=== PATIENT | female | born 1950 | race Caucasian/White ===

== ENCOUNTER 2019-09-08 11:57 | Outpatient (CLI) | payer MEDICARE, SELFPAY ==
[2019-09-08 13:08] LABS: Basophils Absolute Auto 0.1 K/mm3 (0.0-0.1); Eosinophils Absolute Auto 0.3 K/mm3 (0-0.3); Eosinophils Percent Auto 5.7 % (0-4.4); Hemoglobin 14.8 g/dL (12.0-15.0); Immature Granulocyte Absolute 0.02 K/mm3 (0.00-0.031); Immature Granulocyte Percent A 0.4 % (0-0.5); Lymphocytes Percent Auto 24.9 % (18.3-44.2); Mean Corpuscular HGB Conc 32.9 g/dl (32-36); Mean Corpuscular Hemoglobin 32.8 pg (26-34); Mean Corpuscular Volume 99.8 fl (80-100); Mean Platelet Volume 8.9 fl (7.4-10.4); Monocytes Absolute Auto 0.4 K/mm3 (0.1-0.6); Neutrophils Absolute Auto 3.1 K/mm3 (1.3-6.7); Platelet Count Result 187 k/mm3 (150-375); Red Blood Count 4.51 M/mm3 (4.2-5.4); Red Cell Distribution Width 13.5 % (11.5-14.5); White Blood Count 5.2 K/mm3 (4.5-10.0)
[2019-09-08 13:15] LABS: Urine Cotinine NEGATIVE
[2019-09-08 13:16] LABS: Prothrombin Time 13.1 Seconds (11.1-14.7)
[2019-09-08 13:17] LABS: Add Urine Microscopic? YES; Appearance Urine Clear (Clear); Bacteria Urine Trace /hpf; Bilirubin Urine Negative (Negative); Blood Urine Negative (Negative); Color Urine Yellow (Yellow); Glucose Urine UA Negative (Negative); Ketones Urine Trace mg/dL (Negative); Leukocyte Esterase Ur Trace LEU/UL (Negative); Mucus Urine Few /lpf; Nitrate Urine Negative (Negative); Partial Thromboplastin Time 28.1 SECONDS (22.3-36.8); Protein Urine Negative (Negative); RBC Urine 0-2 /hpf (0-2); Specific Grav Ur 1.025 (1.001-1.035); Squamous Epithelial Cell Urine Moderate /hpf (Few); Urobilinogen Urine Negative mg/dL (<2.0); WBC Urine 0-3 /hpf
[2019-09-08 13:30] LABS: Albumin Level 4.2 g/dL (3.5-5.1); Blood Urea Nitrogen 14 mg/dL (7-17); Calcium 9.2 mg/dL (8.4-10.2); Carbon Dioxide 27 mmol/L (22-30); Chloride 105 mmol/L (98-107); Estimated Glomerular Filt Rate > 60; Glucose 87 mg/dL (65-105); Potassium 4.2 mmol/L (3.4-5.0); Sodium 138 mmol/L (137-145)
[2019-09-08 13:41] LABS: Hemoglobin A1C 5.2 % (<5.7)
== END 2019-09-08 11:58 | disposition home or self-care (01) ==
LOC: ANHSURGERY 12:02
PROVIDERS: PCP Family Medicine; Visit Provider Orthopaedic Surgery
DX: Z01.818 Encounter for other preprocedural examination (principal); M17.11 Unilateral primary osteoarthritis, right knee
CPT/HCPCS: 36415; 80048; 80307; 81001; 82040; 83036; 85025; 85610; 85730; 87081

== ENCOUNTER 2019-11-17 14:21 | Outpatient (CLI) | payer MEDICARE, SELFPAY ==
[2019-11-17 14:38] LABS: Hematocrit 46.3 % (35.0-42.0); Hemoglobin 15.5 g/dL (11.7-13.8)
[2019-11-17 14:39] LABS: Add Urine Microscopic? NO; Appearance Urine Clear (Clear); Bilirubin Urine Negative (Negative); Blood Urine Negative (Negative); Color Urine Yellow (Yellow); Glucose Urine UA Negative (Negative); Ketones Urine Negative (Negative); Leukocyte Esterase Ur Negative (Negative); Nitrate Urine Negative (Negative); Protein Urine Negative (Negative); Specific Grav Ur 1.015 (1.010-1.020); Urobilinogen Urine 0.2 mg/dL (0.2-1.0)
[2019-11-17 14:51] LABS: Alanine Aminotransferase 23 U/L (14-59); Albumin Level 3.8 g/dL (3.4-5.0); Alkaline Phosphatase 77 U/L (46-116); Ammonia 12 umol/L (11-32); Anion Gap 14.7 mmol/L (7-16); Aspartate Amino Transferase 16 U/L (15-37); Bilirubin,Total 0.5 mg/dL (0.00-1.00); Calcium 8.9 mg/dL (8.5-10.1); Carbon Dioxide 28 mmol/L (21-32); Chloride 104 mmol/L (98-108); Estimated Glomerular Filt Rate > 60; GGT 28 U/L (5-55); Glucose 100 mg/dL (70-99); Potassium 4.7 mmol/L (3.5-5.1); Sodium 142 mmol/L (136-145); Total Protein 7.2 g/dL (6.4-8.2)
[2019-11-17 14:52] LABS: Partial Thromboplastin Time 27.6 SEC (22.3-31.6); Prothrombin Time 10.6 Seconds (9.64-11.0)
[2019-11-17 14:56] LABS: Blood Urea Nitrogen 19 mg/dL (7-18); Osmolality Calculated 296 mOsm/kg (285-295)
== END 2019-11-17 14:22 | disposition home or self-care (01) ==
LOC: CHSLAB 14:23
PROVIDERS: PCP Family Medicine; Visit Provider Family Medicine
DX: G20 Parkinson's disease (principal); F10.21 Alcohol dependence, in remission; I10 Essential (primary) hypertension; R94.5 Abnormal results of liver function studies; N39.0 Urinary tract infection, site not specified; Z79.01 Long term (current) use of anticoagulants
CPT/HCPCS: 36415; 80053; 81003; 82140; 82977; 85014; 85018; 85610; 85730; 87086; 87088

== ENCOUNTER 2019-11-28 11:23 | Outpatient (CLI) | payer MEDICARE, SELFPAY ==
[2019-11-28 12:02] LABS: Basophils Percent Auto 0.6 % (0.2-1.2); Eosinophils Absolute Auto 0.3 K/mm3 (0-0.3); Hematocrit 46.6 % (37.0-47.0); Hemoglobin 15.8 g/dL (12.0-15.0); Immature Granulocyte Absolute 0.01 K/mm3 (0.00-0.031); Immature Granulocyte Percent A 0.2 % (0-0.5); Lymphocytes Absolute Auto 1.55 K/mm3 (0.9-3.2); Lymphocytes Percent Auto 24.1 % (18.3-44.2); Mean Corpuscular HGB Conc 33.9 g/dl (32-36); Mean Corpuscular Hemoglobin 33.5 pg (26-34); Mean Corpuscular Volume 98.9 fl (80-100); Mean Platelet Volume 9.4 fl (7.4-10.4); Monocytes Absolute Auto 0.5 K/mm3 (0.1-0.6); Monocytes Percent Auto 7.3 % (2.6-8.5); Neutrophils Percent Auto 62.8 % (45.5-73.1); Platelet Count Result 223 k/mm3 (150-375); Red Blood Count 4.71 M/mm3 (4.2-5.4); Red Cell Distribution Width 13.2 % (11.5-14.5); White Blood Count 6.4 K/mm3 (4.5-10.0)
[2019-11-28 12:11] LABS: Add Urine Microscopic? YES; Appearance Urine Clear (Clear); Bilirubin Urine Negative (Negative); Color Urine Yellow (Yellow); Glucose Urine UA Negative (Negative); Ketones Urine Negative (Negative); Leukocyte Esterase Ur 2+ LEU/UL (Negative); Mucus Urine Few /lpf; Nitrate Urine Negative (Negative); Protein Urine Negative (Negative); RBC Urine 0-2 /hpf (0-2); Squamous Epithelial Cell Urine Many /hpf (Few); Urobilinogen Urine Negative mg/dL (<2.0)
[2019-11-28 12:16] LABS: Urine Cotinine NEGATIVE
[2019-11-28 12:53] LABS: Blood Urine Negative (Negative); Specific Grav Ur 1.032 (1.001-1.035)
== END 2019-11-28 11:24 | disposition home or self-care (01) ==
LOC: ANHSURGERY 11:25
PROVIDERS: PCP Family Medicine; Visit Provider Orthopaedic Surgery
DX: M19.90 Unspecified osteoarthritis, unspecified site (principal); Z01.812 Encounter for preprocedural laboratory examination
CPT/HCPCS: 36415; 80307; 81001; 85025; 86850; 86900; 86901; 87081; 87086; 87088

== ENCOUNTER 2019-12-01 00:12 | Outpatient (CLI) | payer MEDICARE, SELFPAY ==
[2019-12-01 16:41] LABS: SARS-CoV-2 RNA PCR Negative
== END 2019-12-01 00:13 | disposition home or self-care (01) ==
LOC: ANHCOVIDDT 00:12
PROVIDERS: PCP Family Medicine; Visit Provider Orthopaedic Surgery
DX: Z01.812 Encounter for preprocedural laboratory examination (principal); Z20.828 Contact with and (suspected) exposure to other viral communicable diseases
CPT/HCPCS: 87635; C9803; U0003

== ENCOUNTER 2019-12-04 14:01 | Observation (INO) | payer MEDICARE, SELFPAY ==
[2019-09-08 12:34] VITALS: BMI 29.2
[2019-09-08 13:06] VITALS: BP 147/67; PULSE 63; RESP 18; TEMP 36.8; O2SAT 96
[2019-11-26 15:17] VITALS: BMI 29.2
--- NOTE | 2019-12-02 15:21 | WPDANESEPPF ---
Anes - Initial Pre Proc Eval Procedure: Operation Date: 12/03/19 07:30 Proposed Procedures p Right Total Knee Arthroplasty - Jd Mitchell MD Date/Time: 12/02/19 15:21 Surgeon: Jd Mitchell MD Pre Op Diagnosis: Right Knee OA Patient Data Age: 69 Gender: F Height: 1.6 m Weight: 74.9 kg Last Vital Signs Temp 36.8 C 09/08/19 13:06 Pulse 63 09/08/19 13:06 Resp 18 09/08/19 13:06 BP 147/67 H 09/08/19 13:06 Pulse Ox 96 09/08/19 13:06 Allergies Allergy/AdvReac Type Severity Reaction Status Date / Time lisinopril Allergy Mild cough Verified 11/26/19 15:07 Home Medications Medication Instructions Recorded Confirmed Type glucosamine sulfate 500 mg tablet 500 mg PO DAILY 07/07/19 11/26/19 History montelukast 10 mg tablet 10 mg PO DAILY 07/07/19 11/26/19 History pantoprazole 40 mg tablet,delayed 40 mg PO QAM 07/07/19 11/26/19 History release valacyclovir 1 gram tablet 1,000 mg PO DAILY 08/05/19 11/26/19 History umeclidinium 62.5 mcg-vilanterol 1 inhalation INHALATION Q24H #60 08/14/19 11/26/19 Rx 25 mcg/actuation powdr for each inhalation acetaminophen [Tylenol Arthritis 650 mg PO Q12H PRN 09/08/19 11/26/19 History Pain] tramadol 50 mg tablet 50 mg PO Q6H PRN #90 tablet 10/21/19 11/26/19 Rx losartan 100 mg tablet 50 mg PO DAILY #45 tablet 11/10/19 11/26/19 Rx cholecalciferol (vitamin D3) 25 25 mcg PO DAILY 11/20/19 11/26/19 History mcg (1,000 unit) capsule diclofenac sodium 75 mg 75 mg PO BID #60 tablet 11/20/19 11/26/19 Rx tablet,delayed release sulfamethoxazole 800 1 tablet PO Q12H #6 tablet 12/02/19 Rx mg-trimethoprim 160 mg tablet Patient hx anesthesia problems: none Family hx anesthesia problems: none PMFSH Past Medical History Medical History (Updated 12/02/19 @ 15:24 by Robin Lemus MD) Abdominal hernia Acid reflux Arthritis Benign hypertension Benign reactive hypertension COPD (chronic obstructive pulmonary disease) Degenerative joint disease of knee Herpes genitalis in women High cholesterol History of tobacco use disorder History of vaginal delivery x 2 Hyperlipidemia Overweight (BMI 25.0-29.9) S/P ORIF (open reduction internal fixation) fracture distal radius Skin cancer Surgical History Surgical History Hx of rotator cuff surgery Hx of total hip arthroplasty Social History Social History Smoking packs per day: 2 Smoking cigarettes per day: 40.0 Years smoked: 30 Smoking pack-years: 60.00 Smoking status: Former smoker Tobacco type: cigarettes Second hand tobacco smoke exposure: Yes Smoking end date: 07/02/11 Alcohol intake: current Drinks per week: 3 Substance use: never Substance use type: does not use Additional occupation/education comments: laid off due to covid-19 Gender identity (if verbalized by the patient): Female Anes - Eval Final PreProcedure Day of Procedure 12/02/19 15:21 Patient weight: overweight Heart: regular rate and rhythm Lungs: clear to auscultation and normal air movement Airway: Mallampati scale class II Neurological: alert and oriented Last oral intake: >/= 8 hours ASA classification: III Emergent: no Anesthetic plan: proceed Anesthesia type and monitoring: general LMA Informed Consent: The patient's anesthetic plan and its attendant risks and benefits were discussed with the patient/family/POA. Questions were solicited and answers provided to the satisfaction of the patient/family/POA.
[2019-12-03] VITALS (12 sets, daily range): BP systolic 114–138; BP diastolic 63–79; PULSE 61–73; RESP 12–16; TEMP 36.2–37.1; O2SAT 61–100
[2019-12-03] MEDS: LACTATED RINGERS 1,000 ML 30 ML IV CONT ×2 (06:35→09:56)
[2019-12-03] MEDS: IBUPROFEN IV 800 MG/200 ML 800 MG/200 ML BAG 400 MG IVPB (06:55)
[2019-12-03] MEDS: TRANEXAMIC ACID 1,000MG/ISO100 1,000 MG/100 ML BAG 200 MG IVPB (06:55)
--- NOTE | 2019-12-03 07:34 | WPDANESPNB ---
Anes - Peripheral Nerve Block Date/Time: 12/03/19 07:34 I have discussed with the patient/family/POA the placement of a peripheral nerve block for post-operative pain management, including associated risks, benefits, complications, and side effects. Alternative methods of post-operative analgesia were detailed. Questions were solicited and answers provided to the satisfaction of the patient/family/POA. Time-Out: A pre-procedural Time-Out was completed immediately before starting the procedure and confirmed: Patient Identification, Site, Procedure, Patient Position and the Availability of Requisite Equipment. Clinical Indications: Acute post-operative pain management requested by the operative surgeon. Nerve Block Insertion Note Anes-nerve block: femoral (20cc) right Patient position: supine Skin prep: chlorhexidine Needle: 22 gauge, stimulating, insulated echogenic needle. Needle length: 80 mm Technique: ultrasound (in plane) Injectate: bupivacaine 0.5% with epi 5 mcg/ml (20cc) Observations: tolerated well Complications: none Procedure start time:: 725 Procedure end time:: 730
--- NOTE | 2019-12-03 07:37 | WPDHPUPDATE1 ---
History and Physical Update Update Date/Time: 12/03/19 07:37 History and Physical has been reviewed, including an updated exam of the patient. There are NO changes in the patient's condition. Risks, benefits, and alternatives have been discussed and questions answered. Patient agrees to proceed with procedure.
--- NOTE | 2019-12-03 07:41 | SUR.PREOP ---
0730- SPOKE WITH DR. JENKINS ABOUT PT GETTING VANCO IN PRE OP. HE STATED THAT WAS FINE, HE STILL WANTS PT TO GET ANCEF 2 G DURING PROCEDURE.
[2019-12-03] MEDS: ceFAZolin 2 GM/D5W 50 ML 2 GM/50 ML BAG IVPB ×2 (07:47→16:11)
[2019-12-03] MEDS: TRANEXAMIC ACID 1,000 MG/10 ML AMPUL 1000 MG IV PUSH (09:17)
--- NOTE | 2019-12-03 09:50 | PM.OP ---
Procedure Note - Brief Procedure Note - Brief Date of procedure: 12/03/19 Pre-op diagnosis: Right Knee OA Post-op diagnosis: same Procedure performed: R TKA Anesthesia: GETA Surgeon: Jd Mitchell MD Estimated blood loss (mL): 100 Complications: No immediate complications Condition: stable Disposition: PACU
--- NOTE | 2019-12-03 11:04 | SUR.PHASEI ---
1100 SPOKE WITH GRANDDAUGHTER CAMILLE PER PHONE- UPDATE GIVEN.
--- NOTE | 2019-12-03 12:03 | PM.OP ---
Procedure Note - Brief Procedure Note - Brief Date of procedure: 12/03/19 Pre-op diagnosis: Right KNEE DJD Post-op diagnosis: same Procedure performed: R TKA Anesthesia: GLMA and GETA Surgeon: Jd Mitchell MD Estimated blood loss (mL): 100 Complications: No immediate complications Condition: stable Disposition: PACU
--- NOTE | 2019-12-03 13:27 | OP_ITS ---
DATE OF PROCEDURE: 12/03/2019 PREOPERATIVE DIAGNOSIS: Right knee DJD. POSTOPERATIVE DIAGNOSIS: Right knee DJD. PROCEDURE: Right total knee arthroplasty. ANESTHESIA: General. COMPLICATIONS: None. INDICATIONS: This is a 69-year-old female who has severe arthrosis to the right knee. She was indicated for right total knee arthroplasty. DESCRIPTION OF PROCEDURE: The patient was taken to the operating room in stable condition and placed in the supine position. General anesthesia was induced, and then the right lower extremity was prepped and draped sterilely from the toes to the thigh. A midline skin incision was made. Medial parapatellar arthrotomy was made. Patella was everted. There was severe arthrosis in all 3 compartments of the knee joint. IM shannan was placed in the femur. Distal femoral cut was made at 5 degrees of valgus removing approximately 9 mm of bone from the high side. The knee was sized to 62.5, so a cutting block was placed in 3 degrees of external rotation and alignment with Whitesides line. Anterior, posterior, and chamfer cuts were made to the femur. Next, an IM shannan was placed in the tibia and transtibial cut was made with a cutting guide, removing approximately 10 mm of bone from the high side of the tibia. The tibia was planed to a smooth surface. Posterior osteophytes were removed with osteotome. A 69 tibial trial was placed in alignment with one-third medial aspect of the tibial tubercle, and then a 62.5 femoral trial was placed, and then eventually a 12 poly was used. The knee came out to full extension. There was good stability in anterior and posterior plane. There was good varus and valgus stability as well on the flexion and extension and the patella tracked without any tilt. The trial instrumentation was removed, and then a Biomet tibial component measuring 69 and a femoral component measuring 62.5 were both cemented into place, and then a 12 poly component was tapped into place and secured. The knee came out to full extension until cement was hardened. Once cement was hardened, excess cement was removed from the periphery of the implant. The knee came out to full extension. There was good tracking of the patella. There was good varus and valgus stability in all planes. There was good anterior-posterior stability. The tourniquet was deflated. Bleeders were cauterized. The wound was irrigated with Betadine and sterile water for approximately 3 minutes, and then it was washed out. The arthrotomy was approximated with #1 Vicryl suture, subcutaneous tissues with 2-0 Vicryl, and skin was approximated yancy. Wound was washed and placed sterile dressing. Jim I MT: Dusty
[2019-12-03] MEDS: DIAZEPAM 5 MG TABLET PO (16:06)
[2019-12-03] MEDS: DOCUSATE SODIUM 100 MG CAPSULE PO (16:08)
[2019-12-03] MEDS: CELECOXIB 200 MG CAPSULE PO (16:08)
--- NOTE | ~2019-12-04 | XR_ITS ---
EXAMINATION: XR knee RT 2V DATE: 12/03/2019 10:05 INDICATION: Total right knee arthroplasty. Postop. TECHNIQUE: 2 views of right knee were obtained. COMPARISON: Right knee radiographs 07/07/2019 FINDINGS: There is a total right hip arthroplasty without patellar resurfacing in near-anatomic align ment. No fracture. There is gas in the knee joint and soft tissues, consistent with recent surgery. A nterior skin yancy are noted. IMPRESSION: 1. Total right knee arthroplasty in near-anatomic alignment. Reviewed, dictated and finalized at location A.
[2019-12-04] MEDS: ceFAZolin 2 GM/D5W 50 ML 2 GM/50 ML BAG IVPB ×2 (00:24→08:24)
[2019-12-04] MEDS: MORPHINE SULFATE 4 MG/ML INJ IV PUSH (02:18)
[2019-12-04 05:27] LABS: Basophils Percent Auto 0.4 % (0.2-1.2); Eosinophils Absolute Auto 0.3 K/mm3 (0-0.3); Eosinophils Percent Auto 4.5 % (0-4.4); Hematocrit 38.7 % (37.0-47.0); Hemoglobin 12.6 g/dL (12.0-15.0); Immature Granulocyte Absolute 0.02 K/mm3 (0.00-0.031); Immature Granulocyte Percent A 0.3 % (0-0.5); Lymphocytes Absolute Auto 0.99 K/mm3 (0.9-3.2); Lymphocytes Percent Auto 13.1 % (18.3-44.2); Mean Corpuscular HGB Conc 32.6 g/dl (32-36); Mean Corpuscular Hemoglobin 32.8 pg (26-34); Mean Corpuscular Volume 100.8 fl (80-100); Mean Platelet Volume 9.9 fl (7.4-10.4); Monocytes Absolute Auto 0.6 K/mm3 (0.1-0.6); Monocytes Percent Auto 7.3 % (2.6-8.5); Neutrophils Absolute Auto 5.6 K/mm3 (1.3-6.7); Neutrophils Percent Auto 74.4 % (45.5-73.1); Platelet Count Result 154 k/mm3 (150-375); Red Blood Count 3.84 M/mm3 (4.2-5.4); Red Cell Distribution Width 13.3 % (11.5-14.5); White Blood Count 7.6 K/mm3 (4.5-10.0)
[2019-12-04 05:41] LABS: Blood Urea Nitrogen 10 mg/dL (7-17); Calcium 8.5 mg/dL (8.4-10.2); Carbon Dioxide 25 mmol/L (22-30); Chloride 106 mmol/L (98-107); Estimated CRCL calculation 63 ml/min; Estimated Glomerular Filt Rate > 60; Glucose 103 mg/dL (65-105); Sodium 136 mmol/L (137-145)
[2019-12-04 06:00] VITALS: BP 123/50; PULSE 69; RESP 12; TEMP 36.8; O2SAT 91
[2019-12-04] MEDS: CHOLECALCIFEROL 1,000 UNIT TABLET 1000 UNITS PO (08:25)
[2019-12-04] MEDS: CELECOXIB 200 MG CAPSULE PO ×2 (08:25→17:21)
[2019-12-04] MEDS: ASPIRIN 325 MG ENTERIC TABLET 650 MG PO (08:25)
[2019-12-04] MEDS: DOCUSATE SODIUM 100 MG CAPSULE PO ×2 (08:26→17:21)
[2019-12-04] MEDS: MONTELUKAST SODIUM 10 MG TABLET PO (08:26)
[2019-12-04] MEDS: PANTOPRAZOLE 40 MG TABLET PO (08:26)
[2019-12-04] MEDS: LOSARTAN POTASSIUM 50 MG TABLET PO (08:26)
--- NOTE | 2019-12-04 08:40 | PM.PNORT ---
Progress Note: A&P Assessment and Plan (1) Status post total knee replacement: Qualifiers: Laterality: right Qualified Code(s): Z96.651 - Presence of right artificial knee joint Code(s): Z96.659 - Presence of unspecified artificial knee joint Status: Acute Assessment and Plan: POD #1: RIGHT TKA VSS, afebrile. H/H Stable. NV intact aside from block. +ankle dorsiflexion/plantarflexion. Negative Arias's Sign. 2+ Pedal pulses. Continue PT/OT. Walker. Fall Risk. Continue pain control. Continue DVT prophylaxis with aspirin. Ice. No pillows under knee. SCDs. Incentive Spirometry. Dispo: Home with Home Health pending progress with PT/OT (2) Degenerative joint disease of knee: Qualifiers: Osteoarthritis type: primary Laterality: right Qualified Code(s): M17.11 - Unilateral primary osteoarthritis, right knee Code(s): M17.10 - Unilateral primary osteoarthritis, unspecified knee Status: Acute Subjective Subjective Date/Time Seen: 12/04/19 08:40 Post Op day: 1 Principal diagnosis: Right Knee DD Interval history: POD #1: RIGHT TKA Patient doing well. Pain well controlled. Up in chair, eating breakfast. No additional complaints. Review of Systems Review of Systems: All systems reviewed & are unremarkable except as noted in HPI and below Constitutional: Constitutional: Denies chills, Denies fever(s), Denies headache(s) and Denies night sweats ENT: Denies headache(s) Cardiovascular: Cardiovascular: Denies chest pain, Denies diaphoresis, Reports lightheadedness, Denies palpitations and Denies dyspnea Respiratory: Respiratory: Denies cough, Denies dyspnea and Denies wheezing Gastrointestinal: Gastrointestinal: Denies abdominal pain, Denies constipation, Denies nausea and Denies vomiting Genitourinary: Genitourinary: Reports nocturia and Denies dysuria Musculoskeletal: Musculoskeletal: Reports arthralgias (Right Knee ) and Reports joint swelling (Right Knee ) Neurologic: Denies headache(s) Endocrine: Endocrine: Denies palpitations Exam Const: General: comfortable and no acute distress Resp: Effort & Inspection: normal respiratory effort Cardio: Rate: regular rate Rhythm: regular rhythm GI: GI Palp: Yes Soft to palpation, No Tenderness to palpation present (GI) and No Guarding due to palpation present (GI) Skin: Wounds: wounds noted Other: Incision c/d/i. No surrounding redness/warmth. No hematoma. Mild ecchymosis. No wound dehiscence Neuro: Cognition (Neuro): normal cognition Other: NV intact aside from block. Moves toes. Sensation intact to light touch. +ankle dorsiflexion/plantarflexion. Extrem: Right upper extremity: normal to inspection, full ROM and normal capillary refill Left upper extremity: normal to inspection, full ROM and normal capillary refill Right lower extremity: normal to inspection, full ROM (ROM limited due to recent surgical intervention ) and knee Details: tenderness (diffuse, mild ) and swelling (diffuse, mild ) Left lower extremity: normal to inspection Psych: Mental Status: mental status grossly normal Objective Data Vital Signs Vital Signs: Vital Signs - 24 hr 12/03/19 09:56 12/03/19 10:10 12/03/19 10:25 Temperature 36.9 C Pulse Rate 73 69 72 Respiratory Rate 12 12 14 Blood Pressure 125/79 138/72 129/70 Pulse Oximetry 100 100 99 12/03/19 10:40 12/03/19 10:55 12/03/19 11:10 Temperature Pulse Rate 67 68 69 Respiratory Rate 12 14 14 Blood Pressure 121/70 118/66 121/69 Pulse Oximetry 95 94 95 12/03/19 11:20 12/03/19 11:35 12/03/19 12:58 Temperature 36.7 C 36.2 C L Pulse Rate 68 65 Respiratory Rate 12 16 Blood Pressure 114/79 125/63 Pulse Oximetry 97 97 100 12/03/19 14:00 12/03/19 21:44 12/04/19 06:00 Temperature 36.9 C 36.9 C 36.8 C Pulse Rate 69 64 69 Respiratory Rate 16 16 12 Blood Pressure 129/71 128/63 123/50 L Pulse Oximetry 95 93 91 Intake/Output Intake/Output: Int
[2019-12-04 09:37] VITALS: O2SAT 92
--- NOTE | 2019-12-04 11:20 | PM.IMCN ---
Assessment and Plan Assessment and plan (1) Status post total knee replacement: Qualifiers: Laterality: right Qualified Code(s): Z96.651 - Presence of right artificial knee joint Code(s): Z96.659 - Presence of unspecified artificial knee joint Status: Acute Assessment and Plan: POD1 right total knee replacement per Dr. Mitchell. Patient doing well Postoperatively. Pain is reasonable. Working well with therapy Post op care, pain management, PT/OT, DVT ppx per primary service Monitor (2) Degenerative joint disease of knee: Qualifiers: Osteoarthritis type: primary Laterality: right Qualified Code(s): M17.11 - Unilateral primary osteoarthritis, right knee Code(s): M17.10 - Unilateral primary osteoarthritis, unspecified knee Status: Acute Assessment and Plan: Pain well controlled at this time Please see above a/p (3) COPD (chronic obstructive pulmonary disease): Code(s): J44.9 - Chronic obstructive pulmonary disease, unspecified Status: Acute Assessment and Plan: No acute issues at this moment Continue home medications Monitor respiratory status (4) Benign hypertension: Code(s): I10 - Essential (primary) hypertension Status: Acute Assessment and Plan: BP 120s sys this morning Continue with home antihypertensives (5) Herpes genitalis in women: Code(s): A60.09 - Herpesviral infection of other urogenital tract Status: Acute Assessment and Plan: Patient states she takes Valtrex daily Will resume Valtrex today (6) Acid reflux: Code(s): K21.9 - Gastro-esophageal reflux disease without esophagitis Status: Acute Assessment and Plan: No acute issues at this time Continue with home PPI Additional Plan Thank you for allowing the Hospitalist team to care for this patient during their stay. We will continue to follow with you. Please call with any questions DOS 12/04/2019 at roughly 11:00 am Collaborating physician for this Consult H&P is Dr. Phillips HPI Data of Consult Consult date: 12/04/19 Requesting Physician: Jd Mitchell MD Primary Care Provider: Kim Valencia MD Consult Narrative Narrative: Junie Alfred is a 69 year old female with history of COPD, HTN, HLD and DJD who is here for elective right total knee replacement POD1 per Dr. Mitchell; Hospitalist service has been consulted for medical management of comorbid conditions. Patient states she was prescribed Tylenol, Tramadol, and diclofenac by her PCP for her DJD in her right knee. Overtime, medications progressively became less effective and was evaluated by Dr. Mitchell. She was told she had [id number] disease with a bone spur and also had chronic swelling; she elected to proceed with right total knee replacement yesterday. She is doing well today. She states her pain is well controlled and has been working well with PT/OT. She notes the block has not fully worn off yet, but is now getting sensation back. She is tolerating her diet and passing gas, but no BM as of yet. No other complaints at time moment. Denies f/c/s, headaches, dizziness, lightheadedness, cp/palpitations, sob/cough, n/v/d/c, abd pain, dysuria, hematuria, cloudy urine. Review of Systems Review of Systems: All systems reviewed & are unremarkable except as noted in HPI and below PMFSH Past Medical History Medical History Abdominal hernia Acid reflux Arthritis Benign hypertension Benign reactive hypertension COPD (chronic obstructive pulmonary disease) Degenerative joint disease of knee Herpes genitalis in women High cholesterol History of tobacco use disorder Histo
[2019-12-04] MEDS: VALACYCLOVIR HCL 500 MG TABLET 1000 MG PO (12:15)
[2019-12-04 14:00] VITALS: BP 126/54; PULSE 80; RESP 14; TEMP 36.8; O2SAT 99
[2019-12-04 19:52] VITALS: O2SAT 93
[2019-12-04 22:00] VITALS: BP 127/42; PULSE 81; RESP 18; TEMP 37.3; O2SAT 93
[2019-12-05] MEDS: MORPHINE SULFATE 4 MG/ML INJ IV PUSH (00:14)
[2019-12-05 05:25] LABS: Blood Urea Nitrogen 12 mg/dL (7-17); Calcium 8.7 mg/dL (8.4-10.2); Carbon Dioxide 26 mmol/L (22-30); Chloride 105 mmol/L (98-107); Estimated CRCL calculation 72 ml/min; Estimated Glomerular Filt Rate > 60; Glucose 124 mg/dL (65-105); Magnesium 1.8 mg/dL (1.6-2.3); Potassium 3.8 mmol/L (3.4-5.0); Sodium 135 mmol/L (137-145)
[2019-12-05 05:39] VITALS: BP 128/54; PULSE 70; RESP 16; TEMP 36.7; O2SAT 92
[2019-12-05 08:07] VITALS: O2SAT 94
[2019-12-05] MEDS: CELECOXIB 200 MG CAPSULE PO (08:36)
[2019-12-05] MEDS: ASPIRIN 325 MG ENTERIC TABLET 650 MG PO (08:36)
[2019-12-05] MEDS: CHOLECALCIFEROL 1,000 UNIT TABLET 1000 UNITS PO (08:36)
[2019-12-05] MEDS: VALACYCLOVIR HCL 500 MG TABLET 1000 MG PO (08:36)
[2019-12-05] MEDS: DOCUSATE SODIUM 100 MG CAPSULE PO (08:36)
[2019-12-05] MEDS: LOSARTAN POTASSIUM 50 MG TABLET PO (08:36)
[2019-12-05] MEDS: PANTOPRAZOLE 40 MG TABLET PO (08:37)
[2019-12-05] MEDS: MONTELUKAST SODIUM 10 MG TABLET PO (08:37)
--- NOTE | 2019-12-05 09:10 | PM.PNORT ---
Progress Note: A&P Assessment and Plan (1) Status post total knee replacement: Qualifiers: Laterality: right Qualified Code(s): Z96.651 - Presence of right artificial knee joint Code(s): Z96.659 - Presence of unspecified artificial knee joint Status: Acute Assessment and Plan: POD #2: RIGHT TKA Continue PT/OT. Walker. Fall Risk. Continue pain control. Continue DVT prophylaxis with aspirin. Ice. No pillows under knee. SCDs. Incentive Spirometry. Dressing changed. Patient to be sent home with 1 additional dressing. Dispo: Home with Home Health today (2) Degenerative joint disease of knee: Qualifiers: Laterality: right Osteoarthritis type: primary Qualified Code(s): M17.11 - Unilateral primary osteoarthritis, right knee Code(s): M17.10 - Unilateral primary osteoarthritis, unspecified knee Status: Acute Subjective Subjective Date/Time Seen: 12/05/19 09:10 Post Op day: 2 (Right TKA ) Principal diagnosis: Right Knee DJD Interval history: No new complaints. Tolerating PT/OT well. Walking in hallway. Block has worn off. Review of Systems Review of Systems: All systems reviewed & are unremarkable except as noted in HPI and below Constitutional: Constitutional: Denies chills, Denies fever(s), Denies headache(s) and Denies night sweats ENT: Denies headache(s) Cardiovascular: Cardiovascular: Denies chest pain, Denies diaphoresis, Reports lightheadedness, Denies palpitations and Denies dyspnea Respiratory: Respiratory: Denies cough, Denies dyspnea and Denies wheezing Gastrointestinal: Gastrointestinal: Denies abdominal pain, Denies constipation, Denies nausea and Denies vomiting Genitourinary: Genitourinary: Reports nocturia and Denies dysuria Musculoskeletal: Musculoskeletal: Reports arthralgias (Right Knee ) and Reports joint swelling (Right Knee ) Neurologic: Denies headache(s) Endocrine: Endocrine: Denies palpitations Exam Const: General: comfortable and no acute distress Resp: Effort & Inspection: normal respiratory effort Cardio: Rate: regular rate Rhythm: regular rhythm GI: GI Palp: Yes Soft to palpation, No Tenderness to palpation present (GI) and No Guarding due to palpation present (GI) Skin: Wounds: wounds noted Other: Incision c/d/i. No surrounding redness/warmth. No hematoma. Mild ecchymosis. No wound dehiscence Neuro: Cognition (Neuro): normal cognition Other: NV intact. Moves toes. Sensation intact to light touch. +ankle dorsiflexion/plantarflexion. Extrem: Right upper extremity: normal to inspection, full ROM and normal capillary refill Left upper extremity: normal to inspection, full ROM and normal capillary refill Right lower extremity: normal to inspection, full ROM (ROM limited due to recent surgical intervention ) and knee Details: tenderness (diffuse, mild ) and swelling (diffuse, mild ) Left lower extremity: normal to inspection Other: Dressing changed. Incision well-approximated. No signs of infection. New dressing applied. Psych: Mental Status: mental status grossly normal Objective Data Vital Signs Vital Signs: Vital Signs - 24 hr 12/04/19 09:37 12/04/19 14:00 12/04/19 19:52 Temperature 36.8 C Pulse Rate 80 Respiratory Rate 14 Blood Pressure 126/54 L Pulse Oximetry 92 99 93 12/04/19 22:00 12/05/19 05:39 12/05/19 08:07 Temperature 37.3 C 36.7 C Pulse Rate 81 70 Respiratory Rate 18 16 Blood Pressure 127/42 L 128/54 L Pulse Oximetry 93 92 94 Intake/Output Intake/Output: Intake & Output 12/02/19 12/03/19 12/04/19 12/05/19 23:59 23:59 23:59 23:59 Intake Total 880 1720 Output Total 2200 Balance 880 -480 Meds/Results Medications: Active Medications Generic Name Dose Route Start Last Admin Trade Name Freq PRN Reason Stop Dose Admin Albuterol/Ipratropium 1 puff 12/03/19 20:00 12/05/19 08:05 Combivent Respimat INHALATION 1 puff QIDRT YESSY Administration
--- NOTE | 2019-12-05 09:19 | PM.IMPN ---
Progress Note: A&P Assessment and Plan (1) Status post total knee replacement: Qualifiers: Laterality: right Qualified Code(s): Z96.651 - Presence of right artificial knee joint Code(s): Z96.659 - Presence of unspecified artificial knee joint Status: Acute Assessment and Plan: POD2 right total knee replacement per Dr. Mitchell. Patient doing well Postoperatively. Pain is reasonable. Working well with therapy Post op care, pain management, PT/OT, DVT ppx per primary service Monitor (2) Degenerative joint disease of knee: Qualifiers: Osteoarthritis type: primary Laterality: right Qualified Code(s): M17.11 - Unilateral primary osteoarthritis, right knee Code(s): M17.10 - Unilateral primary osteoarthritis, unspecified knee Status: Acute Assessment and Plan: Pain well controlled at this time Please see above a/p (3) COPD (chronic obstructive pulmonary disease): Code(s): J44.9 - Chronic obstructive pulmonary disease, unspecified Status: Acute Assessment and Plan: No acute issues at this moment Continue home medications Monitor respiratory status (4) Benign hypertension: Code(s): I10 - Essential (primary) hypertension Status: Acute Assessment and Plan: BP 120s sys this morning Continue with home antihypertensives (5) Herpes genitalis in women: Code(s): A60.09 - Herpesviral infection of other urogenital tract Status: Acute Assessment and Plan: Patient states she takes Valtrex daily Will continue Valtrex (6) Acid reflux: Code(s): K21.9 - Gastro-esophageal reflux disease without esophagitis Status: Acute Assessment and Plan: No acute issues at this time Continue with home PPI Additional Plan Thank you for allowing the Hospitalist team to care for this patient during their stay. We will continue to follow with you. Please call with any questions Subjective Date/time seen: 12/05/19 09:19 Interval history: Patient is a 69 yo F with history of COPD, HTN, HLD and DJD who is here for elective right total knee replacement POD2 per Dr. Mitchell; Hospitalist service has been consulted for medical management of comorbid conditions. Patient is doing well today, although now feeling some pain as the block has worn off. She has no other complaints at the moment. She notes some right lower leg/knee swelling from surgery. Tolerating diet. No Bms, but passing gas. Denies f/c, cp/palpitations, sob/cough, n/v/d/c, abd pain, dysuria, hematuria, cloudy urine Review of Systems Review of Systems: All systems reviewed & are unremarkable except as noted in HPI and below Exam Narrative: Exam Narrative: Patient sitting upright in bed at time of visit Const: General: cooperative, healthy appearing, comfortable, no acute distress, well developed, alert and awake Nutritional Appearance: well nourished and overweight Orientation/consciousness: patient oriented x3 HENMT: Head: normocephalic and atraumatic General nose exam: Normal nares present Face and sinus: face symmetric Mouth: Yes moist mucous membranes Eyes: General: appearance normal, both eyes and all related structures EOM: EOMs intact bilaterally Neck: Neck: trachea midline and supple Resp: Effort & Inspection: normal respiratory effort Auscultation: clear to auscultation bilaterally Cardio: Rate: regular rate Rhythm: regular rhythm Heart sounds: no murmurs GI: Inspection: non-distended GI Palp: No abdominal tenderness and Yes Soft to palpation Auscultation: normal bowel sounds Skin: General skin exam: normal color and no rashes or lesions noted Neuro: General: patient oriented x3, moves all extremities and no foc
--- NOTE | 2019-12-05 12:17 | PM.DS ---
DS: Admitting Diagnosis Admitting Diagnosis Admitting Diagnosis: Unilateral primary osteoarthritis, right knee DS: Discharge Diagnosis Discharge Diagnosis (1) Status post total knee replacement: Qualifiers: Laterality: right Qualified Code(s): Z96.651 - Presence of right artificial knee joint Code(s): Z96.659 - Presence of unspecified artificial knee joint Status: Acute DS: Summary Hospital Course Reason for hospitalization: Right Knee DJD Hospital Course: Patient underwent a right total knee replacement by Dr. Mitchell. She was admitted s/p right TKA for PT/OT and medical management. The hospitalist service was consulted for assistance with medical management. Overall, she had a stable hospital course. No complications. She was deemed safe to go home with home PT/OT. She will follow up in [address] Mitchell. Status at Discharge Functional status at discharge: uses cane/walker Overall status at discharge: patient is progressing back to baseline Time Spent with Patient Time attestation: Total time spent providing and/or coordinating discharge services: Time spent: Less than 30 minutes Exam Const: General: comfortable and no acute distress Resp: Effort & Inspection: normal respiratory effort Cardio: Rate: regular rate Rhythm: regular rhythm GI: GI Palp: Yes Soft to palpation, No Tenderness to palpation present (GI) and No Guarding due to palpation present (GI) Skin: Wounds: wounds noted Other: Incision c/d/i. No surrounding redness/warmth. No hematoma. Mild ecchymosis. No wound dehiscence Neuro: Cognition (Neuro): normal cognition Other: NV intact aside from block. Moves toes. Sensation intact to light touch. +ankle dorsiflexion/plantarflexion. Extrem: Right upper extremity: normal to inspection, full ROM and normal capillary refill Left upper extremity: normal to inspection, full ROM and normal capillary refill Right lower extremity: normal to inspection, full ROM (ROM limited due to recent surgical intervention ) and knee Left lower extremity: normal to inspection Psych: Mental Status: mental status grossly normal DS: Data Data Completed and Pending Labs on day of discharge: Labs from last 24 hours 12/05/19 04:49 Sodium 135 L Potassium 3.8 Chloride 105 Carbon Dioxide 26 BUN 12 Creatinine 0.60 L Estim Creat Clear Calc 72 Estimated GFR > 60 Glucose 124 H Calcium 8.7 Magnesium 1.8 Discharge Plan Discharge Attending physician on discharge: Jd Mitchell Consulting providers: Dhruv Brewer Discharging Clinician: Lina Love Anticipated Discharge Date/Time: 12/05/19 12:00 Patient Disposition: Home Health Service Activity: may shower, no driving and follow weight bearing status Diet: as tolerated Wound Care Instructions: keep dressing dry and other - see discharge instructions Discharge Instructions: JD MITCHELL M.D. [facility] [address] [place], [place] [id number] POST OPERATIVE DISCHARGE INSTRUCTIONS Your dressing was changed today. You will be sent home with one additional dressing to be changed in 5 days by the home health RN. You may shower but please do not submerge in a bathtub. Tex to be removed on the 14th day after surgery by the home health RN. You will be sent home with Aspirin for DVT prevention. Your pain medication has been called to your pharmacy. Do not walk without a walker for any reason until you are released by Dr. Mitchell. Do not drive until you are released by Dr. Mitchell. Your follow up appointment is scheduled for 12/24 at 9:15 AM in our office. Please contact our office at [phone] Per Care Coordination: Patient will have [facility] for usp, PT, and OT services. They can be contacted at [phone] Patient Instructions: Antibiotic Form, Aspirin (By mouth), Pain Management (DC), COPD (Ch
== END 2019-12-05 13:10 | disposition home health service (06) ==
LOC: ANHSURGERY 14:24 → ANH2MED 14:24
PROVIDERS: Physician Assistant; Admitting Provider Orthopaedic Surgery; PCP Family Medicine; Visit Provider Orthopaedic Surgery
PROC: (CPT 27447; principal; 2019-12-03 07:30)
DX: M17.11 Unilateral primary osteoarthritis, right knee (principal); G89.18 Other acute postprocedural pain; G89.29 Other chronic pain; J44.9 Chronic obstructive pulmonary disease, unspecified; I10 Essential (primary) hypertension; E66.3 Overweight; Z68.29 Body mass index [BMI] 29.0-29.9, adult; E78.5 Hyperlipidemia, unspecified; A60.09 Herpesviral infection of other urogenital tract; K21.9 Gastro-esophageal reflux disease without esophagitis; Z96.649 Presence of unspecified artificial hip joint; Z79.899 Other long term (current) drug therapy; Z87.891 Personal history of nicotine dependence
CPT/HCPCS: 27447; 64447; 36415; 73560; 80048; 83735; 85025; 94640; 97110; 97116; 97161; 97165; 97530; 97535; A9270; C1713; C1776; G0378; J0171; J0690; J1200; J1741; J2250; J2270; J2405; J2704; J2795; J3010; J3370; J7030; J7120

== ENCOUNTER 2019-12-30 08:51 | Outpatient (RCR) | payer MEDICARE, SELFPAY ==
--- NOTE | 2019-12-30 10:03 | PTOPEVAL ---
Thank you for referring Junie Alfred to [facility]. Please review, sign, date and return this plan of care KAYLEIGH. I agree with and certify that the following plan of care is medically necessary. Referring Physician Date Admitting Provider: Attending Provider: Jd Mitchell MD Referring Provider: *PT Outpatient Evaluation Start: 12/30/19 09:12 Freq: Status: Active Protocol: Document 12/30/19 09:12 RADHA (Rec: 12/30/19 09:33 RADHA [id number]) Therapy Assessment Status Assessment Status Assessment Status Evaluation Outpatient Past Medical History Neurological History Hx Other Neurological Disorders Yes: ESSENTIAL TREMORS Cardiovascular History Hx Hypertension Yes Hx Other Cardiac Disorders Yes: WALKS 2 MILES DAILY Respiratory History Hx Chronic Obstructive Pulmonary Disease Yes: USES INHALER (COPD) Gastrointestinal History Hx Gastroesophageal Reflux Disease Yes Hx Hernia Yes: RT INGUINAL HERNIA REPAIR Genitourinary History Hx Genitourinary Disorders No Significant History Musculoskeletal History Hx Arthritis Yes: GENERALIZED Hx Joint Replacement Yes: 2017 RT TOTAL HIP REPLACEMENT Hx Orthopedic Surgery Yes: RT ROTATOR CUFF REPAIR. RT ORIF. 2019 LT ORIF Hx Other Musculoskeletal Disorders Yes: OA RT KNEE Hematological History Hx Hematological Disorders No Significant History Endocrine History Hx Endocrine Disorders No Significant History HEENT History Hx HEENT Disorders No Significant History Integumentary History Hx Skin Disorders No Significant History Reproductive History Hx Sexually Transmitted Diseases Yes: GENITAL HERPES Psychosocial History Hx Psychiatric Disorders No Significant History Pain History Has Past Pain Affected Your Daily Life Yes: RT KNEE Anesthesia History Hx Anesthesia Reactions No Significant History Evaluation Information Problem Diagnosis Right TKA Onset 12/03/19 Additional Evaluation Detail LEFS=39 Subjective Information Pt. reports she underwent Query Text:As Reported By Patient/ right TKA on 12/02. she reports Family she has been doing rehab. She reports she was discharged last week. She is no longer using an AD in home and only using a cane in the community. She reports that she does have ache in the knee . She states that her goal is to be able to use her right leg normally and wa
--- NOTE | 2020-02-23 11:24 | PCPTNOTE ---
Pt. has failed to return to the clinic and will be discharged from our care. Refer to last daily note for pt. discharge status.
== END 2020-01-13 13:44 | disposition home or self-care (01) ==
LOC: CHSPT 08:51
PROVIDERS: Visit Provider Orthopaedic Surgery
DX: Z96.651 Presence of right artificial knee joint (principal)
CPT/HCPCS: 97016; 97110; 97161; 97530

== ENCOUNTER 2020-05-15 00:37 | Outpatient (CLI) | payer MEDICARE, SELFPAY ==
[2020-05-15 21:18] LABS: SARS-CoV-2 RNA PCR Negative
== END 2020-05-15 00:38 | disposition home or self-care (01) ==
LOC: ANHCOVIDDT 00:37
PROVIDERS: PCP Family Medicine; Visit Provider Internal Medicine Gastroenterology
DX: Z01.812 Encounter for preprocedural laboratory examination (principal); Z20.828 Contact with and (suspected) exposure to other viral communicable diseases
CPT/HCPCS: 87635; C9803; U0003

== ENCOUNTER 2020-05-19 01:38 | Day surgery (SDC) | payer MEDICARE, SELFPAY ==
[2020-05-14 11:05] VITALS: BMI 28.5
--- NOTE | 2020-05-19 06:49 | WPDANESEPPF ---
Anes - Initial Pre Proc Eval Procedure: Operation Date: 05/19/20 08:00 Proposed Procedures p Screening Colonoscopy - Calvin Webber MD Date/Time: 05/19/20 06:49 Surgeon: Calvin Webber MD Pre Op Diagnosis: Neoplasm Screening Patient Data Age: 69 Gender: F Height: 1.6 m Weight: 73 kg Allergies Allergy/AdvReac Type Severity Reaction Status Date / Time lisinopril Allergy Mild cough Verified 03/24/20 15:06 Home Medications Medication Instructions Recorded Confirmed Type clobetasol 0.05 % topical cream 1 applic TOPICAL BID PRN gm 12/25/19 05/14/20 History umeclidinium 62.5 mcg-vilanterol 1 inhalation INHALATION Q24H PRN 12/25/19 05/14/20 History 25 mcg/actuation powdr for each inhalation montelukast 10 mg tablet 10 mg PO DAILY #90 tablet 02/05/20 05/14/20 Rx pantoprazole 40 mg tablet,delayed 40 mg PO QAM #90 tablet 02/05/20 05/14/20 Rx release losartan 100 mg tablet 50 mg PO DAILY #45 tablet 02/06/20 05/14/20 Rx diclofenac sodium 75 mg 75 mg PO BID #60 tablet 03/26/20 05/14/20 Rx tablet,delayed release peg 3350-electrolytes 236 240 ml PO Q10M #4000 ml 03/26/20 Rx gram-22.74 gram-6.74 gram-5.86 gram solution acetaminophen [Tylenol Arthritis] 650 mg PO DAILY 05/14/20 05/14/20 History cholecalciferol (vitamin D3) 5,000 unit PO DAILY 05/14/20 05/14/20 History [Vitamin D3] glucosamine-chondroitin 2,000 mg PO DAILY 05/14/20 05/14/20 History Patient hx anesthesia problems: none Family hx anesthesia problems: none PMFSH Past Medical History Medical History (Updated 03/26/20 @ 09:38 by Gianna Serra PA-C) Abdominal hernia Acid reflux Arthritis Benign hypertension Benign reactive hypertension COPD (chronic obstructive pulmonary disease) Degenerative joint disease of knee Fall Herpes genitalis in women High cholesterol History of tobacco use disorder History of vaginal delivery x 2 Hyperlipidemia Overweight (BMI 25.0-29.9) Quadriceps weakness S/P ORIF (open reduction internal fixation) fracture distal radius Skin cancer Surgical History Surgical History History of open reduction and internal fixation (ORIF) procedure left wrist History of right inguinal hernia repair Hx of rotator cuff surgery Hx of total hip arthroplasty Status post total knee replacement Family History Family History Father Family history of Parkinson's disease Mother Patient's mother is , Onset Age: 42 Other Cerebrovascular accident Family history of malignant neoplasm Social History Social History (Updated 03/24/20 @ 15:06 by Rosamaria Hudson) Social History: Patient lives at home with her grown granddaughter. She wishes to be listed as a Full Code. Her PCP is Dr. Alvarez. 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) Smoking end date: 07/02/11 Alcohol intake: current Drinks per week: 4 Alcohol use details: WINE Substance use: never Substance use type: does not use Living arrangements: alone Additional occupation/education comments: laid off due to covid-19 Gender identity (if verbalized by the patient): Female Spiritual care concerns: No Anes - Eval Final PreProcedure Day of Procedure 05/19/20 06:49 Patient weight: obese Heart: regular rate and rhythm Lungs: clear to auscultation and normal air movement Airway: Mallampati scale class II Neurological: alert and oriented Last oral intake: >/= 8 hours ASA classification: III Emergent: no Anesthetic plan: proceed Anesthesia type and monitoring: general GIVS Informed Consent: The patient's anesthetic plan and its attendant risks and benefits were discussed with the pa
[2020-05-19 06:52] VITALS: BP 118/96; PULSE 66; RESP 16; TEMP 36.4; O2SAT 96; BMI 28.5
[2020-05-19] MEDS: LACTATED RINGERS 1,000 ML 150 ML IV CONT (07:01)
--- NOTE | 2020-05-19 08:08 | PM.HPGS ---
History of Present Illness History of Present Illness Consent: Risks, benefits, and alternatives have been discussed and questions answered. Patient agrees to proceed with procedure. Chief complaint: Neoplasm Screening Narrative: Junie Alfred is a 69 year old female with colon polyps 5 years ago. Review of Systems Constitutional: Constitutional: Denies headache(s) and Denies weakness Eyes: Eyes: Denies blurry vision ENT: Reports Normal hearing present, Denies headache(s) and Denies neck pain Cardiovascular: Cardiovascular: Denies chest pain and Denies dyspnea Respiratory: Respiratory: Denies dyspnea Gastrointestinal: Gastrointestinal: Reports no additional gastrointestinal complaints Genitourinary: Genitourinary: Denies dysuria Musculoskeletal: Musculoskeletal: Denies neck pain Integumentary/Breasts: Skin/Breast: Denies dry skin Neurologic: Reports Normal hearing present, Denies headache(s) and Denies weakness Psychiatric: Psychiatric: Denies anxiety Endocrine: Endocrine: Denies change in body appearance Hematologic/Lymphatic: Hematologic/Lymphatic: Denies easy bleeding Allergic/Immunologic: Allergic/Immunologic: Denies urticaria PMFSH Past Medical History Medical History (Updated 05/19/20 @ 08:08 by Calvin Webber MD) Abdominal hernia Acid reflux Adenomatous colon polyp Arthritis Benign hypertension Benign reactive hypertension COPD (chronic obstructive pulmonary disease) Degenerative joint disease of knee Fall Herpes genitalis in women High cholesterol History of tobacco use disorder History of vaginal delivery x 2 Hyperlipidemia Overweight (BMI 25.0-29.9) Quadriceps weakness S/P ORIF (open reduction internal fixation) fracture distal radius Skin cancer Surgical History Surgical History History of open reduction and internal fixation (ORIF) procedure left wrist History of right inguinal hernia repair Hx of rotator cuff surgery Hx of total hip arthroplasty Status post total knee replacement Family History Family History Father Family history of Parkinson's disease Mother Patient's mother is , Onset Age: 42 Other Cerebrovascular accident Family history of malignant neoplasm Social History Social History (Updated 03/24/20 @ 15:06 by Rosamaria Hudson) Social History: Patient lives at home with her grown granddaughter. She wishes to be listed as a Full Code. Her PCP is Dr. Alvarez. 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) Smoking end date: 07/02/11 Alcohol intake: current Drinks per week: 4 Alcohol use details: WINE Substance use: never Substance use type: does not use Living arrangements: alone Additional occupation/education comments: laid off due to covid-19 Gender identity (if verbalized by the patient): Female Spiritual care concerns: No Meds Home Medications and Allergies Home Medications Medication Instructions Recorded Confirmed Type clobetasol 0.05 % topical cream 1 applic TOPICAL BID PRN gm 12/25/19 05/14/20 History umeclidinium 62.5 mcg-vilanterol 1 inhalation INHALATION Q24H PRN 12/25/19 05/14/20 History 25 mcg/actuation powdr for each inhalation montelukast 10 mg tablet 10 mg PO DAILY #90 tablet 02/05/20 05/14/20 Rx pantoprazole 40 mg tablet,delayed 40 mg PO QAM #90 tablet 02/05/20 05/14/20 Rx release losartan 100 mg tablet 50 mg PO DAILY #45 tablet 02/06/20 05/14/20 Rx diclofenac sodium 75 mg 75 mg PO BID #60 tablet 03/26/20 05/14/20 Rx tablet,delayed release peg 3350-electrolytes 236 240 ml PO Q10M #4000 ml 03/26/20 Rx gram-22.74 gram-6.74 gram-5.86 gram solution acetaminophen
[2020-05-19 08:34] VITALS: BP 103/57; PULSE 72; RESP 16; O2SAT 94
[2020-05-19 08:44] VITALS: BP 96/53; PULSE 63; RESP 16; O2SAT 94
[2020-05-19 08:53] VITALS: BP 108/61; PULSE 60; RESP 16; O2SAT 95
== END 2020-05-19 09:05 | disposition home or self-care (01) ==
PROVIDERS: PCP Family Medicine; Visit Provider Internal Medicine Gastroenterology
PROC: 0DJD8ZZ Inspection of Lower Intestinal Tract, Via Natural or Artificial Opening Endoscopic (ICD-10-PCS; CPT 45378; principal; 2020-05-19 08:00)
DX: Z12.11 Encounter for screening for malignant neoplasm of colon (principal); K57.30 Diverticulosis of large intestine without perforation or abscess without bleeding; K64.8 Other hemorrhoids; Z86.010 Personal history of colon polyps; I10 Essential (primary) hypertension; J44.9 Chronic obstructive pulmonary disease, unspecified; K21.9 Gastro-esophageal reflux disease without esophagitis; E78.00 Pure hypercholesterolemia, unspecified; Z87.891 Personal history of nicotine dependence; E66.9 Obesity, unspecified; Z68.28 Body mass index [BMI] 28.0-28.9, adult
CPT/HCPCS: G0105; J2704; J7120

== ENCOUNTER 2020-09-13 08:36 | Outpatient (CLI) | payer MEDICARE, SELFPAY | END 2020-09-13 08:37 | disposition home or self-care (01) | LOC: ANHAUDASC 08:37 | PROVIDERS: PCP Family Medicine; Visit Provider Family Medicine | DX: H90.3 Sensorineural hearing loss, bilateral (principal) | CPT/HCPCS: 92557; 92567 ==

== ENCOUNTER 2020-10-19 14:52 | Outpatient (CLI) | payer MEDICARE, SELFPAY ==
--- NOTE | ~2020-10-19 | MM_ITS ---
EXAMINATION: MM screening [facility] BI w [facility] HISTORY: Screening TECHNIQUE: Craniocaudal and mediolateral oblique 3-D tomosynthesis images were obtained and synthetic 2-D images were generated. CAD analysis was submitted and interpreted. COMPARISON: Comparison to multiple prior studies sequentially, with oldest reviewed study dated 11/18. BREAST PARENCHYMAL COMPOSITION: There are scattered areas of fibroglandular density. FINDINGS: There is no evidence of suspicious mass, calcification, or architectural distortion to sugg est malignancy in either breast. There has been no suspicious interval change. IMPRESSION: 1. No mammographic evidence of malignancy. 2. Recommend routine screening mammography in one year. BI-RADS Category 1: Negative Reviewed, dictated and finalized at location A.
== END 2020-10-19 14:53 | disposition home or self-care (01) ==
LOC: CHSIMG 14:53
PROVIDERS: PCP Family Medicine; Visit Provider Family Medicine
DX: Z12.31 Encounter for screening mammogram for malignant neoplasm of breast (principal)
CPT/HCPCS: 77063; 77067

== ENCOUNTER 2020-10-25 07:13 | Outpatient (CLI) | payer MEDICARE, SELFPAY ==
--- NOTE | ~2020-10-25 | DEXA_ITS ---
Bone Density Report Name: Junie Alfred Age: 70 Sex: Female Ethnicity: White Date of : 1950 Indication: osteopenia; Referring Provider: Kim Valencia Study: Bone densitometry was performed. Exam Date: October 25, 2020 Accession number: [id number] Bone Density: Region BMD T-score Z-score Classification AP Spine(L1, L2, L3) 0.895 -1.1 1.0 Osteopenia Femoral Neck (Left) 0.608 -2.2 -0.3 Osteopenia Total Hip (Left) 0.763 -1.5 0.1 Osteopenia World Health Organization criteria for BMD impression classify patients as: Normal (T-score at or above -1.0), Osteopenia (T-score between -1.0 and -2.5), or Osteoporosis (T-score at or below -2.5). 10-year Fracture Risk(1): Major Osteoporotic Fracture 12% Hip Fracture 2.6% Reported Risk Factors: [place] (), Neck BMD=0.608, BMI=29.4 (1) FRAX(R) Version 3.08. Fracture probability calculated for an untreated patient. Fracture probability may be lower if the patient has received treatment. Previous Exams: Region Exam Age BMD T-score BMD Change BMD Change Date g/cm2 vs Baseline vs Previous AP Spine (L1-L3) 10/25/2020 70 0.895 -1.1 -0.057 (-6.0%) -0.127 (-12.4% 11/18/2014 64 1.022 0.0 0.070 (7.4%)*! 0.070 (7.4%)* 01/22/2009 58 0.952 -0.6 Total Hip(Left) 10/25/2020 70 0.763 -1.5 -0.066 (-8.0%) -0.041 (-5.1%) 02/22/2018 67 0.804 -1.1 -0.025 (-3.1%) -0.007 (-0.9%) 11/18/2014 64 0.811 -1.1 -0.018 (-2.2%) -0.018 (-2.2%) 01/22/2009 58 0.829 -0.9 *Denotes significance at 95% confidence level, LSC for AP Spine = 0.022 g/cm2, LSC for Total Hip = 0.027 g/cm2 # Denotes dissimilar scan types or analysis methods Clinical Information Provided by Patient: Has used the following medications: Vitamin D Patient maximum height was 63 No regular weight bearing exercise Drinks caffeinated beverages Onset of menses at age 11 Number of children 2 Impression: The patient has low bone mass, based on the Left Femoral Neck T-score. The patient has an estimated ten-year risk of hip fracture of 2.6% and an estimated ten-year risk of major fracture of 12%, based on the WHO FRAX algorithm. No significant bone loss was observed. Discussion: BONE DENSITY IS LOW AT ONE OR MORE SKELETAL SITES. This patient's lowest T-score is low at one or more skeletal sites. It meets the World Health Organization's (WHO) criteria for ?low bone mass? (T-score between -1.0 and -2.5). The patient's 10-year risk of fracture as calculated by FRAX is less than the thres
[2020-10-25 07:26] LABS: Hematocrit 45.1 % (35.0-42.0); Hemoglobin 14.6 g/dL (11.7-13.8); Mean Corpuscular HGB Conc 32.4 g/dL (32.0-36.0); Mean Corpuscular Hemoglobin 31.6 pg (27.0-31.0); Mean Corpuscular Volume 97.6 fL (78.0-102.0); Mean Platelet Volume 9.4 fl (9.2-11.8); Platelet Count Result 173 K/mm3 (150-420); Red Blood Count 4.62 M/mm3 (4.20-5.40); Red Cell Distribution Width 13.1 % (11.6-14.4); White Blood Count 4.4 K/mm3 (4.8-10.8)
[2020-10-25 08:11] LABS: Band Neutrophils Percent 0 % (0-6); Basophils Absolute Manual 0.04 K/mm3 (0-0.1); Basophils Percent Manual 1 % (0-1); Eosinophils Percent Manual 16 % (1-6); Lymphocytes Absolute Manual 0.96 K/mm3 (1.1-4.5); Lymphocytes Percent Manual 22 % (18-44); Monocytes Absolute Manual 0.26 K/mm3 (0.1-0.90); Monocytes Percent Manual 6 % (3-9); Neutrophils Absolute Manual 2.42 K/mm3 (1.7-7.2); Neutrophils Percent Manual 55 % (46-73); Platelet Estimate Adequate (Adequate); Total Cells Counted 100
[2020-10-25 08:15] LABS: Alanine Aminotransferase 22 U/L (14-59); Albumin Level 3.5 g/dL (3.4-5.0); Alkaline Phosphatase 82 U/L (46-116); Anion Gap 8 mmol/L (8-16); Aspartate Amino Transferase 13 U/L (15-37); Bilirubin,Total 0.6 mg/dL (0.00-1.00); Blood Urea Nitrogen 19 mg/dL (7-18); Calcium 8.9 mg/dL (8.5-10.1); Carbon Dioxide 29 mmol/L (21-32); Chloride 105 mmol/L (98-108); Cholesterol 235 mg/dL (0-200); Estimated Glomerular Filt Rate > 60; Glucose 97 mg/dL (70-99); HDL Direct 54 mg/dL (40-60); LDL Cholesterol Calculated 143 mg/dL (<130); Osmolality Calculated 296 mOsm/kg (285-295); Potassium 4.3 mmol/L (3.5-5.1); Sodium 142 mmol/L (136-145); Total Protein 6.3 g/dL (6.4-8.2); Triglycerides 190 mg/dL (0-150)
[2020-10-28 19:40] LABS: Vitamin D 1,25 (OH)2 Total 45 pg/mL (18-72); Vitamin D2 1,25 (OH)2 <8 pg/mL; Vitamin D3 1,25 (OH)2 45 pg/mL
== END 2020-10-25 07:14 | disposition home or self-care (01) ==
PROVIDERS: PCP Family Medicine; Visit Provider Family Medicine
DX: R79.89 Other specified abnormal findings of blood chemistry (principal); E78.2 Mixed hyperlipidemia; I10 Essential (primary) hypertension; Z78.0 Asymptomatic menopausal state; E55.9 Vitamin D deficiency, unspecified
CPT/HCPCS: 36415; 77080; 80053; 80061; 82652; 85025

== ENCOUNTER 2021-02-04 11:33 | Outpatient (CLI) | payer MEDICARE, SELFPAY ==
--- NOTE | ~2021-02-04 | XR_ITS ---
EXAMINATION:XR_[id number]_CR DATE: 02/04/2021 12:01 INDICATION: Left-sided neck pain TECHNIQUE: AP, lateral, lateral swimmers and odontoid views of the cervical spine are provided. COMPARISON: None FINDINGS: There are 2 mm of retrolisthesis of C5 on C6. The odontoid is intact. No fracture is identi fied. The vertebral body heights are maintained. There is severe loss of intervertebral disc space he ight at C5-6 and C7-T1. Small degenerative osteophytes project from the anterior endplates of multipl e vertebral bodies. There is severe facet and uncovertebral joint osteoarthritis throughout the cervi con spine. Prevertebral soft tissues are normal. IMPRESSION: 1. Severe cervical spondylosis without acute findings. Reviewed, dictated and finalized at location A.
== END 2021-02-04 11:34 | disposition home or self-care (01) ==
LOC: CHSIMG 11:37
PROVIDERS: PCP Family Medicine; Visit Provider Physician Assistant
DX: M54.2 Cervicalgia (principal); R20.0 Anesthesia of skin; R20.2 Paresthesia of skin
CPT/HCPCS: 72040

== ENCOUNTER 2021-02-23 09:18 | Outpatient (CLI) | payer MEDICARE, SELFPAY ==
--- NOTE | ~2021-02-23 | US_ITS ---
EXAMINATION: US carotid duplex BI DATE: 02/23/2021 09:57 INDICATION: Disturbance of skin sensation at the left face and neck. TECHNIQUE: Grayscale, color Doppler, and pulsed Doppler images of the cervical carotid arteries were obtained. The degree of vessel stenosis is placed in one of the following categories: normal, <50%, 5 0-69%, >=70% but less than near-occlusion, near-occlusion, or total occlusion. Note that percent sten osis relative to normal distal artery lumen diameter is indirectly measured from velocity measurement s as described by Sahil, et al. Radiology 2003; 229:340-346. COMPARISON: None. FINDINGS: RIGHT: The right common carotid artery (CCA) peak systolic velocity (PSV) is 68 cm/s. The right internal car otid artery (ICA) PSV is 105 cm/s. The right ICA end-diastolic velocity (EDV) is 23 cm/s. The right I CA/CCA PSV ratio is 1.5. Grayscale and color Doppler images yield an estimate of <50% diameter reduct ion from plaque in the ICA. The external carotid artery (ECA) PSV is 88 cm/s. There is antegrade flow in the right vertebral artery. Transient cardiac arrhythmia evident on only one of the images obtain ed at the right carotid bifurcation. LEFT: The left CCA PSV is 83 cm/s. The left ICA PSV is 80 cm/s. The left ICA EDV is 15 cm/s. The left ICA/C CA PSV ratio is 1.0. Grayscale and color Doppler images yield an estimate of <50% diameter reduction from plaque in the ICA. The ECA PSV is 79 cm/s. There is antegrade flow in the left vertebral artery. IMPRESSION: 1. <50% stenosis in the right internal carotid artery. 2. <50% stenosis in the left internal carotid artery. 3. Transient cardiac arrhythmia evident on only one of the images. Could consider correlation with EK G. Reviewed, dictated and finalized at location B. IMPRESSION: 1. <50% stenosis in the right internal carotid artery. 2. <50% stenosis in the left internal carotid artery. 3. Transient cardiac arrhythmia evident on only one of the images. Could consid er correlation with EKG.
== END 2021-02-23 09:19 | disposition home or self-care (01) ==
LOC: CHSIMG 09:19
PROVIDERS: PCP Family Medicine; Visit Provider Physician Assistant
DX: E78.5 Hyperlipidemia, unspecified (principal); R20.0 Anesthesia of skin; R20.2 Paresthesia of skin
CPT/HCPCS: 93880

== ENCOUNTER 2021-04-25 20:41 | Observation (INO) | payer MEDICARE, SELFPAY ==
--- NOTE | ~2021-04-25 | CT_ITS ---
EXAMINATION: CT cervical spine wo con DATE: 04/25/2021 21:25 INDICATION: Neck pain after fall TECHNIQUE: Computed tomography (CT) of the cervical spine was performed without intravenous contrast. The dose-length product was 448 mGy-cm. Automated exposure control and iterative reconstruction tech nique were employed. COMPARISON: No prior studies for comparison. FINDINGS: There is degenerative anterolisthesis at C2-3 and retrolisthesis at C4-5. There is degenera tive disc disease at all cervical spine levels. There is severe multilevel uncinate and facet hypertr ophy. Odontoid process within normal limits. There is emphysema in the lung apices with multiple subs olid nodules in the left upper lobe measuring 6 mm or less. No paraspinal soft tissue abnormality. Th ere is atherosclerosis of the carotid arteries. IMPRESSION: 1. No acute cervical spine fracture. 2: Severe cervical spondylosis. 3: Multiple subsolid nodules in the left upper lobe measuring 6 mm or less, likely infectious/inflamm atory. Follow-up low dose CT chest in 6 months recommended. Reviewed, dictated and finalized at location A. IMPRESSION: 1. No acute cervical spine fracture. 2: Severe cervical spondylosis. 3: Multiple subsolid nodules in the left upper lobe measuring 6 mm or less, lik eden infectious/inflammatory. Follow-up low dose CT chest in 6 months renard mortaaya
--- NOTE | ~2021-04-25 | CT_ITS ---
EXAMINATION: CT brain wo con DATE: 04/25/2021 21:25 INDICATION: Status post fall. Head injury. TECHNIQUE: Computed tomography (CT) of the head was performed without intravenous contrast. The dose- length product was 681.00 mGy-cm. Automated exposure control and iterative reconstruction technique w ere employed. COMPARISON: CT dated 12/13/2018 FINDINGS: Large left parietal scalp hematoma. No acute intracranial hemorrhage, infarction, mass or m ass effect. No ventriculomegaly or midline shift. There are scattered mild periventricular and subcor tical white matter changes, most likely related to small vessel ischemic disease (microangiopathy). N o depressed skull fracture. IMPRESSION: 1. No acute intracranial abnormality. 2: Large left parietal scalp hematoma without evidence for underlying skull fracture. Reviewed, dictated and finalized at location A. IMPRESSION: 1. No acute intracranial abnormality. 2: Large left parietal scalp hematoma without evidence for underlying skull fra cture.
--- NOTE | ~2021-04-25 | XR_ITS ---
EXAMINATION: XR shoulder LT min 2V DATE: 04/26/2021 11:30 INDICATION: Left shoulder injury. TECHNIQUE: 6 views of left shoulder were obtained. COMPARISON: None. FINDINGS: There is superior subluxation of humeral head with narrowing of the subacromial space, cons istent with rotator cuff tear. There is remodeling of the undersurface of the acromion, consistent wi th arthropathy. There is moderate osteoarthritis of glenohumeral joint and mild osteoarthritis of the acromioclavicular joint. There is an acute fracture of left third rib. IMPRESSION: 1. Acute fracture of left third rib. 2. Polyarticular osteoarthritis. 3. Chronic left rotator cuff tear with cuff arthropathy. Reviewed, dictated and finalized at location A.
--- NOTE | ~2021-04-25 | XR_ITS ---
XR hip LT 2V w AP pelvis 04/25/2021 21:39 Indication: Left hip pain after fall Procedure: 3 views left hip Comparison: 08/09/2016 Findings: There is a right total hip arthroplasty. There is advanced lower lumbar spondylosis. There is moderate osteoarthritis of the left hip. No acute fracture or traumatic malalignment. Sacral monica en are symmetric. Pelvic rings are intact. Impression: 1: No acute fracture. Reviewed, dictated and finalized at location A. Impression: 1: No acute fracture.
--- NOTE | 2021-04-25 20:46 | ED.FALL ---
HPI - Fall General Chief Complaint: Fall Stated Complaint: AMB Time Seen by Provider: 04/25/21 20:47 Source: patient Mode of arrival: EMS Limitations: no limitations History of Present Illness HPI Narrative: 70-year-old woman comes in today by EMS after falling down her stairs. Patient states that she had 6 beers while entertaining friends today. She denies chest pain, lightheadedness, syncope, and did not lose consciousness. She has no history of cardiac disease, seizures, or prior significant head injury. She complains of pain in her left thigh as well. MD complaint: fall Onset (ago): minute(s) (30) Fall from: standing and down stairs (#) ( unknown) Fall witnessed: no Place fall occurred: home Loss of consciousness: none Prolonged down time: no Symptoms prior to fall: none Context: tripped/slipped and alcohol use Location of injury: head and neck Location of injury - extremities: Left: shoulder and thigh Severity: moderate Quality: sharp and throbbing Associated symptoms (after fall): headache and neck pain Related Data Home Medications Medication Instructions Recorded Confirmed losartan 100 mg PO DAILY 04/25/21 04/25/21 nortriptyline 25 mg PO DAILY 04/25/21 04/25/21 Allergies Allergy/AdvReac Type Severity Reaction Status Date / Time lisinopril Allergy Mild cough Verified 02/04/21 10:10 Review of Systems Review of Systems: All systems reviewed & are unremarkable except as noted in HPI and below Constitutional: Constitutional: Denies chills and Denies fever(s) Eyes: Eyes: Denies change in vision and Denies photophobia ENT: Denies nasal congestion and Denies sore throat Cardiovascular: Cardiovascular: Denies chest pain and Denies radiating jaw, neck or arm pain Respiratory: Respiratory: Denies cough and Denies dyspnea Gastrointestinal: Gastrointestinal: Denies abdominal pain, Denies diarrhea, Denies nausea and Denies vomiting Genitourinary: Genitourinary: Denies nocturia and Denies dysuria Musculoskeletal: Musculoskeletal: Reports arthralgias and Denies joint swelling Integumentary/Breasts: Skin/Breast: Denies pruritus, Denies erythema and Denies rash Neurologic: Denies vertigo, Denies dizziness, Denies syncope and Reports headache(s) Hematologic/Lymphatic: Hematologic/Lymphatic: Denies easy bleeding and Denies easy bruising Allergic/Immunologic: Allergic/Immunologic: Denies lip swelling and Denies throat swelling PMFSH Past Medical History Medical History Abdominal hernia Acid reflux Adenomatous colon polyp Arthritis Benign hypertension Benign reactive hypertension COPD (chronic obstructive pulmonary disease) Degenerative joint disease of knee Fall Herpes genitalis in women High cholesterol History of tobacco use disorder History of vaginal delivery x 2 Hyperlipidemia Overweight (BMI 25.0-29.9) Quadriceps weakness Skin cancer Surgical History Surgical History History of open reduction and internal fixation (ORIF) procedure left wrist History of right inguinal hernia repair Hx of rotator cuff surgery Hx of total hip arthroplasty Right S/P ORIF (open reduction internal fixation) fracture distal radius- Left Status post total knee replacement Right Family History Family History Father Family history of Parkinson's disease Mother Patient's mother is , Onset Age: 42 Other Cerebrovascular accident Family history of malignant neoplasm Social History Social History Social History: Patient lives at home with her grown granddaughter. She wishes to be listed as a Full Code. Her PCP is Dr. Alvarez. Smoking packs per day: 2 Smoking cigarettes per day: 40.0 Years smoked: 40 Smoking pack-years: 80.00 Smoking status: Former smoke
[2021-04-25 20:56] VITALS: BP 159/89; PULSE 75; RESP 20; TEMP 36.2; O2SAT 98
[2021-04-25] MEDS: ONDANSETRON INJ 4 MG/2 ML VIAL IV PUSH (21:04)
[2021-04-25] MEDS: MORPHINE SULFATE (*CRX) 2 MG/ML INJ IV PUSH ×2 (21:05→23:12)
[2021-04-25 22:25] LABS: Basophils Absolute Auto 0.05 K/mm3 (0.00-0.10); Basophils Percent Auto 0.6 % (0.0-1.0); Eosinophils Absolute Auto 0.27 K/mm3 (0.02-0.50); Hemoglobin 14.8 g/dL (11.7-13.8); Immature Granulocyte Absolute 0.03 K/mm3 (0.00-0.00); Immature Granulocyte Percent A 0.3 % (0.0-0.0); Lymphocytes Absolute Auto 1.11 K/mm3 (1.10-4.50); Lymphocytes Percent Auto 12.2 % (18.0-42.0); Mean Corpuscular HGB Conc 33.6 g/dL (32.0-36.0); Mean Platelet Volume 8.8 fl (9.2-11.8); Monocytes Absolute Auto 0.56 K/mm3 (0.10-0.90); Monocytes Percent Auto 6.2 % (2.0-11.0); Neutrophils Absolute Auto 7.1 K/mm3 (1.7-7.2); Neutrophils Percent Auto 77.7 % (50.0-70.0); Platelet Count Result 195 K/mm3 (150-420); Red Blood Count 4.49 M/mm3 (4.20-5.40); White Blood Count 9.1 K/mm3 (4.8-10.8)
[2021-04-25 22:38] LABS: INR 1.1; Partial Thromboplastin Time 27.2 SEC (23.90-30.70); Prothrombin Time 11.3 Seconds (9.50-12.10)
[2021-04-25 22:41] LABS: Alanine Aminotransferase 29 U/L (14-59); Albumin Level 3.5 g/dL (3.4-5.0); Alkaline Phosphatase 75 U/L (46-116); Anion Gap 13 mmol/L (8-16); Aspartate Amino Transferase 18 U/L (15-37); Bilirubin,Total 0.4 mg/dL (0.00-1.00); Blood Urea Nitrogen 14 mg/dL (7-18); Calcium 8.2 mg/dL (8.5-10.1); Carbon Dioxide 25 mmol/L (21-32); Chloride 103 mmol/L (98-108); Estimated CRCL calculation 46 ml/min; Estimated Glomerular Filt Rate 57; Glucose 112 mg/dL (70-99); Osmolality Calculated 293 mOsm/kg (285-295); Sodium 141 mmol/L (136-145); Total Protein 6.5 g/dL (6.4-8.2)
[2021-04-25 22:47] VITALS: BP 133/70; PULSE 67; RESP 18; TEMP 36.2; O2SAT 92
[2021-04-25 22:55] LABS: Ethanol 93 mg/dL (0-6)
[2021-04-25 23:02] VITALS: BP 136/77; PULSE 67; RESP 18; TEMP 36.6; O2SAT 94
[2021-04-25] MEDS: ACETAMINOPHEN 325 MG TABLET 650 MG PO (23:11)
[2021-04-26] VITALS: BP 133/62; PULSE 64; RESP 20; TEMP 36.4; O2SAT 96
--- NOTE | 2021-04-26 00:26 | PC.NURSE ---
70 yr old female admitted to from ER as obs for closed head injury. Pt stated she went out with friends and had some beers. Pt stated she fell down basement steps , about 12. hitting L side of body and L side head.
[2021-04-26 00:34] VITALS: BMI 31.0
--- NOTE | 2021-04-26 00:49 | PC.NURSE ---
Speech clear. Denies visual disturbances. Data Sme strong, equal. Denies one sided weakness. Pupils reactive to light.
--- NOTE | 2021-04-26 00:56 | PC.NURSE ---
Ice pk in place L side forehead. Safety explained. Pt verbalizes understanding.
--- NOTE | 2021-04-26 02:10 | PC.NURSE ---
Pupils reactive to light. Speech clear. NINO. Up to BSC, assist of one. Pt voided. Did well. Back into bed. Urine spec to lab.
[2021-04-26 02:40] LABS: Add Urine Microscopic? YES; Appearance Urine Clear (Clear); Bilirubin Urine Negative (Negative); Blood Urine Negative (Negative); Color Urine Light Yellow (Yellow); Glucose Urine UA Negative (Negative); Ketones Urine Trace (Negative); Leukocyte Esterase Ur Negative (Negative); Nitrate Urine Negative (Negative); Protein Urine Negative (Negative); Specific Grav Ur >= 1.030 (1.010-1.020); Urobilinogen Urine 0.2 mg/dL (0.2-1.0); pH Urine 5.5 (5.0-8.0)
[2021-04-26 02:46] LABS: Bacteria Urine Trace /hpf; RBC Urine 0-2 /hpf (0-2); Squamous Epithelial Cell Urine Few /hpf (Few); WBC Urine 0-3 /hpf (0-3)
[2021-04-26 04:00] VITALS: BP 134/56; PULSE 76; RESP 20; TEMP 36.3; O2SAT 94
--- NOTE | 2021-04-26 04:18 | PC.NURSE ---
Remains A&O X4. Speech remains clear. NINO. Pupils remains reactive to light.
[2021-04-26] MEDS: ACETAMINOPHEN 325 MG TABLET 650 MG PO (05:19)
--- NOTE | 2021-04-26 05:28 | PC.NURSE ---
Fresh cold pk for L forehead
[2021-04-26] MEDS: MORPHINE SULFATE (*CRX) 2 MG/ML INJ IV PUSH (05:56)
--- NOTE | 2021-04-26 05:58 | PC.NURSE ---
Remains A&O X4.Speech remains clear. NINO. Pupils remain reactive
[2021-04-26 07:59] VITALS: BP 126/58; PULSE 61; RESP 18; TEMP 36.3; O2SAT 93
[2021-04-26] MEDS: PANTOPRAZOLE 40 MG TABLET PO (09:00)
[2021-04-26] MEDS: MONTELUKAST SODIUM 10 MG TABLET PO (09:00)
[2021-04-26] MEDS: NORTRIPTYLINE HCL 25 MG CAPSULE PO (09:01)
[2021-04-26] MEDS: LOSARTAN POTASSIUM 50 MG TABLET 100 MG PO (09:01)
[2021-04-26 11:39] VITALS: BP 113/51; PULSE 65; RESP 93; TEMP 36.2; O2SAT 93
--- NOTE | 2021-04-26 13:10 | PM.SD2 ---
Same Day Admit/Disch: HPI History of Present Illness Chief complaint: CHI <CHICHI Woo - Last Filed: 04/26/21 14:03> Narrative: Junie Alfred is a 70 year old female who was admitted for observation after having been slightly intoxicated during a girls night out. When she returned home that evening after having 4 beers she states that she was attempting to open a door in her home that gets stuck. She ended up falling backwards down a flight of steps. Imaging did not show brain bleed, cervical or skull Fx, and no Hip/Pelvis Fx. On exam she had increased pain in her shoulder and far upper left chest. Imaging of the Lt shoulder shows a Left Rib Fx. Pt neuro status is normal, mild pain with movement of the left arm, increased pain with palpation of the far upper left chest wall, AC joint, and upper Lt scapula. <CHICHI Woo - Last Filed: 04/26/21 14:03> [facility] Past Medical History Medical History: Medical History (Updated 04/26/21 @ 13:53 by CHICHI Woo) Abdominal hernia Acid reflux Acute bilateral thoracic back pain Adenomatous colon polyp Aftercare following right hip joint replacement surgery Arthritis Benign hypertension Benign reactive hypertension Carpal tunnel syndrome of left wrist Coarse tremors COPD (chronic obstructive pulmonary disease) Degenerative joint disease of knee Fall Herpes genitalis in women Herpes simplex vulvovaginitis High cholesterol History of tobacco use disorder History of vaginal delivery x 2 Hyperlipidemia Mixed hyperlipidemia Overweight (BMI 25.0-29.9) Quadriceps weakness Skin cancer Vitamin D deficiency, unspecified <CHICHI Woo - Last Filed: 04/26/21 14:03> Surgical History Surgical History: Surgical History History of open reduction and internal fixation (ORIF) procedure left wrist History of right inguinal hernia repair Hx of rotator cuff surgery Hx of total hip arthroplasty Right Presence of right artificial hip joint S/P ORIF (open reduction internal fixation) fracture distal radius- Left Status post total knee replacement Right <CHICHI Woo - Last Filed: 04/26/21 14:03> Family History Family History: Family History Father Family history of Parkinson's disease Mother Patient's mother is , Onset Age: 42 Other Cerebrovascular accident Family history of malignant neoplasm <CHICHI Woo - Last Filed: 04/26/21 14:03> Social History Social History: Social History Social History: Patient lives at home with her grown granddaughter. She wishes to be listed as a Full Code. Her PCP is Dr. Alvarez. Smoking packs per day: 1 Smoking cigarettes per day: 20.0 Years smoked: 40 Smoking pack-years: 40.00 Smoking status: Former smoker Tobacco type: cigarettes Second hand tobacco smoke exposure: Yes Smoking end date: 07/02/11 Alcohol intake: current Drinks per week: 7 Alcohol use details: WINE Substance use: never Substance use type: does not use Gender identity (if verbalized by the patient): Female Sexual Orientation (if Verbalized by the Patient): Straight or Heterosexual Spiritual care concerns: No <CHICHI Woo - Last Filed: 04/26/21 14:03> Same Day Admit/Disch: Med Pre-admit Medications Home Medications: Home Medications Medication Instructions Recorded Confirmed Type montelukast 10 mg tablet 10 mg PO DAILY #90 tablet 01/11/21 04/25/21 Rx pantoprazole 40 mg tablet,delayed 40 mg PO QAM #90 tablet 01/11/21 04/25/21 Rx release tizanidine 2 mg tablet 2 mg PO Q8H PRN #90 tablet 02/09/21 04/25/21 Rx diclofenac sodium 75 mg 75 mg PO BID #180 tablet 03/17/21 04/25/21 Rx tablet,delayed release losartan 100 mg PO DAILY 04/25/21 10
[2021-04-26] MEDS: HYDROcodone/acetaminophen (*CRX) 5-325 MG TABLET 1 TAB PO (14:23)
--- NOTE | 2021-04-26 15:04 | PC.NURSE ---
Discharge instructions reviewed with patient and her grandaughter. All questions answered. Pt escorted via wheelchair to front entrance for discharge.
--- NOTE | 2021-05-03 15:24 | PC.NURSE ---
Unable to contact for discharge call back.
== END 2021-04-26 14:45 | disposition home or self-care (01) ==
LOC: CHSED 22:54 → CHS2ND 22:59
PROVIDERS: Admitting Provider Emergency Medicine; Emergency Provider Emergency Medicine; PCP Family Medicine; Visit Provider Emergency Medicine
DX: S09.90XA Unspecified injury of head, initial encounter (principal); S00.03XA Contusion of scalp, initial encounter; S22.32XA Fracture of one rib, left side, initial encounter for closed fracture; F10.129 Alcohol abuse with intoxication, unspecified; I10 Essential (primary) hypertension; J44.9 Chronic obstructive pulmonary disease, unspecified; E55.9 Vitamin D deficiency, unspecified; E78.00 Pure hypercholesterolemia, unspecified; E78.5 Hyperlipidemia, unspecified; K21.9 Gastro-esophageal reflux disease without esophagitis; M17.10 Unilateral primary osteoarthritis, unspecified knee; R91.8 Other nonspecific abnormal finding of lung field; Z96.641 Presence of right artificial hip joint; Z96.651 Presence of right artificial knee joint; Z87.891 Personal history of nicotine dependence; W10.9XXA Fall (on) (from) unspecified stairs and steps, initial encounter; Z86.010 Personal history of colon polyps; M47.812 Spondylosis without myelopathy or radiculopathy, cervical region
CPT/HCPCS: 36415; 70450; 72125; 73030; 73502; 80053; 80307; 81001; 83735; 85025; 85610; 85730; 96374; 96375; 96376; 99285; A9270; G0378; J2270; J2405; L0150

== ENCOUNTER 2021-05-12 14:38 | Emergency (ER) | payer MEDICARE, SELFPAY ==
--- NOTE | ~2021-05-12 | XR_ITS ---
EXAMINATION: XR thoracic spine 2V EXAM DATE: 05/12/2021 15:27 INDICATION: upper back pain after falling down stairs x 3 days ago. TECHNIQUE: Frontal and lateral projections of the thoracic spine as well as lateral swimmers projecti on of the upper thoracic spine for interpretation. Comparison is made to prior examination from 019. FINDINGS: There are large bridging thoracic endplate osteophytes, diffuse idiopathic skeletal hypero stosis. Mild loss of some of the disc height. Vertebral body heights relatively well-maintained. Ther e are no acute fractures identified. Paraspinal soft tissue is unremarkable. IMPRESSION: 1. Diffuse idiopathic skeletal hyperostosis. 2. No acute fracture identified. Reviewed, dictated and finalized at location A. 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
[2021-05-12 14:51] VITALS: BP 148/74; PULSE 84; RESP 18; TEMP 37; O2SAT 97
--- NOTE | 2021-05-12 15:12 | ED.FALL ---
HPI - Fall General Chief Complaint: Fall Stated Complaint: fell down stairs, rib pain Source: patient Mode of arrival: ambulatory Limitations: no limitations History of Present Illness HPI Narrative: this is a 70-year-old female that had a fall approximately 2 weeks ago was seen at [facility] had numerous x-ray and scans performed which showed no acute fractures except for a 3rd rib fracture. The patient has been doing well was admitted overnight for observation at [facility] was sent home with pain control. Patient here today with some upper back pain midthoracic left-sided with palpation with no recent injury no shortness of breath no fever or chills no chest pain. complaint: fall Onset (ago): week(s) Fall from: standing Fall witnessed: yes, by family Place fall occurred: home Loss of consciousness: none Related Data Home Medications Medication Instructions Recorded Confirmed losartan 100 mg PO DAILY 04/25/21 04/25/21 nortriptyline 25 mg PO DAILY 04/25/21 04/25/21 Allergies Allergy/AdvReac Type Severity Reaction Status Date / Time lisinopril Allergy Mild cough Verified 04/29/21 13:05 Review of Systems Review of Systems: All systems reviewed & are unremarkable except as noted in HPI and below PMFSH Past Medical History Medical History Abdominal hernia Acid reflux Acute bilateral thoracic back pain Adenomatous colon polyp Aftercare following right hip joint replacement surgery Arthritis Benign hypertension Benign reactive hypertension Carpal tunnel syndrome of left wrist Coarse tremors COPD (chronic obstructive pulmonary disease) Degenerative joint disease of knee Fall Herpes genitalis in women Herpes simplex vulvovaginitis High cholesterol History of tobacco use disorder History of vaginal delivery x 2 Hyperlipidemia Mixed hyperlipidemia Overweight (BMI 25.0-29.9) Quadriceps weakness Skin cancer Vitamin D deficiency, unspecified Surgical History Surgical History History of open reduction and internal fixation (ORIF) procedure left wrist History of right inguinal hernia repair Hx of rotator cuff surgery Hx of total hip arthroplasty Right Presence of right artificial hip joint S/P ORIF (open reduction internal fixation) fracture distal radius- Left Status post total knee replacement Right Family History Family History Father Family history of Parkinson's disease Mother Patient's mother is , Onset Age: 42 Other Cerebrovascular accident Family history of malignant neoplasm Social History Social History Social History: Patient lives at home with her grown granddaughter. She wishes to be listed as a Full Code. Her PCP is Dr. Alvarez. Smoking packs per day: 1 Smoking cigarettes per day: 20.0 Years smoked: 40 Smoking pack-years: 40.00 Smoking status: Former smoker Tobacco type: cigarettes Second hand tobacco smoke exposure: Yes Smoking end date: 07/02/11 Alcohol intake: current Drinks per week: 7 Alcohol use details: WINE Substance use: never Substance use type: does not use Gender identity (if verbalized by the patient): Female Sexual Orientation (if Verbalized by the Patient): Straight or Heterosexual Spiritual care concerns: No Exam Const: General: no acute distress Orientation/consciousness: patient oriented x3 HENMT: Head: normal to inspection and contusion Eyes: Conjunctivae: conjunctivae normal Pupils: Equal, round and reactive pupils present EOM: EOMs intact bilaterally Direct Ophthalmoscopy: no photophobia Neck: Neck: normal visual inspection, no lymphadenopathy and no meningeal signs Chest: Chest palpation & inspection: normal inspection of the chest Resp: Effort
[2021-05-12] MEDS: KETOROLAC 30 MG/ML VIAL (*BKC) IM (15:27)
== END 2021-05-12 16:00 | disposition home or self-care (01) ==
PROVIDERS: Emergency Provider Emergency Medicine; PCP Family Medicine
DX: S29.012A Strain of muscle and tendon of back wall of thorax, initial encounter (principal); I10 Essential (primary) hypertension; J44.9 Chronic obstructive pulmonary disease, unspecified; E55.9 Vitamin D deficiency, unspecified; Z87.891 Personal history of nicotine dependence
CPT/HCPCS: 72070; 96372; 99283; J1885

== ENCOUNTER 2021-05-16 15:22 | Outpatient (CLI) | payer MEDICARE, SELFPAY ==
--- NOTE | ~2021-05-16 | XR_ITS ---
EXAMINATION: XR scapula LT DATE: 05/16/2021 15:51 INDICATION: Left shoulder pain. Fall. TECHNIQUE: 2 views of left scapula were obtained. COMPARISON: Left shoulder radiographs 04/26/2021 FINDINGS: There is superior subluxation of the humeral head with respect to glenoid with narrowing of the subacromial space, consistent with rotator cuff tear. There is remodeling of the undersurface of the acromion, consistent with cuff arthropathy. There is a displaced fracture of left third rib frac ture. There is moderate glenohumeral joint osteoarthritis and mild acromioclavicular joint osteoarthr itis. IMPRESSION: 1. Displaced fracture of left third rib again seen. 2. Polyarticular osteoarthritis. 3. Chronic left rotator cuff tear with cuff arthropathy. Reviewed, dictated and finalized at location A. 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
--- NOTE | ~2021-05-16 | XR_ITS ---
EXAMINATION: XR ribs LT 2V w CXR 2V DATE: 05/16/2021 15:50 INDICATION: Shortness of breath. Left-sided rib pain. TECHNIQUE: PA and lateral of the chest and 3 views of the left ribs were obtained. COMPARISON: Chest radiograph dated 02/06/2019 and left shoulder radiographs dated 04/26/2021 FINDINGS: Interval increase in now one shaft width displacement of a subacute fracture of the lateral left thir d rib. No other rib fractures identified. Linear discoid atelectasis/scarring in the right lower lung zone. No other airspace opacities, pulmonary edema, pleural effusion or pneumothorax. Cardiomediasti nal silhouette is normal. Chronic left rotator cuff arthropathy. There are bridging osteophytes at mu ltiple levels in the spine, consistent with diffuse idiopathic skeletal hyperostosis (DISH). IMPRESSION: 1. Increased now one shaft width displacement of a subacute fracture of the lateral left third rib. 2. Mild linear discoid atelectasis at the right lower lung zone. Reviewed, dictated and finalized at location A. R AND GRINDER TENDER IMPRESSION: 1. Increased now one shaft width displacement of a subacute fracture of the lat eral left third rib. 2. Mild linear discoid atelectasis at the right lower lung zone.
== END 2021-05-16 15:23 | disposition home or self-care (01) ==
LOC: ANHIMG 15:28
PROVIDERS: PCP Family Medicine; Visit Provider Physician Assistant
DX: R06.02 Shortness of breath (principal); S22.39XD Fracture of one rib, unspecified side, subsequent encounter for fracture with routine healing; R07.81 Pleurodynia; M89.8X1 Other specified disorders of bone, shoulder; X58.XXXD Exposure to other specified factors, subsequent encounter; M19.012 Primary osteoarthritis, left shoulder
CPT/HCPCS: 71046; 71100; 73010

== ENCOUNTER 2021-06-05 12:26 | Outpatient (CLI) | payer MEDICARE, SELFPAY ==
--- NOTE | ~2021-06-05 | MR_ITS ---
EXAMINATION: MR brain/brain stem wo/w con DATE: 06/05/2021 13:56 INDICATION: Left facial numbness and tingling. Trigeminal neuropathy. TECHNIQUE: Magnetic resonance imaging (MRI) of the brain and brainstem was performed without and with 15 mL MultiHance intravenous contrast. Sequences included sagittal and axial T1-weighted FSE, axial diffusion-weighted FS EPI, axial T2*-weighted GRE, axial T2-weighted FLAIR Propeller, axial T2-weight ed Propeller, small xgslk-rm-imom coronal FIESTA, small vpbmn-gm-tqbt coronal T1-weighted FSE, and sm all fsham-hb-sjvd axial T1-weighted SPGR. Postcontrast sequences included axial T1-weighted FSE, smal l yeyan-dj-ewpo coronal T1-weighted FSE, and small plvby-xf-blds axial T1-weighted SPGR. Apparent dif fusion coefficient (ADC) maps were created. COMPARISON: Head CT 04/25/2021 FINDINGS: There are scattered areas of nonspecific increased T2-weighted signal intensity in the cere bral white matter, which is within normal limits for the patient's age. There is no intracranial hemo rrhage, acute infarction, or abnormal intracranial mass lesion. The ventricles are normal in size. An artery exerts mass effect on left trigeminal nerve at the root entry zone. The mastoid air cells are normal. The paranasal sinuses are clear. The orbits are normal. IMPRESSION: 1. Vascular loop compression involving the left trigeminal nerve at the root entry zone. Reviewed, dictated and finalized at location A. EATION ADVISER IMPRESSION: 1. Vascular loop compression involving the left trigeminal nerve at the root en try zone.
[2021-06-05 13:08] LABS: Estimated Glomerular Filt Rate > 60
== END 2021-06-05 12:27 | disposition home or self-care (01) ==
PROVIDERS: PCP Family Medicine
DX: G50.8 Other disorders of trigeminal nerve (principal)
CPT/HCPCS: 70553; A9577

== ENCOUNTER 2021-07-23 08:02 | Outpatient (CLI) | payer MEDICARE, SELFPAY ==
--- NOTE | ~2021-07-23 | MR_ITS ---
EXAMINATION: MR shoulder LT wo con DATE: 07/23/2021 09:05 INDICATION: Left shoulder pain. TECHNIQUE: Magnetic resonance imaging (MRI) of the left shoulder was performed without intravenous co ntrast. Sequences included axial PD-weighted FS FSE, coronal oblique PD-weighted FS FSE and T2-weight ed FS FSE, and sagittal oblique T2-weighted FS FSE and T1-weighted FSE. COMPARISON: Left shoulder radiographs 04/26/2021 FINDINGS: Coracoacromial arch: The acromion undersurface is curved in morphology (type II). There is remodeling of the undersurface of the acromion, consistent with cuff arthropathy. There is severe acromioclavicular joint osteoarthr itis. There is moderate subacromial/subdeltoid bursitis. Rotator cuff: There is a full-thickness tear involving the entirety of the supraspinatus and infraspinatus tendons measuring 4.5 cm anterior to posterior by greater than 5 cm proximal to distal. There is mild teres m inor tendinopathy. There is a full-thickness tear of subscapularis tendon. There is volume loss and s evere fatty atrophy of supraspinatus and infraspinatus muscle bellies. There is edema in teres minor muscle belly near its scapular attachment. There is volume loss and mild fatty atrophy of subscapular is muscle superiorly. Biceps tendon and glenoid labrum: There is a complete tear of proximal biceps tendon. There is widespread tearing of the glenoid labrum . Fluid: There is a large glenohumeral joint effusion. Bones/cartilage: There is partial-thickness cartilage loss of glenoid. There is partial-thickness cartilage loss of hu meral head. IMPRESSION: 1. Massive full-thickness rotator cuff tear with cuff arthropathy. 2. Mild glenohumeral joint chondrosis. 3. Complete tear of proximal biceps tendon. 4. Edema in teres minor muscle belly near its scapular attachment, consistent with grade 1 strain. 5. Moderate subacromial/subdeltoid bursitis and large glenohumeral joint effusion. 6. Severe acromioclavicular joint osteoarthritis. Reviewed, dictated and finalized at location A. 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 Massive full-thickness rotator cuff tear with cuff arthropathy. 2. Mild glenohumeral joint chondrosis. 3. Complete tear of proximal biceps tendon. 4. Edema in teres minor muscle belly near its scapular attachment, consistent w ith grade 1 strain. 5. Moderate subacromial/subdeltoid bursitis and large glenohumeral joint effusi on. 6. Severe acromioclavicular joint osteoarthritis.
== END 2021-07-23 08:03 | disposition home or self-care (01) ==
LOC: CHSIMG 08:04
PROVIDERS: PCP Family Medicine; Visit Provider Orthopaedic Surgery
DX: M25.512 Pain in left shoulder (principal)
CPT/HCPCS: 73221

== ENCOUNTER 2021-09-20 16:08 | Outpatient (CLI) | payer MEDICARE, SELFPAY ==
--- NOTE | ~2021-09-20 | XR_ITS ---
EXAMINATION: XR ribs LT 2V w CXR 2V INDICATION: Left-sided chest pain TECHNIQUE: PA and lateral views of the chest and 3 views of the left ribs were obtained. COMPARISON: 05/16/2021 FINDINGS: There is a healed displaced fracture of the lateral left third rib. No new rib fracture is identified. There is chronic atelectasis of the right lung base. The lungs are free of acute opacitie s. There is no pleural effusion or pneumothorax. The cardiomediastinal silhouette is normal. There ar e bridging osteophytes at multiple levels in the spine, consistent with diffuse idiopathic skeletal h yperostosis (DISH). There is moderate osteoarthritis of the left shoulder. IMPRESSION: 1. Healed left third rib fracture without acute cardiopulmonary abnormality or evidence of acute rib fracture. Reviewed, dictated and finalized at location B.
== END 2021-09-20 16:09 | disposition home or self-care (01) ==
PROVIDERS: PCP Family Medicine; Visit Provider Nurse Practitioner Gerontology
DX: S22.39XD Fracture of one rib, unspecified side, subsequent encounter for fracture with routine healing (principal); R93.89 Abnormal findings on diagnostic imaging of other specified body structures
CPT/HCPCS: 71046; 71100

== ENCOUNTER 2021-09-27 10:28 | Outpatient (CLI) | payer MEDICARE, SELFPAY ==
--- NOTE | ~2021-09-27 | CT_ITS ---
EXAMINATION: CT diagnostic chest wo con EXAM DATE: 09/27/2021 10:48 INDICATION: S22.39XA - Fracture of one rib, unspecified side... . Left 3rd rib fracture. Shortness of breath. History COPD. TECHNIQUE: Spiral CT of the chest without contrast. Axial, coronal and sagittal images of the chest were reviewed. Coronal maximum intensity pixel images of chest reviewed. The dose-length product ( DLP) for this examination was 196.68 mGy-cm. The exposure was tailored according to patient size (au to mA exposure control), and iterative reconstruction (ASIR) was used as additional dose reduction te chnique. Correlation is made to left 3rd rib fracture. FINDINGS: There is left 3rd rib fracture laterally with solid bone bridging, appearance most consiste nt with chronic, healed rib fracture. There are no acute rib fractures. Patient has diffuse idiopathi c skeletal hyperostosis (DISH). There is mild emphysema and moderate hyperinflation. Chronic appearing right more than left basilar r eticulonodular opacities consistent with postinfectious residua. Subsegmental right lower lobe atelec tasis. There are no pleural or pericardial effusions. Tracheobronchial tree is patent. Mediastin al lymph nodes upper limits of normal in size. There is no pneumothorax. Heart normal in size. T here is mild coronary arterial calcification, arterial sclerosis. Upper abdomen is unremarkable. IMPRESSION: 1. Mild emphysema, moderate hyperinflation. 2. Chronic appearing basilar tree-in-bud pattern opacities probably chronic postinfectious residua. 3. Chronic left 3rd rib fracture. Reviewed, dictated and finalized at location B. IMPRESSION: 1. Mild emphysema, moderate hyperinflation. 2. Chronic appearing basilar tree-in-bud pattern opacities probably chronic po stinfectious residua. 3. Chronic left 3rd rib fracture.
== END 2021-09-27 10:29 | disposition home or self-care (01) ==
LOC: ANHIMG 10:33
PROVIDERS: PCP Family Medicine; Visit Provider Family Medicine
DX: S22.32XA Fracture of one rib, left side, initial encounter for closed fracture (principal); X58.XXXA Exposure to other specified factors, initial encounter; J43.9 Emphysema, unspecified; R91.8 Other nonspecific abnormal finding of lung field
CPT/HCPCS: 71250

== ENCOUNTER 2021-10-03 16:14 | Outpatient (CLI) | payer MEDICARE, SELFPAY ==
--- NOTE | ~2021-10-03 | XR_ITS ---
EXAMINATION: XR toe 1st LT min 2V, XR toe 2nd LT min 2V DATE: 10/03/2021 16:43 INDICATION: Pain and blisters between the first and second toes of the left foot TECHNIQUE: 1. Dorsal plantar, lateral and oblique views of the left first toe were obtained. 2. Dorsal plantar, lateral and oblique views of the left second toe were obtained. COMPARISON: None FINDINGS: 30 degrees hallux valgus. Postoperative change of prior midline with osteotomy with cerclage wire fix ation at the medial aspect of the first proximal phalanx. Bunionectomy at the medial head of the firs t metatarsal. Chronic resection of the head of the second proximal phalanx consistent with prior buni onectomy. No acute fracture. Polyarticular osteoarthritis, moderate severity at the second metatarsop halangeal joint, mild at the first metatarsophalangeal and these are the visualized tarsal metatarsal and interphalangeal joints. No cortical erosion or periosteal reaction. IMPRESSION: Postoperative changes and mild to moderate polyarticular osteoarthritis in the visualized medial left mid and forefoot. No acute osseous abnormality. Reviewed, dictated and finalized at location B. IMPRESSION: Postoperative changes and mild to moderate polyarticular osteoarthritis in the visualized medial left mid and forefoot. No acute osseous abnormality.
== END 2021-10-03 16:15 | disposition home or self-care (01) ==
PROVIDERS: PCP Family Medicine; Visit Provider Nurse Practitioner Gerontology
DX: M79.676 Pain in unspecified toe(s) (principal); S91.109A Unspecified open wound of unspecified toe(s) without damage to nail, initial encounter; Z98.890 Other specified postprocedural states; M19.072 Primary osteoarthritis, left ankle and foot; M19.071 Primary osteoarthritis, right ankle and foot
CPT/HCPCS: 73660

== ENCOUNTER 2021-10-04 16:15 | Outpatient (CLI) | payer MEDICARE, SELFPAY ==
[2021-10-04 16:28] LABS: Basophils Absolute Auto 0.04 K/mm3 (0.00-0.10); Basophils Percent Auto 0.8 % (0.0-1.0); Eosinophils Absolute Auto 0.39 K/mm3 (0.02-0.50); Eosinophils Percent Auto 8.2 % (1.0-6.0); Hematocrit 48.1 % (35.0-42.0); Hemoglobin 15.8 g/dL (11.7-13.8); Immature Granulocyte Absolute 0.01 K/mm3 (0.00-0.00); Immature Granulocyte Percent A 0.2 % (0.0-0.0); Lymphocytes Absolute Auto 1.57 K/mm3 (1.10-4.50); Lymphocytes Percent Auto 33.1 % (18.0-42.0); Mean Corpuscular HGB Conc 32.8 g/dL (32.0-36.0); Mean Corpuscular Hemoglobin 32.2 pg (27.0-31.0); Mean Corpuscular Volume 98.2 fL (78.0-102.0); Mean Platelet Volume 8.9 fl (9.2-11.8); Monocytes Absolute Auto 0.44 K/mm3 (0.10-0.90); Monocytes Percent Auto 9.3 % (2.0-11.0); Neutrophils Absolute Auto 2.3 K/mm3 (1.7-7.2); Neutrophils Percent Auto 48.4 % (50.0-70.0); Platelet Count Result 197 K/mm3 (150-420); Red Cell Distribution Width 14.1 % (11.6-14.4); White Blood Count 4.8 K/mm3 (4.8-10.8)
[2021-10-04 16:38] LABS: Hemoglobin A1C 4.9 % (<5.7)
[2021-10-04 17:32] LABS: Alanine Aminotransferase 22 U/L (14-59); Albumin Level 3.9 g/dL (3.4-5.0); Alkaline Phosphatase 82 U/L (46-116); Anion Gap 7 mmol/L (8-16); Aspartate Amino Transferase 13 U/L (15-37); Bilirubin,Total 0.7 mg/dL (0.00-1.00); Blood Urea Nitrogen 20 mg/dL (7-18); Calcium 9.2 mg/dL (8.5-10.1); Carbon Dioxide 29 mmol/L (21-32); Chloride 102 mmol/L (98-108); Cholesterol 223 mg/dL (0-200); Estimated Glomerular Filt Rate > 60; Glucose 82 mg/dL (70-99); HDL Direct 56 mg/dL (40-60); LDL Cholesterol Calculated 135 mg/dL (<130); Osmolality Calculated 287 mOsm/kg (285-295); Potassium 4.4 mmol/L (3.5-5.1); Sodium 138 mmol/L (136-145); Total Protein 6.7 g/dL (6.4-8.2); Triglycerides 161 mg/dL (0-150)
[2021-10-04 17:34] LABS: Thyroid Stimulating Hormone Reflex 4.94 u/IU/mL (0.36-3.74)
[2021-10-04 18:08] LABS: Free T4 Free Thyroxine Reflex 1.03 ng/dL (0.76-1.46)
== END 2021-10-04 16:16 | disposition home or self-care (01) ==
LOC: CHSLAB 16:18
PROVIDERS: PCP Family Medicine; Visit Provider Nurse Practitioner Gerontology
DX: E78.5 Hyperlipidemia, unspecified (principal); S91.109A Unspecified open wound of unspecified toe(s) without damage to nail, initial encounter; I10 Essential (primary) hypertension; R73.9 Hyperglycemia, unspecified
CPT/HCPCS: 36415; 80053; 80061; 83036; 84439; 84443; 85025

== ENCOUNTER 2021-11-08 17:43 | Outpatient (CLI) | payer MEDICARE, SELFPAY ==
--- NOTE | 2021-11-08 18:00 | ECG_ITS ---
Measurements Intervals [place] Rate: 56 P: 60 MA: 166 QRS: 48 QRSD: 88 T: 62 QT: 424 QTc: 413 Interpretive Statements SINUS BRADYCARDIA BORDERLINE ST-T WAVE ABNORMALITY- HIGH LATERAL LEADS BASELINE ARTIFACT- I, II, III, AVF, V3-V6 BORDERLINE ECG Electronically Signed On 11-09-2021 6:50:43 CDT by Kwesi Posada D.O.
== END 2021-11-08 17:44 | disposition home or self-care (01) ==
LOC: CHSCARD 17:49
PROVIDERS: PCP Family Medicine; Visit Provider Podiatrist Foot & Ankle Surgery
DX: R03.0 Elevated blood-pressure reading, without diagnosis of hypertension (principal)
CPT/HCPCS: 93005

== ENCOUNTER 2022-01-10 12:37 | Emergency (ER) | payer OTHER, MEDICARE, SELFPAY ==
--- NOTE | ~2022-01-10 | CT_ITS ---
EXAMINATION:CT diagnostic chest wo con DATE: 01/10/2022 14:02 INDICATION: Left posterior chest pain. Left shoulder pain. Fall. TECHNIQUE: Computed tomography (CT) of the chest was performed without intravenous contrast. Automate d exposure control and iterative reconstruction technique were employed. The dose-length product (DLP ) was 404.54 mGy-cm. COMPARISON: Chest CT 09/27/2021 FINDINGS: There is widespread septal thickening in the lungs with a peripheral predominance. There is mild bronchiectasis in the inferior lungs. There are scattered nodules in the lungs in clusters amandeep uring up to 4 mm with improvement in right lower lobe from 09/27/2021, likely infection. No pleural ef fusion. The heart size is normal. No pericardial effusion. There are coronary artery calcifications. There is ectasia of ascending aorta measuring 4.3 cm. There is mild thoracic spondylosis. There is an old healed fracture of left third rib. There is mild osteoarthritis of the glenohumeral joints. IMPRESSION: 1. Diffuse lung disease with improvement in right lower lobe, likely chronic infection. Reviewed, dictated and finalized at location A. IMPRESSION: 1. Diffuse lung disease with improvement in right lower lobe, likely chronic in fection.
--- NOTE | ~2022-01-10 | CT_ITS ---
EXAMINATION: CT cervical spine wo con DATE: 01/10/2022 14:01 INDICATION: Neck pain after fall TECHNIQUE: Computed tomography (CT) of the cervical spine was performed without intravenous contrast. The dose-length product was 405 mGy-cm. Automated exposure control and iterative reconstruction tech nique were employed. COMPARISON: None FINDINGS: Vertebral body heights are maintained. There is moderate multilevel degenerative disc disea se most advanced at C4-5 and C6-7. There is degenerative anterolisthesis at C7-T1 and C2-3. No fractu re, subluxation or dislocation. No evidence for perched facet. Craniovertebral junction is normal. There is advanced multilevel uncin ate and facet hypertrophy. Lung apices demonstrate mild emphysema with apical pleural thickening/scar ring. There are two 6 mm left upper lobe nodules. IMPRESSION: 1. No acute fracture. 2: Severe cervical spondylosis. 3: Left upper lobe nodules measuring 6 mm, likely benign. Follow-up low dose CT chest in 6 months rec ommended. Reviewed, dictated and finalized at location A. IMPRESSION: 1. No acute fracture. 2: Severe cervical spondylosis. 3: Left upper lobe nodules measuring 6 mm, likely benign. Follow-up low dose CT chest in 6 months recommended.
--- NOTE | ~2022-01-10 | CT_ITS ---
EXAMINATION: CT brain wo con DATE: 01/10/2022 14:01 INDICATION: Status post fall. Headache. TECHNIQUE: Computed tomography (CT) of the head was performed without intravenous contrast. The dose- length product was 605.33 mGy-cm. Automated exposure control and iterative reconstruction technique w ere employed. COMPARISON: CT dated 04/25/2021 FINDINGS: Brain parenchymal volume is normal for age. No acute intracranial hemorrhage, infarction, m ass or mass effect. No ventriculomegaly or midline shift. Basilar cisterns are patent. There are scat tered mild periventricular and subcortical white matter changes, most likely related to small vessel ischemic disease (microangiopathy). Paranasal sinuses and mastoids are pneumatized. IMPRESSION: 1. No acute intracranial abnormality. Reviewed, dictated and finalized at location A.
[2022-01-10 12:45] VITALS: BP 158/84; PULSE 71; RESP 18; TEMP 36.6; O2SAT 97
--- NOTE | 2022-01-10 13:27 | ECG_ITS ---
Measurements Intervals [place] Rate: 64 P: 80 [place]: 159 QRS: 70 QRSD: 85 T: 61 QT: 419 QTc: 432 Interpretive Statements SINUS RHYTHM BASELINE ARTIFACT- II, III, AVF NORMAL ECG Electronically Signed On 01-10-2022 14:10:57 CDT by Kwesi Posada D.O.
[2022-01-10 13:52] LABS: Basophils Absolute Auto 0.04 K/mm3 (0.00-0.10); Basophils Percent Auto 0.8 % (0.0-1.0); Eosinophils Absolute Auto 0.36 K/mm3 (0.02-0.50); Eosinophils Percent Auto 7.4 % (1.0-6.0); Hematocrit 43.6 % (35.0-42.0); Hemoglobin 14.6 g/dL (11.7-13.8); Immature Granulocyte Absolute 0.01 K/mm3 (0.00-0.00); Immature Granulocyte Percent A 0.2 % (0.0-0.0); Lymphocytes Percent Auto 28.7 % (18.0-42.0); Mean Corpuscular HGB Conc 33.5 g/dL (32.0-36.0); Mean Corpuscular Volume 98.4 fL (78.0-102.0); Mean Platelet Volume 9.1 fl (9.2-11.8); Monocytes Absolute Auto 0.44 K/mm3 (0.10-0.90); Neutrophils Absolute Auto 2.6 K/mm3 (1.7-7.2); Neutrophils Percent Auto 53.9 % (50.0-70.0); Platelet Count Result 191 K/mm3 (150-420); Red Blood Count 4.43 M/mm3 (4.20-5.40); Red Cell Distribution Width 13.2 % (11.6-14.4); White Blood Count 4.9 K/mm3 (4.8-10.8)
[2022-01-10 14:00] VITALS: BP 142/69; PULSE 67; RESP 16; O2SAT 96
[2022-01-10 14:10] LABS: Alanine Aminotransferase 29 U/L (14-59); Albumin Level 3.4 g/dL (3.4-5.0); Alkaline Phosphatase 82 U/L (46-116); Anion Gap 8 mmol/L (8-16); Aspartate Amino Transferase 16 U/L (15-37); Bilirubin,Total 0.4 mg/dL (0.00-1.00); Blood Urea Nitrogen 18 mg/dL (7-18); Calcium 8.4 mg/dL (8.5-10.1); Carbon Dioxide 26 mmol/L (21-32); Chloride 107 mmol/L (98-108); Estimated CRCL calculation 51 ml/min; Estimated Glomerular Filt Rate > 60; Ethanol < 3 mg/dL (0-6); Glucose 95 mg/dL (70-99); Osmolality Calculated 293 mOsm/kg (285-295); Potassium 4.4 mmol/L (3.5-5.1); Sodium 141 mmol/L (136-145); Total Protein 6.5 g/dL (6.4-8.2); Troponin I 7.6 ng/L (0.00-60.4)
[2022-01-10] MEDS: IBUPROFEN 400 MG TABLET 800 MG PO (14:13)
[2022-01-10 14:15] LABS: Add Urine Microscopic? NO; Appearance Urine Clear (Clear); Bilirubin Urine Negative (Negative); Blood Urine Negative (Negative); Color Urine Yellow (Yellow); Glucose Urine UA Negative (Negative); Ketones Urine Negative (Negative); Leukocyte Esterase Ur Negative (Negative); Nitrate Urine Negative (Negative); Protein Urine Negative (Negative); Specific Grav Ur >= 1.030 (1.010-1.020)
[2022-01-10] MEDS: SODIUM CHLORIDE 0.9% IV 1,000 ML 150 ML IV CONT (14:19)
[2022-01-10 14:21] LABS: Amphetamine Screen Urine Negative (Negative); Barbiturate Screen Urine Negative (Negative); Benzodiazepines Screen Urine Negative (Negative); Cannabinoid Screen Urine Negative (Negative); Cocaine Screen Urine Negative (Negative); Methadone Screen Urine Negative (Negative); Opiate Screen Urine Negative (Negative); Phencyclidine Screen Urine Negative (Negative)
[2022-01-10 15:00] VITALS: BP 131/70; PULSE 78; RESP 18; O2SAT 97
--- NOTE | 2022-01-10 15:50 | ED.UPPEXIN ---
HPI - Extremity Injury (Upper) General Chief Complaint: Extremity Injury, Upper Stated Complaint: fell on left shoulder Time Seen by Provider: 01/10/22 12:41 Source: patient and RN notes reviewed Mode of arrival: ambulatory Limitations: no limitations History of Present Illness HPI narrative: left shoulder pain, after a fall complaint: injury to: left and shoulder Other injuries: none Place: outdoors Severity: mild Severity scale (1-10): 4 Relieving factors: immobilization Exacerbating factors: movement of extremity Context: fall Associated symptoms: denies other symptoms Related Data Allergies Allergy/AdvReac Type Severity Reaction Status Date / Time lisinopril Allergy Mild cough Verified 01/10/22 12:53 Review of Systems Review of Systems: All systems reviewed & are unremarkable except as noted in HPI and below Constitutional: Constitutional: Reports no additional constitutional complaints Eyes: Eyes: Reports no additional eye complaints ENT: Reports system reviewed and no additional complaints, except as documented Cardiovascular: Cardiovascular: Reports no additional cardiovascular complaints Respiratory: Respiratory: Reports no additional respiratory complaints Gastrointestinal: Gastrointestinal: Reports no additional gastrointestinal complaints Genitourinary: Genitourinary: Reports no additional female genitourinary complaints Musculoskeletal: Musculoskeletal: Reports arthralgias Integumentary/Breasts: Skin/Breast: Reports system reviewed and no additional complaints, except as docu Neurologic: Reports system reviewed and no additional complaints, except as documented Psychiatric: Psychiatric: Reports no additional psychiatric complaints Endocrine: Endocrine: Reports no additional endocrine complaints Hematologic/Lymphatic: Hematologic/Lymphatic: Reports no additional hematologic/lymphatic complaints Allergic/Immunologic: Allergic/Immunologic: Reports no additional allergic/immunologic complaints PMFSH Past Medical History Medical History Abdominal hernia Acid reflux Acute bilateral thoracic back pain Adenomatous colon polyp Aftercare following right hip joint replacement surgery Arthritis Benign hypertension Benign reactive hypertension Carpal tunnel syndrome of left wrist Coarse tremors Contusion of left shoulder COPD (chronic obstructive pulmonary disease) Degenerative joint disease of knee Dizziness Emphysema of lung Fall Fracture of one rib, left side, subsequent encounter for fracture with routine healing Herpes genitalis in women Herpes simplex vulvovaginitis High cholesterol History of tobacco use disorder History of vaginal delivery x 2 Hyperlipidemia Left shoulder pain Mixed hyperlipidemia Osteoporosis Overweight (BMI 25.0-29.9) Quadriceps weakness Skin cancer Vitamin D deficiency, unspecified Wears glasses Surgical History Surgical History History of open reduction and internal fixation (ORIF) procedure left wrist History of right inguinal hernia repair Hx of rotator cuff surgery Hx of total hip arthroplasty Right Presence of right artificial hip joint S/P ORIF (open reduction internal fixation) fracture distal radius- Left Status post total knee replacement Right Family History Family History Father Family history of Parkinson's disease Mother Patient's mother is , Onset Age: 42 Other Cerebrovascular accident Family history of malignant neoplasm Social History Social History Social History: Patient lives at home with her grown granddaughter. She wishes to be listed as a Full Code. Her PCP is Dr. Alvarez. Smoking packs per day: 1 Smoking cigarettes per day: 20.0 Years smoked: 40 Smoking pack-years: 40.
[2022-01-10 16:05] VITALS: BP 144/80; PULSE 77; RESP 18; TEMP 36.7; O2SAT 97
== END 2022-01-10 16:10 | disposition home or self-care (01) ==
PROVIDERS: Emergency Provider Emergency Medicine; PCP Family Medicine
DX: S40.012A Contusion of left shoulder, initial encounter (principal); W19.XXXA Unspecified fall, initial encounter; K21.9 Gastro-esophageal reflux disease without esophagitis; J44.9 Chronic obstructive pulmonary disease, unspecified; E78.00 Pure hypercholesterolemia, unspecified; E78.5 Hyperlipidemia, unspecified; Z87.891 Personal history of nicotine dependence
CPT/HCPCS: 36415; 70450; 71250; 72125; 80053; 80307; 81003; 84484; 85025; 93005; 96360; 96361; 99284; A9270; J7030

== ENCOUNTER 2022-03-08 08:31 | Outpatient (CLI) | payer MEDICARE, SELFPAY ==
--- NOTE | ~2022-03-08 | XR_ITS ---
EXAMINATION: XR chest 2V DATE: 03/08/2022 08:47 INDICATION: Bronchitis, unspecified TECHNIQUE: PA and lateral views of the chest are obtained. COMPARISON: 09/20/2021 FINDINGS: The lungs are free of acute opacities. No pleural effusion or pneumothorax. The cardiomedia stinal silhouette is normal. There are bridging osteophytes at multiple levels in the spine, consiste nt with diffuse idiopathic skeletal hyperostosis (DISH). IMPRESSION: 1. No acute cardiopulmonary abnormality. Reviewed, dictated and finalized at location B.
== END 2022-03-08 08:32 | disposition home or self-care (01) ==
PROVIDERS: PCP Family Medicine; Visit Provider Nurse Practitioner Gerontology
DX: J40 Bronchitis, not specified as acute or chronic (principal); J44.9 Chronic obstructive pulmonary disease, unspecified
CPT/HCPCS: 71046

== ENCOUNTER 2022-05-17 08:06 | Outpatient (CLI) | payer MEDICARE, SELFPAY ==
[2022-05-17 08:21] LABS: Basophils Absolute Auto 0.03 K/mm3 (0.00-0.10); Basophils Percent Auto 0.4 % (0.0-1.0); Eosinophils Absolute Auto 0.09 K/mm3 (0.02-0.50); Eosinophils Percent Auto 1.3 % (1.0-6.0); Hematocrit 44.6 % (35.0-42.0); Hemoglobin 14.8 g/dL (11.7-13.8); Immature Granulocyte Absolute 0.02 K/mm3 (0.00-0.00); Immature Granulocyte Percent A 0.3 % (0.0-0.0); Lymphocytes Absolute Auto 1.69 K/mm3 (1.10-4.50); Mean Corpuscular HGB Conc 33.2 g/dL (32.0-36.0); Mean Corpuscular Hemoglobin 32.9 pg (27.0-31.0); Mean Corpuscular Volume 99.1 fL (78.0-102.0); Mean Platelet Volume 8.7 fl (9.2-11.8); Monocytes Absolute Auto 0.45 K/mm3 (0.10-0.90); Monocytes Percent Auto 6.6 % (2.0-11.0); Neutrophils Absolute Auto 4.5 K/mm3 (1.7-7.2); Neutrophils Percent Auto 66.4 % (50.0-70.0); Platelet Count Result 205 K/mm3 (150-420); White Blood Count 6.8 K/mm3 (4.8-10.8)
[2022-05-20 04:36] LABS: Immunoglobulin G, Serum 701 mg/dL (600-1540); Immunoglobulin G1 346 mg/dL (382-929); Immunoglobulin G2 201 mg/dL (241-700); Immunoglobulin G3 37 mg/dL (22-178); Immunoglobulin G4 36.4 mg/dL (4.0-86.0)
[2022-05-21 14:03] LABS: Alpha-1-Antitrypsin, QN 112 mg/dL (83-199); Immunoglobulin A 128 mg/dL (70-320); Immunoglobulin G 678 mg/dL (600-1540); Immunoglobulin M 57 mg/dL (50-300)
== END 2022-05-17 08:07 | disposition home or self-care (01) ==
LOC: CHSLAB 08:07
PROVIDERS: PCP Family Medicine; Visit Provider Nurse Practitioner Family
DX: Z14.8 Genetic carrier of other disease (principal); J47.9 Bronchiectasis, uncomplicated; B99.9 Unspecified infectious disease; J30.9 Allergic rhinitis, unspecified; R09.3 Abnormal sputum
CPT/HCPCS: 36415; 82103; 82784; 82785; 82787; 85025; 86003; 86606; 87015; 87070; 87102; 87116; 87147; 87205; 87206

== ENCOUNTER 2022-06-02 12:49 | Outpatient (CLI) | payer MEDICARE, SELFPAY ==
[2022-06-02 13:00] VITALS: PULSE 70; O2SAT 98
[2022-06-02 13:08] VITALS: PULSE 92; O2SAT 90
--- NOTE | 2022-06-02 13:12 | HOMEO2EVAL ---
Evaluation was performed at [facility] [place] Home Oxygen Evaluation RC: Home Oxygen (O2) Evaluation Start: 06/02/22 13:08 Freq: Status: Active Protocol: RPE Activity Type Activity Date Activity User E-sign Co-sign Detail Recorded Client Recorded Date Recorded By Document 06/02/22 13:00 [email or web address] 06/02/22 13:12 SJB Document 06/02/22 13:08 SJB [email or web address] 06/02/22 13:12 SJB 06/02/22 06/02/22 13:00 13:08 Home O2 Evaluation [Oxygen] -Test Phase Resting Exercise -Oxygen Delivery Room Air Room Air [Pulse Oximetry] -Pulse Oximetry (90-100 %) 98 90 [Pulse Rate] -Pulse Rate (60-100 beats/min) 70 92 [Evaluation] -Activity Tolerance Good -Rating of Perceived Dyspnea (PD) +2 Mild, Some Difficulty, Noticeable to the Observer -Rate of Perceived Exertion (PE) 12 Query Text:Click the Protocol Button to View the RPE Scale [Exercise] -Ambulation Distance (feet) 850 -Ambulation Distance (meters) 259.06 [Comments] -Home Oxygen Evaluation Comments Will begin walk Pt walked on room air. approx 850 ft on room air. Sp02 stayed at and above 90%. Pt educated on PLB. [Charges] -Treatment Charges O2 Evaluation - Outpatient
--- NOTE | 2022-06-22 13:56 | WPDPFTINT ---
PFT Procedure Performed PFT Procedure Performed Spirometry with Pre/Post Bronchodilator PFT Interpretation DOS: 06/02/2022 REQUESTING: José David APRN REASON FOR TESTING: Dyspnea PULMONARY FUNCTION TESTS Results are reliable and reproducible. Spirometry: pre bronchodilator FEV1 is 1.17 L, 57% predicted moderately decreased. Pre bronchodilator FVC is 2.74 L, 107% predicted, normal. FEV1/FVC ratio is 43% consistent with airflow obstruction. after bronchodilator administration there is an insignificant response, 3% increase in the FEV1 and 3% increase in the FVC. The post bronchodilator FEV1 is 1.21 L, post bronchodilator FVC is 2.83 L. Lung volumes: not performed Diffusion: not performed Flow volume loop: There is coving of the expiratory limb consistent with airflow obstruction. IMPRESSION: This spirometry with bronchodilator shows moderately severe airflow obstruction without response to bronchodilator. There are no prior studies for comparison. Lack of response to bronchodilator should not preclude use if clinically indicated. Junie Ly MD
== END 2022-06-02 12:50 | disposition home or self-care (01) ==
LOC: CHSCARD 12:50
PROVIDERS: PCP Family Medicine; Visit Provider Nurse Practitioner Family
DX: J44.9 Chronic obstructive pulmonary disease, unspecified (principal)
CPT/HCPCS: 94060; 94618

== ENCOUNTER 2022-06-12 17:47 | Outpatient (CLI) | payer MEDICARE, SELFPAY ==
[2022-06-16 13:36] LABS: Erythropoietin (EPO) 14.4 mIU/mL (2.6-18.5)
== END 2022-06-12 17:48 | disposition home or self-care (01) ==
LOC: CHSLAB 17:50
PROVIDERS: PCP Family Medicine; Visit Provider Nurse Practitioner Family
DX: J44.9 Chronic obstructive pulmonary disease, unspecified (principal); D75.1 Secondary polycythemia
CPT/HCPCS: 36415; 82668

== ENCOUNTER 2022-06-27 08:03 | Outpatient (CLI) | payer MEDICARE, SELFPAY ==
--- NOTE | 2022-07-13 18:08 | WPDHOMESLEEP ---
Sleep Study - Home Unattended Date of Study: 06/27/22 Ordering Provider: José David APRN Interpreting Provider: Junie Ly MD Home Sleep Study Type: Watch PAT Height: 1.6 m Weight: 77.111 kg Body Mass Index: 30.1 Neck Circumference (inches): 15.25 [place]: 15 Reason for Sleep Study Hypersomnolence Sleep History Junie Alfred is a 71-year-old woman with COPD and poor sleep. She uses a sleep aid nightly. She has difficulty falling asleep and staying asleep. She has excessive daytime sleepiness. There is a family history of sleep issues, her daughter uses CPAP. She rarely awakens from sleep feeling short of breath. She frequently awakens at night with heartburn, belching or coughing. She occasionally snores. She does not snore loudly enough that others complain. She constantly has trouble sleeping with a cold. She does not wake up gasping for breath at night. She frequently has breathing problems at night observed by others. She occasionally sweats excessively at night. She occasionally notices her heart pounding or beating irregularly at night. She occasionally falls asleep during the day. She does not fall asleep involuntarily or while driving. She does not have loss of muscle tone with strong emotion. She rarely has daytime difficulties due to excessive sleepiness. She does not feel paralyzed on waking or falling asleep. She constantly has vivid dreamlike scenes upon awakening or falling asleep. She does not feel afraid to go to sleep. She rarely has nightmares. She occasionally remembers her dreams. She constantly has racing thoughts. She rarely feels sad or depressed. She frequently has anxiety. She occasionally has muscular tension. She does not notice parts of her body jerking and she does not kick at night. She occasionally has crawling and aching feelings in her legs. She constantly has leg pain at night. She does not have morning jaw pain. She frequently is bothered by pain during the day and frequently awakened by pain at night. She frequently wakes up feeling stiff in the morning with sore achy muscles. She always wakes with neck and spine pain. She has fatigue, memory problems tremors and she takes antacids regularly. She always uses sedatives to get to sleep. Normal bedtime is 9:00 p.m. falling asleep within 1 hour frequently tossing and turning. She may wake up 2 or more times at night. When she awakens at night. She may stay awake for a few hours. Her normal wake time on week days is 6:00 a.m.. On weekends, bedtime is later 10:00 p.m. and she wakes at 8:00 a.m.. She estimates getting 9 hours of sleep at night. She generally takes naps in the afternoon or evening. A short nap lasting 10 or 15 minutes is not refreshing. She feels better in the afternoon compared to other times of day. Habits: Quit tobacco years ago. Caffeine 1 cup per day. Alcohol 2 drinks a week. No recreational substance. [facility] Past Medical History Medical History Abdominal hernia Acid reflux Acute bilateral thoracic back pain Adenomatous colon polyp Aftercare following right hip joint replacement surgery Arthritis Benign hypertension Benign reactive hypertension Carpal tunnel syndrome of left wrist Coarse tremors Contusion of left shoulder COPD (chronic obstructive pulmonary disease) Degenerative joint disease of knee Dizziness Emphysema of lung Fall Fracture of one rib, left side, subsequent encounter for fracture with routine healing Herpes genitalis in women Herpes simplex vulvovaginitis High cholesterol History of tobacco use disorder History of vaginal delivery x 2 Hyperlipidemia Left shoulder pain Mixed hyperlipidemia Osteoporosis Overweight (BMI 25.0-29.9) Quadriceps weakness Skin cancer Vitamin D deficiency, unspecified Wears glasses Surgical History Surgical History History of
[2022-07-13 18:24] VITALS: BMI 30.1
== END 2022-06-28 10:14 | disposition home or self-care (01) ==
LOC: ANHCSM 08:04
PROVIDERS: PCP Family Medicine; Visit Provider Nurse Practitioner Family
DX: G47.30 Sleep apnea, unspecified (principal); R06.83 Snoring
CPT/HCPCS: 95800

== ENCOUNTER 2022-06-28 07:18 | Outpatient (CLI) | payer MEDICARE, SELFPAY | END 2022-06-28 07:19 | disposition home or self-care (01) | LOC: CHSLAB 07:19 | PROVIDERS: PCP Family Medicine; Visit Provider Nurse Practitioner Family | DX: J47.9 Bronchiectasis, uncomplicated (principal); R09.3 Abnormal sputum | CPT/HCPCS: 87015; 87070; 87102; 87116; 87147; 87205; 87206 ==

== ENCOUNTER 2022-08-30 12:56 | Outpatient (CLI) | payer MEDICARE, SELFPAY ==
--- NOTE | ~2022-08-30 | CT_ITS ---
EXAMINATION: CT diagnostic chest wo con DATE: 08/30/2022 14:23 INDICATION: Mycobacterial disease, follow-up TECHNIQUE: Computed tomography (CT) of the chest was performed without intravenous contrast. The dose -length product (DLP) was 217.62 mGy-cm. Automated exposure control and iterative reconstruction tech [employer] were employed. COMPARISON: 01/10/2022 FINDINGS: Again seen are widespread subpleural reticular opacities with worsening in the lung bases. Associated groundglass opacities have also developed. No pleural effusion or pneumothorax. There are stable scattered nodular the lungs measuring up to 4 mm. Calcified coronary artery atherosclerosis is noted. The heart size is normal. There is chronic mild mediastinal lymphadenopathy, likely reactive. There is stable ectasia of the ascending aorta measuring 4.2 cm. There is mild thoracic spondylosis. There is mild bronchiectasis of the lower lobes. IMPRESSION: 1. Diffuse lung disease, with slight worsening in the lower lobes, likely chronic infection. Reviewed, dictated and finalized at location F. PER INSIGHTS MANAGER IMPRESSION: 1. Diffuse lung disease, with slight worsening in the lower lobes, likely chron ic infection.
--- NOTE | 2022-09-04 14:16 | WPDPFTINT ---
PFT Procedure Performed PFT Procedure Performed Spirometry with Pre/Post Bronchodilator Plethysmography (Lung Vol) Diffusing Cap (DLCO) Flow Vol Loop PFT Interpretation DOS: 08/30/2022 REQUESTING: Dr. Rudy Lopez REASON FOR TESTING: Dyspnea PULMONARY FUNCTION TESTS Results are reliable and reproducible. Spirometry: Pee bronchodilator FEV1 is 1.62 L, 78% predicted, normal. Pre bronchodilator FVC is 3.10 L, 115% predicted, normal. FEV1/FVC ratio is 52%, decreased, consistent with airflow obstruction. After bronchodilator There is a 9% drop in the FEV1, 1.48 L, 71% predicted which is below normal. There is a 7% drop in the FVC, 2.89 L, 108%, normal. The ratio is 51%. Lung volumes: Total lung capacity is 6.16 L, 126%, mild hyperinflation. Residual volume is 3.05 L, 140% consistent with moderate air trapping. RV/TLC is 50%, normal range. Airway resistance is 3.84, 243%, increased. Diffusion: 16.6, 83%, normal. DLCO /VA is 3.82, 89%, normal. Flow volume loop: There is coving of the expiratory limb consistent with airflow obstruction. IMPRESSION: This spirometry with bronchodilator shows normal values with out response to bronchodilator, mild hyperinflation and moderate air trapping with normal diffusion. A prior spirometry on 06/02/2022 showed moderately severe airflow obstruction FEV1 1.17 L, 57% predicted with a normal FVC 2.74 L, 107% predicted and the FEV1/FVC ratio was 43% predicted. There was no response to bronchodilator. Junie Ly MD
== END 2022-08-30 12:57 | disposition home or self-care (01) ==
PROVIDERS: PCP Family Medicine; Visit Provider Internal Medicine Pulmonary Disease
DX: A31.0 Pulmonary mycobacterial infection (principal); J44.9 Chronic obstructive pulmonary disease, unspecified; R06.00 Dyspnea, unspecified; R94.2 Abnormal results of pulmonary function studies
CPT/HCPCS: 71250; 94060; 94726; 94729

== ENCOUNTER 2022-09-29 18:19 | Emergency (ER) | payer MEDICARE, SELFPAY ==
--- NOTE | ~2022-09-29 | XR_ITS ---
EXAMINATION: XR ribs RT 2V w CXR 2V INDICATION: Rib pain after fall TECHNIQUE: PA and lateral views of the chest and 3 views of the right ribs were obtained. COMPARISON: 03/08/2022 FINDINGS: There is mild atelectasis of the lung bases. No pleural effusion or pneumothorax. There is severe thoracic spondylosis. There is moderate osteoarthritis of the shoulders. No displaced rib frac ture is identified. IMPRESSION: 1. Mild atelectasis of the lung bases without evidence of displaced rib fracture. Reviewed, dictated and finalized at location F. IMPRESSION: 1. Mild atelectasis of the lung bases without evidence of displaced rib fractur e.
--- NOTE | ~2022-09-29 | XR_ITS ---
EXAMINATION: XR hand RT min 3V INDICATION: Right hand pain TECHNIQUE: Three views of the right hand are obtained on four radiographs. COMPARISON: None available FINDINGS: There is advanced osteoarthritis at the first carpometacarpal joint. There is moderate oste oarthritis at the triscaphe and first metacarpophalangeal joints as well as in multiple interphalange al joints. No fracture is identified. There is mild dorsal soft tissue swelling of the wrist. IMPRESSION: 1. Soft tissue swelling and polyarticular osteoarthritis without acute osseous abnormality. Reviewed, dictated and finalized at location F.
[2022-09-29 18:20] VITALS: BP 168/68; PULSE 80; RESP 18; TEMP 36.9
--- NOTE | 2022-09-29 18:59 | PC.NURSE ---
pt report to cara barba. all questions asked.
--- NOTE | 2022-09-29 19:37 | ED.FALL ---
HPI - Fall General Chief Complaint: Fall Stated Complaint: fall rib pain, right side hand Time Seen by Provider: 09/29/22 18:29 Source: patient Mode of arrival: ambulatory Limitations: no limitations History of Present Illness complaint: fall Onset (ago): hour(s) Fall from: standing Fall witnessed: no Place fall occurred: home Loss of consciousness: none Symptoms prior to fall: none Related Data Allergies Allergy/AdvReac Type Severity Reaction Status Date / Time lisinopril Allergy Mild cough Verified 09/26/22 08:23 Review of Systems Review of Systems: All systems reviewed & are unremarkable except as noted in HPI and below Constitutional: Constitutional: Denies chills and Denies fever(s) ENT: Denies vertigo Cardiovascular: Cardiovascular: Denies no additional cardiovascular complaints, Denies chest pain and Denies radiating jaw, neck or arm pain Respiratory: Respiratory: Denies cough and Denies dyspnea Gastrointestinal: Gastrointestinal: Denies abdominal pain Hematologic/Lymphatic: Hematologic/Lymphatic: Denies easy bleeding and Denies easy bruising PMF Past Medical History Medical History Abdominal hernia Acid reflux Acute bilateral thoracic back pain Adenomatous colon polyp Aftercare following right hip joint replacement surgery Arthritis Benign hypertension Benign reactive hypertension Carpal tunnel syndrome of left wrist Coarse tremors Contusion of left shoulder COPD (chronic obstructive pulmonary disease) Degenerative joint disease of knee Dizziness Emphysema of lung Fall Fracture of one rib, left side, subsequent encounter for fracture with routine healing Herpes genitalis in women Herpes simplex vulvovaginitis High cholesterol History of tobacco use disorder History of vaginal delivery x 2 Hyperlipidemia Left shoulder pain Mixed hyperlipidemia Osteoporosis Overweight (BMI 25.0-29.9) Quadriceps weakness Skin cancer Vitamin D deficiency, unspecified Wears glasses Surgical History Surgical History History of open reduction and internal fixation (ORIF) procedure left wrist History of right inguinal hernia repair Hx of rotator cuff surgery Hx of total hip arthroplasty Right Presence of right artificial hip joint S/P ORIF (open reduction internal fixation) fracture distal radius- Left Status post total knee replacement Right Family History Family History Father Family history of Parkinson's disease Mother Patient's mother is , Onset Age: 42 Other Cerebrovascular accident Family history of malignant neoplasm Social History Social History Social History: Patient lives at home with her grown granddaughter. She wishes to be listed as a Full Code. Her PCP is Dr. Alvarez. Smoking packs per day: 1 Smoking cigarettes per day: 20.0 Years smoked: 40 Smoking pack-years: 40.00 Smoking status: Former smoker Tobacco type: cigarettes Second hand tobacco smoke exposure: Yes Smoking end date: 07/02/11 Alcohol intake: current Drinks per week: 7 Alcohol use details: WINE Substance use: never Substance use type: does not use Living arrangements: with family Occupation/Education: occupation Gender identity (if verbalized by the patient): Female Sexual Orientation (if Verbalized by the Patient): Straight or Heterosexual Spiritual care concerns: No Exam Const: General: healthy appearing Nutritional Appearance: well nourished Orientation/consciousness: patient oriented x3 Limitations: no limitations HENMT: Head: normal to inspection Face and sinus: normal facial exam Eyes: Conjunctivae: conjunctivae normal Neck: Neck: normal visual inspection Chest: Chest palpation & inspection: normal inspection of
[2022-09-29] MEDS: HYDROcodone/acetaminophen (*CRX) 5-325 MG TABLET 1 TAB PO (20:02)
[2022-09-29 20:05] VITALS: BP 133/88; PULSE 69; RESP 20; TEMP 36.8; O2SAT 99
== END 2022-09-29 20:09 | disposition home or self-care (01) ==
PROVIDERS: Emergency Provider Family Medicine; PCP Family Medicine
DX: S20.219A Contusion of unspecified front wall of thorax, initial encounter (principal); S60.221A Contusion of right hand, initial encounter; W19.XXXA Unspecified fall, initial encounter; I10 Essential (primary) hypertension; J44.9 Chronic obstructive pulmonary disease, unspecified; K21.9 Gastro-esophageal reflux disease without esophagitis; E78.00 Pure hypercholesterolemia, unspecified; E55.9 Vitamin D deficiency, unspecified; E78.5 Hyperlipidemia, unspecified; M81.0 Age-related osteoporosis without current pathological fracture; M17.9 Osteoarthritis of knee, unspecified; Z96.641 Presence of right artificial hip joint; Z86.010 Personal history of colon polyps
CPT/HCPCS: 71046; 71100; 73130; 99284; A9270

== ENCOUNTER 2022-12-20 15:51 | Outpatient (RCR) | payer OTHER, SELFPAY ==
--- NOTE | 2022-12-20 16:36 | PTOPEVAL1 ---
Assessment and note entered by Rudy Solares Evaluation Information Assessment Status Evaluation Diagnosis periprosthetic fx of shaft of the femur right Onset 10/17/22 Subjective Information Pt. reports she fell while at work. She states that she fell while attempting to move a chair. She was taken to the hospital by ambulance. She reports that she underwent surgery that day. She states that she was in the hospital for 10 days. She reports that she then went to the alf for 5 weeks for rehab. Pt. reports she has been home for 3 weeks. She reports that she did HH for 1 visit and has since been discharged. She reports that she has her 16 year old grand daughter helping her currently and living with her . She is currently not driving and using a ww. She states that her doctor told her she can get rid of her walker, but she states that she cannot get enough weight through the right leg. Prior to the fall she had no complication and was working 40 hours/week. She lives alone and was completing all IADL's without complication. She reports that her goal is to return to walking normal. Reported Pain Level Pain Score 8: Self Report Assessment PT Clinical Summary Pt. is a 72 year old female who enters the clinic post femur fx on the right. She presents with functional decline, impaired gait, impaired balance, impaired ROM and impaired strength. Continued skilled PT is indicated in order to improve these areas to allow the pt. to be able to complete all IADL's and return to work without limitation. Plan of Care Interventions Electrical Stimulation,Gait Training,Hot Pack/Cold Pack,Manual Therapy,Neuro Re-education,Patient/ Caregiver Educati,Therapeutic Activities, Therapeutic Exercise PT Services Indicated Yes Treatment Frequency and 2x/week x 12 visits Duration These treatments will address the objective and functional deficits as defined above. The patient will be advanced safely and appropriately in order for the patient to progress towards his/her prior level of function. Additional exercises will be introduced and as well as a comprehensive home exercise program upon discharge, if needed, ?to ensure carryover of functional gains achieved in the clinic. This treatment plan has been reviewed and agreement upon by the patient.
--- NOTE | 2022-12-20 16:37 | OPREHPOC ---
Outpatient Therapy Plan of Care This is a Multidisciplinary Plan of Care that may contain components documented by all disciplines (PT, OT, and ST.) PT Problem 1 PT Problem #1 Knowledge Deficit PT Goal 1 Goal Independent with a HEP addressing strength and mobility restorationist Target Visit 2 PT Problem 2 PT Problem #2 Impaired Balance PT Goal 1 Goal Improve tinetti score to 19 or greater Target Visit 12 PT Problem 3 PT Problem #3 Impaired Gait PT Goal 1 Goal Ambulate independently with use of a standard cane over level surface Target Visit 6 PT Goal 2 Goal Ambulate over level surface without an AD with equal right and left stance time. Target Visit 12 PT Problem 4 PT Problem #4 Impaired Strength PT Goal 1 Goal Pt. will increase gross right l.e. strength to 4+/ 5 or greater in all mm groups Target Visit 8 PT Problem 5 PT Problem #5 Impaired Functional Mobil PT Goal 1 Goal Pt. will be appropriate to return to all work related duties. Target Visit 12
--- NOTE | 2023-01-23 13:51 | PTOPPROGNS ---
Assessment and note entered by Candis Wu DPT Evaluation Information Assessment Status Re-evaluation Diagnosis periprosthetic fx of shaft of the femur right Onset 10/17/22 Subjective Information Patient reports that bending her knee has improved since start of PT. She reports she uses the cane 90% of the time. She reports she has returned to cooking. She reports difficulty with vaccuming and navigating stairs. She reports she got a hip injection today Assessment PT Clinical Summary Patient has been seen for 10 visits of skilled PT. She is making good progress towards goals at this time. She is ambulating with a STC, demonstrates improved R knee flexion ad improved R knee strength. She continues to have difficulty with heavy house hold chores and has not returned to work. She would benefit from continued skilled PT to address remaining impairments and return to work at [employer]. Plan of Care Interventions Electrical Stimulation,Gait Training,Hot Pack/Cold Pack,Manual Therapy,Neuro Re-education,Patient/ Caregiver Educati,Therapeutic Activities, Therapeutic Exercise PT Services Indicated Yes Treatment Frequency and continue with current POC Duration These treatments will address the objective and functional deficits as defined above. The patient will be advanced safely and appropriately in order for the patient to progress towards his/her prior level of function. Additional exercises will be introduced and as well as a comprehensive home exercise program upon discharge, if needed, ?to ensure carryover of functional gains achieved in the clinic. This treatment plan has been reviewed and agreement upon by the patient.
--- NOTE | 2023-01-30 15:33 | PTOPREEVAL ---
Assessment and note entered by JT File, PT Evaluation Information Assessment Status Re-evaluation Diagnosis periprosthetic fx of shaft of the femur right Onset 10/17/22 Subjective Information Patient reports 5/10 pain in the R LE today, noting it was likely due to pulling weeds in her yard yesterday. She notes she has been able to perform more activities in her home since intiaiting physical therapy such as gardening, doing dishes, and ascending/descending the stairs to her basement. She states she still has difficulty using both UE to reach for objects, such as reaching for dishes in her cabinets. Reported Pain Level Pain Score 0,5: Self Report Assessment PT Clinical Summary Mrs. Rogel has attended 12 sessions of skilled physical therapy to address periprosthetic fx of R femur shaft making good progress towards goals. She demonstrated improvements in LE strength and ROM increasing her ability to ambulate and stair climb. Patient reports improved ability to perform household duties such as gardening and dishes, but inability to return to full work duties such as standing and walking all day. She continues to be high fall risk as assessed by the [facility]. Patient continues to display gait deviations, strength, and ROM deficits compared to the L LE. She notes limitations with reaching for items with both UEs due to needing balance support with at least one UE on cane/stable surface. Appropriate to continue skilled therapy to address these remaining limitations. Plan of Care Interventions Electrical Stimulation,Gait Training,Hot Pack/Cold Pack,Manual Therapy,Neuro Re-education,Patient/ Caregiver Educati,Therapeutic Activities, Therapeutic Exercise PT Services Indicated Yes Treatment Frequency and continue 2x/week for additional 8 visits Duration These treatments will address the objective and functional deficits as defined above. The patient will be advanced safely and appropriately in order for the patient to progress towards his/her prior level of function. Additional exercises will be introduced and as well as a comprehensive home exercise program upon discharge, if needed, ?to ensure carryover of functional gains achieved in the clinic. This treatment plan has been reviewed and agreement upon by the patient.
--- NOTE | 2023-01-31 13:44 | OPREHPOC ---
Outpatient Therapy Plan of Care This is a Multidisciplinary Plan of Care that may contain components documented by all disciplines (PT, OT, and ST.) PT Problem 1 PT Problem #1 Knowledge Deficit PT Goal 1 Goal Independent with a HEP addressing strength and mobility uatsdin Target Visit 2 Progress Met PT Problem 2 PT Problem #2 Impaired Balance PT Goal 1 Goal Improve tinetti score to 19 or greater Target Visit 12 Progress Partially Met Comment tinetti score improved to 18, still progressing towards reaching goal PT Problem 3 PT Problem #3 Impaired Gait PT Goal 1 Goal Ambulate independently with use of a standard cane over level surface Target Visit 6 Progress Met PT Goal 2 Goal Ambulate over level surface without an AD with equal right and left stance time. Target Visit 12 Progress Not Met Comment progressing PT Problem 4 PT Problem #4 Impaired Strength PT Goal 1 Goal Pt. will increase gross right l.e. strength to 4+/ 5 or greater in all mm groups Target Visit 12 Progress Partially Met Comment progressing PT Problem 5 PT Problem #5 Impaired Functional Mobil PT Goal 1 Goal Pt. will be appropriate to return to all work related duties. Target Visit 12 Progress Partially Met Comment progressing
--- NOTE | 2023-02-19 13:57 | OPREHPOC ---
Outpatient Therapy Plan of Care This is a Multidisciplinary Plan of Care that may contain components documented by all disciplines (PT, OT, and ST.) PT Problem 1 PT Problem #1 Knowledge Deficit PT Goal 1 Goal Independent with a HEP addressing strength and mobility pentecostalism Target Visit 2 Progress Met PT Problem 2 PT Problem #2 Impaired Balance PT Goal 1 Goal Improve tinetti score to 19 or greater Target Visit 20 Progress Met Comment tinetti score improved to 18, still progressing towards reaching goal PT Problem 3 PT Problem #3 Impaired Gait PT Goal 1 Goal Ambulate independently with use of a standard cane over level surface Target Visit 6 Progress Met PT Goal 2 Goal Ambulate over level surface without an AD with equal right and left stance time. Target Visit 20 Progress Not Met Comment progressing PT Problem 4 PT Problem #4 Impaired Strength PT Goal 1 Goal Pt. will increase gross right l.e. strength to 4+/ 5 or greater in all mm groups Target Visit 20 Progress Partially Met Comment progressing PT Problem 5 PT Problem #5 Impaired Functional Mobil PT Goal 1 Goal Pt. will be appropriate to return to all work related duties. Target Visit 20 Progress Partially Met Comment progressing
--- NOTE | 2023-02-19 13:57 | PTOPPROGNS ---
Assessment and note entered by Candis Wu DPT Evaluation Information Assessment Status Evaluation Diagnosis periprosthetic fx of shaft of the femur right Onset 10/17/22 Subjective Information Patient reports she has been able to go up and down her basement steps and complete her laundry. She also reports she has been out in the yard as well. She reports she was in the bathroom and twisted her knee on Sunday and has had increase in pain. She reports pain is worse with WB. Assessment PT Clinical Summary Mrs. Rogel has attended 18 skilled PT visits. Patient has demonstrated an improvement in R LE strength and R knee ROM. Patient continues to have impaired gait mechanincs and increased pain with ambulation. Patient reports improvement in stair navigation and ambulation on uneven ground. Patient returns to MD on 02/20/23 and will continue to be progressed per MD reecommendations. Plan of Care Interventions Electrical Stimulation,Gait Training,Hot Pack/Cold Pack,Manual Therapy,Neuro Re-education,Patient/ Caregiver Educati,Therapeutic Activities, Therapeutic Exercise PT Services Indicated Yes Treatment Frequency and continue 2x/week for remaining 3 visits Duration These treatments will address the objective and functional deficits as defined above. The patient will be advanced safely and appropriately in order for the patient to progress towards his/her prior level of function. Additional exercises will be introduced and as well as a comprehensive home exercise program upon discharge, if needed, ?to ensure carryover of functional gains achieved in the clinic. This treatment plan has been reviewed and agreement upon by the patient.
== END 2023-02-19 23:59 | disposition home or self-care (01) ==
LOC: CHSPT 15:51
PROVIDERS: Visit Provider Orthopaedic Surgery
DX: M97.8XXD Periprosthetic fracture around other internal prosthetic joint, subsequent encounter (principal); Z96.649 Presence of unspecified artificial hip joint
CPT/HCPCS: 97014; 97110; 97112; 97140; 97161; 97530; G0283

== ENCOUNTER 2023-01-12 12:52 | Outpatient (CLI) | payer MEDICARE, SELFPAY ==
--- NOTE | ~2023-01-12 | MM_ITS ---
EXAMINATION: MM screening paulo BI w lucius HISTORY: Screening mammogram TECHNIQUE: Craniocaudal and mediolateral oblique 3-D tomosynthesis images were obtained and synthetic 2-D images were generated. CAD analysis was submitted and interpreted. COMPARISON: 10/19/2020, 03/06/2019, 02/18/2018 bilateral screening mammogram examinations BREAST PARENCHYMAL COMPOSITION: There are scattered areas of fibroglandular density. FINDINGS: There is no evidence of suspicious mass, calcification, or architectural distortion to sugg est malignancy in either breast. There has been no suspicious interval change. IMPRESSION: 1. No mammographic evidence of malignancy. 2. Recommend routine screening mammography in one year. BI-RADS Category 1: Negative Reviewed, dictated and finalized at location A.
== END 2023-01-12 12:53 | disposition home or self-care (01) ==
LOC: CHSIMG 12:53
PROVIDERS: PCP Family Medicine; Visit Provider Family Medicine
DX: Z12.31 Encounter for screening mammogram for malignant neoplasm of breast (principal)
CPT/HCPCS: 77063; 77067

== ENCOUNTER 2023-03-07 13:24 | Outpatient (CLI) | payer MEDICARE, SELFPAY ==
--- NOTE | ~2023-03-07 | DEXA_ITS ---
Bone Density Report Name: BERNADETTE RODRÍGUEZ Age: 72 Sex: Female Ethnicity: White Date of : 1950 Indication: postmenopausal; screening for osteoporosis; height loss; prior fracture; Referring Provider: Kim Valencia Study: Bone densitometry was performed. Exam Date: March 07, 2023 Accession number: [id number] Bone Density: Region BMD T-score Z-score Classification AP Spine(L1, L2, L3) 0.895 -1.1 1.1 Osteopenia Femoral Neck (Left) 0.576 -2.5 -0.5 Osteoporosis Total Hip (Left) 0.718 -1.8 -0.2 Osteopenia World Health Organization criteria for BMD impression classify patients as: Normal (T-score at or above -1.0), Osteopenia (T-score between -1.0 and -2.5), or Osteoporosis (T-score at or below -2.5). 10-year Fracture Risk: FRAX not reported because: Some T-score for Spine Total or Hip Total or Femoral Neck at or below -2.5 Prior hip or vertebral fracture Clinical Information Provided by Patient: Have had a previous hip or vertebral fracture Has had a low trauma fracture Has used the following medications: Calcium, multi Patient maximum height was 63 Menopause Age: 49 No regular weight bearing exercise Onset of menses at age 12 Number of children 2 Impression: The patient has established osteoporosis, based on the Left Femoral Neck T-score and the existence of a prior fracture. The patient has risk factors, including: previous fracture. Discussion: HIGH RISK OF FRACTURE. BONE DENSITY IS UNDESIRABLY LOW AT ONE OR MORE SKELETAL SITES, CONSISTENT WITH POSTMENOPAUSAL OSTEOPOROSIS. This patient's lowest T-score, in a patient who has previously fractured, meets the World Health Organization's (WHO) criteria for severe osteoporosis. In untreated patients, the risk of osteoporotic fracture increases approximately two-fold for each 1.0 SD decrease in T-score. Low bone density is not the only risk factor for fracture; also consider factors such as patient's age, frailty or poor health, risk of falling, risk of injury, previous osteoporotic fracture, family history of osteoporosis, cigarette smoking, low body weight, etc. Not everyone with low bone mineral density has osteoporosis; osteomalacia and other metabolic bone disorders should also be considered. Patients who have osteoporosis should be evaluated for specific diseases and conditions (secondary causes) that may cause or contribute to bone loss. The [place] Association of Clinical Endocrinologists (AACE) and National Osteoporosis Foundation (NOF) recommend pharmacologic intervention for all postmenopausal women with a previous hip or vertebral fracture and a T-score in this range. The patient should follow a healthful lifestyle (good nutrition with adequate calcium and vitamin D, and appropriate weight-bearing exercise). Follow-Up: Consider a repeat BMD and Vertebral Fracture Assessment (VFA) exam in 2 years or sooner if medically necessary, to reassess this patient's status
[2023-03-07 14:04] LABS: Basophils Absolute Auto 0.04 K/mm3 (0.00-0.10); Basophils Percent Auto 0.8 % (0.0-1.0); Eosinophils Absolute Auto 0.25 K/mm3 (0.02-0.50); Eosinophils Percent Auto 5.1 % (1.0-6.0); Hematocrit 41.3 % (35.0-42.0); Hemoglobin 13.1 g/dL (11.7-13.8); Immature Granulocyte Absolute 0.01 K/mm3 (0.00-0.00); Immature Granulocyte Percent A 0.2 % (0.0-0.0); Lymphocytes Absolute Auto 1.54 K/mm3 (1.10-4.50); Lymphocytes Percent Auto 31.7 % (18.0-42.0); Mean Corpuscular HGB Conc 31.7 g/dL (32.0-36.0); Mean Corpuscular Hemoglobin 27.8 pg (27.0-31.0); Mean Corpuscular Volume 87.5 fL (78.0-102.0); Mean Platelet Volume 8.4 fl (9.2-11.8); Monocytes Absolute Auto 0.38 K/mm3 (0.10-0.90); Monocytes Percent Auto 7.8 % (2.0-11.0); Neutrophils Absolute Auto 2.6 K/mm3 (1.7-7.2); Neutrophils Percent Auto 54.4 % (50.0-70.0); Platelet Count Result 236 K/mm3 (150-420); Red Blood Count 4.72 M/mm3 (4.20-5.40); Red Cell Distribution Width 20.6 % (11.6-14.4); White Blood Count 4.9 K/mm3 (4.8-10.8)
[2023-03-07 14:36] LABS: Alanine Aminotransferase 19 U/L (14-59); Albumin Level 3.3 g/dL (3.4-5.0); Alkaline Phosphatase 104 U/L (46-116); Anion Gap 6 mmol/L (8-16); Aspartate Amino Transferase 13 U/L (15-37); Bilirubin,Total 0.4 mg/dL (0.00-1.00); Blood Urea Nitrogen 22 mg/dL (7-18); Calcium 9.1 mg/dL (8.5-10.1); Carbon Dioxide 29 mmol/L (21-32); Chloride 105 mmol/L (98-108); Cholesterol 234 mg/dL (0-200); Estimated Glomerular Filt Rate > 60; Glucose 86 mg/dL (70-99); HDL Direct 53 mg/dL (40-60); LDL Cholesterol Calculated 142 mg/dL (<130); Osmolality Calculated 292 mOsm/kg (285-295); Potassium 4.7 mmol/L (3.5-5.1); Sodium 140 mmol/L (136-145); Thyroid Stimulating Hormone 2.54 uIU/mL (0.36-3.74); Triglycerides 196 mg/dL (0-150)
== END 2023-03-07 13:25 | disposition home or self-care (01) ==
LOC: CHSIMG 13:25
PROVIDERS: PCP Family Medicine; Visit Provider Family Medicine
DX: E03.9 Hypothyroidism, unspecified (principal); E78.2 Mixed hyperlipidemia; I10 Essential (primary) hypertension; Z78.0 Asymptomatic menopausal state; M85.89 Other specified disorders of bone density and structure, multiple sites
CPT/HCPCS: 36415; 77080; 80053; 80061; 84443; 85025

== ENCOUNTER 2023-03-22 01:31 | Day surgery (SDC) | payer MEDICARE, SELFPAY ==
[2023-03-14 08:28] VITALS: BMI 30.2
[2023-03-22 06:56] VITALS: BP 145/76; PULSE 91; RESP 18; TEMP 36.3; O2SAT 96
[2023-03-22] MEDS: LACTATED RINGERS 1,000 ML 150 ML IV CONT (07:03)
--- NOTE | 2023-03-22 07:22 | WPDANESEPPF ---
Anes - Initial Pre Proc Eval Procedure: Operation Date: 03/22/23 08:00 Proposed Procedures p Esophagogastroduodenoscopy & Colonoscopy - Calvin Webber MD Date/Time: 03/22/23 07:22 Surgeon: Calvin Webber MD Pre Op Diagnosis: hx of colon polyps,Slow transit constipation, Patient Data Age: 72 Gender: F Height: 1.6 m Weight: 74.1 kg Last Vital Signs Temp 97.3 F L 03/22/23 06:56 Pulse 91 03/22/23 06:56 Resp 18 03/22/23 06:56 BP 145/76 H 03/22/23 06:56 Pulse Ox 96 03/22/23 06:56 O2 Del Method Room Air 03/22/23 06:56 Allergies Allergy/AdvReac Type Severity Reaction Status Date / Time Nseyumf-[id number]-DdM Reductase AdvReac Intermediate Muscle Pain Verified 03/22/23 06:54 Inhibitor lisinopril AdvReac Mild cough Verified 03/22/23 06:54 Home Medications Medication Instructions Recorded Confirmed Type albuterol sulfate 90 mcg/actuation 1 - 2 inh inhalation Q4-6H PRN 06/09/22 03/14/23 Rx aerosol inhaler shortness of breath or wheezing #8.5 grams umeclidinium 62.5 mcg-vilanterol 1 inh inhalation DAILY #60 ea 02/13/23 03/14/23 Rx 25 mcg/actuation powdr for inhalation (Anoro Ellipta) cholecalciferol (vitamin D3) 1,250 1,250 mcg PO WEEKLY #14 caps 03/09/23 03/14/23 Rx mcg (50,000 unit) capsule diclofenac sodium 75 mg 75 mg PO BID 03/14/23 03/14/23 History tablet,delayed release fluticasone propionate 50 1 spray intranasal DAILY 03/14/23 03/14/23 History mcg/actuation nasal spray,suspension losartan 100 mg tablet 100 mg PO DAILY 03/14/23 03/14/23 History montelukast 10 mg tablet 10 mg PO DAILY 03/14/23 03/14/23 History pantoprazole 40 mg tablet,delayed 40 mg PO QAM 03/14/23 03/14/23 History release primidone 50 mg tablet 50 mg PO HS 03/14/23 03/14/23 History Patient hx anesthesia problems: none Family hx anesthesia problems: none Results Review: All pre-operative results and documents have been reviewed as part of the pre-operative evaluation. [facility] Past Medical History Medical History Abdominal hernia Abnormal CXR Acid reflux Acute bilateral thoracic back pain Adenomatous colon polyp Aftercare following right hip joint replacement surgery Arthritis Benign hypertension Benign reactive hypertension Carpal tunnel syndrome of left wrist Coarse tremors Contusion of left shoulder COPD (chronic obstructive pulmonary disease) Degenerative joint disease of knee Dizziness Emphysema of lung Fall Fracture of one rib, left side, subsequent encounter for fracture with routine healing Herpes genitalis in women Herpes simplex vulvovaginitis High cholesterol History of tobacco use disorder History of vaginal delivery x 2 Hyperlipidemia Left buttock abscess Left rib fracture Left shoulder pain Malaise Mixed hyperlipidemia Neck pain Numbness and tingling of left side of face Numbness and tingling of right face Osteoporosis Overweight (BMI 25.0-29.9) Quadriceps weakness Skin cancer Tremor of both hands Vitamin D deficiency, unspecified Wears glasses Wound, open, toe Surgical History Surgical History History of open reduction and internal fixation (ORIF) procedure left wrist History of right inguinal hernia repair Hx of rotator cuff surgery Hx of total hip arthroplasty Right Presence of right artificial hip joint S/P ORIF (open reduction internal fixation) fracture distal radius- Left Status post total knee replacement Right Family History Family History Father Family history of Parkinson's disease Mother Patient's mother is , Onset Age: 42 Other Cerebrovascular accident Family history of malignant neoplasm Social History Social History Social History: Patient lives at home with her gr
--- NOTE | 2023-03-22 07:45 | PM.HPGS ---
History of Present Illness History of Present Illness Consent: Risks, benefits, and alternatives have been discussed and questions answered. Patient agrees to proceed with procedure. Chief complaint: hx of colon polyps,Slow transit constipation, Narrative: Junie Alfred is a 72 year old female with gerd well controlled on pantoprazole, also bloating. She has been dealing with constipation since had femur fracture, last colonoscopy over 10 years ago Review of Systems Constitutional: Constitutional: Denies headache(s) and Denies weakness Eyes: Eyes: Denies blurry vision ENT: Reports Normal hearing present, Denies headache(s) and Denies neck pain Cardiovascular: Cardiovascular: Denies chest pain and Denies dyspnea Respiratory: Respiratory: Denies dyspnea Gastrointestinal: Gastrointestinal: Reports no additional gastrointestinal complaints Genitourinary: Genitourinary: Denies dysuria Musculoskeletal: Musculoskeletal: Denies neck pain Integumentary/Breasts: Skin/Breast: Denies dry skin Neurologic: Reports Normal hearing present, Denies headache(s) and Denies weakness Psychiatric: Psychiatric: Denies anxiety Endocrine: Endocrine: Denies change in body appearance Hematologic/Lymphatic: Hematologic/Lymphatic: Denies easy bleeding Allergic/Immunologic: Allergic/Immunologic: Denies urticaria PMFSH Past Medical History Medical History Abdominal hernia Abnormal CXR Acid reflux Acute bilateral thoracic back pain Adenomatous colon polyp Aftercare following right hip joint replacement surgery Arthritis Benign hypertension Benign reactive hypertension Carpal tunnel syndrome of left wrist Coarse tremors Contusion of left shoulder COPD (chronic obstructive pulmonary disease) Degenerative joint disease of knee Dizziness Emphysema of lung Fall Fracture of one rib, left side, subsequent encounter for fracture with routine healing Herpes genitalis in women Herpes simplex vulvovaginitis High cholesterol History of tobacco use disorder History of vaginal delivery x 2 Hyperlipidemia Left buttock abscess Left rib fracture Left shoulder pain Malaise Mixed hyperlipidemia Neck pain Numbness and tingling of left side of face Numbness and tingling of right face Osteoporosis Overweight (BMI 25.0-29.9) Quadriceps weakness Skin cancer Tremor of both hands Vitamin D deficiency, unspecified Wears glasses Wound, open, toe Surgical History Surgical History History of open reduction and internal fixation (ORIF) procedure left wrist History of right inguinal hernia repair Hx of rotator cuff surgery Hx of total hip arthroplasty Right Presence of right artificial hip joint S/P ORIF (open reduction internal fixation) fracture distal radius- Left Status post total knee replacement Right Family History Family History Father Family history of Parkinson's disease Mother Patient's mother is , Onset Age: 42 Other Cerebrovascular accident Family history of malignant neoplasm Social History Social History Social History: Patient lives at home with her grown granddaughter. She wishes to be listed as a Full Code. Her PCP is Dr. Alvarez. Smoking packs per day: 1 Smoking cigarettes per day: 20.0 Years smoked: 20 Smoking pack-years: 20.00 Smoking status: Former smoker Tobacco type: cigarettes Second hand tobacco smoke exposure: Yes Smoking end date: 07/02/11 Alcohol intake: current Drinks per week: 4 Alcohol use details: wine Substance use: current Substance use type: marijuana Last use: 2x monthly Lack of Transportation: No Lack of Food: Never True Current Housing: I Have Housing Concerned About Future Housing: No Difficulty Paying Gas/Electric Bills: No
[2023-03-22] MEDS: BENZOCAINE (*SP) 60 ML SPRAY CAN (HURRICAINE) 1 SPRAY MUCOUS MEM (07:54)
--- NOTE | 2023-03-22 08:01 | SUR.OPER ---
EGD: [id number] COLON: Start 0800
[2023-03-22 08:15] VITALS: BP 106/56; PULSE 80; RESP 26; O2SAT 98
[2023-03-22 08:25] VITALS: BP 122/76; PULSE 75; RESP 20; O2SAT 100
[2023-03-22 08:35] VITALS: BP 108/68; PULSE 71; RESP 24; O2SAT 100
== END 2023-03-22 08:53 | disposition home or self-care (01) ==
PROVIDERS: PCP Family Medicine; Visit Provider Internal Medicine Gastroenterology
PROC: 0DJ08ZZ Inspection of Upper Intestinal Tract, Via Natural or Artificial Opening Endoscopic (ICD-10-PCS; CPT 43235; principal; 2023-03-22 08:00)
DX: Z12.11 Encounter for screening for malignant neoplasm of colon (principal); K57.30 Diverticulosis of large intestine without perforation or abscess without bleeding; K64.8 Other hemorrhoids; K59.01 Slow transit constipation; K44.9 Diaphragmatic hernia without obstruction or gangrene; K25.9 Gastric ulcer, unspecified as acute or chronic, without hemorrhage or perforation; K29.70 Gastritis, unspecified, without bleeding; K21.9 Gastro-esophageal reflux disease without esophagitis; Z86.010 Personal history of colon polyps; I10 Essential (primary) hypertension; J43.9 Emphysema, unspecified; E78.00 Pure hypercholesterolemia, unspecified; M81.0 Age-related osteoporosis without current pathological fracture; E55.9 Vitamin D deficiency, unspecified; Z87.891 Personal history of nicotine dependence; F12.90 Cannabis use, unspecified, uncomplicated; Z79.51 Long term (current) use of inhaled steroids
CPT/HCPCS: 43239; G0121; 88305; J2704; J7120

== ENCOUNTER 2023-11-19 11:33 | Outpatient (RCR) | payer OTHER, SELFPAY ==
--- NOTE | 2023-11-19 12:24 | PTOPEVAL1 ---
Assessment and note entered by Rudy Solares Evaluation Information Assessment Status Evaluation Diagnosis femur fx, right leg pain and weakness Onset 08/17/23 Subjective Information Pt. reports she fell on 08/17/23 after breaking her right hip. She reports that she underwent surgery to repair the leg shortly after. She reports that during the initial fall she fell and broke her right wrist. She reports that she is still using a brace on her wrist if she is using a walker. She reports that she is currently walking with a walker. She states that she cannot currently drive. She reports that she currently has home care for the next week. She has help 8 hours with home care daily and then her granddaughter stays with her. She states that she has pain on the inside of the right knee, but nowhere else. 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 Pt. reports that her goal for therapy is to be able to walk without an AD. Reported Pain Level Pain Score 7: Self Report Assessment PT Clinical Summary Pt. is a 73 year old female who enters the clinic due to developed weakness after a right femur fx. She presents with functional decline, impaired gait, impaired l.e. strength, impaired balance and pain on this date. Continued skilled PT is indicated in order to improve these areas to allow the pt. to achieve her goal of ambulation without an AD. Plan of Care Interventions Electrical Stimulation,Gait Training,Hot Pack/Cold Pack,Manual Therapy,Neuro Re-education,Patient/ Caregiver Educati,Therapeutic Activities, Therapeutic Exercise PT Services Indicated Yes Treatment Frequency and 2x/week x 10 visits Duration These treatments will address the objective and functional deficits as defined above. The patient will be advanced safely and appropriately in order for the patient to progress towards his/her prior level of function. Additional exercises will be introduced and as well as a comprehensive home exercise program upon discharge, if needed, ?to ensure carryover of functional gains achieved in the clinic. This treatment plan has been reviewed and agreement upon by the patient.
--- NOTE | 2023-11-19 12:25 | OPREHPOC ---
Outpatient Therapy Plan of Care This is a Multidisciplinary Plan of Care that may contain components documented by all disciplines (PT, OT, and ST.) PT Problem 1 PT Problem #1 Knowledge Deficit PT Goal 1 Goal Independent with a HEP addressing strength and mobility. Target Visit 2 PT Problem 2 PT Problem #2 Impaired Gait PT Goal 1 Goal Pt. will complete the 6 minute walk test without an AD for a distance of 700' or greater Target Visit 10 PT Problem 3 PT Problem #3 Impaired Balance PT Goal 1 Goal Pt. will demonstrate a tinetti score ot 24 or greater indicating low fall risk. Pt. will complete the 5x sit to stand test in less than 15 seconds Target Visit 10
--- NOTE | 2023-12-04 16:15 | BUOTOPEVAL ---
Assessment and note entered by Reena Malin OT Evaluation Information Assessment Status Evaluation Diagnosis R distal radius fracture Reported Pain Level Pain Score 0: Self Report Pain Score 0: Self Report Pain Score 0: Self Report Pain Score 5: Self Report Pain Score 0: Self Report Pain Score 7: Self Report Pain Score 7: Self Report Assessment OT Clinical Summary The patient is a 73 year old female who was referred to outpatient OT due to R distal radius fracture. The patient previously demonstrated WNL UE ROM, UE strength/geospatial specialist strength, WNL pinch strength, no discomfort, and full mobility of R wrist. The patient now demonstrates impairments in R wrist flexion/extension, radial/ulnar deviation , digit flexion to make composite fist, limited geospatial specialist strength and severely impaired pinch strength resulting in decreased use of UE during ADLs. The patient requires skilled OT to address deficits and return to PLOF. Plan of Care Interventions Therapeutic Exercise,Manual Therapy,Neuro Re- education,Therapeutic Activities,Hot Pack/Cold Pack,Electrical Stimulation,Sensory Integrative Techn,Self-Care/Home Management OT Services Indicated Yes Treatment Frequency and 2-3x/week for 10 visits. Duration These treatments will address the objective and functional deficits as defined above. The patient will be advanced safely and appropriately in order for the patient to progress towards his/her prior level of function. Additional exercises will be introduced and as well as a comprehensive home exercise program upon discharge, if needed, ?to ensure carryover of functional gains achieved in the clinic. This treatment plan has been reviewed and agreement upon by the patient.
--- NOTE | 2023-12-06 13:12 | PCPTNOTE ---
Patient cancelled session. She states she does not have a ride, and is going on vacation.
--- NOTE | 2023-12-26 07:51 | BUOTOPEVAL ---
Assessment and note entered by Reena Malin OT Evaluation Information Assessment Status Progress note Diagnosis R distal radius fracture Subjective Information The patient reports no pain even with daily tasks. She can use R UE for ADLs with minimal to no difficulty. 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 Reported Pain Level Pain Score 0: Self Report Pain Score 0: Self Report Pain Score 0: Self Report Pain Score 0: Self Report Pain Score 0: Self Report Pain Score 0: Self Report Pain Score 0: Self Report Pain Score 0: Self Report Pain Score 0: Self Report Pain Score 0: Self Report Pain Score 0: Self Report Pain Score 0: Self Report Pain Score 5: Self Report Pain Score 0: Self Report Pain Score 7: Self Report Pain Score 7: Self Report Assessment OT Clinical Summary The patient demonstrates significant progress in UE HEP knowledge and performance, fine motor coordination, wrist ROM, field ironworker/pinch strength, and digit ROM resulting in increased independence with ADLs, decreased discomfort and stiffness in fingers when gripping, and full mobility of R wrist following injury. The patient's QuickDASH questionnaire score improved from 45% to 29.5% demonstrating increased function of R UE. She continues to require skilled OT to address field ironworker/ pinch strength, fine motor coordination, wrist strength and stability, and digit ROM in order to regain full function of UE to PLOF and increase success with IADLs. To continue per MD and address weakness of UE. Plan of Care Interventions Therapeutic Exercise,Neuro Re-education, Therapeutic Activities,Hot Pack/Cold Pack, Electrical Stimulation,Sensory Integrative Techn, Self-Care/Home Management OT Services Indicated Yes Treatment Frequency and 2x/week for 8 visits. Duration
--- NOTE | 2023-12-31 15:06 | OPREHPOC ---
Outpatient Therapy Plan of Care This is a Multidisciplinary Plan of Care that may contain components documented by all disciplines (PT, OT, and ST.) PT Problem 1 PT Problem #1 Knowledge Deficit PT Goal 1 Goal Independent with a HEP addressing strength and mobility. Target Visit 2 Progress Met PT Problem 2 PT Problem #2 Impaired Gait PT Goal 1 Goal Pt. will complete the 6 minute walk test without an AD for a distance of 700' or greater (used cane ) Pt. will ambulate without cane and no L hip drop or Trendelenburg lean to the R side. Target Visit 16 Progress Partially Met PT Problem 3 PT Problem #3 Impaired Balance PT Goal 1 Goal Pt. will demonstrate a tinetti score to 24 or greater indicating low fall risk. met Pt. will complete the 5x sit to stand test in less than 15 seconds. met Target Visit 10 Progress Met PT Problem 4 PT Problem #4 Impaired Strength PT Goal 1 Goal 1. improve R hip strength to 5/5 overall Target Visit 16 OT Problem 1 OT Problem #1 Knowledge Deficit OT Goal 1 Goal The patient will demonstrate 100% knowledge of UE HEP in order to improve UE function and decrease pain. DISCONTINUE Target Visit 10 Progress Met OT Problem 2 OT Problem #2 Impaired Coordination OT Goal 1 Goal The patient will demonstrate increased fine motor coordination performing 9-hole peg test in <23 seconds in order to perform grooming tasks. CONTINUE Target Visit 16 Progress Partially Met OT Problem 3 OT Problem #3 Impaired Range of Motion OT Goal 1 Goal The patient will demonstrate increased R wrist ROM with >50 degrees wrist flexion, >
--- NOTE | 2023-12-31 15:06 | PTOPREEVAL ---
Assessment and note entered by JT File, PT Evaluation Information Assessment Status Re-evaluation Diagnosis femur fx, right leg pain and weakness Onset 08/17/23 Subjective Information patient reports she feels Good today. she reports she has no pain in the R LE. she reports she does feel the R LE is longer than the L. she reports she is confident in walking with the cane, and reports she has had no falls. she reports she is compliant with her HEP at home. Reported Pain Level Pain Score 0: Self Report Assessment PT Clinical Summary mrs. bass presents to skilled PT for her 10th skilled therapy visit. she displays improvements in ambulation, balance, and strength. she has met goals for balance today, and partial achievement of gait goal. she continues to lack normal gait mechanics without an AD, and lacks strength of the R hip to stabilize posture during ambulation. she would benefit from continued skilled PT services to improve her remaining objective/functional deficits and return to prior level activity performance/quality of life. Plan of Care Interventions Electrical Stimulation,Gait Training,Hot Pack/Cold Pack,Manual Therapy,Neuro Re-education,Patient/ Caregiver Educati,Therapeutic Activities, Therapeutic Exercise PT Services Indicated Yes Treatment Frequency and continue skilled PT 2x weekly for 6 visits Duration These treatments will address the objective and functional deficits as defined above. The patient will be advanced safely and appropriately in order for the patient to progress towards his/her prior level of function. Additional exercises will be introduced and as well as a comprehensive home exercise program upon discharge, if needed, ?to ensure carryover of functional gains achieved in the clinic. This treatment plan has been reviewed and agreement upon by the patient.
--- NOTE | 2024-01-14 17:26 | PCPTNOTE ---
On 01/14/24, the license pending MANAGER PRODUCT MANAGEMENT, [ Tierra Caballero ], provided care and completed [facility] documentation on this patient. I have reviewed the license pending MANAGER [employer]NAG[employer]'s documentation and agree with the findings.
--- NOTE | 2024-01-16 16:22 | OPREHPOC ---
Outpatient Therapy Plan of Care This is a Multidisciplinary Plan of Care that may contain components documented by all disciplines (PT, OT, and ST.) PT Problem 1 PT Problem #1 Knowledge Deficit PT Goal 1 Goal Independent with a HEP addressing strength and mobility. Target Visit 2 Progress Met PT Problem 2 PT Problem #2 Impaired Gait PT Goal 1 Goal Pt. will complete the 6 minute walk test without an AD for a distance of 700' or greater (used cane ) Pt. will ambulate without cane and no L hip drop or Trendelenburg lean to the R side. (not met) Target Visit 16 Progress Partially Met PT Problem 3 PT Problem #3 Impaired Balance PT Goal 1 Goal Pt. will demonstrate a tinetti score to 24 or greater indicating low fall risk. met Pt. will complete the 5x sit to stand test in less than 15 seconds. met Target Visit 10 Progress Met PT Problem 4 PT Problem #4 Impaired Strength PT Goal 1 Goal 1. improve R hip strength to 5/5 overall Target Visit 16 Progress Not Met OT Problem 1 OT Problem #1 Knowledge Deficit OT Goal 1 Goal The patient will demonstrate 100% knowledge of UE HEP in order to improve UE function and decrease pain. DISCONTINUE Target Visit 10 Progress Met OT Problem 2 OT Problem #2 Impaired Coordination OT Goal 1 Goal The patient will demonstrate increased fine motor coordination performing 9-hole peg test in <23 seconds in order to perform grooming tasks. CONTINUE Target Visit 16 Progress Partially Met OT Problem 3 OT Problem #3 Impaired Range of Motion OT Goal 1 Goal The patient will demonstrate incr
--- NOTE | 2024-01-16 16:22 | PTOPPROG ---
Assessment and note entered by JT File, PT Evaluation Information Assessment Status Progress Diagnosis femur fx, right leg pain and weakness Onset 08/17/23 Subjective Information patient reports the R LE feels fine, but is still weak. she reports she does have some lower back issues off and on. she reports these back issues are especially increased when trying to walk or get around without her cane. Assessment PT Clinical Summary mrs. bass presents to skilled PT services for her 14th skilled PT visit this date. she presents with improvement in R hip and knee strength, but still significant weakness in R hip abduction strength. without an AD, she displays significant L hip drop during R SLS phase of gait. she has made progress towards goals thus far achieving goals for HEP, 6 minute walk distance, Tinetti, and TUG. patient would benefit from continued skilled PT address her R hip abduction weakness to improve her gait mechanics with and without an AD to return to prior level functional activity and work performance. Plan of Care Interventions Electrical Stimulation,Gait Training,Hot Pack/Cold Pack,Manual Therapy,Neuro Re-education,Patient/ Caregiver Educati,Therapeutic Activities, Therapeutic Exercise PT Services Indicated Yes Treatment Frequency and continue skilled PT per initial POC Duration These treatments will address the objective and functional deficits as defined above. The patient will be advanced safely and appropriately in order for the patient to progress towards his/her prior level of function. Additional exercises will be introduced and as well as a comprehensive home exercise program upon discharge, if needed, ?to ensure carryover of functional gains achieved in the clinic. This treatment plan has been reviewed and agreement upon by the patient.
--- NOTE | 2024-01-22 13:35 | PCPTNOTE ---
Patient called & cancelled scheduled appointment this date due to [illness ]
--- NOTE | 2024-01-25 14:35 | OTOPDC ---
Assessment and note entered by Reena Malin OT Evaluation Information Assessment Status Discharge Reported Pain Level Pain Score 0: Self Report Pain Score 0,0: Self Report Assessment OT Clinical Summary The patient has made significant progress in pain symptoms, wrist strength and mobility, credit risk analyst and pinch strength and fine motor coordination resulting in increased independence with ADLs, IADLs and leisure tasks. The patient is now able to perform self care tasks with no pain, has strength to carry her coffee mug and perform caregiving tasks. The patient reports no pain with activity and feels she is ready for discharge. The patient demonstrates good understanding of UE HEP to maintain strength of wrist and hand. The patient is discharged this date with HEP. Plan of Care OT Services Indicated No
== END 2024-01-30 13:51 | disposition home or self-care (01) ==
LOC: CHSPT 11:33
DX: S72.321D Displaced transverse fracture of shaft of right femur, subsequent encounter for closed fracture with routine healing (principal)
CPT/HCPCS: 97110; 97112; 97140; 97150; 97161; 97165; 97530; 97750

== ENCOUNTER 2023-12-21 09:33 | Outpatient (CLI) | payer MEDICARE, SELFPAY ==
[2023-12-21 10:00] LABS: Basophils Absolute Auto 0.05 K/mm3 (0.00-0.10); Eosinophils Percent Auto 5.9 % (1.0-6.0); Hemoglobin 14.8 g/dL (11.7-13.8); Immature Granulocyte Absolute 0.02 K/mm3 (0.00-0.00); Immature Granulocyte Percent A 0.4 % (0.0-0.0); Lymphocytes Absolute Auto 1.63 K/mm3 (1.10-4.50); Lymphocytes Percent Auto 32.1 % (18.0-42.0); Mean Corpuscular HGB Conc 32.2 g/dL (32-36); Mean Corpuscular Hemoglobin 29.7 pg (27.0-31.0); Mean Corpuscular Volume 92.4 fL (78.0-102.0); Monocytes Absolute Auto 0.37 K/mm3 (0.10-0.90); Monocytes Percent Auto 7.3 % (2.0-11.0); Neutrophils Percent Auto 53.3 % (50.0-70.0); Platelet Count Result 235 K/mm3 (150-420); Red Blood Count 4.98 M/mm3 (4.20-5.40); Red Cell Distribution Width 17.1 % (11.6-14.4); White Blood Count 5.1 K/mm3 (4.8-10.8)
[2023-12-21 10:27] LABS: Alanine Aminotransferase 13 U/L (14-59); Albumin Level 3.4 g/dL (3.4-5.0); Alkaline Phosphatase 100 U/L (46-116); Anion Gap 7 mmol/L (4-12); Aspartate Amino Transferase 10 U/L (15-37); Bilirubin,Total 0.4 mg/dL (0.00-1.00); Blood Urea Nitrogen 14 mg/dL (7-18); Calcium 9.1 mg/dL (8.5-10.1); Carbon Dioxide 29 mmol/L (21-32); Chloride 107 mmol/L (98-108); Cholesterol 216 mg/dL (0-200); Estimated Glomerular Filt Rate > 60; Glucose 97 mg/dL (70-99); HDL Direct 57 mg/dL (40-60); LDL Cholesterol Calculated 120 mg/dL (<130); Osmolality Calculated 296 mOsm/kg (285-295); Potassium 4.8 mmol/L (3.5-5.1); Sodium 143 mmol/L (136-145); Total Protein 6.8 g/dL (6.4-8.2); Triglycerides 193 mg/dL (0-150)
== END 2023-12-21 09:34 | disposition home or self-care (01) ==
LOC: CHSLAB 09:35
PROVIDERS: PCP Family Medicine; Visit Provider Physician Assistant
DX: E78.5 Hyperlipidemia, unspecified (principal); Z87.891 Personal history of nicotine dependence; A60.09 Herpesviral infection of other urogenital tract; I10 Essential (primary) hypertension
CPT/HCPCS: 36415; 80053; 80061; 85025

== ENCOUNTER 2024-01-14 13:29 | Outpatient (CLI) | payer MEDICARE, SELFPAY ==
--- NOTE | ~2024-01-14 | MM_ITS ---
EXAMINATION: MM screening paulo BI w lucius HISTORY: Screening TECHNIQUE: Craniocaudal and mediolateral oblique 3-D tomosynthesis images were obtained and synthetic 2-D images were generated. CAD analysis was submitted and interpreted. COMPARISON: Comparison to multiple prior studies sequentially, with oldest reviewed study dated 12/15. BREAST PARENCHYMAL COMPOSITION: Not dense: There are scattered areas of fibroglandular density. FINDINGS: There is no evidence of suspicious mass, calcification, or architectural distortion to sugg est malignancy in either breast. There has been no suspicious interval change. IMPRESSION: 1. No mammographic evidence of malignancy. 2. Recommend routine screening mammography in one year. BI-RADS Category 1: Negative Reviewed, dictated and finalized at location B.
== END 2024-01-14 13:30 | disposition home or self-care (01) ==
LOC: CHSIMG 13:30
PROVIDERS: PCP Family Medicine; Visit Provider Physician Assistant
DX: Z12.31 Encounter for screening mammogram for malignant neoplasm of breast (principal)
CPT/HCPCS: 77063; 77067

== ENCOUNTER 2024-01-21 14:28 | Outpatient (CLI) | payer MEDICARE, SELFPAY ==
[2024-01-21 15:12] LABS: Basophils Absolute Auto 0.05 K/mm3 (0.00-0.10); Basophils Percent Auto 0.7 % (0.0-1.0); Eosinophils Absolute Auto 0.29 K/mm3 (0.02-0.50); Eosinophils Percent Auto 4.2 % (1.0-6.0); Hematocrit 45.7 % (35.0-42.0); Hemoglobin 14.9 g/dL (11.7-13.8); Immature Granulocyte Absolute 0.03 K/mm3 (0.00-0.00); Immature Granulocyte Percent A 0.4 % (0.0-0.0); Lymphocytes Absolute Auto 1.18 K/mm3 (1.10-4.50); Lymphocytes Percent Auto 17.2 % (18.0-42.0); Mean Corpuscular HGB Conc 32.6 g/dL (32-36); Mean Corpuscular Hemoglobin 30.2 pg (27.0-31.0); Mean Corpuscular Volume 92.5 fL (78.0-102.0); Mean Platelet Volume 8.9 fl (9.2-11.8); Monocytes Absolute Auto 0.41 K/mm3 (0.10-0.90); Neutrophils Absolute Auto 4.89 K/mm3 (1.70-7.20); Neutrophils Percent Auto 71.5 % (50.0-70.0); Platelet Count Result 227 K/mm3 (150-420); Red Blood Count 4.94 M/mm3 (4.20-5.40); Red Cell Distribution Width 16.8 % (11.6-14.4); White Blood Count 6.9 K/mm3 (4.8-10.8)
[2024-01-21 15:38] LABS: Occult Blood Negative (Negative)
== END 2024-01-21 14:29 | disposition home or self-care (01) ==
LOC: CHSLAB 14:30
PROVIDERS: Visit Provider Physician Assistant
DX: R19.5 Other fecal abnormalities (principal)
CPT/HCPCS: 36415; 82272; 85025

== ENCOUNTER 2024-01-23 14:33 | Outpatient (CLI) | payer MEDICARE, SELFPAY ==
--- NOTE | ~2024-01-23 | CT_ITS ---
CT abdomen pelvis w con Ordering provider: Kelsey De Dios PA-C History: 73 years Female with . r/o diverticulitis . Comparison: December 25, 2016 Technique: CT abdomen and pelvis with IV and without oral contrast. Automated exposure control and it erative reconstruction technique were employed. The dose-length product was 617.53 mGy-cm. 100 ML Omn ipaque 350 was given IV. Findings: VISUALIZED LOWER CHEST: Atelectatic changes in the lung bases more on the right side. Early pneumonia cannot be excluded. Small nodule is seen measuring 5 mm in the right lung base laterally. UPPER ABDOMINAL ORGANS: Liver: Tiny cyst in the right lobe segment #8 measuring 6 mm. Measures 19 cm. Gallbladder: Normal. Spleen: Normal. Stomach/duodenum: Sliding hiatus hernia. Thickened wall of the stomach. Clinical correlation advised. Pancreas: Normal. Adrenals: Left adrenal nodule measuring 1.3 cm. Kidneys: Possible small parapelvic cysts. PELVIC ORGANS: The bladder is normal. Small calcified fibroid in the anterior cortex. BOWEL AND MESENTERY: Colon: No evidence diverticulitis. Normal appendix. Small Bowel: Normal. No obstruction. Peritoneum/mesentery: No free air or free fluid. No mesenteric lymphadenopathy. RETROPERITONEUM: Mild atheromatous disease of the abdominal aorta. No retroperitoneal lymphadenopat hy. MUSCULOSKELETAL: Superficial soft tissues: The superficial soft tissues are normal. Bones: degenerative changes of the spine. Right hip arthroplasty. IMPRESSION: 1. Mild hepatomegaly. Tiny cysts in the liver segment #8. 2. No evidence of appendicitis, diverticulitis or intestinal obstruction. 3. Parapelvic kidney cysts bilaterally. Reviewed, dictated and finalized at location A.
[2024-01-23 15:37] LABS: Estimated Glomerular Filt Rate > 60
== END 2024-01-23 14:34 | disposition home or self-care (01) ==
PROVIDERS: PCP Family Medicine; Visit Provider Physician Assistant
DX: R10.32 Left lower quadrant pain (principal); R10.829 Rebound abdominal tenderness, unspecified site; N28.1 Cyst of kidney, acquired
CPT/HCPCS: 74177; Q9967

== ENCOUNTER 2024-05-27 15:56 | Observation (INO) | payer MEDICARE, SELFPAY ==
[2024-05-27] VITALS (21 sets, daily range): BP systolic 123–166; BP diastolic 53–85; PULSE 76–114; RESP 18–20; TEMP 36.6–37.3; O2SAT 87–99; BMI 29.8
--- NOTE | ~2024-05-27 | CT_ITS ---
EXAMINATION: CTA chest PE protocol DATE: 05/27/2024 17:41 INDICATION: sob/elev dimer TECHNIQUE: Computed tomography angiography (CTA) of the chest was performed with 100 mL Omnipaque-350 intravenous contrast timed to evaluate the pulmonary arteries. Coronal maximum intensity projection 3D-reconstructions were created by the technologist. The dose-length product (DLP) was 367.64 mGy-cm. Automated exposure control and iterative reconstruction technique were employed. COMPARISON: X-ray chest, same date; CT abdomen pelvis 01/23/2024; CT chest 08/30/2022. FINDINGS: Motion limited examination. Lung parenchyma and airways: Biapical pleural scarring. Peripheral reticular and reticulonodular opac ities. Pleura: Unremarkable. Thoracic inlet, axillae and chest wall: Unremarkable. Thoracic aorta: Ascending aorta measures 4.2 cm. No dissection. Mild arch calcification. Mediastinum: Enlarged mediastinal lymph nodes. Heart and pericardium: Mitral calcification. Coronary artery calcifications: Absent. Upper abdomen: No significant finding. Bones: No acute osseous finding. Pulmonary arteries: Study quality: Motion artifact limits evaluation of the subsegmental arteries and the segmental bilateral lower lobe arteries. No pulmonary emboli detected in the adequately visualiz ed pulmonary arteries. IMPRESSION: Motion limited evaluation of the subsegmental pulmonary arteries and bilateral lower lobe segmental a rteries. No CT evidence of acute pulmonary embolus in the adequately visualized vessels. Mediastinal lymphadenopathy. Chronic lung disease, may represent interstitial lung disease versus chronic infection. Reviewed, dictated and finalized at location K. ATIONAL REVIEW SERGEANT IMPRESSION: Motion limited evaluation of the subsegmental pulmonary arteries and bilateral lower lobe segmental arteries. No CT evidence of acute pulmonary embolus in the adequately visualized vessels. Mediastinal lymphadenopathy. Chronic lung disease, may represent interstitial lung disease versus chronic in fection.
--- NOTE | ~2024-05-27 | XR_ITS ---
XR chest 2V Ordering provider: Bertin Casillas MD History: 73 years Female with . sob . Comparison: None. FINDINGS: MEDIASTINUM: The cardiac silhouette is not enlarged. LUNGS: No infiltrates, effusions or pneumothorax. Underlying emphysematous changes. OTHER: No free air under the diaphragm. Degenerative changes of the spine. IMPRESSION: No acute cardiopulmonary pathology. Reviewed, dictated and finalized at location A. HOUSE ORDER PULLER
--- NOTE | 2024-05-27 16:05 | ED.SOB ---
HPI - SOB/Dyspnea General Chief Complaint: Shortness of Breath/Dyspnea Stated Complaint: URI Time Seen by Provider: 05/27/24 16:03 Source: patient Mode of arrival: ambulatory Limitations: no limitations History of Present Illness HPI Narrative: Patient is a 73-year-old female with known COPD here with cough, chest pain (front and back of chest), chills and fever, non production phlegm and short of breath. She uses inhalers at home. She does not use oxygen. MD elicited complaint: shortness of breath, cough, pain with inspiration and chest pain Pertinent past history: COPD Onset (ago): day(s) (3) Context: other ( Patient has been sick for the past 3 days and progressively getting worse) Timing: constant Severity: moderate Exacerbating factors: exertion, coughing, inspiration, cold air and deep breaths Relieving factors: nothing Known history of: COPD Associated symptoms: chest pain, pain with inspiration, fever, cough and chest congestion Treatment prior to arrival: other ( Excedrin) Related Data Home oxygen amount: none Allergies Allergy/AdvReac Type Severity Reaction Status Date / Time [id number] Reductase AdvReac Intermediate Muscle Pain Verified 03/21/24 12:54 Inhibitor lisinopril AdvReac Mild cough Verified 03/21/24 12:54 Review of Systems Review of Systems: All systems reviewed & are unremarkable except as noted in HPI and below Constitutional: Constitutional: Reports no additional constitutional complaints Eyes: Eyes: Reports no additional eye complaints ENT: Reports system reviewed and no additional complaints, except as documented Cardiovascular: Cardiovascular: Reports no additional cardiovascular complaints Respiratory: Respiratory: Reports no additional respiratory complaints Gastrointestinal: Gastrointestinal: Reports no additional gastrointestinal complaints Genitourinary: Genitourinary: Reports no additional female genitourinary complaints Musculoskeletal: Musculoskeletal: Reports no additional musculoskeletal complaints Integumentary/Breasts: Skin/Breast: Reports system reviewed and no additional complaints, except as docu Neurologic: Reports system reviewed and no additional complaints, except as documented Psychiatric: Psychiatric: Reports no additional psychiatric complaints Endocrine: Endocrine: Reports no additional endocrine complaints Hematologic/Lymphatic: Hematologic/Lymphatic: Reports no additional hematologic/lymphatic complaints Allergic/Immunologic: Allergic/Immunologic: Reports no additional allergic/immunologic complaints PMFSH Past Medical History Medical History Abdominal hernia Abnormal CXR Acid reflux Acute bilateral thoracic back pain Adenomatous colon polyp Aftercare following right hip joint replacement surgery Arthritis Benign hypertension Benign reactive hypertension Carpal tunnel syndrome of left wrist Coarse tremors Contusion of left shoulder COPD (chronic obstructive pulmonary disease) Degenerative joint disease of knee Dizziness Emphysema of lung Fall Fracture of one rib, left side, subsequent encounter for fracture with routine healing Herpes genitalis in women Herpes simplex vulvovaginitis High cholesterol History of tobacco use disorder History of vaginal delivery x 2 Hyperlipidemia Left buttock abscess Left rib fracture Left shoulder pain Malaise Mixed hyperlipidemia Neck pain Numbness and tingling of left side of face Numbness and tingling of right face Osteoporosis Overweight (BMI 25.0-29.9) Quadriceps weakness Skin cancer Tremor of both hands Vitamin D deficiency, unspecified Wears glasses Wound, open, toe Surgical History Surgical History History of open reduction and internal fixation (ORIF) procedure left wrist History of right inguinal hernia repair Hx of rotator cuff surgery Hx of total hip arthroplasty Right Presence of right artificial hip joint S/P ORIF (open reduction internal fixation) fracture distal radius- Left Status post total knee replacement Right Family History Family History Father Family history of Parkinson's disease Mother Patient's mother is , Onset Age: 42 Other Cerebrovascular accident Family history of malignant neoplasm Social History Social History Social History: Patient lives at home with her grown granddaughter. She wishes to be listed as a Full Code. Her PCP is Dr. Alvarez. Smoking packs per day: 1 Smoking cigarettes per day: 20.0 Years smoked: 20 Smoking pack-years: 20.00 Smoking status: Former smoker Tobacco type: cigarettes Second hand tobacco smoke exposure: Yes Smoking end date: 07/02/11 Alcohol intake: current Drinks per week: 4 Alcohol use details: wine Substance use: current Substance use type: marijuana Last use: 2x monthly Lack of Transportation: No Lack of Food: Never True Current Housing: I Have Housing Concerned About Future Housing: No Difficulty Paying Gas/Electric Bills: No Difficulty Paying for Meds: No Currently Unemployed: YES Education: Decline to Answer Difficulty w/ Childcare or Family Care: No Living arrangements: alone Occupation/Education: retired Gender identity (if verbalized by the patient): Female Sexual Orientation (if Verbalized by the Patient): Straight or Heterosexual Spiritual care concerns: No Exam Const: General: ill appearing Nutritional Appearance: well nourished Orientation/consciousness: patient oriented x3 Limitations: no limitations HENMT: Head: normal to inspection Ears: external ears normal Face/Nose/Sinus: Normal external nose present Eyes: Conjunctivae: conjunctivae normal Pupils: Equal, round and reactive pupils present EOM: EOMs intact bilaterally Neck: Neck: normal visual inspection Chest: Chest palpation & inspection: normal inspection of the chest Resp: Effort & Inspection: abnormal respiratory effort, labored, no retractions, tachypneic and no use of accessory muscles Auscultation: not clear to auscultation bilaterally, crackles bilateral at the base and in the lower lung alexander, no rales, no rhonchi, no wheezes, breath sounds present and diminished lung sounds diffuse Cardio: Rate: regular rate Rhythm: regular rhythm Heart sounds: no murmurs GI: Inspection: non-distended GI Palp: Yes Soft to palpation and No Tenderness to palpation present (GI) Auscultation: normal bowel sounds : General: Yes bladder normal to palpation Back/Spine/Pelvis: Back: no CVA tenderness Skin: General skin exam: normal color Rashes: no rashes Wounds: no wounds Neuro: General: patient oriented x3 Cranial nerves: Yes Nystagmus not present Speech: normal speech Psych: Mental Status: mental status grossly normal Affect: normal affect Attitude: cooperative Course Vital Signs Vital signs: Vital Signs Temperature 37.3 C 05/27/24 15:57 Pulse Rate 114 H 05/27/24 15:57 Respiratory Rate 20 05/27/24 15:57 Blood Pressure 147/85 H 05/27/24 15:57 Pulse Oximetry 96 05/27/24 15:57 Oxygen Delivery Room Air 05/27/24 15:57 Temperature 37.3 C 05/27/24 15:57 Pulse Rate 76 05/27/24 17:08 Respiratory Rate 20 05/27/24 17:08 Blood Pressure 131/60 05/27/24 17:43 Pulse Oximetry 97 05/27/24 17:45 Oxygen Delivery Nasal Cannula 05/27/24 17:00 Oxygen Flow Rate 3 05/27/24 17:00 MDM - SOB/Dyspnea MDM Narrative Medical decision making narrative: patient is a 73-year-old female with shortness of breath and chest pain. We will do a septic workup at this time for the patient and a chest pain workup. Lab Data Attestation: I reviewed the patient's lab results. 05/27/24 16:33 05/27/24 16:33 Labs: Lab Results 05/27/24 05/27/24 05/27/24 Range/Units 16:08 16:12 16:33 WBC 11.1 H (4.8-10.8) K/mm3 RBC 4.57 (4.20-5.40) M/mm3 Hgb 14.2 H (11.7-13.8) g/dL Hct 43.1 H (35.0-42.0) % MCV 94.3 (78.0-102.0) fL MCH 31.1 H (27.0-31.0) pg MCHC 32.9 (32-36) g/dL RDW 13.4 (11.6-14.4) % Plt Count 262 (150-420) K/mm3 MPV 8.8 L (9.2-11.8) fl Immature Gran % (Auto) 0.4 H (0.0-0.0) % Neut % (Auto) 77.6 H (50.0-70.0) % Lymph % (Auto) 14.4 L (18.0-42.0) % Sharkey % (Auto) 5.7 (2.0-11.0) % Eos % (Auto) 1.5 (1.0-6.0) % Baso % (Auto) 0.4 (0.0-1.0) % Lymph # (Auto) 1.60 (1.10-4.50) K/mm3 Sharkey # (Auto) 0.63 (0.10-0.90) K/mm3 Eos # (Auto) 0.17 (0.02-0.50) K/mm3 Baso # (Auto) 0.04 (0.00-0.10) K/mm3 Abs Immat Gran (auto) 0.04 H (0.00-0.00) K/mm3 Absolute Neuts (auto) 8.60 H (1.70-7.20) K/mm3 Absolute Nucleated RBC 0.00 (0.00-0.00) K/mm3 Nucleated RBC % 0.0 (0-0.0) % PT 11.4 (9.50-12.1) Seconds INR 1.0 APTT 32.1 H (23.9-30.70) Sec D-Dimer 0.92 H* (0.19-0.50) mg/L Sodium 135 L (136-145) mmol/L Potassium 4.1 (3.5-5.1) mmol/L Chloride 100 (98-108) mmol/L Carbon Dioxide 23 (21-32) mmol/L Anion Gap 12 (4-12) mmol/L BUN 9 (7-18) mg/dL Creatinine 0.87 (0.55-1.02) mg/dL Estim Creat Clear Calc 48 ml/min Estimated GFR > 60 (59 - ) Glucose 113 H (70-99) mg/dL Calculated Osmolality 279 L (285-295) mOsm/kg Lactic Acid 1.5 (0.4-2.0) mmol/L Calcium 9.1 (8.5-10.1) mg/dL Total Bilirubin 0.5 (0.00-1.00) mg/dL AST < 10 L (15-37) U/L ALT 11 L (14-59) U/L Alkaline Phosphatase 81 (46-116) U/L Troponin I 4.9 (0.00-60.4) ng/L NT-Pro-B Natriuret Pep 146 H (0-125) pg/mL Total Protein 8.0 (6.4-8.2) g/dL Albumin 2.9 L (3.4-5.0) g/dL Urine Color Dark yellow (Yellow) Urine Appearance Sl cloudy A (Clear) Urine pH 6.0 (5.0-8.0) Ur Specific [place] 1.020 (1.010-1.020) Urine Protein 1+ H (Negative) Urine Glucose (UA) Negative (Negative) Urine Ketones Trace H (Negative) Ur Blood (Man) Negative (Negative) Urine Nitrate Negative (Negative) Urine Bilirubin 1+ H (Negative) Urine Urobilinogen 0.2 (0.2-1.0) mg/dL Leukocyte Esterase Rfl Negative (Negative) DARREN/UL Urine RBC None seen (0-2) /hpf Urine WBC None seen (0-3) /hpf Ur Squamous Epith Cells Few (Few) /hpf Ur Renal Epithelial Cell Few H (None) /hpf Urine Bacteria 1+ H (None) /hpf Influenza A (RT-PCR) Negative (Negative) Influenza B (RT-PCR) Negative (Negative) RSV (RT-PCR) Negative (Negative) SARS-CoV-2 RNA (RT-PCR) Negative (Negative) ABG Data ABG results: 05/27/24 17:10 Puncture Site Right radial ABG pH 7.51 H ABG pCO2 28.8 L ABG pO2 98.1 H ABG PO2/FiO2 Ratio Not Reportable ABG HCO3 22.4 L ABG O2 Saturation 97.6 H ABG O2 Content 19.1 ABG Base Excess 0.4 A-a Gradient Not Reportable Oxyhemoglobin 96.8 O2 Delivery Device Other device O2 Liters/Min 0.0 Attestation: I personally reviewed and interpreted this ABG as follows: Interpretation: Compensatory respiratory alkalosis Imaging Data Attestation: I personally reviewed and interpreted this imaging study as follows: Radiologist's impression: CTA of the chest shows Motion limited evaluation of the subsegmental pulmonary arteries and bilateral lower lobe segmental arteries. No CT evidence of acute pulmonary embolus in the adequately visualized vessels. Mediastinal lymphadenopathy. Chronic lung disease, may represent interstitial lung disease versus chronic infection. ECG Data EKG #1: Attestation: I personally reviewed and interpreted this ECG as follows: ECG completion date: 05/27/24 ECG completion time: 16:18 EKG Interpretation: tachycardia, sinus rhythm, no ectopy, no ST changes, normal QRS, normal QT and NL axis Discharge Plan Discharge Clinical Impression: Acute exacerbation of chronic obstructive pulmonary disease, SIRS (systemic inflammatory response syndrome), Hypoxia Patient Disposition: Acute Care [facility] Condition: Improved Prescriptions: No Action cholecalciferol (vitamin D3) 1,250 mcg (50,000 unit) capsule See Rx Instructions .ROUTE .COMPLEX Qty: 12 1RF Dose Instruction: TAKE 1 CAPSULE BY MOUTH WEEKLY Rx Instructions: TAKE 1 CAPSULE BY MOUTH WEEKLY pantoprazole 40 mg tablet,delayed release (DR/EC) See Rx Instructions .ROUTE .COMPLEX Qty: 100 2RF Dose Instruction: TAKE 1 TABLET BY MOUTH IN THE MORNING Rx Instructions: TAKE 1 TABLET BY MOUTH IN THE MORNING montelukast 10 mg tablet See Rx Instructions .ROUTE .COMPLEX Qty: 100 2RF Dose Instruction: TAKE 1 TABLET BY MOUTH DAILY Rx Instructions: TAKE 1 TABLET BY MOUTH DAILY ipratropium bromide 21 mcg (0.03 %) spray,non-aerosol 2 spray intranasal BID Qty: 30 0RF Rx Instructions: administer into each nostril losartan 100 mg tablet 100 mg PO DAILY Qty: 90 1RF Rx Instructions: TAKE 1 TABLET BY MOUTH EVERY DAY primidone 50 mg tablet See Rx Instructions .ROUTE .COMPLEX Qty: 100 2RF Dose Instruction: TAKE 1 TALBET BY MOUTH DAILY AT BEDTIME Rx Instructions: TAKE 1 TALBET BY MOUTH DAILY AT BEDTIME Anoro Ellipta 62.5-25 mcg/actuation blister with device See Rx Instructions .ROUTE .COMPLEX Qty: 60 1RF Dose Instruction: INHALE 1 PUFF DAILY Rx Instructions: INHALE 1 PUFF DAILY Follow-up/Referrals: Kim Valencia MD [Primary Care Provider] - Time of Disposition: 18:15
--- NOTE | 2024-05-27 16:12 | ECG_ITS ---
Test Date: 2024-05-27 16:25:15 Measurements Intervals [place] Rate: 108 P: 63 IA: 162 QRS: 59 QRSD: 83 T: 77 QT: 321 QTc: 432 Interpretive Statements SINUS TACHYCARDIA DELAYED PRECORDIAL R/S TRANSITION BASELINE ARTIFACT- I, II, III, AVR, AVL, AVF ABNORMAL ECG No previous ECG available for comparison Electronically Signed On 05-27-2024 19:16:09 HVAC INSTRUCTOR by Kwesi Posada D.O.
--- NOTE | 2024-05-27 16:18 | PC.NURSE ---
Cardiopulmonary in room with pt to perform EKG
--- NOTE | 2024-05-27 16:35 | PC.NURSE ---
Pt in radiology for chest xray
[2024-05-27 16:41] LABS: Basophils Absolute Auto 0.04 K/mm3 (0.00-0.10); Basophils Percent Auto 0.4 % (0.0-1.0); Eosinophils Absolute Auto 0.17 K/mm3 (0.02-0.50); Eosinophils Percent Auto 1.5 % (1.0-6.0); Hematocrit 43.1 % (35.0-42.0); Hemoglobin 14.2 g/dL (11.7-13.8); Immature Granulocyte Absolute 0.04 K/mm3 (0.00-0.00); Immature Granulocyte Percent A 0.4 % (0.0-0.0); Lymphocytes Percent Auto 14.4 % (18.0-42.0); Mean Corpuscular HGB Conc 32.9 g/dL (32-36); Mean Corpuscular Hemoglobin 31.1 pg (27.0-31.0); Mean Corpuscular Volume 94.3 fL (78.0-102.0); Mean Platelet Volume 8.8 fl (9.2-11.8); Monocytes Absolute Auto 0.63 K/mm3 (0.10-0.90); Monocytes Percent Auto 5.7 % (2.0-11.0); Neutrophils Percent Auto 77.6 % (50.0-70.0); Platelet Count Result 262 K/mm3 (150-420); Red Blood Count 4.57 M/mm3 (4.20-5.40); Red Cell Distribution Width 13.4 % (11.6-14.4); White Blood Count 11.1 K/mm3 (4.8-10.8)
--- NOTE | 2024-05-27 16:45 | PC.NURSE ---
Pt returns from radiology.
[2024-05-27 16:56] LABS: Partial Thromboplastin Time 32.1 Sec (23.9-30.70); Prothrombin Time 11.4 Seconds (9.50-12.1)
[2024-05-27] MEDS: SODIUM CHLORIDE 0.9% IV 1,000 ML 999 ML IV CONT ×2 (16:58→18:13)
[2024-05-27] MEDS: methylPREDNISolone SOD SUCC 125 MG VIAL IV PUSH (16:59)
[2024-05-27 17:00] LABS: Add Urine Microscopic? YES; Bilirubin Urine 1+ (Negative); Blood Urine Negative (Negative); Glucose Urine UA Negative (Negative); Ketones Urine Trace (Negative); Leukocyte Esterase Ur Negative LEU/UL (Negative); Nitrate Urine Negative (Negative); Protein Urine 1+ (Negative); Urobilinogen Urine 0.2 mg/dL (0.2-1.0)
[2024-05-27 17:00] LABS: D Dimer 0.92 mg/L (0.19-0.50)
[2024-05-27 17:02] LABS: Influenza A QL RT-PCR Negative (Negative); Influenza B QL RT-PCR Negative (Negative); RSV RNA, RT-PCR Negative (Negative); SARS-CoV-2 RNA PCR Negative (Negative)
[2024-05-27] MEDS: IPRATROPIUM 0.5 MG/ALBUTEROL SULFATE 2.5 MG AMPUL.NEB 3 ML INHALATION (17:03)
[2024-05-27 17:08] LABS: Lactic Acid Reflex 1.5 mmol/L (0.4-2.0)
[2024-05-27 17:11] LABS: Base Excess ABG 0.4 mmol/L (0-2); HCO3 ABG 22.4 mmol/L (23-29); Oxygen Content ABG 19.1 %vol (16.0-22.0); Oxygen Saturation ABG 97.6 % (95-97); Oxyhemoglobin 96.8 % (94-100); PCO2 ABG 28.8 mmHg (35-45); PO2 ABG 98.1 mmHg (75-85); pH ABG 7.51 (7.35-7.45)
[2024-05-27 17:12] LABS: Alanine Aminotransferase 11 U/L (14-59); Albumin Level 2.9 g/dL (3.4-5.0); Alkaline Phosphatase 81 U/L (46-116); Anion Gap 12 mmol/L (4-12); Aspartate Amino Transferase < 10 U/L (15-37); Bilirubin,Total 0.5 mg/dL (0.00-1.00); Blood Urea Nitrogen 9 mg/dL (7-18); Calcium 9.1 mg/dL (8.5-10.1); Carbon Dioxide 23 mmol/L (21-32); Chloride 100 mmol/L (98-108); Estimated CRCL calculation 48 ml/min; Estimated Glomerular Filt Rate > 60; Glucose 113 mg/dL (70-99); NT Pro B Type Natriuretic Pept 146 pg/mL (0-125); Osmolality Calculated 279 mOsm/kg (285-295); Potassium 4.1 mmol/L (3.5-5.1); Sodium 135 mmol/L (136-145); Troponin I 4.9 ng/L (0.00-60.4)
[2024-05-27 17:12] LABS: Modified Allen's Test Pass; Site Drawn RIGHT RADIAL
[2024-05-27 17:13] LABS: Device OTHER DEVICE
[2024-05-27] MEDS: PIPERACILLN/TAZ 3.375GM/NS50ML 3.375 GM/50 ML BAG IVPB (17:16)
[2024-05-27 17:22] LABS: Appearance Urine Sl Cloudy (Clear); Bacteria Urine 1+ /hpf; Color Urine Dark Yellow (Yellow); RBC Urine None seen /hpf (0-2); Renal Epithelial Cells Urine Few /hpf; Squamous Epithelial Cell Urine Few /hpf (Few); WBC Urine None seen /hpf (0-3)
--- NOTE | 2024-05-27 17:42 | PC.NURSE ---
pt returns from CT
--- NOTE | 2024-05-27 18:19 | PC.NURSE ---
Called to floor for bed request. Spoke with BARB Reynoso and received room #201 for admission,
[2024-05-27] MEDS: SODIUM CHLORIDE 0.9% IV 1,000 ML 100 ML IV CONT (19:19)
--- NOTE | 2024-05-27 19:29 | ADMGEN ---
This patient, Junie Alfred, was admitted to 2nd Floor Room 210-1. Patient/family oriented to hospital policies and general routines including ID bracelet, bed and alarms, visiting hours, pain management, procedures, bathroom and other care routines, personal items, smoking policy, room service/diet, and visiting hours. Information on how to activate the Rapid Response Team has been discussed. Patient/Family are encouraged to report perceived risks to care and to ask questions if they do not understand what they are told or what they should do.
[2024-05-27] MEDS: PRIMIDONE 50 MG TABLET BY MOUTH (20:29)
[2024-05-28] VITALS (11 sets, daily range): BP systolic 123–138; BP diastolic 61–69; PULSE 65–85; RESP 16–94; TEMP 35.7–36.2; O2SAT 89–98
[2024-05-28] MEDS: IPRATROPIUM 0.5 MG/ALBUTEROL SULFATE 2.5 MG AMPUL.NEB 3 ML INHALATION ×2 (00:06→05:30)
[2024-05-28] MEDS: methylPREDNISolone SOD SUCC 40 MG VIAL 80 MG IV PUSH ×2 (00:06→06:17)
[2024-05-28] MEDS: PIPERACILLN/TAZ 3.375GM/NS50ML 3.375 GM/50 ML BAG IVPB ×2 (00:07→05:18)
[2024-05-28] MEDS: SODIUM CHLORIDE 0.9% IV 1,000 ML 100 ML IV CONT (05:17)
[2024-05-28 05:19] LABS: Basophils Absolute Auto 0.01 K/mm3 (0.00-0.10); Basophils Percent Auto 0.1 % (0.0-1.0); Hematocrit 37.1 % (35.0-42.0); Hemoglobin 12.4 g/dL (11.7-13.8); Immature Granulocyte Absolute 0.02 K/mm3 (0.00-0.00); Immature Granulocyte Percent A 0.3 % (0.0-0.0); Lymphocytes Absolute Auto 0.45 K/mm3 (1.10-4.50); Lymphocytes Percent Auto 6.7 % (18.0-42.0); Mean Corpuscular HGB Conc 33.4 g/dL (32-36); Mean Corpuscular Hemoglobin 32.2 pg (27.0-31.0); Mean Corpuscular Volume 96.4 fL (78.0-102.0); Mean Platelet Volume 8.7 fl (9.2-11.8); Monocytes Absolute Auto 0.05 K/mm3 (0.10-0.90); Monocytes Percent Auto 0.7 % (2.0-11.0); Neutrophils Absolute Auto 6.22 K/mm3 (1.70-7.20); Neutrophils Percent Auto 92.2 % (50.0-70.0); Platelet Count Result 194 K/mm3 (150-420); Red Blood Count 3.85 M/mm3 (4.20-5.40); Red Cell Distribution Width 13.3 % (11.6-14.4); White Blood Count 6.8 K/mm3 (4.8-10.8)
[2024-05-28 05:35] LABS: Alanine Aminotransferase 15 U/L (14-59); Albumin Level 2.4 g/dL (3.4-5.0); Alkaline Phosphatase 66 U/L (46-116); Anion Gap 9 mmol/L (4-12); Aspartate Amino Transferase < 10 U/L (15-37); Bilirubin,Total 0.2 mg/dL (0.00-1.00); Blood Urea Nitrogen 9 mg/dL (7-18); Calcium 8.2 mg/dL (8.5-10.1); Carbon Dioxide 24 mmol/L (21-32); Chloride 105 mmol/L (98-108); Estimated CRCL calculation 54 ml/min; Estimated Glomerular Filt Rate > 60; Glucose 222 mg/dL (70-99); Osmolality Calculated 291 mOsm/kg (285-295); Potassium 4.2 mmol/L (3.5-5.1); Sodium 138 mmol/L (136-145); Total Protein 6.8 g/dL (6.4-8.2)
[2024-05-28 05:37] LABS: Lactic Acid Reflex 1.4 mmol/L (0.4-2.0)
--- NOTE | 2024-05-28 08:47 | PM.SD2 ---
Same Day Admit/Disch: HPI History of Present Illness Chief complaint: COPD EXCERBATION HYPOXIA Narrative: Junie Alfred is a 73 year old female Patient is a 73-year-old female with known COPD here with cough, chest pain (front and back of chest), chills and fever, non production phlegm and short of breath. She uses inhalers at home. She does not use oxygen. MD elicited complaint: shortness of breath, cough, pain with inspiration and chest pain Pertinent past history: COPD Onset (ago): day(s) (3) Context: other ( Patient has been sick for the past 3 days and progressively getting worse) Timing: constant Severity: moderate Exacerbating factors: exertion, coughing, inspiration, cold air and deep breaths Relieving factors: nothing Known history of: COPD Associated symptoms: chest pain, pain with inspiration, fever, cough and chest congestion Treatment prior to arrival: other ( Excedrin) Related Data Home oxygen amount: none PMFSH Past Medical History Medical History Abdominal hernia Abnormal CXR Acid reflux Acute bilateral thoracic back pain Adenomatous colon polyp Aftercare following right hip joint replacement surgery Arthritis Benign hypertension Benign reactive hypertension Carpal tunnel syndrome of left wrist Coarse tremors Contusion of left shoulder COPD (chronic obstructive pulmonary disease) Degenerative joint disease of knee Dizziness Emphysema of lung Fall Fracture of one rib, left side, subsequent encounter for fracture with routine healing Herpes genitalis in women Herpes simplex vulvovaginitis High cholesterol History of tobacco use disorder History of vaginal delivery x 2 Hyperlipidemia Left buttock abscess Left rib fracture Left shoulder pain Malaise Mixed hyperlipidemia Neck pain Numbness and tingling of left side of face Numbness and tingling of right face Osteoporosis Overweight (BMI 25.0-29.9) Quadriceps weakness Skin cancer Tremor of both hands Vitamin D deficiency, unspecified Wears glasses Wound, open, toe Surgical History Surgical History History of open reduction and internal fixation (ORIF) procedure left wrist History of right inguinal hernia repair Hx of rotator cuff surgery Hx of total hip arthroplasty Right Presence of right artificial hip joint S/P ORIF (open reduction internal fixation) fracture distal radius- Left Status post total knee replacement Right Family History Family History Father Family history of Parkinson's disease Mother Patient's mother is , Onset Age: 42 Other Cerebrovascular accident Family history of malignant neoplasm Social History Social History Social History: Patient lives at home with her grown granddaughter. She wishes to be listed as a Full Code. Her PCP is Dr. Alvarez. Smoking packs per day: 2 Smoking cigarettes per day: 40.0 Years smoked: 43 Smoking pack-years: 86.00 Smoking status: Former smoker Tobacco type: cigarettes Second hand tobacco smoke exposure: No Smoking end date: 07/02/12 Alcohol intake: current Drinks per week: 6 Alcohol use details: wine Substance use: never Substance use type: marijuana Last use: 2x monthly Do You Feel Safe in your Home?: No Lack of Transportation: No Lack of Food: Never True Current Housing: I Have Housing Concerned About Future Housing: No Difficulty Paying Gas/Electric Bills: No Difficulty Paying for Meds: No Currently Unemployed: No Education: Grade School Difficulty w/ Childcare or Family Care: No Living arrangements: alone Occupation/Education: retired Gender identity (if verbalized by the patient): Female Sexual Orientation (if Verbalized by the Patient): Straight or Heterosexual Spiritual care concerns: No Same Day Admit/Disch: Med Pre-admit Medications Home Medications Medication Instructions Recorded Confirmed Type cholecalciferol (vitamin D3) 1,250 See Rx Instructions .Route 05/25/23 05/27/24 Rx mcg (50,000 unit) capsule .COMPLEX #12 caps montelukast 10 mg tablet See Rx Instructions .Route 12/11/23 05/27/24 Rx .COMPLEX #100 tabs pantoprazole 40 mg tablet,delayed See Rx Instructions .Route 12/11/23 05/27/24 Rx release .COMPLEX #100 tabs ipratropium bromide 21 mcg (0.03 2 spray intranasal BID #30 mL 01/19/24 05/27/24 Rx %) nasal spray losartan 100 mg tablet 100 mg PO DAILY #90 tabs 02/13/24 05/27/24 Rx primidone 50 mg tablet See Rx Instructions .Route 02/13/24 05/27/24 Rx .COMPLEX #100 tabs umeclidinium 62.5 mcg-vilanterol See Rx Instructions .Route 03/26/24 05/27/24 Rx 25 mcg/actuation powdr for .COMPLEX #60 ea inhalation (Anoro Ellipta) azithromycin 250 mg tablet See Rx Instructions PO .COMPLEX #6 05/28/24 Rx (Zithromax Z-Grant) tabs Exam Const: General: cooperative, healthy appearing, comfortable and no acute distress HENMT: Head: normal to inspection Face and sinus: normal facial exam Mouth: Yes Normal oral and palatal mucosa present, Yes lip normal and Yes tongue normal Eyes: General: appearance normal, both eyes and all related structures Neck: Neck: normal visual inspection Chest: Chest palpation & inspection: normal inspection of the chest Resp: Effort & Inspection: normal respiratory effort and able to speak in complete sentences Auscultation: diminished lung sounds (right lower lobe) Cardio: Jugular venous distension: no JVD Skin: General skin exam: normal color Neuro: General: oriented to person, oriented to place, oriented to time and patient oriented x3 Extrem: General: normal to inspection, full ROM and capillary refill normal DS: Data Data Completed and Pending Labs on day of discharge: Labs from last 24 hours 05/28/24 05/27/24 05/27/24 05:12 17:10 16:33 WBC 6.8 11.1 H RBC 3.85 L 4.57 Hgb 12.4 14.2 H Hct 37.1 43.1 H MCV 96.4 94.3 MCH 32.2 H 31.1 H MCHC 33.4 32.9 RDW 13.3 13.4 Plt Count 194 262 MPV 8.7 L 8.8 L Immature Gran % (Auto) 0.3 H 0.4 H Neut % (Auto) 92.2 H 77.6 H Lymph % (Auto) 6.7 L 14.4 L [place] % (Auto) 0.7 L 5.7 Eos % (Auto) 0.0 L 1.5 Baso % (Auto) 0.1 0.4 Lymph # (Auto) 0.45 L 1.60 [place] # (Auto) 0.05 L 0.63 Eos # (Auto) 0.00 L 0.17 Baso # (Auto) 0.01 0.04 Abs Immat Gran (auto) 0.02 H 0.04 H Absolute Neuts (auto) 6.22 8.60 H Absolute Nucleated RBC 0.00 0.00 Nucleated RBC % 0.0 0.0 PT 11.4 INR 1.0 APTT 32.1 H D-Dimer 0.92 H* Puncture Site Right radial ABG pH 7.51 H ABG pCO2 28.8 L ABG pO2 98.1 H ABG PO2/FiO2 Ratio Not Reportable ABG HCO3 22.4 L ABG O2 Saturation 97.6 H ABG O2 Content 19.1 ABG Base Excess 0.4 A-a Gradient Not Reportable Oxyhemoglobin 96.8 Total Hemoglobin Pending O2 Delivery Device Other device O2 Liters/Min 0.0 Sodium 138 135 L Potassium 4.2 4.1 Chloride 105 100 Carbon Dioxide 24 23 Anion Gap 9 12 BUN 9 9 Creatinine 0.77 0.87 Estim Creat Clear Calc 54 48 Estimated GFR > 60 > 60 Glucose 222 H 113 H Calculated Osmolality 291 279 L Lactic Acid 1.4 1.5 Calcium 8.2 L 9.1 Total Bilirubin 0.2 0.5 AST < 10 L < 10 L ALT 15 11 L Alkaline Phosphatase 66 81 Troponin I 4.9 NT-Pro-B Natriuret Pep 146 H Total Protein 6.8 8.0 Albumin 2.4 L 2.9 L Urine Color Urine Appearance Urine pH Ur Specific [place] Urine Protein Urine Glucose (UA) Urine Ketones Ur Blood (Man) Urine Nitrate Urine Bilirubin Urine Urobilinogen Leukocyte Esterase Rfl Urine RBC Urine WBC Ur Squamous Epith Cells Ur Renal Epithelial Cell Urine Bacteria Influenza A (RT-PCR) Influenza B (RT-PCR) RSV (RT-PCR) SARS-CoV-2 RNA (RT-PCR) 05/27/24 05/27/24 16:12 16:08 WBC RBC Hgb Hct MCV MCH MCHC RDW Plt Count MPV Immature Gran % (Auto) Neut % (Auto) Lymph % (Auto) [place] % (Auto) Eos % (Auto) Baso % (Auto) Lymph # (Auto) [place] # (Auto) Eos # (Auto) Baso # (Auto) Abs Immat Gran (auto) Absolute Neuts (auto) Absolute Nucleated RBC Nucleated RBC % PT INR APTT D-Dimer Puncture Site ABG pH ABG pCO2 ABG pO2 ABG PO2/FiO2 Ratio ABG HCO3 ABG O2 Saturation ABG O2 Content ABG Base Excess A-a Gradient Oxyhemoglobin Total Hemoglobin O2 Delivery Device O2 Liters/Min Sodium Potassium Chloride Carbon Dioxide Anion Gap BUN Creatinine Estim Creat Clear Calc Estimated GFR Glucose Calculated Osmolality Lactic Acid Calcium Total Bilirubin AST ALT Alkaline Phosphatase Troponin I NT-Pro-B Natriuret Pep Total Protein Albumin Urine Color Dark yellow Urine Appearance Sl cloudy A Urine pH 6.0 Ur Specific [place] 1.020 Urine Protein 1+ H Urine Glucose (UA) Negative Urine Ketones Trace H Ur Blood (Man) Negative Urine Nitrate Negative Urine Bilirubin 1+ H Urine Urobilinogen 0.2 Leukocyte Esterase Rfl Negative Urine RBC None seen Urine WBC None seen Ur Squamous Epith Cells Few Ur Renal Epithelial Cell Few H Urine Bacteria 1+ H Influenza A (RT-PCR) Negative Influenza B (RT-PCR) Negative RSV (RT-PCR) Negative SARS-CoV-2 RNA (RT-PCR) Negative DS: Summary Hospital Course Reason for hospitalization: This is a 73 year oldl that has been sick for several day with pain when she would take in a deep breath. Patient had a low saturation and was started on oxygen . Patient is not on oxygen at home and she was started on IV steroids and IV antibiotics. Patient has a PMH of COPD, Hypertension, GERD. Patient has continued to improve and she informs me she is feeling a lot better and feels like she is ready to go home. On admission her WBC were elevated at 11.3 currently she is normal at 6.8. She has been having breathing treatment and using the IS in which she is feeling so much better and her labs have trended in the right direction. If she is able to be weaned off her oxygen currently at 1l [place] we will plan on discharging her home with Azithromycin and inhaler. Patient is to followup with her [facility] care provider within a week and we will continue to monitor. Patient denies smoking and has been done for the past 10 years. Time Spent with Patient Time attestation: Total time spent providing and/or coordinating discharge services: DS: Admitting Diagnosis Discharge Date 05/28/2024 Admitting Diagnosis COPD exacerbation, Shortness of breath DS: Discharge Diagnosis Discharge Diagnosis (1) Acute exacerbation of chronic obstructive pulmonary disease: Code(s): J44.1 - Chronic obstructive pulmonary disease with (acute) exacerbation Status: Acute (2) Hypoxia: Code(s): R09.02 - Hypoxemia Status: Acute (3) Arthralgia: Qualifiers: Joint pain location: other joint Qualified Code(s): M25.59 - Pain in other specified joint Code(s): M25.50 - Pain in unspecified joint Status: Acute Discharge Plan Discharge Attending physician on discharge: Av Angulo Discharging Clinician: Jones Alejandro Anticipated Discharge Date/Time: 05/28/24 08:54 Patient Disposition: Home, Self-Care Activity: october shower Diet: heart healthy Wound Care Instructions: follow printed instructions Patient Instructions: Antibiotic Form, Community Acquired Pneumonia (DC), Chronic Lung Disease and Infection Prevention (GEN) Stand Alone Forms: General Discharge Information Follow-up/Referrals: Kim Valencia MD [Primary Care Provider] - (call and schedule appointment ) Discharge Medications: New azithromycin [Zithromax Z-Grant] 250 mg tablet See Rx Instructions .ROUTE .COMPLEX Qty: 6 0RF Rx Instructions: For 250 mg dose pack: take 500 mg today (day 1), then 250 mg for 4 days (days 2-5) Continued cholecalciferol (vitamin D3) 1,250 mcg (50,000 unit) capsule See Rx Instructions .ROUTE .COMPLEX Qty: 12 1RF Dose Instruction: TAKE 1 CAPSULE BY MOUTH WEEKLY Rx Instructions: TAKE 1 CAPSULE BY MOUTH WEEKLY pantoprazole 40 mg tablet,delayed release (DR/EC) See Rx Instructions .ROUTE .COMPLEX Qty: 100 2RF Dose Instruction: TAKE 1 TABLET BY MOUTH IN THE MORNING Rx Instructions: TAKE 1 TABLET BY MOUTH IN THE MORNING montelukast 10 mg tablet See Rx Instructions .ROUTE .COMPLEX Qty: 100 2RF Dose Instruction: TAKE 1 TABLET BY MOUTH DAILY Rx Instructions: TAKE 1 TABLET BY MOUTH DAILY ipratropium bromide 21 mcg (0.03 %) spray,non-aerosol 2 spray intranasal BID Qty: 30 0RF Rx Instructions: administer into each nostril losartan 100 mg tablet 100 mg PO DAILY Qty: 90 1RF Rx Instructions: TAKE 1 TABLET BY MOUTH EVERY DAY primidone 50 mg tablet See Rx Instructions .ROUTE .COMPLEX Qty: 100 2RF Dose Instruction: TAKE 1 TALBET BY MOUTH DAILY AT BEDTIME Rx Instructions: TAKE 1 TALBET BY MOUTH DAILY AT BEDTIME Anoro Ellipta 62.5-25 mcg/actuation blister with device See Rx Instructions .ROUTE .COMPLEX Qty: 60 1RF Dose Instruction: INHALE 1 PUFF DAILY Rx Instructions: INHALE 1 PUFF DAILY Date of admission: 05/27/24 18:17 Primary Care Provider: Kim Valencia Admitting Provider: Av Angulo Attending physician on admission: Av Angulo Condition: Improved
[2024-05-28] MEDS: ENOXAPARIN 40 MG/0.4 ML SYRINGE SUB-Q (08:56)
[2024-05-28] MEDS: PANTOPRAZOLE 40 MG TABLET PO (08:56)
--- NOTE | 2024-05-28 11:00 | PC.NURSE ---
Patient discharged to home per personal vehicle at 1050.
--- NOTE | 2024-06-02 09:55 | PC.NURSE ---
Doing well, understood dc instructions, no issues with care
== END 2024-05-28 10:50 | disposition home or self-care (01) ==
LOC: CHSED 17:15 → CHS2ND 18:28
PROVIDERS: Admitting Provider Internal Medicine; Emergency Provider Emergency Medicine; PCP Family Medicine; Visit Provider Internal Medicine
DX: J44.1 Chronic obstructive pulmonary disease with (acute) exacerbation (principal); J43.9 Emphysema, unspecified; R09.02 Hypoxemia; M25.59 Pain in other specified joint; K21.9 Gastro-esophageal reflux disease without esophagitis; I10 Essential (primary) hypertension; E78.2 Mixed hyperlipidemia; M81.0 Age-related osteoporosis without current pathological fracture; Z20.822 Contact with and (suspected) exposure to COVID-19; Z79.899 Other long term (current) drug therapy; Z96.641 Presence of right artificial hip joint; Z96.651 Presence of right artificial knee joint; Z87.891 Personal history of nicotine dependence
CPT/HCPCS: 36415; 36600; 71046; 71275; 80053; 81001; 82805; 83605; 83880; 84484; 85018; 85025; 85380; 85610; 85730; 87040; 87637; 93005; 94640; 96361; 96365; 96366; 96372; 96375; 96376; 99285; A9270; G0378; J1650; J2543; J2919; J7030; Q9967

== ENCOUNTER 2024-09-22 22:20 | Inpatient (IN) | payer MEDICARE, SELFPAY ==
--- NOTE | ~2024-09-22 | XR_ITS ---
EXAMINATION: XR chest 1V DATE: 09/23/2024 00:14 INDICATION: Fall. TECHNIQUE: A single frontal view of the chest was obtained. COMPARISON: Chest 2 views 05/27/2024, chest CT 05/27/2024 FINDINGS: The lung volumes are normal. There is a diffuse interstitial pattern in the lungs. No pleur al effusion or pneumothorax. The heart size is normal. There is an old healed fracture of left third rib. IMPRESSION: 1. Diffuse interstitial pattern in the lungs with worsening in left upper lobe, likely chronic inters titial lung disease with superimposed left upper lobe pneumonia versus atelectasis/contusion. Reviewed, dictated and finalized at location A. IMPRESSION: 1. Diffuse interstitial pattern in the lungs with worsening in left upper lobe, likely chronic interstitial lung disease with superimposed left upper lobe pne umonia versus atelectasis/contusion.
--- NOTE | ~2024-09-22 | XR_ITS ---
EXAMINATION: XR hip LT 2V w AP pelvis DATE: 09/23/2024 00:14 INDICATION: Left hip pain. Fall. TECHNIQUE: An anteroposterior view of the pelvis and 2 views of left hip were obtained. COMPARISON: Pelvis and left hip radiographs 04/25/21 FINDINGS: There is a transcervical fracture of left femoral neck. The distal fracture fragment demons trates 25 degrees varus angulation. There is mild left hip osteoarthritis. There is a total right hip arthroplasty in near-anatomic alignment. There is plate and screw fixation of right femoral diaphysi s. There is a cable around the proximal right femur. There is severe lumbar spondylosis. IMPRESSION: 1. Transcervical fracture of left femoral neck. 2. Mild left hip osteoarthritis. 3. Total right hip arthroplasty in near-anatomic alignment. Reviewed, dictated and finalized at location A.
--- NOTE | ~2024-09-22 | CT_ITS ---
EXAMINATION: CT brain wo con DATE: 09/22/2024 23:52 INDICATION: fall . TECHNIQUE: Computed tomography (CT) of the head was performed without intravenous contrast. The mA wa s adjusted according to patient size. Iterative reconstruction technique was employed. The dose-lengt h product was 681.00 mGy-cm. COMPARISON: 01/10/2022. FINDINGS: No acute intracranial hemorrhage or extra-axial fluid collection. No hydrocephalus, mass, or herniation. No acute ischemic infarct. Unremarkable dural venous sinus attenuation. No acute osseous abnormality. Anterior ethmoid mucosal thickening, the remaining aerated spaces are clear. Mild atrophy and chronic white matter change. Atherosclerotic intracranial calcification. IMPRESSION: No acute intracranial process. Reviewed, dictated and finalized at location K.
--- NOTE | ~2024-09-22 | XR_ITS ---
EXAMINATION: XR hip LT min 2V DATE: 09/24/2024 13:40 INDICATION: Left hip arthroplasty. Postop. TECHNIQUE: 2 views of left hip were obtained. COMPARISON: Left hip radiographs 09/23/2024 FINDINGS: There is a total left hip arthroplasty in near-anatomic alignment. No fracture. There is se orlando lumbar spondylosis. There is gas in the soft tissues near left hip, consistent with recent surge ry. IMPRESSION: 1. Total left hip arthroplasty in near-anatomic alignment. Reviewed, dictated and finalized at location A.
[2024-09-22 22:21] VITALS: BP 136/76; PULSE 79; RESP 17; TEMP 36.9; O2SAT 94
[2024-09-22] MEDS: MORPHINE SULFATE (*CRX) 2 MG/ML INJ IV PUSH (23:13)
--- NOTE | 2024-09-22 23:20 | ED_ITS ---
HPI - Extremity Injury (Lower) General Chief Complaint: Extremity Injury, Lower Stated Complaint: fall, hip pain Time Seen by Provider: 09/22/24 22:44 History of Present Illness HPI Narrative: Patient is a 73-year-old female who presents ER after having a fall. She had been out having some drinks with her family. She was driven home and as she was getting out of the car she has a attempting to walk into her home with her cane when she tripped and fell landing on her left side. Sudden onset pain to the hip. She does not think she hit her head or lost consciousness. She is not on blood thinning medication. Received morphine by EMS but is still having pain. There is shortening of the left lower extremity compared to the right in cannot tolerate any movement or pressure to left side Related Data Allergies Allergy/AdvReac Type Severity Reaction Status Date / Time [id number] Reductase AdvReac Intermediate Muscle Pain Verified 07/24/24 13:42 Inhibitor lisinopril AdvReac Mild cough Verified 07/24/24 13:42 Review of Systems 2 Review of Systems: All systems reviewed & are unremarkable except as noted in HPI and below Constitutional: Constitutional: Reports no additional constitutional complaints ENT: Reports system reviewed and no additional complaints, except as documented Cardiovascular: Cardiovascular: Reports no additional cardiovascular complaints Respiratory: Respiratory: Reports no additional respiratory complaints Gastrointestinal: Gastrointestinal: Reports no additional gastrointestinal complaints Neurologic: Reports system reviewed and no additional complaints, except as documented ON LICENSE OF [facility] Past Medical History Medical History Contusion of left shoulder Wound, open, toe Abnormal CXR Osteoporosis Emphysema of lung Wears glasses Dizziness Left shoulder pain Fracture of one rib, left side, subsequent encounter for fracture with routine healing Tremor of both hands Malaise Left rib fracture Acute bilateral thoracic back pain Aftercare following right hip joint replacement surgery Carpal tunnel syndrome of left wrist Coarse tremors Herpes simplex vulvovaginitis Mixed hyperlipidemia Vitamin D deficiency, unspecified Numbness and tingling of left side of face Neck pain Numbness and tingling of right face Left buttock abscess Adenomatous colon polyp Fall Quadriceps weakness Overweight (BMI 25.0-29.9) COPD (chronic obstructive pulmonary disease) Degenerative joint disease of knee Hyperlipidemia History of tobacco use disorder Benign reactive hypertension Abdominal hernia History of vaginal delivery x 2 Acid reflux High cholesterol Skin cancer Benign hypertension Arthritis Herpes genitalis in women Surgical History Surgical History Presence of right artificial hip joint History of right inguinal hernia repair History of open reduction and internal fixation (ORIF) procedure left wrist Status post total knee replacement Right S/P ORIF (open reduction internal fixation) fracture distal radius- Left Hx of rotator cuff surgery Hx of total hip arthroplasty Right Family History Family History Father Family history of Parkinson's disease Mother Patient's mother is , Onset Age: 42 Other Cerebrovascular accident Family history of malignant neoplasm Social History Social History Social History: Patient lives at home with her grown granddaughter. She wishes to be listed as a Full Code. Her PCP is Dr. Alvarez. Smoking packs per day: 2 Smoking cigarettes per day: 40.0 Years smoked: 43 Smoking pack-years: 86.00 Smoking status: Former smoker Tobacco type: cigarettes Second hand tobacco smoke exposure: No Smoking end date: 07/02/12 Alcohol intake: current Drinks per week: 6 Alcohol use details: wine Substance use: never Substance use type: marijuana Last use: 2x monthly Do You Feel Safe in your Home?: No Lack of Transportation: No Lack of Food: Never True Current Housing: I Have Housing Concerned About Future Housing: No Difficulty Paying Gas/Electric Bills: No Difficulty Paying for Meds: No Currently Unemployed: No Education: Grade School Difficulty w/ Childcare or Family Care: No Living arrangements: alone Occupation/Education: retired Gender identity (if verbalized by the patient): Female Sexual Orientation (if Verbalized by the Patient): Straight or Heterosexual Spiritual care concerns: No Exam 2 Narrative: GENERAL: Well-appearing, well-nourished, and in no acute distress. HEAD: Normocephalic, atraumatic. Eyes: PERRLA, EOMI ENT: Mucous membranes moist. CHEST: Clear to auscultation. No respiratory distress. HEART: Regular rate and rhythm. Normal peripheral pulses. ABDOMEN: Soft, nontender, nondistended. EXTREMITIES: Pain at the left hip limiting range of motion. Left leg is shortened rotated compared to the right. Neurovascular intact. Unremarkable upper extremities right lower extremity. SKIN: Warm, dry, no rash. NEURO: Alert and oriented x3. Course Course Emergency Course: Discussed with Dr. White, will admit to hospitalist. Patient and family updated on dx and tx plan. Vital Signs Vital signs: Vital Signs Temperature 98.4 F 09/22/24 22:21 Pulse Rate 79 09/22/24 22:21 Respiratory Rate 17 09/22/24 22:21 Blood Pressure 136/76 09/22/24 22:21 Pulse Oximetry 94 09/22/24 22:21 Oxygen Delivery Room Air 09/22/24 22:21 Temperature 98.4 F 09/22/24 22:21 Pulse Rate 78 09/23/24 00:19 Respiratory Rate 15 09/23/24 00:19 Blood Pressure 134/74 09/23/24 00:19 Pulse Oximetry 96 09/23/24 00:41 Oxygen Delivery Nasal Cannula 09/23/24 00:41 Oxygen Flow Rate 2 09/23/24 00:41 MDM - Extremity Injury (Lower) Lab Data 09/22/24 23:14 09/22/24 23:14 Labs: Lab Results 09/22/24 Range/Units 23:14 WBC 7.4 (4.5-10.0) K/mm3 RBC 4.14 L (4.2-5.4) M/mm3 Hgb 13.1 (12.0-15.0) g/dL Hct 40.2 (37.0-47.0) % MCV 97.1 (80-100) fl MCH 31.6 (26-34) pg MCHC 32.6 (32-36) g/dl RDW 14.5 (11.5-14.5) % Plt Count 168 (150-375) k/mm3 MPV 8.7 (7.4-10.4) fl Immature Gran % (Auto) 0.3 (0-0.5) % Neut % (Auto) 65.9 (45.5-73.1) % Lymph % (Auto) 22.3 (18.3-44.2) % [place] % (Auto) 6.5 (2.6-8.5) % Eos % (Auto) 4.2 (0-4.4) % Baso % (Auto) 0.8 (0.2-1.2) % Lymph # (Auto) 1.64 (0.9-3.2) K/mm3 [place] # (Auto) 0.5 (0.1-0.6) K/mm3 Eos # (Auto) 0.3 (0-0.3) K/mm3 Baso # (Auto) 0.1 (0.0-0.1) K/mm3 Abs Immat Gran (auto) 0.02 (0.00-0.031) K/mm3 Absolute Neuts (auto) 4.9 (1.3-6.7) K/mm3 Absolute Nucleated RBC 0.000 (0.0-0.012) K/mm3 Nucleated RBC % 0.0 (0.0-0.2) % PT 14.5 (11.1-14.7) Seconds INR 1.1 APTT 29.2 (22.3-36.8) Seconds Sodium 132 L (137-145) mmol/L Potassium 4.1 (3.4-5.0) mmol/L Chloride 103 (98-107) mmol/L Carbon Dioxide 19 L (22-30) mmol/L Anion Gap 10 (4-12) mmol/L BUN 15 (7-17) mg/dL Creatinine 0.83 (0.7-1.0) mg/dL Estim Creat Clear Calc 50 ml/min Estimated GFR > 60 (59 - ) Glucose 109 (65-110) mg/dL Calcium 8.1 L (8.4-10.2) mg/dL Total Bilirubin 0.4 (0.2-1.3) mg/dL AST 21 (14-36) U/L ALT 14 (6-35) U/L Alkaline Phosphatase 60 (38-126) U/L Total Protein 6.0 L (6.3-8.2) g/dL Albumin 3.6 (3.5-5.1) g/dL Blood Type A Positive Antibody Screen Negative Imaging Data My impression: Chest x-ray: No acute cardiopulmonary process. Pelvis with left hip two views: Impacted femoral neck fracture Radiologist's impression: ITS Impressions Head CT 09/23/24 00:01 IMPRESSION: No acute intracranial process. Discharge Plan Discharge Clinical Impression: Closed hip fracture Patient Disposition: Still a Patient Condition: Stable
[2024-09-22 23:21] LABS: Basophils Absolute Auto 0.1 K/mm3 (0.0-0.1); Basophils Percent Auto 0.8 % (0.2-1.2); Eosinophils Absolute Auto 0.3 K/mm3 (0-0.3); Eosinophils Percent Auto 4.2 % (0-4.4); Hematocrit 40.2 % (37.0-47.0); Hemoglobin 13.1 g/dL (12.0-15.0); Immature Granulocyte Absolute 0.02 K/mm3 (0.00-0.031); Immature Granulocyte Percent A 0.3 % (0-0.5); Lymphocytes Absolute Auto 1.64 K/mm3 (0.9-3.2); Lymphocytes Percent Auto 22.3 % (18.3-44.2); Mean Corpuscular HGB Conc 32.6 g/dl (32-36); Mean Corpuscular Hemoglobin 31.6 pg (26-34); Mean Corpuscular Volume 97.1 fl (80-100); Mean Platelet Volume 8.7 fl (7.4-10.4); Monocytes Absolute Auto 0.5 K/mm3 (0.1-0.6); Monocytes Percent Auto 6.5 % (2.6-8.5); Neutrophils Absolute Auto 4.9 K/mm3 (1.3-6.7); Neutrophils Percent Auto 65.9 % (45.5-73.1); Platelet Count Result 168 k/mm3 (150-375); Red Blood Count 4.14 M/mm3 (4.2-5.4); Red Cell Distribution Width 14.5 % (11.5-14.5); White Blood Count 7.4 K/mm3 (4.5-10.0)
--- OUTSIDE RECORDS SUMMARY | 2024-09-22 23:22 | XMS_ITS | Clinical Summary ---
Author Organization [facility] Address [address] [place] [address] Care Team Providers Care Pre Sales Architect Name Role Phone Kim Valencia MD Primary Care Provider [phone] Allergies No known active allergies Medications albuterol sulfate HFA 108 (90 Base) MCG/ACT inhaler 2 puffs every 6 (six) hours as needed. 2 Active AZELASTINE 137 MCG/SPRAY nasal spray 1 spray by Nasal route daily. 2 Active fluticasone propionate (FLONASE) 50 MCG/ACT nasal spray daily. 3 Active losartan (COZAAR) 100 MG tablet Take 1 tablet (100 mg total) by mouth nightly at bedtime. 2 Active montelukast (SINGULAIR) 10 MG tablet Take by mouth nightly at bedtime. 3 Active pantoprazole EC (PROTONIX) 40 MG tablet 1 tablet (40 mg total) daily. 3 Active primidone (MYSOLINE) 50 MG tablet 1 tablet (50 mg total) nightly at bedtime. 2 Active ANORO ELLIPTA 62.5-25 MCG/ACT inhaler Inhale 1 puff into the lungs daily. 3 Active multi vitamin/mineral s (THERA-M ENHANCED) tablet Take 1 tablet by mouth daily. Active Glucosamine 500 MG Cap Take by mouth daily. Active acetaminophen (TYLENOL) [address] 1 suppository (325 mg total) rectally every 4 (four) hours as needed for Fever. Active aspirin-acetami nophen-caffeine (EXCEDRIN MIGRAINE) 250-250-65 MG tablet Take 1 tablet by mouth every 6 (six) hours as needed for Pain. Active HYDROcodone-chi taminophen (NORCO) 5-325 MG tabletIndicatio ns:Acute Pain < 7 Day Supply Take 1-2 tablets by mouth every 4 (four) hours as needed (1 tab for moderate and 2 tabs for severe pain.). Indications: Acute Pain < 7 Day Supply 15 tablet 4 Active naloxone (NARCAN) 4 MG/0.1ML nasal spray 1 spray by Nasal route as needed for Opioid reversal. may repeat every 2 to 3 minutes in alternating nostrils until medical assistance becomes available 1 each 4 08/26/19 25 Active Problems Problem Noted Date Diagnosed Date Right femoral fracture 08/17/2023 History of removal of retained hardware 08/15/19 24 Painful orthopaedic hardware 07/12/2023 Aftercare following surgery 12/05/2022 History of falling 2022 Need for assistance with personal care 3 Tremor, unspecified 2022 Weakness 2022 Essential (primary) hypertension 08/29/2022 Stopped smoking with greater than 40 pack year h [place] 08/29/2022 Unspecified osteoarthritis, unspecified site Resolved Problems Problem Noted Date Diagnosed Date Resolved Date Contusion of right thigh, initial encounter 12/05/2022 08/16/2023 Unspecified fracture of fift h metacarpal bone, right hand, subsequent encounter for fracture with routine healing 2022 08/16/2023 Displaced oblique fracture o f shaft of right femur, subsequent encounter for closed fracture with routine healing 2022 08/16/2023 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, subsequent encounter 2022 08/16/2023 Closed nondisplaced fracture of base of fifth metacarpal bone of right hand 10/19/2022 08/16/2023 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 Additionally her chest CT improved between August and December of 2021 with interventions only for COPD. 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 See susceptibilities above. - Were going to have Chest CT done here, however already approved and scheduled for next Sunday with child development director, along with repeat PFTs. Discussed that if CT were to show worsening disease, or it patient has worsening symptoms, we could discuss treatment regimen. - Pt in agreement with this plan of care. Will continue to follow-up with her child development director. - Discussed with patient the rational for treatment, culture results, risk of recurrent infection, signs/symptoms of recurrent infection, and to contact ID clinic with any questions or concerns Bronchiectasis, uncomplicate d ([facility]) 08/29/2022 10/19/2022 Immunizations Name Administration Dates Next Due Fluzone 6 Months+ Quad (0.5 mL Prefilled Syringe ) 08/23/2023 Family History Medical History Relation Comments Stroke Father Cancer Mother Relation Status Comments Father Mother Social History Tobacco Use Types Packs/Day Years Used Date Smoking Tobacco: Former Cigarettes 2 25 0 10/02/1987 - 10/01/2012 Smokeless Tobacco: Never Tobacco Cessation:Counseling Given: Not Answered Alcohol Use Standard Drinks/Week Comments Yes 10 (1 standard drink = 0.6 oz pu re alcohol) occasioanlly [facility] Utilities Answer Date Recorded In the past 12 months has [facility] [employer], gas, oil, or water [employer] threatened to shut off services in your home? Patient declined 08/23/2023 Humiliation, Afraid, Rape, and Kick questionnair e Answer Date Recorded Within the last year, have y ou been afraid of your partner or ex-partner? Patient declined 08/23/2023 Within the last year, have y ou been humiliated or emotionally abused in other ways by your partner or ex-partner? Patient declined 08/23/2023 Within the last year, have y ou been kicked, hit, slapped, or otherwise physically hurt by your partner or ex-partner? Patient declined 08/23/2023 Within the last year, have y ou been raped or forced to have any kind of sexual activity by your partner or ex-partner? Patient declined 08/23/2023 Overall Financial Resource Strain (CARDIA) Answe r Date Recorded How hard is it for you to pa y for the very basics like food, housing, medical care, and heating? Not hard at all 08/23/2023 Hunger Vital Sign Answer Date Recorded Within the past 12 months, y ou worried that your food would run out before you got the money to buy more. Patient declined Within the past 12 months, t he food you bought just didn't last and you didn't have money to get more. Patient declined PRAPARE - Transportation Answer Date Re corded In the past 12 months, has l ack of transportation kept you from medical appointments or from getting medications? Patient declined 08/23/2023 In the past 12 months, has l ack of transportation kept you from meetings, work, or from getting things needed for daily living? Patient declined 08/23/2023 Housing Stability Vital Sign Answer Calos e Recorded In the last 12 months, was t here a time when you were not able to pay the mortgage or rent on time? Patient declined 08/23/19 24 In the last 12 months, how many places have you lived? 1 08/23/2023 In the last 12 months, was t here a time when you did not have a steady place to sleep or slept in a half-way (including now)? Patient declined 08/23/2023 Comments No Sex and Gender Information Value Date Recorded Sex Assigned at Not on file Legal Sex Female 2:46 AM CDT Gender Identity Not on file Sexual Orientation Not on file Last Filed Vital Signs Vital Sign Reading Time Taken Comments Blood Pressure 105/48 08/27/2023 11:54 AM MENTAL TESTER Pulse 88 08/27/2023 11:54 AM MENTAL TESTER Temperature 36.5 C (97.7 F) 08/27/2023 11:54 AM MENTAL TESTER Respiratory Rate 18 08/27/2023 11:5 4 AM MENTAL TESTER Oxygen Saturation 90% 08/27/2023 11: 54 AM MENTAL TESTER Inhaled Oxygen Concentration - - Weight 88.9 kg (195 lb 15.8 oz) 08/25/2023 5:00 AM MENTAL TESTER Height 160 cm (5' 3 ) 08/18/2023 1:55 AM MENTAL TESTER Body Mass Index 34.72 08/18/2023 1:55 AM MENTAL TESTER Plan of Treatment Health Maintenance Due Date Last Done Comments Colorectal Cancer Screening Colonoscopy (10 Years) 1950 Hepatitis C 10/26/1967 DTaP, Tdap and Td Vaccines (1 - Tdap) 1968 Mammogram Screening 1989 Zoster Vaccines (1 of 2) 10/26/1999 Annual Medicare Wellness Visit 2014 Dexa Scan (General) 2014 Pneumococcal Vaccine: 65+ Years (3 of 3 - PPSV23 or PCV20) 02/27/2023 02/27/2018, 04/09/2013 COVID-19 Vaccine (5 - season) 2024 10/30/2022, 07/05/2021, 09/07/2020, Additional history exists Influenza Adult (#1) 2024 08/23/2023, 05/06/2019, 04/26/2018, Additional history exists RSV Immunization or 60+ Years (1 - 1-dose 75+ series) 2024 Meningococcal B Vaccine Aged Out No l onger eligible based on patient's age to complete this topic Meningococcal Vaccine Aged Out No césar susi eligible based on patient's age to complete this topic RSV Immunizations Under 20 Months Aged Out No longer eligible based on patient's age to complete this topic Goals Goal Patient Goal Type Associated Problems Recent Progress Patient-Stated? Author Discharge Patient/family verbalizes understanding regarding the need for SNF placement Lifestyle Jody Richey, RN Medical Devices Implanted Type Area In Flight Crew Member Device Identifier Shelf Expiration Date Model / Serial / Lot Graft Bone Cortical Strut Frozen 20cm - [id number] Implanted:Qty: 1 on 08/20/2023 by Xavi Bhatia MD at [facility] Bone Right: Femur [employer] [id number] 10/22/2024 [id number] / [id number] / Graft Bone Bonus Triad Cancellous Cortical 10cc Allograft - [id number] Implanted:Qty: 1 on 08/20/2023 by Xaiv Bhatia MD at [facility] Bone Right: Leg [employer] 03/17/2027 [id number] / [id number] / Cap Joceline Ncb Locking 8mm - [id number] Implanted:Qty: 12 on 08/20/2023 by Xavi Bhatia MD at [facility] End Cap Right: Femur [employer] [id number] / / N/A Plate Joceline Distal Femur 15 Hole 317mm Right - [id number] Implanted:Qty: 1 on 08/20/2023 by Xavi Bhatia MD at [facility] Plate Right: Femur [employer] [id number] / / N/A Screw Joceline 5.0 Cortical Self Tapping 48mm - [id number] Implanted:Qty: 1 on 08/20/2023 by Xavi Bhatia MD at [facility] Screw Right: Femur [employer] [id number] / / N/A Screw Joceline 5.0 Cortical Self Tapping 42mm - [id number] Implanted:Qty: 1 on 08/20/2023 by Xavi Bhatia MD at [facility] Screw Right: Femur [employer] [id number] / / N/A Screw Joceline 5.0 Cortical Self Tapping 36mm - [id number] Implanted:Qty: 1 on 08/20/2023 by Xavi Bhatia MD at [facility] Screw Right: Femur [employer] [id number] / / N/A Screw Joceline 3.5 Cortical Self Tapping 38mm - [id number] Implanted:Qty: 2 on 08/20/2023 by Xavi Bhatia MD at [facility] Screw Right: Femur [employer] [id number] / / N/A Screw Joceline 5.0 Unicortical 14mm - [id number] Implanted:Qty: 1 on 08/20/2023 by Xavi Bhatia MD at [facility] Screw Right: Femur [employer] [id number] / / N/A Screw Joceline 5.0 Cortical Self Tapping 80mm - [id number] Implanted:Qty: 3 on 08/20/2023 by Xavi Bhatia MD at [facility] Screw Right: Femur [employer] [id number] / / N/A Screw Joceline 5.0 Cortical Self Tapping 60mm - [id number] Implanted:Qty: 1 on 08/20/2023 by Xavi Bhatia MD at [facility] Screw Right: Femur [employer] [id number] / / N/A Screw Joceline 5.0 Cortical Self Tapping 75mm - [id number] Implanted:Qty: 1 on 08/20/2023 by Xavi Bhatia MD at [facility] Screw Right: Femur [employer] [id number] / / N/A Screw Joceline 5.0 Cortical Self Tapping 70mm - [id number] Implanted:Qty: 1 on 08/20/2023 by Xavi Bhatia MD at [facility] Screw Right: Femur [employer] [id number] / / N/A Wire Fix 30cm 1.22mm Luq Loop - [id number] Implanted:Qty: 5 on 08/20/2023 by Xavi Bhatia MD at [facility] Wire Right: Femur [employer] [id number] / / NA Axsos 3 Ti 5.0 Variableangle Extension Arm Implanted:Qty: 1 on 10/17/2022 by Raffi Jeffries MD at [facility] Right: Femur 08/30/2023 [id number] / / [id number] 5 Locking Screw Implanted:Qty: 4 on 10/17/2022 by Raffi Jeffries MD at [facility] Right: Femur [employer] SYL [id number] / / 5 Locking Screw Implanted:Qty: 2 on 10/17/2022 by Raffi Jeffries MD at [facility] Right: Femur [employer] [id number] / / 5 Locking Screw Implanted:Qty: 1 on 10/17/2022 by Raffi Jeffries MD at [facility] Right: Femur [employer] [id number] / / 4 Locking Screw Implanted:Qty: 1 on 10/17/2022 by Raffi Jeffries MD at [facility] Right: Femur [employer] [id number] / / 5 Locking Screw Implanted:Qty: 1 on 10/17/2022 by Raffi Jeffries MD at [facility] Right: Femur [employer] [id number] / / Tigertape Cerclage Implanted:Qty: 2 on 10/17/2022 by Raffi Jeffries MD at [facility] Right: Femur 05/01/2025 [id number] / / [id number] Distal Femur Plate Right Implanted:Qty: 1 on 10/17/2022 by Raffi Jeffries MD at [facility] Right: Femur [employer] [id number] / / 4.5 Non Locking Screw Implanted:Qty: 1 on 10/17/2022 by Raffi Jeffries MD at [facility] Right: Femur [employer] [id number] / / 4.5 Non Locking Screw Implanted:Qty: 2 on 10/17/2022 by Raffi Jeffries MD at [facility] Right: Femur [employer] [id number] / / 5 Locking Screw Implanted:Qty: 1 on 10/17/2022 by Raffi Jeffries MD at [facility] Right: Femur [employer] [id number] / / 5 Locking Screw Implanted:Qty: 1 on 10/17/2022 by Raffi Jeffries MD at [facility] Right: Femur [employer] [id number] / / 5 Locking Screw Implanted:Qty: 1 on 10/17/2022 by Raffi Jeffries MD at [facility] Right: Femur [employer] [id number] / / Explanted Type Area In Flight Crew Member Device Identifier Shelf Expiration Date Model / Serial / Lot Drill Bit Joceline 4.3mm - [id number] Explanted:Qty: 1 on 08/20/2023 by Xavi Bhatia MD at [facility] Drill Right: Femur [employer] 4. 002 / / N/A Pin Steinmann Threaded Brasseler 2.0 - [id number] Explanted:Qty: 1 on 08/20/2023 by Xavi Bhatia MD at [facility] Pin Right: Leg [employer] [facility] [id number] 05/18/2027 [id number] / / [id number] 3.1 Drill Bit Explanted:Qty: 1 on 10/17/2022 by Raffi Jeffries MD at [facility] Right: Femur [employer] [id number] / / 3.2 Drill Bit Explanted:Qty: 1 on 10/17/2022 by Raffi Jeffries MD at [facility] Right: Femur [employer] [id number] / / 4.3 Drill Bit Explanted:Qty: 1 on 10/17/2022 by Raffi Jeffries MD at [facility] Right: Femur [employer] [id number] / / K Wire Explanted:Qty: 2 on 08/20/2023 by Xavi Bhatia MD at [facility] Right: Femur [employer] 290.20.28 0 / / N/A Drill Bit 3.3 Explanted:Qty: 2 on 08/20/2023 by Xavi hBatia MD at [facility] Right: Femur [employer] 4. 381 / / N/A Insurance [facility] [place] [address] [address] [place] [address] [facility] Advance Directives * Full Code (Latest Code Status on File) Date Activated Date Inactivated Comments 08/18/2023 1:42 PM 08/27/2023 3:36 PM * Full Code Date Activated Date Inactivated Comments 08/18/2023 1:38 AM 08/18/2023 1:42 PM * Full Code Date Activated Date Inactivated Comments 08/15/2023 11:24 AM 08/16/2023 2:09 PM * Full Code Date Activated Date Inactivated Comments 10/17/2022 4:06 PM 2022 4:29 PM Care Teams Pre Sales Architect Relationship Specialty Start Date End Date Kim Valencia MD [address] [facility] [address] [facility] [address] [place] [address] PCP - General FAMILY PRACTICE 10/17/22
--- OUTSIDE RECORDS SUMMARY | 2024-09-22 23:22 | XMS_ITS ---
Author Organization [facility] Care Team Providers Care Patient Accounts Clerk Name Role Phone Zack Edgar Unavailable Unavailable Allergies and adverse reactions No Known Allergies Care Team Name Role Address Phone Organization Dates Edgar Dixon PCP [address], [place], [address], [place] (Office): : [facility] 2022 - 11/28/2022 Immunizations Immunization Status Vaccine Details Vaccine Code CodeSystem Date Notes TB 2 Step Mantoux Skin Test completed tuberculin skin test; unspecified formulation lotNumber: [id number] expiry: 12/07/2024 Mfg: SANOFI PASTEUR Given 0.1 ml Left Forearm subcutaneously Step 2 of Multi-step with next step required 98 CVX created date: 11/05/2022 consent date: 11/04/2022 administer ed date: 11/05/2022 TB 2 Step Mantoux Skin Test completed tuberculin skin test; unspecified formulation lotNumber: [id number] expiry: 12/07/2024 Mfg: Tubersol INJ 5/0.1ML Given 0.1 ml Right Forearm subcutaneously Step 1 of Multi-step with next step required 98 CVX created date: 10/26/2022 consent date: 10/26/2022 administer ed date: 10/26/2022 SARS-COV-2 (COVID-19) completed SARS-COV-2 (COVID-19) vaccine, mRNA, spike protein, LNP, preservative free, 100 mcg/0.5mL dose or 50 mcg/0.25mL dose Step 2 of Multi-step with next step required 207 CVX created date: 10/27/2022 administer ed date: 07/05/2021 SARS-COV-2 (COVID-19) completed SARS-COV-2 (COVID-19) vaccine, mRNA, spike protein, LNP, preservative free, 100 mcg/0.5mL dose or 50 mcg/0.25mL dose Step 1 of Multi-step with next step required 207 CVX created date: 10/27/2022 administer ed date: 09/07/2020 SARS-COV-2 (COVID-19)- Moderna Booster completed SARS-COV-2 (COVID-19) vaccine, mRNA, spike protein, LNP, preservative free, 100 mcg/0.5mL dose or 50 mcg/0.25mL dose lotNumber: [id number] expiry: 11/20/2022 Mfg: Moderna Bivalent Given 0.5 ml Right Deltoid intramuscularly 207 CVX created date: 10/30/2022 consent date: 10/30/2022 administer ed date: 10/30/2022 May receive 2nd Bivalent Booster 03/02/2023 Mental Status Section Date Assessment Total Score Description 11/28/2022 CAM 0 No delirium ind icated 10/31/2022 BIMS 15 cognitively int act CAM 0 No delirium ind icated PHQ-9 00 Problems Problem # Description Date of onset Resolved Date Code CodeSystem Concern Status 1 CHRONIC OBSTRUCTIVE PULMONARY DISEASE, UNSPECIFIED 10/26/[address] active 2 DISPLACED OBLIQUE FRACTURE OF SHAFT OF RIGHT FEMUR, SUBSEQUENT ENCOUNTER FOR CLOSED FRACTURE WITH ROUTINE HEALING 10/26/[address] active 3 ENCOUNTER FOR OTHER ORTHOPEDIC AFTERCARE 10/26/[address] active 4 ESSENTIAL (PRIMARY) HYPERTENSION 10/26/[address] active 5 HISTORY OF FALLING 10/26/[address] active 6 NEED FOR ASSISTANCE WITH PERSONAL CARE 10/26/[address] active 7 PERIPROSTHETIC FRACTURE AROUND INTERNAL PROSTHETIC RIGHT KNEE JOINT, SUBSEQUENT ENCOUNTER 10/26/[address] active 8 TREMOR, UNSPECIFIED 10/26/[address] active 9 UNSPECIFIED FRACTURE OF FIFTH METACARPAL BONE, RIGHT HAND, SUBSEQUENT ENCOUNTER FOR FRACTURE WITH ROUTINE HEALING 10/26/[address] active 10 UNSPECIFIED OSTEOARTHRITIS, UNSPECIFIED SITE 10/26/[address] active 11 WEAKNESS 10/26/[address] active Reason for Referral No Reasons for Referral Entered Social History Social History Observation Description Start Date End Date Code Code System Current Smoking Status Tobacco smoking consumption unknown 210472561 SNOMED CT Sex Assigned At Female 1950 61835-2 [facility] Vital Signs Code Code System Vitals Name Values and Units Timing Information 9279-1 [facility] Respiratory Rate Value=18.0 Units=/m in 11/28/2022 8462-4 [facility] Blood Pressure-Diastolic Value=70 Un its=mmHg 11/28/2022 8480-6 [facility] Blood Pressure-Systolic Lhsns=424 Un its=mmHg 11/28/2022 8310-5 [facility] Body Temperature Value=97.6 Units= F 11/28/2022 8867-4 [facility] Heart rate Value=82.0 Units=/min 41645-1 [facility] Pain Level Value=0.0 11/28/2022 72219-4 [facility] O2 % BldC Oximetry Value=98.0 Units= % 11/28/2022 37854-1 [facility] Weight Zmyva=333.8 Units=Lbs 8302-2 [facility] Height Value=63.0 Units=Inches 10/30/2022
--- OUTSIDE RECORDS SUMMARY | 2024-09-22 23:22 | XMS_ITS | Data Portability ---
Author Organization [facility] Address [address] [place] [address] Care Team Providers Care Supervisor [employer] Name Role Phone CRYSTAL LEWIS Primary Care Provider Assessment No assessment recorded. Plan of Treatment Reminders Order Date Submit Date Provider Last Modified By Organization Details Last Modified Time Details Appointments None recorded. Lab None recorded. Referral None recorded. Procedures None recorded. Surgeries None recorded. Imaging None recorded. Medication Orders estradiol 0.01% (0.1 mg/gram) vaginal cream 2024 025 [facility]/Pharmacy #[id number], [address] [place], [address], 5 22:36:03 estradiol 0.01% (0.1 mg/gram) vaginal cream [address]/Pharmacy #[id number], [address] [place], [address], 5 12:53:58 nystatin-t riamcinolo ne 100,000 unit/gram- 0.1 % topical ointment [address]/Pharmacy #[id number], [address] [place], [address], 5 12:54:44 Valtrex 1 gram tablet [address]/Pharmacy #[id number], [address] [place], [address], 12:54:29 Patient TargetsNo targets recorded. Patient InstructionsNo instructions recorded. Reason for Referral None Reported. Procedures Surgical History Date Name Laterality Status Provider Name and Address Organization Details Recorded Time 08/02/19 20 Date of Last Pap Smear completed [facility] 08/15/2022 09:54:06 complete repair of rotator cuff completed [facility] 08/15/2022 09:56:25 procedure on wrist completed Sera Noyola [facility] [address], [place], [address], [facility] 08/15/2022 10:07:52 Total hip arthroplasty completed Sera Noyola [facility] [address], [place], [address], [facility] 08/15/2022 10:08:31 total knee replacement completed Sera Noyola [facility] [address], [place], [address], [facility] 08/15/2022 10:08:17 Imaging Results None recorded. Procedure Notes None recorded. Medical Equipment None Reported. Allergies No known drug allergies Medications Name Sig Start Date Stop Date Status Note LastModified by Organization Details LastModified Time primidone 50 mg tablet TAKE 1 TALBET BY MOUTH EVERY DAY AT BEDTIME active Not Available Not Available No t Available acetaminoph en 325 mg tablet TAKE 2 CAPSULES BY MOUTH EVERY 8 HOURS NEEDED FOR PAIN 08/15 completed Not Available Not Available Not Available prednisone 10 mg tablet 4 TABS BY MOUTH X3 DAYS, 3 TABS X3DAYS ,2 TABS X3 DAYS,1 TAB X3 DAYS DAILY active Not Available Not Available No t Available azithromyci n 250 mg tablet TAKE 2 TABLETS BY MOUTH TODAY, THEN TAKE 1 TABLET DAILY FOR 4 DAYS DIRECTED 07/10 completed Not Available Not Available Not Available nystatin 100,000 unit/gram topical ointment APPLY TO AFFECTED AREA TWICE A DAY 07/10 completed Not Available Not Available Not Available valacyclovi r 1 gram tablet TAKE 1 TABLET BY MOUTH EVERY 12 HOURS DIRECTED FOR 7 DAYS 07/10 completed Not Available Not Available Not Available hydrocodone 5 mg-acetamin ophen 325 mg tablet TAKE 1 TABLET BY MOUTH EVERY 4 HOURS NEEDED FOR CHRONIC PAIN 07/10 completed Not Available Not Available Not Available clobetasol 0.05 % topical cream APPLY TOPICALLY EVERY DAY AT BEDTIME 08/15 completed Not Available Not Available Not Available ciprofloxac in 500 mg tablet TAKE 1 TABLET BY MOUTH EVERY 12 HOURS 08/15 completed Not Available Not Available Not Available tramadol 50 mg tablet TAKE 1 TABLET BY MOUTH TWICE A DAY NEEDED 08/15 completed Not Available Not Available Not Available nystatin-tr iamcinolone 100,000 unit/gram-0 .1 % topical ointment APPLY TO THE AFFECTED AREA(S) BY TOPICAL ROUTE 2 TIMES PER DAY PRN 07/10 completed Not Available Not Available Not Available benzonatate 100 mg capsule TAKE 2 CAPSULES BY MOUTH 3 TIMES DAILY NEEDED 07/10 completed Not Available Not Available Not Available pantoprazol e 40 mg tablet,sandhya yed release active Not Available Not Available Not Available hyoscyamine sulfate 0.125 mg tablet TAKE 1 TABLET BY MOUTH 4 TIMES DAILY 07/10 completed Not Available Not Available Not Available triamcinolo ne acetonide 0.1 % topical ointment APPLY THIN COAT TO AFFECTED AREA TWICE A DAY 07/10 completed Not Available Not Available Not Available diclofenac sodium 75 mg tablet,sandhya yed release TAKE 1 TABLET BY MOUTH TWICE A DAY 07/10 completed Not Available Not Available Not Available montelukast 10 mg tablet active Not Available Not Available Not Available gabapentin 100 mg capsule TAKE 1 CAPSULE BY MOUTH 3 TIMES A DAY 08/15 completed Not Available Not Available Not Available azelastine 137 mcg (0.1 %) nasal spray INSTILL 1 SPRAY INTO EACH NOSTRIL EVERY 12 HOURS 07/10 completed Not Available Not Available Not Available estradiol 0.01% (0.1 mg/gram) vaginal cream PLACE 1 GRAM ON VULVA 3 TIMES PER WEEK FOR 30 DAYS active Not Available Not Available No t Available albuterol sulfate HFA 90 mcg/actuati on aerosol inhaler INHALE 1 - 2 PUFFS EVERY 4 - 6 HOURS NEEDED FOR SHORTNESS OF BREATH OR WHEEZING 07/10 completed Not Available Not Available Not Available Vitamin D2 1,250 mcg (50,000 unit) capsule Take by oral route. active Not Available Not Available No t Available cefdinir 300 mg capsule TAKE 1 CAPSULE (300 MG) BY MOUTH EVERY 12 HOURS FOR 10 DAYS 08/15 completed Not Available Not Available Not Available losartan 100 mg tablet TAKE 1 TABLET BY MOUTH EVERY DAY active Not Available Not Available No t Available fluticasone propionate 50 mcg/actuati on nasal spray,suspe nsion INSTILL 1 SPRAY INTO EACH NOSTRIL DAILY active Not Available Not Available No t Available Anoro Ellipta 62.5 mcg-25 mcg/actuati on powder for inhalation INHALE 1 PUFF DAILY active Not Available Not Available No t Available Vitals Date Recorded Body height Body mass index (BMI) Body weight Systolic blood pressure Diastolic blood pressure Provider Name and Address Organization Details Last Updated DateTime 08/15/2022 160.02 cm 31 kg/m2 72093.95 g 136 mm[Hg] 82 mm[Hg] [facility] 3 09:52:19 Date Recorded Body height Body mass index (BMI) Body weight Systolic blood pressure Diastolic blood pressure Provider Name and Address Organization Details Last Updated DateTime 08/29/2022 160.02 cm 31.2 kg/m2 27273.69 g 130 mm[Hg] 71 mm[Hg] [facility] 3 16:29:54 Date Recorded Body height Body mass index (BMI) Body weight Systolic blood pressure Diastolic blood pressure Provider Name and Address Organization Details Last Updated DateTime 07/10/2024 160.02 cm 29.4 kg/m2 34123.33 g 139 mm[Hg] 77 mm[Hg] Jodi Stout [facility] 5 12:52:01 Date Recorded Body height Body mass index (BMI) Body weight Systolic blood pressure Diastolic blood pressure Provider Name and Address Organization Details Last Updated DateTime 07/29/2024 160.02 cm 28.9 kg/m2 23653.56 g 150 mm[Hg] 82 mm[Hg] Apryl Gastelumen [facility] 5 14:18:52 Date Recorded Body height Body mass index (BMI) Body weight Systolic blood pressure Diastolic blood pressure Provider Name and Address Organization Details Last Updated DateTime 08/27/2024 160.02 cm 28.9 kg/m2 19553.56 g 142 mm[Hg] 74 mm[Hg] Apryl Swati [facility] 5 14:01:22 Social History Question Answer Notes LastModified by Organizat ion Details LastModified Time Tobacco Smoking Status Never Smoker Lyndsay Tapia violeta, [facility] 08/15/2022 09:56:08 What Is Your Level Of Alcohol Consumption? Occasional Information not available 08/15/2022 Are You Blind Or Do You Have Difficulty Seeing? No Information n ot available 08/15/2022 In The 14 Days Before Symptom Onset, Have You Had Close Contact With A Laboratory-confirm ed COVID-19 While That Case Was Ill? No [email or web address] Information n ot available 07/29/2024 In The 14 Days Before Symptom Onset, Have You Had Close Contact With A Person Who Is Under Investigation For COVID-19 While That Person Was Ill? No [email or web address] Information not available 07/29/2024 Have You Been To An Area Known To Be High Risk For COVID-19? No [email or web address] Information not available 07/29/2024 Are You Deaf Or Do You Have Serious Difficulty Hearing? No Information not available 08/15/2022 What Type Of Diet Are You Following? REGULAR Information n ot available 08/15/2022 Sex: Unknown Functional Status Question Answer Note LastModified by Organizat ion Details LastModified Time Do you have difficulty walking or climbing stairs? No Information not available 08/15/2022 Are you able to walk? YESWOREST Information not available 08/15/2022 Are you able to care for yourself? Yes Information not available 08/15/2022 Do you have difficulty dressing or bathing? No Information not available 08/15/2022 What is your exercise level? Occasional Information not available 08/15/2022 Mental Status None recorded. Family History Relationship Description Onset Age of this Age Resolved Age Notes LastModified by Organization Details LastModified Time Brother Malignant tumor of colon Not available 2022 09:55:35 Father Heart disease Not available 2022 09:55:43 Mother Malignant neoplasm of uterus Not available 2022 09:55:53 Medical History Condition Response Allergies (Food, seasonal, environmental ) N Other N Blood Transfusion N Drug/Latex Allergies/Reactions N Breast Cancer N Dermatologic Disorders N Lung Disease N Defects or Inherited Disease N Breast Problem N Gestational Diabetes N Hematologic disorders N Anesthesia Complications N History of STI Y Deep Vein Thrombosis N Polycystic ovary syndrome N Anxiety Disorder N Autoimmune disease N Arthritis N Infertility N Polyps N Acid Reflux (GERD) Y History of abnormal pap N Cancer N Stroke N Varicosities N Neurologic/Epilepsy N Endometriosis N High Cholesterol Y Headaches N Fibromyalgia N Kidney Disease N Heart Problems N Kidney or Bladder Problems N Thyroid Problems N GI Problems N Eating Disorder N Anemia N Art (IVF or FET) N Psychiatric Illness N Ovarian Cancer N Diabetes N Pulmonary (TB, Asthma) N Hepatitis/Liver Disease N No Past Medical History N Eczema N Urinary Tract Infection N Abuse/Domestic Violence N Asthma N Trauma/Violence N Depression/ depression N Heart Disease N Pre-Eclampsia N Hypertension Y Osteoporosis N Thrombophilias N Gynecological History Statement/Question Response Abnormal Pap N Date of Last Mammogram STIs/STDs Y HPV Vaccine N Current Control Method Menopause If Post Menopausal, Age at Menopause 51 Sexually Active? N Menses Monthly N Age of first menstrual cycle 11 Date of Last Pap Smear 08/02/2019 Sexual Problems? N LMP Unknown Obstetrics History GPAL:G 2 P 2 0 0 2 Type Value Full Term 2 Living 2 Total 2 Past Encounters Encounter ID Performer Location Encounter Start Date Encounter Closed Date Diagnosis/Indication Diagnosis SNOMED-CT Code Diagnosis ICD10 Code Diagnosis Note [id number] Sera Noyola [facility] [address] [address] 08/15/2022 09:39:19 08/16/2022 16:29:39 Genital herpes simplex 35461499 A60.9 Today we discussed use of Valtrex. Counseled on medication R/B's, Most common side effects, & use. All questions were answered to patient satisfacti on. She is open to this therapy.Wi ll use & if sx's do not resolve please return for further evaluation .HSV had previously been confirmed by other doctors. Time spent in visit is a total of 30 mins with at least 50% of visit consisting of counseling and review of plan of care. Vulval irritation 473190 003 N90.89 [id number] [facility] [address] [address] 08/29/2022 16:20:17 08/30/2022 11:26:23 Genital herpes simplex 24552011 A60.9 Doing well today.All sx's resolved.S o happy!Stil l with a small patch of atrophied skin at top of vulva likely postmenopa usal.Will have her to 1 month of topical estradiol cream in this area.If doing well see her in a year & if any issues return to office for evaluation . Counseled on medication R/B's, Most common side effects, & use. All questions were answered to patient satisfacti on. Time spent in visit is a total of 15 mins with at least 50% of visit consisting of counseling and review of plan of care. 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 Pt agrees to this plan, verbalized understand ing. consult scheduled Lesion of vulva [id number] 6 N90.89 External hemorrhoids 239 79629 K64.4 supportive care discussedi f symptoms continue recommend referral to colorectal surgery Time spent in visit is a total of 20 mins with at least 50% of visit consisting of counseling and review of plan of care. [id number] ALICE CHANCE MD [facility] [address] [address] 07/29/2024 13:46:56 07/30/2024 14:07:30 Vulval irritation 383330083 N90.89 - likely 2/2 vulvar atrophy, worsened by recent incontinen ce with URI- vulvar tissue very thin, erythemato us- recommend 1 month of vaginal estrogen, then reevaluati on with possible biopsy at that time if not improved [id number] ALICE CHANCE MD [facility] [address] [address] 08/27/2024 13:55:43 08/27/2024 15:52:01 Vulval irritation 542198841 N90.89 - likely 2/2 vulvar atrophy, worsened by recent incontinen ce with URI- vulvar tissue very thin, erythemato us on recent exam- symptoms improved with vaginal estrogen- ok to decrease to 1-2x weekly, or continue 3x weekly if symptoms return- rtc as needed Health Concerns Section Related Observation LastModified by Organization Detai ls LastModified Time None Recorded Concern Status LastModified by Organization Details LastModified Time None Recorded Advance Directives Directive None Recorded Payers Encounter Date Sequence Insurance Name Policy Number Policy Echeverria Covered Member ID Echeverria Member ID Guarantor Name 08/15/2022 1 [facility] (MEDICARE REPLACEMENT/A DVANTAGE - POS) [id number] Junie Alfred [id number] Junie Alfred 08/29/2022 1 [facility] (MEDICARE REPLACEMENT/A DVANTAGE - POS) [id number] Junie Alfred [id number] Junie Alfred 07/10/2024 1 [facility] (MEDICARE REPLACEMENT/A DVANTAGE - POS) [id number] Junie Alfred [id number] Junie Alfred 07/29/2024 1 [facility] (MEDICARE REPLACEMENT/A DVANTAGE - POS) [id number] Junie Alfred [id number] Junie Alfred 08/27/2024 1 [facility] (MEDICARE REPLACEMENT/A DVANTAGE - POS) [id number] Junie Alfred [id number] Junie Alfred Notes Date Note Type Note Provider Name and Address Organization Details Recorded Time 3 text/html Patient is a 71yo post menopausal white female here today for possible HSV outbreak.She voices she has not had one in years >20.She was not certain this is what was happening down there. Sx's worsened & more lesions developed.Currently very tender, hard to sit and feels very irritated down there. She has no new sexual partners.She is not currently sexually active.We reviewed her Hx & updated it in her chart. [facility] [address], [place], [address], [facility] 08/22/2022 12:08:28 3 text/html Here today for f/u & med check. [facility] [address], [place], [address], [facility] 08/30/2022 10:04:48 5 text/html 73yohere today for vulvar itching/burning/dryness and hemorrhoidssymptoms come and go over the past few years. Current episode started 1 month ago, has been improving with minimal symptoms today. Top of vulva often itches/nuno. Using OTC ointment for hemorrhoids currentlynot SAwears panty liner daily in case of leaking urinefrequently has diarrhea, no constipationneg d/c, odorsneg pelvic pain h/o genital HSV CRISTIAN Campos [address], [place], [address], [facility] 07/10/2024 13:50:42 5 text/html Patient presents for evaluation of vulvar atrophy/lesion. She reports long hx of vulvar irritation, at least 2 years. It is intermittent, no clear triggers. Just had recurrence, patient thinks due to use of poise pads for incontinence during coughing fits. She was using vegetable based oil as moisturizer which was helping until recent incontinence with coughing. No bleeding. ALICE CHANCE MD [address], [place], [address], [facility] 07/29/2024 22:36:15 5 text/html Patient presents for med check of vaginal estrogen cream. She was prescribed vaginal estrogen for vulvar atrophy and irritation. She reports vast improvement in all of her symptoms. No bleeding or irritation. No side effects. ALICE CHANCE MD [address], [place], [address], [facility] 08/27/2024 15:51:27 OBGyn Episode Ob Episode Information Episode Created Date Number of Fetuses Patient Bloodtype Patient rh Status Prepregnancy Weight lbs Domestic Partner Domestic Partner Phone Father Name Reimbursement Liaison Status 08/15/19 1 CLOSED Fetus Data First Name Last Name Admitted to NICU Weight (g) Sex Living Outcome Pediatric Complications Fetus ID Race Codes Race Delivery Type F Full Term [id number] Vaginal Delivery Ricardo Calculation Initial Ricardo Date Initial Exam Date Initial Exam Provider Initial Ultrasound Date Last Menstrual Period Date Ultra Sound Weeks Gestation 0 Eighteen To Twenty Week Ricardo Update Ultra Sound Date Fundal Height At Umbil Quickening Date Ultra Sound Latest Weeks Gestation Final Ricardo Confirmed By Final Ricardo Confirmed Date Final Ricardo Date Ultra Sound Latest Days Gestation 0 0 Menstrual History Last Menstrual Date Menses Monthly On Bcp Conception Prior Menses Frequency Hcg Plus Date Menarche Onset Age Delivery Information Delivery Date Delivery Type Labor Anesthesia Weeks Gestation Incision Type Labor Labor Length Hrs Delivered By Post Complications Tubal Sterilization Discharge Date Comments 9 Discharge Information Feeding Method Contraceptive Method Maternal HG B and HCT Levels Ob Episode Information Episode Created Date Number of Fetuses Patient Bloodtype Patient rh Status Prepregnancy Weight lbs Domestic Partner Domestic Partner Phone Father Name Reimbursement Liaison Status 08/15/19 23 1 CLOSED Fetus Data First Name Last Name Admitted to NICU Weight (g) Sex Living Outcome Pediatric Complications Fetus ID Race Codes Race Delivery Type F Full Term [id number] Vaginal Delivery Ricardo Calculation Initial Ricardo Date Initial Exam Date Initial Exam Provider Initial Ultrasound Date Last Menstrual Period Date Ultra Sound Weeks Gestation 0 Eighteen To Twenty Week Ricardo Update Ultra Sound Date Fundal Height At Umbil Quickening Date Ultra Sound Latest Weeks Gestation Final Ricardo Confirmed By Final Ricardo Confirmed Date Final Ricardo Date Ultra Sound Latest Days Gestation 0 0 Menstrual History Last Menstrual Date Menses Monthly On Bcp Conception Prior Menses Frequency Hcg Plus Date Menarche Onset Age Delivery Information Delivery Date Delivery Type Labor Anesthesia Weeks Gestation Incision Type Labor Labor Length Hrs Delivered By Post Complications Tubal Sterilization Discharge Date Comments 6 Discharge Information Feeding Method Contraceptive Method Maternal HG B and HCT Levels
--- OUTSIDE RECORDS SUMMARY | 2024-09-22 23:22 | XMS_ITS | Referral Summary ---
Author Organization [facility] [place] [address] Address [address] [place] [address] Care Team Providers Care Wire Spooler Name Role Phone Kim Valencia MD Primary Care Provider Allergies No known active allergies Medications losartan (COZAAR) 100 mg tablet [address] (VOLTAREN) 75 mg EC tablet [address] (PROTONIX) 40 mg EC tablet 1 Active montelukast (SINGULAIR) 10 mg tablet 1 Active valACYclovir (VALTREX) 1 gram tablet TAKE 1 TABLET BY MOUTH EVERY 12 HOURS DIRECTED FOR 7 DAYS 3 Active Anoro Ellipta 62.5-25 mcg/actuation blister with device 1 puff daily 3 Active fluticasone propionate (FLONASE) 50 mcg/actuation nasal spray INSTILL 1 SPRAY INTO EACH NOSTRIL DAILY 3 Active albuterol HFA (PROVENTIL HFA,VENTOLIN HFA,PROAIR HFA) 90 mcg/actuation inhaler INHALE 1 - 2 PUFFS EVERY 4 - 6 HOURS NEEDED FOR SHORTNESS OF BREATH OR WHEEZING 2 Active primidone (MYSOLINE) 50 mg tablet 2 Active Active Problems Problem Noted Date Diagnosed Date Positive culture findings in sputum 08/29/2022 Assessment & Plan (08/29/2022 3:02 PM MACHINE CELL TUBER): - Discussed with patient that her symptoms [...] approved and scheduled for next Sunday with night auditor, along with repeat PFTs. Discussed that if CT were to show worsening disease, or it patient has worsening symptoms, we could discuss treatment regimen. - Pt in agreement with this plan of care. Will continue to follow-up with her night auditor. - Discussed with patient the rational for treatment, culture results, risk of recurrent infection, signs/symptoms of recurrent infection, and to contact ID clinic with any questions or concerns Bronchiectasis, uncomplicated 08/29/2022 COPD (chronic obstructive pulmonary disease) Stopped smoking with greater than 40 pack year h istory 08/29/2022 HTN (hypertension) 08/29/2022 Arthritis 08/29/2022 Social History Tobacco Use Types Packs/Day Years Used Date Smoking Tobacco: Former Smokeless Tobacco: Never Personal Safety Answer Date Recorded Getting School Help Needed Not on file 08/23 Comments Unknown Sex and Gender Information Value Date Recorded Sex Assigned at Not on file Legal Sex Female 7:28 PM MACHINE CELL TUBER Gender Identity Not on file Sexual Orientation Not on file Last Filed Vital Signs Vital Sign Reading Time Taken Comments Blood Pressure 156/85 08/28/2022 10:01 AM MACHINE CELL TUBER Pulse 67 08/28/2022 10:01 AM MACHINE CELL TUBER Temperature 36.7 C (98.1 F) 08/28/2022 10:01 AM MACHINE CELL TUBER Respiratory Rate 12 04/25/2021 2:35 PM CDT Oxygen Saturation - - Inhaled Oxygen Concentration - - Weight 78.8 kg (173 lb 11.2 oz) 023 10:01 AM MACHINE CELL TUBER Height 160 cm (5' 2.99 ) 08/28/2022 10: 01 AM MACHINE CELL TUBER Body Mass Index 30.78 08/28/2022 10:01 AM MACHINE CELL TUBER Plan of Treatment Not on file Procedures Procedure Name Priority Date/Time Associated Diagnosis Comments COLONOSCOPY 10/31/2013 12:00 AM CDT from Last 3 Months or Most Recently Relevant to Health Maintenance Results * COLONOSCOPY (10/31/2013 12:00 AM CDT) Anatomical Region Laterality Modality Other Narrative 10/31/2013 12:00 AM CDT Ordered by an unspecified provider. Procedure Note Provider, MD Julian - 10/31/2013 12:00 AM CDT PROCEDURE REPORT Patient: JUNIE RODRÍGUEZ Account: [id number] Room No: : 1950 Patient Type: [facility] Attend.: Hilary Mchugh M.D. Admit Date: 10/31/2013 Dict.: Hilary Mchugh M.D. Disch. Date: 10/31/2013 NAME OF PROCEDURE: Colonoscopy with polypectomy by cold biopsy forceps. INDICATION: Personal history of polyps, screening for colon cancer. DATE OF PROCEDURE: 10/31/2013. PRIMARY CARE PHYSICIAN: Dr. Merritt Molina. BRIEF HISTORY AND PHYSICAL: The patient is a 63-year-old white femalewith a personal history of adenoma polyps. No family history of colon cancer.Last colonoscopy five years ago. The patient presented for screeningcolonoscopy test. PROCEDURE: Sedation was provided by Anesthesia Service. The procedureof colonoscopy including indications and possible complications ofbleeding, infection and perforation requiring surgery were discussed with thepatient and consent was obtained. Rectal examination prior to colonoscopy was unremarkable. The scope introduced to the rectum and advanced to thececum which was identified by the ileocecal valve and appendiceal orifice. The quality ofthe colon preparation was excellent. In the cecum, noted two small 3 millimeter benign-appearing polyps removedby cold biopsy forceps. The ascending colon, transverse colon wereunremarkable. At least moderate diverticulosis noted in the left side of the colon.The rectum was unremarkable. Retroflexion view in the rectum showed smallto medium size internal hemorrhoids. IMPRESSION: 1. Diverticulosis in the left side of the colon. 2. Two small 3 millimeter sessile polyps with benign appearance in thececum removed with cold biopsy forceps. 3. Internal hemorrhoids. RECOMMENDATIONS: 1. Follow pathology report. 2. Repeat screening in five years. Abdirahman Sánchez/kristy TD: 11/01/2013 15:17 CC: Merritt Molina M.D. Authenticated by Hilary Mchugh MD On 11/05/2013 09:54:57 AM Historical Provider ENDOSCOPY PROCEDURES Zenobia l Result from Last 3 Months or Most Recently Relevant to Health Maintenance Insurance HMO REF Member Subscriber Plan / Payer (Ef fective 2020-Present) Name:Junie Rodríguez Relation to Subscriber:Self Name:Junie Rodríguez Payer ID:[id number] (NAIC) Type:[facility] MEDICARE Address: [place] [phone] [facility] MDCR HMO REF [facility] MEDICARE ADVANTAGE Care Teams Wire Spooler Relationship Specialty Start Date End Date Kim Valencia MD [address] [facility] [address] [place] [address] PCP - General Family Medicine 09/09/19
--- OUTSIDE RECORDS SUMMARY | 2024-09-22 23:22 | XMS_ITS | Clinical Summary ---
Author Organization [facility] [place] [address] Address [address] [place] [address] Care Team Providers Care Rn Camp Name Role Phone Kim Valencia MD Primary [...] 08/29/2022 Assessment & Plan (08/29/2022 3:02 PM BACK SHOE OPERATOR): - Discussed with patient that her symptoms [...] approved and scheduled for next Sunday with foundry worker apprentice, along with repeat PFTs. Discussed that if CT were to show worsening disease, or it patient has worsening symptoms, we could discuss treatment regimen. - Pt in agreement with this plan of care. Will continue to follow-up with her foundry worker apprentice. - Discussed with patient the rational for treatment, culture results, risk of recurrent infection, signs/symptoms of recurrent infection, and to contact ID clinic with any questions or concerns Bronchiectasis, uncomplicated 08/29/2022 COPD (chronic obstructive pulmonary disease) Stopped smoking with greater than 40 pack year h istory 08/29/2022 HTN (hypertension) 08/29/2022 Arthritis 08/29/2022 Surgical History Surgery Date Site/Laterality Comments TOTAL HIP ARTHROPLASTY 07/02/2017 - 07/01/2018 Right KNEE ARTHROPLASTY 07/02/2019 - 07/01/2020 Right WRIST SURGERY Bilateral ROTATOR CUFF REPAIR Right Medical History Medical History Date Comments Hypertension GERD (gastroesophageal reflux disease) COPD (chronic obstructive pulmonary disease) (HC C) Arthritis Herpes Tremor Family History Relation Name Status Comments Brother Father Mother Social History Tobacco Use Types Packs/Day Years Used Date Smoking Tobacco: Former Smokeless Tobacco: Never Personal Safety Answer Date Recorded Getting School Help Needed Not on file 08/23 Comments Unknown Sex and Gender Information Value Date Recorded Sex Assigned at Not on file Legal Sex Female 7:28 PM BACK SHOE OPERATOR Gender Identity Not on file Sexual Orientation Not on file Obstetrics History Last Filed Vital Signs Vital Sign Reading Time Taken Comments Blood Pressure 156/85 08/28/2022 10:01 AM BACK SHOE OPERATOR Pulse 67 08/28/2022 10:01 AM BACK SHOE OPERATOR Temperature 36.7 C (98.1 F) 08/28/2022 10:01 AM BACK SHOE OPERATOR Respiratory Rate 12 04/25/2021 2:35 PM CDT Oxygen Saturation - - Inhaled Oxygen Concentration - - Weight 78.8 kg (173 lb 11.2 oz) 023 10:01 AM BACK SHOE OPERATOR Height 160 cm (5' 2.99 ) 08/28/2022 10: 01 AM BACK SHOE OPERATOR Body Mass Index 30.78 08/28/2022 10:01 AM BACK SHOE OPERATOR Plan of Treatment Health Maintenance Due Date Last Done Comments Breast Cancer Screening-Mammogram 1950 Depression Screening 1950 Fall Risk Assessment 1950 Hepatitis C Screening 1950 Osteoporosis Screening-Bone Density Scan 1950 DTaP/Tdap/Td Vaccine (1 - Tdap) 1960 Hepatitis B Screening 10/26/1967 Zoster Vaccine (1 of 2) 10/26/1999 Well Visit 65+ 2014 Pneumococcal vaccine 65+ (3 of 3 - PCV20 or PCV21) 02/27/2023 02/27/2018, 04/09/2013 Colon Cancer Screening-Colonoscopy 11/01/20232013 Influenza Vaccine (#1) 2024 9, 04/26/2018, 03/27/2017, Additional history exists Procedures Procedure Name Priority Date/Time Associated Diagnosis Comments COLONOSCOPY 10/31/2013 12:00 AM CDT from Last 3 Months or Most Recently Relevant to Health Maintenance Results * COLONOSCOPY (10/31/2013 12:00 AM CDT) Anatomical Region Laterality Modality Other Narrative 10/31/2013 12:00 AM CDT Ordered by an unspecified provider. Procedure Note Provider, MD Julian - 10/31/2013 12:00 AM CDT PROCEDURE REPORT Patient: JUNIE RODRÍGUEZ Account: [id number] Room No: : 1950 Patient Type: SDS Attend.: Hilary Mchugh M.D. Admit Date: 10/31/2013 [...] Most Recently Relevant to Health Maintenance [facility] REF [facility] Address: [place] [id number] [place] [address] [facility] Address: [address] [place] [address] HMO REF [facility] Address: [address] MEDICARE ADVANTAGE [facility]IC[facility] Address: [address] [address] Care Teams Rn Camp Relationship Specialty Start Date End Date Kim Valencia MD [address] [facility] [address] [place] [address] PCP - General Family Medicine 09/09/19
[2024-09-22 23:31] LABS: Alanine Aminotransferase 14 U/L (6-35); Albumin Level 3.6 g/dL (3.5-5.1); Alkaline Phosphatase 60 U/L (38-126); Anion Gap 10 mmol/L (4-12); Aspartate Amino Transferase 21 U/L (14-36); Bilirubin,Total 0.4 mg/dL (0.2-1.3); Blood Urea Nitrogen 15 mg/dL (7-17); Calcium 8.1 mg/dL (8.4-10.2); Carbon Dioxide 19 mmol/L (22-30); Chloride 103 mmol/L (98-107); Estimated CRCL calculation 50 ml/min; Estimated Glomerular Filt Rate > 60; Glucose 109 mg/dL (65-110); Potassium 4.1 mmol/L (3.4-5.0); Sodium 132 mmol/L (137-145)
[2024-09-22 23:39] LABS: INR 1.1; Partial Thromboplastin Time 29.2 Seconds (22.3-36.8); Prothrombin Time 14.5 Seconds (11.1-14.7)
[2024-09-23] VITALS (9 sets, daily range): BP systolic 134–146; BP diastolic 68–74; PULSE 73–82; RESP 15–18; TEMP 35.8–37; O2SAT 67–100; BMI 29.2
--- NOTE | 2024-09-23 02:15 | ADMGEN ---
This patient, Junie Alfred, was admitted to 3 [facility] Surg Room 325-01. Patient/family oriented to hospital policies and general routines including ID bracelet, bed and alarms, visiting hours, pain management, procedures, bathroom and other care routines, personal items, smoking policy, room service/diet, and visiting hours. Information on how to activate the Rapid Response Team has been discussed. Patient/Family are encouraged to report perceived risks to care and to ask questions if they do not understand what they are told or what they should do.
[2024-09-23] MEDS: SODIUM CHLORIDE 0.9% IV 1,000 ML 125 ML IV CONT ×2 (02:19→11:45)
[2024-09-23] MEDS: MORPHINE SULFATE (*CRX) 2 MG/ML INJ IV PUSH ×2 (03:48→06:28)
--- NOTE | 2024-09-23 07:58 | P.HP_ITS ---
H&P: HPI History of Present Illness Date/Time: 09/23/24 07:58 Chief Complaint: Fall and left hip pain Narrative: Patient is a 73-year-old female with history of hypertension, hyperlipidemia, COPD, present ED with chief complaint fall and left hip pain. Patient had a couple p.o. yesterday. When patient was walking, patient tripped and fell on left side yesterday. Patient sustained he severe left hip pain, she did not hit her head and denies loss consciousness. EMS was called, patient was brought to ED for evaluation treatment. Patient denies alcohol dependence, also denies visual hallucination, abdomen pain, nausea vomiting diarrhea dysuria. Upon arrival in ED, patient was afebrile, blood pressure stable, pulse ox 94 on room air, CBC remarkable, chemistry showed hyponatremia 132, bicarbonate 19, chest x-ray shows no acute cardiopulmonary issues, pelvic x-ray showed impacted left femur neck fracture. ER physician consulted orthopedic surgeon, we admit patient for evaluation and management. Review of Systems Review of Systems: ROS negative except above PMFSH Past Medical History Medical History Contusion of left shoulder Wound, open, toe Abnormal CXR Osteoporosis Emphysema of lung Wears glasses Dizziness Left shoulder pain Fracture of one rib, left side, subsequent encounter for fracture with routine healing Tremor of both hands Malaise Left rib fracture Acute bilateral thoracic back pain Aftercare following right hip joint replacement surgery Carpal tunnel syndrome of left wrist Coarse tremors Herpes simplex vulvovaginitis Mixed hyperlipidemia Vitamin D deficiency, unspecified Numbness and tingling of left side of face Neck pain Numbness and tingling of right face Left buttock abscess Adenomatous colon polyp Fall Quadriceps weakness Overweight (BMI 25.0-29.9) COPD (chronic obstructive pulmonary disease) Degenerative joint disease of knee Hyperlipidemia History of tobacco use disorder Benign reactive hypertension Abdominal hernia History of vaginal delivery x 2 Acid reflux High cholesterol Skin cancer Benign hypertension Arthritis Herpes genitalis in women Surgical History Surgical History Presence of right artificial hip joint History of right inguinal hernia repair History of open reduction and internal fixation (ORIF) procedure left wrist Status post total knee replacement Right S/P ORIF (open reduction internal fixation) fracture distal radius- Left Hx of rotator cuff surgery Hx of total hip arthroplasty Right Family History Family History Father Family history of Parkinson's disease Mother Patient's mother is , Onset Age: 42 Other Cerebrovascular accident Family history of malignant neoplasm Social History Social History Social History: Patient lives at home with her grown granddaughter. She wishes to be listed as a Full Code. Her PCP is Dr. Alvarez. Smoking packs per day: 2 Smoking cigarettes per day: 40.0 Years smoked: 43 Smoking pack-years: 86.00 Smoking status: Never smoker Tobacco type: cigarettes Second hand tobacco smoke exposure: No Smoking end date: 07/02/12 Alcohol intake: current Drinks per week: 12 Alcohol use details: wine Substance use: never Substance use type: marijuana Last use: 2x monthly Do You Feel Safe in your Home?: Yes Lack of Transportation: No Lack of Food: Never True Current Housing: I Have Housing Concerned About Future Housing: No Difficulty Paying Gas/Electric Bills: No Difficulty Paying for Meds: No Currently Unemployed: No Education: Grade School Difficulty w/ Childcare or Family Care: No Living arrangements: alone Occupation/Education: retired Gender identity (if verbalized by the patient): Female Sexual Orientation (if Verbalized by the Patient): Straight or Heterosexual Spiritual care concerns: No Meds Home Medications and Allergies Home Medications ?Medication ?Instructions ?Recorded ?Confirmed ?Type cholecalciferol (vitamin D3) 1,250 See Rx Instructions .Route 05/25/23 09/23/24 Rx mcg (50,000 unit) capsule .COMPLEX #12 caps primidone 50 mg tablet See Rx Instructions .Route 02/13/24 09/23/24 Rx .COMPLEX #100 tabs umeclidinium 62.5 mcg-vilanterol See Rx Instructions .Route 07/24/24 09/23/24 Rx 25 mcg/actuation powdr for .COMPLEX #60 ea inhalation (Anoro Ellipta) losartan 100 mg tablet See Rx Instructions .Route 08/11/24 09/23/24 Rx .COMPLEX #100 tabs ipratropium bromide 21 mcg (0.03 2 spray intranasal BID #30 mL 09/22/24 09/23/24 Rx %) nasal spray montelukast 10 mg tablet See Rx Instructions .Route 09/23/24 Rx .COMPLEX #100 tabs pantoprazole 40 mg tablet,delayed See Rx Instructions .Route 09/23/24 Rx release .COMPLEX #100 tabs Allergies Allergy/AdvReac Type Severity Reaction Status Date / Time Hvslent-KLD-JiA Reductase AdvReac Intermediate Muscle Pain Verified 07/24/24 13:42 Inhibitor lisinopril AdvReac Mild cough Verified 07/24/24 13:42 Vital Signs Vital Signs - 24 hr 09/22/24 22:21 09/23/24 00:19 09/23/24 00:40 Temperature 98.4 F Pulse Rate 79 78 Respiratory Rate 17 15 Blood Pressure 136/76 134/74 Pulse Oximetry 94 100 67 L Oxygen Delivery Room Air Room Air Oxygen Flow Rate 09/23/24 00:41 09/23/24 04:03 09/23/24 05:32 Temperature 96.4 F L Pulse Rate 73 Respiratory Rate 18 Blood Pressure 135/71 Pulse Oximetry 96 96 94 Oxygen Delivery Nasal Cannula Nasal Cannula Oxygen Flow Rate 2 2 Exam Narrative: GENERAL: Pleasant, in no acute distress. Well-nourished. - EYES: EOMI. Anicteric. - HENT: Moist mucous membranes. - LUNGS: Clear to auscultation bilateral ly, no wheezing, rhonchi, or rales. - CARDIOVASCULAR: Regular rate and rhyth m. No murmur. No JVD. - ABDOMEN: Soft, non-tender and non-dist ended. No palpable masses. - EXTREMITIES: Range of movement of lef t hip is restricted because of pain. No edema. Peripheral pulses 2+. Non-tender. - NEUROLOGIC: No focal neurological defi cits. CN II-XII grossly intact. - PSYCHIATRIC: Awake, Alert and oriented x 3. Appropriate mood and affect. - SKIN: No rashes or lesions. Warm. - LYMPH: No cervical lymphadenopathy. H&P: Results Labs Labs: Short CBC 09/22/24 Range/Units 23:14 WBC 7.4 (4.5-10.0) K/mm3 Hgb 13.1 (12.0-15.0) g/dL Hct 40.2 (37.0-47.0) % Plt Count 168 (150-375) k/mm3 [facility] 09/22/24 23:14 Sodium 132 L Potassium 4.1 Chloride 103 Carbon Dioxide 19 L BUN 15 Creatinine 0.83 Glucose 109 Calcium 8.1 L Liver Function 09/22/24 Range/Units 23:14 Total Bilirubin 0.4 (0.2-1.3) mg/dL AST 21 (14-36) U/L ALT 14 (6-35) U/L Alkaline Phosphatase 60 (38-126) U/L Albumin 3.6 (3.5-5.1) g/dL Assessment and Plan Assessment and plan (1) Fracture of femoral neck, left: Code(s): S72.002A - Fracture of unspecified part of neck of left femur, initial encounter for closed fracture Status: Acute (2) Benign hypertension: Code(s): I10 - Essential (primary) hypertension Status: Acute (3) GERD (gastroesophageal reflux disease): Qualifiers: Esophagitis presence: esophagitis presence not specified Qualified Code(s): K21.9 - Gastro-esophageal reflux disease without esophagitis Code(s): K21.9 - Gastro-esophageal reflux disease without esophagitis Status: Acute Plan Fall, left femur neck fracture Patient tripped and fell on the left hip, sustained severe left hip pain Pelvic x-ray showed left femur neck fracture Optimize pain management Keep patient p.o. Appreciate orthopedic surgeon consultation, plans surgical treatment Hyponatremia Possible due to poor intake Continue normal saline IV 125 mL/hour Essential hypertension Continue losartan 100 mg daily p.o. COPD Stable Continue Anora Ellipta 1 puff daily, ipratropium 2 puffs b.i.d. Monitor pulse ox O2 therapy p.r.n. keep pulse ox above 92 Patient may stay more than 2 midnights in hospital Consult PT OT veterinarian laboratory animal care for evaluation and assisting placement DVT prophylaxis per orthopedic surgeon
[2024-09-23] MEDS: HYDROmorphone HCL INJ (*CRX) 1 MG/ML SYR 0.5 MG IV PUSH ×5 (08:25→23:05)
[2024-09-23] MEDS: LOSARTAN POTASSIUM 100 MG TABLET BY MOUTH (08:27)
--- NOTE | 2024-09-23 09:36 | P.CONOP_ITS ---
Assessment and Plan Assessment and plan (1) Fracture of femoral neck, left: Qualifiers: Encounter type: initial encounter Fracture type: closed Q ualified Code(s): S72.002A - Fracture of unspecified part of neck of left femur, initial encounter for closed fracture <ROSHAN Shoemaker - Last Filed: 09/23/24 12:51> Code(s): S72.002A - Fracture of unspecified part of neck of left femur, initial encounter for closed fracture <ROSHAN [place]emakre - Last Filed: 09/23/24 12:51> Status: Acute <ROSHAN Shoemaker - Last Filed: 09/23/24 12:51> Assessment and Plan: Radiographs of the left hip reveal a transcervical fracture of the left femoral neck as well as underlying mild degenerative changes. The fracture type and injury as well as radiographs discussed with the patient. Operative and nonoperative treatment options reviewed. The patients questions were answered. The patient desires operative treatment. Discussed Left MARA by Dr. Mitchell Risks of surgery including but not limited to neurovascular damage, wound complications, blood clot, pulmonary embolus, stroke, myocardial infarction, anesthetic risks up to and including were reviewed. Continued pain and possible dysfunction were explained. No guarantees were offered. The patient understands and wishes to proceed. Plan: Left MARA by Dr. Mitchell NPO at midnight. Pain control. Ice. Bedrest. Obtain Consent. HOLD anticoagulation. <ROSHAN Shoemaker - Last Filed: 09/23/24 12:51> Assessment and Plan: Reviewed history, exam, radiographs and current labs with attending MD and covering surgeon, Dr. Mitchell, who agrees with current plan as indicated above. No further recommendations from Dr. Mitchell at this time. <ROSHAN Shoemaker - Last Filed: 09/23/24 12:51> History of Present Illness HPI Consult date: 09/23/24 <ROSHAN Shoemaker - Last Filed: 09/23/24 12:51> 09/24/24 <Jd Mitchell MD - Last Filed: 09/24/24 07:16> Consult reason: fracture <ROSHAN Shoemaker - Last Filed: 09/23/24 12:51> Chief complaint: Hip fracture <ROSHAN Shoemaker - Last Filed: 09/23/24 12:51> Narrative: 73-year-old female admitted to the emergency room after a fall at home on her back patio after dinner with her family/friends. She presented to the ER after inability to ambulate s/p fall. Radiographs in the ED reveal a transcervical fracture of left femoral neck and mild left hip osteoarthritis. Patient admitted for orthopedic consultation. To note, patient has a history of total right hip arthroplasty in near-anatomic alignment with internal fixation of known periprosthetic fracture which occurred approximally 1 year s/p right MARA. Her right MARA was performed by Dr. Mitchell. ORIF by Dr. Jeffries and then hardware removal removed. Recurrent right femur fracture in 2022, new fixation by Dr. Bhatia. <ROSHAN Shoemaker - Last Filed: 09/23/24 12:51> Review of Systems 2 Review of Systems: All systems reviewed & are unremarkable except as noted in HPI and below <ROSHAN Shoemaker - Last Filed: 09/23/24 12:51> [facility] Past Medical History Medical History: Medical History Contusion of left shoulder Wound, open, toe Abnormal CXR Osteoporosis Emphysema of lung Wears glasses Dizziness Left shoulder pain Fracture of one rib, left side, subsequent encounter for fracture with routine healing Tremor of both hands Malaise Left rib fracture Acute bilateral thoracic back pain Aftercare following right hip joint replacement surgery Carpal tunnel syndrome of left wrist Coarse tremors Herpes simplex vulvovaginitis Mixed hyperlipidemia Vitamin D deficiency, unspecified Numbness and tingling of left side of face Neck pain Numbness and tingling of right face Left buttock abscess Adenomatous colon polyp Fall Quadriceps weakness Overweight (BMI 25.0-29.9) COPD (chronic obstructive pulmonary disease) Degenerative joint disease of knee Hyperlipidemia History of tobacco use disorder Benign reactive hypertension Abdominal hernia History of vaginal delivery x 2 Acid reflux High cholesterol Skin cancer Benign hypertension Arthritis Herpes genitalis in women <ROSHAN Shoemaker - Last Filed: 09/23/24 12:51> Surgical History Surgical History: Surgical History Presence of right artificial hip joint History of right inguinal hernia repair History of open reduction and internal fixation (ORIF) procedure left wrist Status post total knee replacement Right S/P ORIF (open reduction internal fixation) fracture distal radius- Left Hx of rotator cuff surgery Hx of total hip arthroplasty Right <ROSHAN Shoemaker - Last Filed: 09/23/24 12:51> Family History Family History: Family History Father Family history of Parkinson's disease Mother Patient's mother is , Onset Age: 42 Other Cerebrovascular accident Family history of malignant neoplasm <ROSHAN hSoemaker - Last Filed: 09/23/24 12:51> Social History Social History: Social History Social History: Patient lives at home with her grown granddaughter. She wishes to be listed as a Full Code. Her PCP is Dr. Alvarez. Smoking packs per day: 2 Smoking cigarettes per day: 40.0 Years smoked: 43 Smoking pack-years: 86.00 Smoking status: Never smoker Tobacco type: cigarettes Second hand tobacco smoke exposure: No Smoking end date: 07/02/12 Alcohol intake: current Drinks per week: 12 Alcohol use details: wine Substance use: never Substance use type: marijuana Last use: 2x monthly Do You Feel Safe in your Home?: Yes Lack of Transportation: No Lack of Food: Never True Current Housing: I Have Housing Concerned About Future Housing: No Difficulty Paying Gas/Electric Bills: No Difficulty Paying for Meds: No Currently Unemployed: No Education: Grade School Difficulty w/ Childcare or Family Care: No Living arrangements: alone Occupation/Education: retired Gender identity (if verbalized by the patient): Female Sexual Orientation (if Verbalized by the Patient): Straight or Heterosexual Spiritual care concerns: No <ROSHAN Shoemaker - Last Filed: 09/23/24 12:51> Meds Home Medications and Allergies Home medications: Home Medications ?Medication ?Instructions ?Recorded ?Confirmed ?Type cholecalciferol (vitamin D3) 1,250 See Rx Instructions .Route 05/25/23 09/23/24 Rx mcg (50,000 unit) capsule .COMPLEX #12 caps primidone 50 mg tablet See Rx Instructions .Route 02/13/24 09/23/24 Rx .COMPLEX #100 tabs umeclidinium 62.5 mcg-vilanterol See Rx Instructions .Route 07/24/24 09/23/24 Rx 25 mcg/actuation powdr for .COMPLEX #60 ea inhalation (Anoro Ellipta) losartan 100 mg tablet See Rx Instructions .Route 08/11/24 09/23/24 Rx .COMPLEX #100 tabs ipratropium bromide 21 mcg (0.03 2 spray intranasal BID #30 mL 09/22/24 09/23/24 Rx %) nasal spray montelukast 10 mg tablet See Rx Instructions .Route 09/23/24 Rx .COMPLEX #100 tabs pantoprazole 40 mg tablet,delayed See Rx Instructions .Route 09/23/24 Rx release .COMPLEX #100 tabs <ROSHAN Shoemaker - Last Filed: 09/23/24 12:51> Allergies/Adverse reactions: Allergies Allergy/AdvReac Type Severity Reaction Status Date / Time [id number] Reductase AdvReac Intermediate Muscle Pain Verified 07/24/24 13:42 Inhibitor lisinopril AdvReac Mild cough Verified 07/24/24 13:42 <ROSHAN Shoemaker - Last Filed: 09/23/24 12:51> Vital Signs Vital Signs - 24 hr 09/22/24 22:21 09/23/24 00:19 09/23/24 00:40 Temperature 36.9 C Pulse Rate 79 78 Respiratory Rate 17 15 Blood Pressure 136/76 134/74 Pulse Oximetry 94 100 67 L Oxygen Delivery Room Air Room Air Oxygen Flow Rate 09/23/24 00:41 09/23/24 04:03 09/23/24 05:32 Temperature 35.8 C L Pulse Rate 73 Respiratory Rate 18 Blood Pressure 135/71 Pulse Oximetry 96 96 94 Oxygen Delivery Nasal Cannula Nasal Cannula Oxygen Flow Rate 2 2 <ROSHAN Shoemaker - Last Filed: 09/23/24 12:51> Exam 2 Const: General: cooperative, comfortable and average body habitus <ROSHAN Shoemaker - Last Filed: 09/23/24 12:51> Nutritional Appearance: average body habitus <MARISA ShoemakerP - Last Filed: 09/23/24 12:51> Orientation/consciousness: patient oriented x3 <Lina Morales [facility] - Last Filed: 09/23/24 12:51> Limitations: no limitations <Lina Morales [facility] - Last Filed: 09/23/24 12:51> HENMT: Head: normal to inspection and No palpable skull fracture present < Lina Morales [facility] - Last Filed: 09/23/24 12:51> Ears: hearing grossly normal bilaterally and external ears normal <Lina Morales [facility] - Last Filed: 09/23/24 12:51> Face/Nose/Sinus: Normal external nose present, Normal nares present, Normal nasal mucous membranes and turbinates present and normal facial exam <Lina Morales [facility] - Last Filed: 09/23/24 12:51> Face and sinus: normal facial exam <Lina Morales [facility] - Last Filed: 09/23/24 12:51> Mouth: Yes Normal oral and palatal mucosa present <Lina Morales [facility] - Last Filed: 09/23/24 12:51> Teeth and gingiva: dentition normal <Lina Morales [facility] - Last Filed: 09/23/24 12:51> Eyes: General: appearance normal, both eyes and all related structures < Lina Morales [facility] - Last Filed: 09/23/24 12:51> Sclera: sclerae normal <Lina Morales [facility] - Last Filed: 09/23/24 12:51> Pupils: Equal, round and reactive pupils present <MARISA ShoemakerP - Last Filed: 09/23/24 12:51> Neck: Neck: normal visual inspection and full ROM <MARISA ShoemakerP - Last Filed: 09/23/24 12:51> Resp: Effort & Inspection: normal respiratory effort and able to speak in complete sentences <Lina Morales [facility] - Last Filed: 09/23/24 12:51> Cardio: Jugular venous distension: no JVD <MARISA ShoemakerP - Last Filed: 09/23/24 12:51> Rate: regular rate <MARISA ShoemakerP - Last Filed: 09/23/24 12:51> Rhythm: regular rhythm <MARISA ShoemakerP - Last Filed: 09/23/24 12:51> GI: Inspection: normal to inspection <Lina Morales [facility] - Last Filed: 09/23/24 12:51> GI Palp: No abdominal tenderness <MARISA ShoemakerP - Last Filed: 09/23/24 12:51> : General: Yes no CVA tenderness <Lina Morales [facility] - Last Filed: 09/23/24 12:51> Urinary Catheter: Urinary Catheter: patent and draining and urine clear < Lina Morales [facility] - Last Filed: 09/23/24 12:51> Skin: General skin exam: normal color and no rashes or lesions noted < Lina Morales [facility] - Last Filed: 09/23/24 12:51> Wounds: no wounds <MARISA ShoemakerP - Last Filed: 09/23/24 12:51> Neuro: General: patient oriented x3, No gait normal (NWB ), No moves all extremities and Unable to assess gait (bedrest ) <MARISA ShoemakerP - Last Filed: 09/23/24 12:51> Cranial nerves: Yes Equal, round and reactive pupils present <MARISA ShoemakerP - Last Filed: 09/23/24 12:51> Cognition (Neuro): normal cognition <ROSHAN Shoemaker - Last Filed: 09/23/24 12:51> Speech: normal speech <MARISA ShoemakerP - Last Filed: 09/23/24 12:51> Gait exam (Neuro): Unable to assess gait (bedrest ) <MARISA ShoemakerP - Last Filed: 09/23/24 12:51> Sensory Exam: normal sensation <Lina Morales [facility] - Last Filed: 09/23/24 12:51> Extrem: Right upper extremity: normal to inspection, full ROM and normal capillary refill <Lina Morales [facility] - Last Filed: 09/23/24 12:51> Left upper extremity: normal to inspection, full ROM and normal capillary refill <Lina Morales [facility] - Last Filed: 09/23/24 12:51> Right lower extremity: normal to inspection, full ROM, normal capillary refill, hip/thigh Details: normal to inspection and normal ROM; no tenderness and no swelling and knee Details: normal to inspection and normal ROM; no tenderness and no swelling <Lina Morales [facility] - Last Filed: 09/23/24 12:51> Left lower extremity: hip/thigh Details: abnormal to inspection Details: foreshortened and externally rotated, tenderness Location: of the hip Location: laterally, anteromedially and over the great trochanter, swelling Location: of the hip and of the proximal upper leg and abnormal ROM ( Limited due to fracture); ROM abnormal ( Range of motion strength testing deferred due to fracture.), ankle ( positive ankle dorsiflexion /plantar flexion) Details: normal to inspection and no edema; no tenderness and no swelling and foot Details: normal capillary refill, vascular exam Details: dorsalis pedis pulse present and motor-sensory exam light-touch normal <Lina Morales [facility] - Last Filed: 09/23/24 12:51> Results Labs Result Diagrams: 09/22/24 23:14 09/22/24 23:14 <Lina Morales [facility] - Last Filed: 09/23/24 12:51> Labs: Abnormal lab results 09/22/24 Range/Units 23:14 RBC 4.14 L (4.2-5.4) M/mm3 Sodium 132 L (137-145) mmol/L Carbon Dioxide 19 L (22-30) mmol/L Calcium 8.1 L (8.4-10.2) mg/dL Total Protein 6.0 L (6.3-8.2) g/dL H & H 09/22/24 Range/Units 23:14 Hgb 13.1 (12.0-15.0) g/dL Hct 40.2 (37.0-47.0) % Coagulation 09/22/24 Range/Units 23:14 INR 1.1 All other labs normal. <Lina Morales, ROSHAN - Last Filed: 09/23/24 12:51>
[2024-09-23] MEDS: IPRATROPIUM NASAL SPRAY 0.03% 15 ML BOTTLE 2 SPRAY NASAL (11:45)
[2024-09-24] VITALS (13 sets, daily range): BP systolic 114–130; BP diastolic 47–98; PULSE 70–87; RESP 14–20; TEMP 36.3–37.4; O2SAT 92–98
[2024-09-24] MEDS: SODIUM CHLORIDE 0.9% IV 1,000 ML 125 ML IV CONT ×2 (00:30→14:28)
[2024-09-24] MEDS: HYDROmorphone HCL INJ (*CRX) 1 MG/ML SYR 0.5 MG IV PUSH ×3 (01:51→08:06)
--- NOTE | 2024-09-24 07:15 | WPDHPUPDATE1 ---
History and Physical Update Update Date/Time: 09/24/24 07:15 History and Physical has been reviewed, including an updated exam of the patient. There are NO changes in the patient's condition. Risks, benefits, and alternatives have been discussed and questions answered. Patient agrees to proceed with procedure.
--- NOTE | 2024-09-24 07:43 | P.PNIM_ITS ---
Progress Note: A&P Assessment and Plan (1) Fracture of femoral neck, left: Qualifiers: Encounter type: initial encounter Fracture type: closed Qualified Code(s): S72.002A - Fracture of unspecified part of neck of left femur, initial encounter for closed fracture Code(s): S72.002A - Fracture of unspecified part of neck of left femur, initial encounter for closed fracture Status: Acute Assessment and Plan: - Patient tripped and fell on the left hip, sustained severe left hip pain - Pelvic x-ray showed left femur neck fracture - Optimize pain management - Keep patient p.o. - Appreciate orthopedic surgeon consultation, plans L MARA (2) Benign hypertension: Code(s): I10 - Essential (primary) hypertension Status: Acute Assessment and Plan: - Continue losartan 100 mg daily p.o. (3) COPD (chronic obstructive pulmonary disease): Code(s): J44.9 - Chronic obstructive pulmonary disease, unspecified Status: Acute Assessment and Plan: - Stable - Continue Anora Ellipta 1 puff daily, ipratropium 2 puffs b.i.d. - Monitor pulse ox - O2 therapy p.r.n. keep pulse ox above 92 (4) Hyponatremia: Code(s): E87.1 - Hypo-osmolality and hyponatremia Status: Acute Assessment and Plan: - On 09/22: Na 132 - Possible due to poor intake - Continue normal saline IV 125 mL/hour - Monitor AM labs Plan Consult PT OT pediatric care coordinator for evaluation and assisting placement DVT prophylaxis per orthopedic surgeon Time Spent With Patient Time: Subjective Date/time seen: 09/24/24 07:43 Interval history: Patient is a 73-year-old female with history of hypertension, hyperlipidemia, COPD, present ED with chief complaint fall and left hip pain. Patient had a couple p.o. yesterday. When patient was walking, patient tripped and fell on left side yesterday. Patient sustained he severe left hip pain, she did not hit her head and denies loss consciousness. 09/24/2024 Patient is examined sitting comfortably in bed. At time of exam, pt is post op 1 hour. Denies any chest pain, shortness of breath, abdominal pain, n/v. Does endorse hip tenderness at surgical site but states that the pain is manageable. Ortho following, planning for PT/OT, waiting on evals at this time. Review of Systems Review of Systems: ROS negative except above Exam Narrative: GENERAL: Pleasant, in no acute distress. Well-nourished. - EYES: EOMI. Anicteric. - HENT: Moist mucous membranes. - LUNGS: Clear to auscultation bilateral ly, no wheezing, rhonchi, or rales. - CARDIOVASCULAR: Regular rate and rhyth m. No murmur. No JVD. - ABDOMEN: Soft, non-tender and non-dist ended. No palpable masses. - EXTREMITIES: Range of movement of lef t hip is restricted because of pain. No edema. Peripheral pulses 2+. Non-tender. - NEUROLOGIC: No focal neurological defi cits. CN II-XII grossly intact. - PSYCHIATRIC: Awake, Alert and oriented x 3. Appropriate mood and affect. - SKIN: No rashes or lesions. Warm. - LYMPH: No cervical lymphadenopathy. Const: Other: Gen - well/ appearing female in no acute respiratory distress who is nontoxic- appearing lying semi recumbent in bed HEENT - normocephalic. Atraumatic. Pupils equal round and reactive. Extraocular motions intact. Sclera clear and anicteric. Nares patent. Oropharynx was clear. No oral lesions. Moist mucous membranes. Tongue was midline. Palate alexis symmetrically. No facial asymmetry. Neck - neck was supple. No dominant adenopathy, thyromegaly or masses. 2+ carotid upstrokes without bruits. Chest - lungs are clear to auscultation bilaterally. No wheezes or crackles. Breast exam was deferred. CV - heart was regular rate and rhythm. S1-S2. No murmurs gallops or rubs. Abd - abdomen was soft. Nontender. Nondistended. Positive bowel sounds. No organomegaly or masses. Ext - ROM of L Hip limited due to pain. no clubbing, cyanosis or edema. 2+ DP pulses bilaterally. Neuro - patient is alert and oriented x4. Strength is 5/5 in both uppe extremities. Cranial nerves 2-12 are intact. Speech is clear. Psych - normal mood and affect. Patient is pleasant and cooperative. Skin - warm and dry. No rashes noted. Objective Data Vital Signs Vital Signs: Vital Signs - 24 hr 09/23/24 08:00 09/23/24 14:00 09/23/24 20:00 Temperature 97.6 F Pulse Rate 82 Respiratory Rate 18 Blood Pressure 146/74 H Pulse Oximetry 92 93 93 Oxygen Delivery Nasal Cannula Nasal Cannula Oxygen Flow Rate 2 1 09/23/24 21:52 09/24/24 05:18 Temperature 98.6 F 99.4 F Pulse Rate 79 87 Respiratory Rate 16 18 Blood Pressure 140/68 130/98 H Pulse Oximetry 93 95 Oxygen Delivery Oxygen Flow Rate Intake/Output Intake/Output: Intake & Output 09/21/24 09/22/24 09/23/24 09/24/24 23:59 23:59 23:59 23:59 Intake Total 2221.3 468.7 Output Total 750 700 Balance 1471.3 -231.3 Meds/Results Medications: Active Medications Generic Name Dose Route Start Last Admin Trade Name Freq PRN Reason Stop Dose Admin Ergocalciferol 50,000 units 09/29/24 09:00 Ergocalciferol 50,000 Units Capsule PO Mo@0900 YESSY Fentanyl Citrate 25 mcg 09/23/24 16:07 Fentanyl Citrate Inj (*Crx) 100 Mcg/2 Ml Vial IV PUSH Q2M PRN Pain Hydromorphone HCl 0.5 mg 09/23/24 08:15 09/24/24 04:58 Hydromorphone Hcl Inj (*Crx) 1 Mg/Ml Syr IV PUSH 0.5 mg Q3H PRN Administration Pain Rated 7-10 Sodium Chloride 1,000 mls @ 125 mls/hr 09/23/24 01:15 09/24/24 00:30 Normal Saline Iv IV CONT 125 mls/hr .Q8H YESSY Administration Lactated Ringer's 1,000 mls @ 30 mls/hr 09/23/24 16:10 Lr - Lactated Ringers Iv IV CONT .Q24H YESSY Lactated Ringer's 1,000 mls @ 30 mls/hr 09/23/24 16:10 Lr - Lactated Ringers Iv IV CONT .Q24H YESSY Ipratropium [place] 2 spray 09/23/24 09:00 09/23/24 18:02 Ipratropium Nasal [place] 0.03% 15 Ml Bottle NASAL Not Given BID YESSY Losartan Potassium 100 mg 09/23/24 09:00 09/23/24 08:27 Losartan Potassium 100 Mg Tablet BY MOUTH 100 mg QAM YESSY Administration Ondansetron HCl 4 mg 09/23/24 01:13 Ondansetron Inj 4 Mg/2 Ml Vial IV PUSH Q4H PRN Nausea Ondansetron HCl 4 mg 09/23/24 16:07 Ondansetron Inj 4 Mg/2 Ml Vial IV PUSH ONCE PRN Nausea Oxycodone HCl 5 mg 09/23/24 16:07 Oxycodone Hcl (*Crx) 5 Mg Tab Ir PO ONCE PRN Pain Umeclidinium/Vilanterol 1 puff 09/23/24 08:10 Umeclidinium/Vilanterol 62.5-25 Mcg Ellipta INHALATION DAILYRT [facility] Radiology Results: ITS Impressions Head CT 09/23/24 00:01 IMPRESSION: No acute intracranial process. Chest X-Ray 09/23/24 04:44 IMPRESSION: 1. Diffuse interstitial pattern in the lungs with worsening in left upper lobe, likely chronic interstitial lung disease with superimposed left upper lobe pneumonia versus atelectasis/contusion. Hip/Pelvis X-Ray 09/23/24 04:47 IMPRESSION: 1. Transcervical fracture of left femoral neck. 2. Mild left hip osteoarthritis. 3. Total right hip arthroplasty in near-anatomic alignment. Quality VTE Prophylaxis VTE prophylaxis: mechanical ordered
[2024-09-24] MEDS: UMECLIDINIUM/VILANTEROL 62.5-25 MCG ELLIPTA 1 PUFF INHALATION (08:12)
[2024-09-24] MEDS: ACETAMINOPHEN 500 MG TABLET 1000 MG PO (09:24)
[2024-09-24] MEDS: KETOROLAC 15 MG/ML VIAL (*BKC) IV PUSH (09:24)
[2024-09-24] MEDS: LACTATED RINGERS 1,000 ML 30 ML IV CONT ×2 (09:25→13:15)
--- NOTE | 2024-09-24 10:01 | WPDANESEPPF ---
Anes - Initial Pre Proc Eval Procedure: Operation Date: 09/24/24 10:30 Proposed Procedures p Left Total Hip Arthroplasty - Jd Mitchell MD Date/Time: 09/24/24 10:01 Surgeon: Juan Maldonado PA-C Pre Op Diagnosis: Hip fracture Patient Data Age: 73 Gender: F Height: 1.6 m Weight: 75 kg Last Vital Signs Temp 99.4 F 09/24/24 05:18 Pulse 87 09/24/24 05:18 Resp 18 09/24/24 05:18 BP 130/98 H 09/24/24 05:18 Pulse Ox 94 09/24/24 08:15 O2 Del Method Nasal Cannula 09/24/24 08:15 O2 Flow Rate 2 09/24/24 08:15 Allergies Allergy/AdvReac Type Severity Reaction Status Date / Time [id number] Reductase AdvReac Intermediate Muscle Pain Verified 09/24/24 09:26 Inhibitor lisinopril AdvReac Mild cough Verified 09/24/24 09:26 Home Medications ?Medication ?Instructions ?Recorded ?Confirmed ?Type cholecalciferol (vitamin D3) 1,250 See Rx Instructions .Route 05/25/23 09/23/24 Rx mcg (50,000 unit) capsule .COMPLEX #12 caps primidone 50 mg tablet See Rx Instructions .Route 02/13/24 09/23/24 Rx .COMPLEX #100 tabs umeclidinium 62.5 mcg-vilanterol See Rx Instructions .Route 07/24/24 09/23/24 Rx 25 mcg/actuation powdr for .COMPLEX #60 ea inhalation (Anoro Ellipta) losartan 100 mg tablet See Rx Instructions .Route 08/11/24 09/23/24 Rx .COMPLEX #100 tabs ipratropium bromide 21 mcg (0.03 2 spray intranasal BID #30 mL 09/22/24 09/23/24 Rx %) nasal spray montelukast 10 mg tablet See Rx Instructions .Route 09/23/24 Rx .COMPLEX #100 tabs pantoprazole 40 mg tablet,delayed See Rx Instructions .Route 09/23/24 Rx release .COMPLEX #100 tabs Patient hx anesthesia problems: none Family hx anesthesia problems: none Results Review: All pre-operative results and documents have been reviewed as part of the pre-operative evaluation. [facility] Past Medical History Medical History Contusion of left shoulder Wound, open, toe Abnormal CXR Osteoporosis Emphysema of lung Wears glasses Dizziness Left shoulder pain Fracture of one rib, left side, subsequent encounter for fracture with routine healing Tremor of both hands Malaise Left rib fracture Acute bilateral thoracic back pain Aftercare following right hip joint replacement surgery Carpal tunnel syndrome of left wrist Coarse tremors Herpes simplex vulvovaginitis Mixed hyperlipidemia Vitamin D deficiency, unspecified Numbness and tingling of left side of face Neck pain Numbness and tingling of right face Left buttock abscess Adenomatous colon polyp Fall Quadriceps weakness Overweight (BMI 25.0-29.9) COPD (chronic obstructive pulmonary disease) Degenerative joint disease of knee Hyperlipidemia History of tobacco use disorder Benign reactive hypertension Abdominal hernia History of vaginal delivery x 2 Acid reflux High cholesterol Skin cancer Benign hypertension Arthritis Herpes genitalis in women Surgical History Surgical History Presence of right artificial hip joint History of right inguinal hernia repair History of open reduction and internal fixation (ORIF) procedure left wrist Status post total knee replacement Right S/P ORIF (open reduction internal fixation) fracture distal radius- Left Hx of rotator cuff surgery Hx of total hip arthroplasty Right Family History Family History Father Family history of Parkinson's disease Mother Patient's mother is , Onset Age: 42 Other Cerebrovascular accident Family history of malignant neoplasm Social History Social History Social History: Patient lives at home with her grown granddaughter. She wishes to be listed as a Full Code. Her PCP is Dr. Alvarez. Smoking packs per day: 2 Smoking cigarettes per day: 40.0 Years smoked: 43 Smoking pack-years: 86.00 Smoking status: Never smoker Tobacco type: cigarettes Second hand tobacco smoke exposure: No Smoking end date: 07/02/12 Alcohol intake: current Drinks per week: 12 Alcohol use details: wine Substance use: never Substance use type: marijuana Last use: 2x monthly Do You Feel Safe in your Home?: Yes Lack of Transportation: No Lack of Food: Never True Current Housing: I Have Housing Concerned About Future Housing: No Difficulty Paying Gas/Electric Bills: No Difficulty Paying for Meds: No Currently Unemployed: No Education: Grade School Difficulty w/ Childcare or Family Care: No Living arrangements: alone Occupation/Education: retired Gender identity (if verbalized by the patient): Female Sexual Orientation (if Verbalized by the Patient): Straight or Heterosexual Spiritual care concerns: No Anes - Eval Final PreProcedure Day of Procedure 09/24/24 10:01 Patient weight: overweight Lungs: normal air movement Airway: Mallampati scale class II and special considerations (Edentulous. ) Neurological: alert and oriented Last oral intake: >/= 8 hours ASA classification: III Emergent: no Anesthetic plan: proceed Anesthesia type and monitoring: general ETT and standard monitoring Results Review: All pre-operative results and documents have been reviewed as part of the pre-operative evaluation. COPD/emphysema, not on oxygen at home but is on NC here. Pt feels breathing is at baseline. Informed Consent: The patient's anesthetic plan and its attendant risks and benefits were discussed with the patient/family/POA. Questions were solicited and answers provided to the satisfaction of the patient/family/POA.
[2024-09-24] MEDS: TRANEXAMIC ACID 1,000MG/ISO100 1,000 MG/100 ML BAG 200 MG IVPB (10:06)
[2024-09-24] MEDS: ceFAZolin 2 GM/D5W 50 ML 2 GM/50 ML BAG IVPB ×2 (10:17→18:09)
[2024-09-24] MEDS: SODIUM CHLORIDE 0.9% IV 37.7 ML, MORPHINE SULFATE INJ (*CRX) 2 MG, ROPivacaine HCL 1% 2... INFILTRATE (11:02)
--- NOTE | 2024-09-24 13:13 | W.PM.PROC2 ---
Procedure Note - Detailed Date of Procedure 09/24/24 Pre-op Diagnosis Left Femoral Neck fracture Post-op Diagnosis Same Procedure Performed L [facility]A Surgeon Jd Mitchell MD Anesthesia General Description of Procedure THE PATIENT WAS TAKEN TO THE OPERATING ROOM IN STABLE CONDITION AND WAS PLACED IN THE LATERAL DECUBITUS AND THE LEFT LOWER EXTREMITY WAS PREPPED AND DRAPED IN THE STERILE FASHION. INCISION WAS MADE IN THE POSTERIOR LATERAL SIDE OF THE HIP, DOWN TO THE FASCIA LAYER. THE FASCIA WAS INCISED. THE HIP WAS EXPOSED. THE SHORT EXTERNAL ROTATORS WERE EXPOSED. THE SCIATIC NERVE WAS IDENTIFIED. THERE WAS HEMATOMA ABOUT THE SCIATIC NERVE AND ADJACENT TISSUE. INCISION WAS MADE THROUGH THE SHORT EXTERNAL ROTATORS AND THE CAPSULE OF THE HIP JOINT. FRESH HEMATOMA WAS OBSERVED FROM THER HIP JOINT. THE FRACTURE WAS IDENTIFIED. AN OSTEOTOMY WAS MADE TO THE FEMORAL NECK ABOUT 1 CM PROXIMAL TO THE LESSER TROCHANTER. THE FEMORAL HEAD WAS REMOVED ALONG WITH REMNANTS OF THE FEMORAL NECK FRACTURE. THERE WAS NO OBVIOUS FRACTURE DISTAL TO THE FEMORAL NECK. THE ACETABULUM WAS EXPOSED. THERE WAS MODERATE TO SEVERE DJD SEEN. BEGINNING WITH A 44 REAMER THE ACETABULUM WAS REAMED TO 49 MM. A 50 MM TRIAL WAS PLACED IN 35 DEG OF ABDUCTION AND ANTEVERSION WAS IN ALIGNMENT WITH THE TRANS ACETABULAR LIGAMENT. THE FIT WAS EXCELLENT. THE TRIAL WAS REMOVED. A 50 MM BIOMET G7 COMPONENT WAS THEN TAPPED IN TO PLACE IN 35 DEG OF ABDUCTION AND ANTEVERSION IN ALIGNMENT WITH THE TRANSVERSE ACETABULAR LIGAMENT. THE FIT WAS EXCELLENT. THE ACETABULAR LINER WAS PLACED AND CHECKED FOR STABILITY. NEXT THE FEMUR WAS PREPARED WITH INITIAL CANAL FINDER THEN SEQUENTIAL BROACHING WITH A TAPERLOC HIP SYSTEM, UNTIL A 13 BROACH FIT WELL IN 15 OF ANTEVERSION. A +3 STANDARD OFFSET NECK WITH 36 MM HEAD TRIAL WAS PLACED. THE SHUCK TEST WAS EXCELLENT AND THE STABILITY IN FLEXION AND ROTATION WAS EXCELLENT. LEG LENGTHS WERE GROSSLY EQUAL. TRIALS WERE REMOVED. A BIOMET TAPERLOC 13 STEM WAS PLACED WITH A STANDARD OFFSET NECK. THE FIT WAS EXCELLENT IN 15 DEG OF ANTEVERSION. A +3 CERAMIC 36 MM FEMORAL HEAD WAS PLACED. THE HIP WAS TRIALED AND THE STABILITY WAS EXCELLENT WERE THE LEG LENGTHS AND THE SHUCK TEST. THE WOUND WAS IRRIGATED WITH STERILE BETADINE AND WATER FOR 3 MIN. THEN WASHED AGAIN. THE CAPSULE AND THE EXTERNAL ROTATORS WERE APPROXIMATED WITH NUMBER 1 VICRYL. THE FASCIA WITH No 2 QUIL AND THE SUB CUTANEOUS LAYER WITH 2-0 ABSORBABLE SUTURE WITH A RUNNING 3-0 SUBCUTICULAR LAYER WELL. DERMABOND WAS PLACED AND STERILE DRESSING WAS APPLIED. PATIENT WAS PLACED BACK ON TO THE SUPINE POSITION AND WAS EXTUBATED Estimated Blood Loss 300 Complications No immediate complications Condition Stable Disposition PACU
[2024-09-24] MEDS: ONDANSETRON INJ 4 MG/2 ML VIAL IV PUSH (14:28)
[2024-09-24] MEDS: SENNA/DOCUSATE SODIUM TABLET 2 TAB PO (17:58)
[2024-09-24] MEDS: PRIMIDONE 50 MG TABLET BY MOUTH (21:10)
[2024-09-24] MEDS: ASPIRIN 325 MG ENTERIC TABLET PO (21:11)
[2024-09-24] MEDS: ACETAMINOPHEN 500 MG TABLET PO (21:11)
[2024-09-24] MEDS: FAMOTIDINE 20 MG TABLET PO (21:11)
[2024-09-25] VITALS (9 sets, daily range): BP systolic 110–140; BP diastolic 45–70; PULSE 65–86; RESP 18–20; TEMP 36.3–36.7; O2SAT 85–99
[2024-09-25] MEDS: ceFAZolin 2 GM/D5W 50 ML 2 GM/50 ML BAG IVPB ×2 (01:08→08:54)
[2024-09-25] MEDS: HYDROcodone/acetaminophen (*CRX) 10-325 MG TABLET 1 TAB PO ×4 (02:08→16:06)
[2024-09-25] MEDS: ACETAMINOPHEN 500 MG TABLET PO (06:14)
[2024-09-25] MEDS: diazePAM (*CRX) 5 MG TABLET PO (06:14)
[2024-09-25 06:17] LABS: Basophils Percent Auto 0.4 % (0.2-1.2); Eosinophils Absolute Auto 0.4 K/mm3 (0-0.3); Eosinophils Percent Auto 5.5 % (0-4.4); Hematocrit 31.1 % (37.0-47.0); Hemoglobin 9.8 g/dL (12.0-15.0); Immature Granulocyte Absolute 0.03 K/mm3 (0.00-0.031); Immature Granulocyte Percent A 0.4 % (0-0.5); Lymphocytes Absolute Auto 1.04 K/mm3 (0.9-3.2); Lymphocytes Percent Auto 14.7 % (18.3-44.2); Mean Corpuscular HGB Conc 31.5 g/dl (32-36); Mean Corpuscular Hemoglobin 31.6 pg (26-34); Mean Corpuscular Volume 100.3 fl (80-100); Mean Platelet Volume 9.2 fl (7.4-10.4); Monocytes Absolute Auto 0.6 K/mm3 (0.1-0.6); Platelet Count Result 139 k/mm3 (150-375); Red Cell Distribution Width 14.4 % (11.5-14.5); White Blood Count 7.1 K/mm3 (4.5-10.0)
[2024-09-25 06:32] LABS: Anion Gap 4 mmol/L (4-12); Blood Urea Nitrogen 12 mg/dL (7-17); Calcium 8.1 mg/dL (8.4-10.2); Carbon Dioxide 25 mmol/L (22-30); Chloride 108 mmol/L (98-107); Estimated CRCL calculation 59 ml/min; Estimated Glomerular Filt Rate > 60; Glucose 111 mg/dL (65-110); Sodium 137 mmol/L (137-145)
--- NOTE | 2024-09-25 07:58 | P.PNIM_ITS ---
Progress Note: A&P Assessment and Plan (1) Fracture of femoral neck, left: Qualifiers: Encounter type: initial encounter Fracture type: closed Qualified Code(s): S72.002A - Fracture of unspecified part of neck of left femur, initial encounter for closed fracture Code(s): S72.002A - Fracture of unspecified part of neck of left femur, initial encounter for closed fracture Status: Acute Assessment and Plan: - POD 1 L MARA - Patient tripped and fell on the left hip, sustained severe left hip pain - Pelvic x-ray showed left femur neck fracture - Optimize pain management (2) Benign hypertension: Code(s): I10 - Essential (primary) hypertension Status: Acute Assessment and Plan: - Continue losartan 100 mg daily p.o. (3) COPD (chronic obstructive pulmonary disease): Code(s): J44.9 - Chronic obstructive pulmonary disease, unspecified Status: Acute Assessment and Plan: - Stable - Continue Anora Ellipta 1 puff daily, ipratropium 2 puffs b.i.d. - Monitor pulse ox - O2 therapy p.r.n. keep pulse ox above 92 (4) Hyponatremia: Code(s): E87.1 - Hypo-osmolality and hyponatremia Status: Acute Assessment and Plan: - On 09/22: Na 132 - Possible due to poor intake - Continue normal saline IV 125 mL/hour - Monitor AM labs - WNL Plan Consult PT OT director of healthcare systems for evaluation and assisting placement DVT prophylaxis per orthopedic surgeon Time Spent With Patient Time: Subjective Date/time seen: 09/25/24 07:58 Interval history: Patient is a 73-year-old female with history of hypertension, hyperlipidemia, COPD, present ED with chief complaint fall and left hip pain. Patient had a couple p.o. yesterday. When patient was walking, patient tripped and fell on left side yesterday. Patient sustained he severe left hip pain, she did not hit her head and denies loss consciousness. 09/25/2024 POD 1. Patient sitting comfortably in bed. She endorses some left hip discomfort, but otherwise denies any chest pain, shortness of breath, n/v, or abdominal pain. Surgical wound appears to be healing well, mild erythema, no drainage or signs of infection. Plan to work with PT/OT with placement to SNF or rehab facility. Review of Systems Review of Systems: ROS negative except above Exam Narrative: GENERAL: Pleasant, in no acute distress. Well-nourished. - EYES: EOMI. Anicteric. - HENT: Moist mucous membranes. - LUNGS: Clear to auscultation bilateral ly, no wheezing, rhonchi, or rales. - CARDIOVASCULAR: Regular rate and rhyth m. No murmur. No JVD. - ABDOMEN: Soft, non-tender and non-dist ended. No palpable masses. - EXTREMITIES: Range of movement of lef t hip is restricted because of pain. No edema. Peripheral pulses 2+. Non-tender. - NEUROLOGIC: No focal neurological defi cits. CN II-XII grossly intact. - PSYCHIATRIC: Awake, Alert and oriented x 3. Appropriate mood and affect. - SKIN: Surgical wound with mild erythem a, no drainage or other signs of infection. No rashes or lesions. Warm. - LYMPH: No cervical lymphadenopathy. Objective Data Vital Signs Vital Signs: Vital Signs - 24 hr 09/24/24 08:00 09/24/24 08:15 09/24/24 13:15 Temperature 97.6 F Pulse Rate 87 Respiratory Rate 14 Blood Pressure 127/52 L Pulse Oximetry 94 94 92 Oxygen Delivery Nasal Cannula Nasal Cannula Simple Face Mask Oxygen Flow Rate 2 2 8 09/24/24 13:30 09/24/24 13:40 09/24/24 13:45 Temperature Pulse Rate 77 79 Respiratory Rate 16 14 Blood Pressure 124/69 122/72 Pulse Oximetry 98 97 Oxygen Delivery Simple Face Mask Room Air Nasal Cannula Oxygen Flow Rate 8 2 09/24/24 14:00 09/24/24 14:00 09/24/24 14:03 Temperature 97.3 F L 97.9 F 97.5 F L Pulse Rate 77 79 78 Respiratory Rate 14 20 20 Blood Pressure 117/60 123/64 114/62 Pulse Oximetry 94 95 94 Oxygen Delivery Nasal Cannula Oxygen Flow Rate 2 09/24/24 14:18 09/24/24 14:48 09/24/24 14:48 Temperature 98.4 F 98.8 F 98.8 F Pulse Rate 73 74 74 Respiratory Rate 18 20 20 Blood Pressure 120/60 120/60 120/60 Pulse Oximetry 94 94 94 Oxygen Delivery Oxygen Flow Rate 09/24/24 19:48 09/24/24 20:00 09/24/24 23:48 Temperature 98.1 F 97.6 F Pulse Rate 70 70 Respiratory Rate 18 18 Blood Pressure 120/58 L 114/47 L Pulse Oximetry 93 93 96 Oxygen Delivery Nasal Cannula Oxygen Flow Rate 2 09/25/24 03:48 09/25/24 06:28 Temperature 97.4 F L 97.9 F Pulse Rate 65 75 Respiratory Rate 18 18 Blood Pressure 121/59 L 110/52 L Pulse Oximetry 98 96 Oxygen Delivery Oxygen Flow Rate Intake/Output Intake/Output: Intake & Output 09/22/24 09/23/24 09/24/24 09/25/24 23:59 23:59 23:59 23:59 Intake Total 2221.3 1858.3 250 Output Total 750 2200 800 Balance 1471.3 -341.7 -550 Meds/Results Medications: Active Medications Generic Name Dose Route Start Last Admin Trade Name Freq PRN Reason Stop Dose Admin Acetaminophen 500 mg 09/24/24 14:03 09/25/24 06:14 Acetaminophen 500 Mg Tablet PO 500 mg Q6H PRN Administration Pain Rated 1-3 Hydrocodone Bitart/Acetaminophen 1 tab 09/24/24 14:03 09/25/24 02:08 Hydrocodone/Acetaminophen (*Crx) 10-325 Mg Tablet PO 1 tab Q4H PRN Administration Pain Rated 7-10 Aspirin 325 mg 09/24/24 21:00 09/24/24 21:11 Aspirin 325 Mg Enteric Tablet PO 325 mg Q12HR YESSY Administration Celecoxib 200 mg 09/25/24 09:00 Celecoxib 200 Mg Capsule PO DAILY YESSY Diazepam 5 mg 09/24/24 14:03 09/25/24 06:14 Diazepam (*Crx) 5 Mg Tablet PO 5 mg Q6H PRN Administration Anxiety/Muscle Spasm Diphenhydramine HCl 25 mg 09/24/24 14:03 Diphenhydramine Hcl Inj 50 Mg/Ml Vial IV PUSH Q6H PRN Itching Famotidine 20 mg 09/24/24 21:00 09/24/24 21:11 Famotidine 20 Mg Tablet PO 20 mg Q12HR YESSY Administration Hydromorphone HCl 1 mg 09/24/24 14:03 Hydromorphone Hcl Inj (*Crx) 1 Mg/Ml Syr IV PUSH Q2H PRN Breakthrough Pain Rated 7-10 or NPO Hydromorphone HCl 0.5 mg 09/24/24 14:03 Hydromorphone Hcl Inj (*Crx) 1 Mg/Ml Syr IV PUSH Q2H PRN Breakthrough Pain Rated 4-6 or NPO Cefazolin Sodium 2 gm in 50 mls @ 100 mls/hr 09/24/24 18:00 09/25/24 01:38 Ancef 2 Gm/D5w 50 Ml IVPB 09/25/24 10:29 Infused Q8H YESSY Infusion Ibuprofen 800 mg in 200 mls @ 400 mls/hr 09/24/24 14:03 Caldolor 800 Mg/200 Ml IVPB Q6H PRN Breakthrough Pain Rated 1-3 or NPO Naloxone HCl 0.1 mg 09/24/24 14:03 Naloxone Hcl 0.4 Mg/Ml Vial IV PUSH Q2M PRN Opiate Reversal Ondansetron HCl 4 mg 09/24/24 14:03 09/24/24 14:28 Ondansetron Inj 4 Mg/2 Ml Vial IV PUSH 4 mg Q4H PRN Administration Nausea And Vomiting Oxycodone/Acetaminophen 1 tablet 09/24/24 14:03 Oxycodone/Acetaminophen (*Crx) 5-325 Mg Tablet PO Q4H PRN Pain Rated 4-6 Polyethylene Glycol 17 gm 09/25/24 09:00 Polyethylene Glycol 3350 17 Gm Powd.Pack PO QAM YESSY Primidone 50 mg 09/24/24 21:00 09/24/24 21:10 Primidone 50 Mg Tablet BY MOUTH 50 mg HS YESSY Administration Senna/Docusate Sodium 2 tab 09/24/24 17:00 09/24/24 17:58 Senna/Docusate Sodium Tablet PO 2 tab BID YESSY Administration Radiology Results: ITS Impressions Head CT 09/23/24 00:01 IMPRESSION: No acute intracranial process. Chest X-Ray 09/23/24 04:44 IMPRESSION: 1. Diffuse interstitial pattern in the lungs with worsening in left upper lobe, likely chronic interstitial lung disease with superimposed left upper lobe pneumonia versus atelectasis/contusion. Hip/Pelvis X-Ray 09/23/24 04:47 IMPRESSION: 1. Transcervical fracture of left femoral neck. 2. Mild left hip osteoarthritis. 3. Total right hip arthroplasty in near-anatomic alignment. Hip X-Ray 09/24/24 13:42 IMPRESSION: 1. Total left hip arthroplasty in near-anatomic alignment. Labs Labs: Laboratory Results - last 24 hr 09/25/24 05:48 WBC 7.1 RBC 3.10 L Hgb 9.8 L D Hct 31.1 L MCV 100.3 H MCH 31.6 MCHC 31.5 L RDW 14.4 Plt Count 139 L MPV 9.2 Immature Gran % (Auto) 0.4 Neut % (Auto) 70.0 Lymph % (Auto) 14.7 L [place] % (Auto) 9.0 H Eos % (Auto) 5.5 H Baso % (Auto) 0.4 Lymph # (Auto) 1.04 [place] # (Auto) 0.6 Eos # (Auto) 0.4 H Baso # (Auto) 0.0 Abs Immat Gran (auto) 0.03 Absolute Neuts (auto) 5.0 Absolute Nucleated RBC 0.000 Nucleated RBC % 0.0 Sodium 137 Potassium 4.0 Chloride 108 H Carbon Dioxide 25 Anion Gap 4 BUN 12 Creatinine 0.70 Estim Creat Clear Calc 59 Estimated GFR > 60 Glucose 111 H Calcium 8.1 L Quality VTE Prophylaxis VTE prophylaxis: mechanical ordered
[2024-09-25] MEDS: SENNA/DOCUSATE SODIUM TABLET 2 TAB PO ×2 (08:54→16:09)
[2024-09-25] MEDS: CELECOXIB 200 MG CAPSULE PO (08:54)
[2024-09-25] MEDS: FAMOTIDINE 20 MG TABLET PO ×2 (08:54→20:41)
[2024-09-25] MEDS: ASPIRIN 325 MG ENTERIC TABLET PO ×2 (08:55→20:41)
[2024-09-25] MEDS: polyethylene glycoL 3350 17 GM POWD.PACK PO (08:57)
--- NOTE | 2024-09-25 09:07 | P.PNAN_ITS ---
Anes - Prog Note Post-Op Date/Time: 09/25/24 09:07 Cardiovascular status: normal Respiratory status: normal Airway patency: baseline Mental status: baseline Post-Op hydration status: normal Vital Signs: Last Vital Signs Temp 36.6 C 09/25/24 06:28 Pulse 75 09/25/24 06:28 Resp 18 09/25/24 06:28 BP 110/52 L 09/25/24 06:28 Pulse Ox 96 09/25/24 06:28 O2 Del Method Nasal Cannula 09/24/24 20:00 O2 Flow Rate 2 09/24/24 20:00 Pain Score (VAS): 1 I/O: Intake & Output 09/24/24 09/25/24 09/25/24 23:59 07:59 15:59 Intake Total 1139.6 250 Output Total 650 800 Balance 489.6 -550 Laboratory Tests 09/25/24 05:48 09/25/24 05:48 09/25/24 05:48 WBC 7.1 RBC 3.10 L Hgb 9.8 L D Hct 31.1 L MCV 100.3 H MCH 31.6 MCHC 31.5 L RDW 14.4 Plt Count 139 L MPV 9.2 Immature Gran % (Auto) 0.4 Neut % (Auto) 70.0 Lymph % (Auto) 14.7 L [place] % (Auto) 9.0 H Eos % (Auto) 5.5 H Baso % (Auto) 0.4 Lymph # (Auto) 1.04 [place] # (Auto) 0.6 Eos # (Auto) 0.4 H Baso # (Auto) 0.0 Abs Immat Gran (auto) 0.03 Absolute Neuts (auto) 5.0 Absolute Nucleated RBC 0.000 Nucleated RBC % 0.0 Sodium 137 Potassium 4.0 Chloride 108 H Carbon Dioxide 25 Anion Gap 4 BUN 12 Creatinine 0.70 Estim Creat Clear Calc 59 Estimated GFR > 60 Glucose 111 H Calcium 8.1 L Post-procedural complaints: none Patient Feedback: Patient satisfied with anesthetic care.
--- NOTE | 2024-09-25 09:14 | PM.PNORT ---
Progress Note: A&P Assessment and Plan (1) S/P total left hip arthroplasty: Code(s): Z96.642 - Presence of left artificial hip joint Status: Acute Assessment and Plan: POD #1: Left MARA s/p left hip fracture Continue PT/OT. WBAT. Walker. HIGH FALL RISK. Continue pain control. Ice Hip. Protect skin. DVT prophylaxis with Aspirin. SCDs. Incentive Spirometry Use reviewed. Monitor Dressing. Change prior to discharge. Bowel Regimen. Dispo: SNF pending progress with PT/OT and medical stability (2) Fracture of femoral neck, left: Qualifiers: Encounter type: initial encounter Fracture type: closed Qualified Code(s): S72.002A - Fracture of unspecified part of neck of left femur, initial encounter for closed fracture Code(s): S72.002A - Fracture of unspecified part of neck of left femur, initial encounter for closed fracture Status: Acute (3) Closed hip fracture: Code(s): S72.009A - Fracture of unspecified part of neck of unspecified femur, initial encounter for closed fracture Status: Acute Plan Reviewed history, exam, radiographs and current labs with attending MD and covering surgeon, Dr. Mitchell, who agrees with current plan as indicated above. No further recommendations from Dr. Mitchell at this time. Subjective Subjective Date/Time Seen: 09/25/24 09:14 Post Op day: 1 Interval history: POD #1: L MARA Patient doing well. Pain well controlled. No new concerns. Review of Systems Review of Systems: All systems reviewed & are unremarkable except as noted in HPI and below Exam Const: General: comfortable and no acute distress Orientation/consciousness: patient oriented x3 Limitations: no limitations Resp: Effort & Inspection: normal respiratory effort Cardio: Rate: regular rate Rhythm: regular rhythm GI: Inspection: non-distended Skin: General skin exam: normal color and wounds noted (incision left hip C/D/I ) Wounds: wounds noted (incision left hip C/D/I ) Neuro: General: patient oriented x3 Extrem: Left lower extremity: hip/thigh Details: tenderness Location: of the hip Location: laterally and anteriorly, swelling (thigh soft ) Location: of the hip (lateral. ), abnormal ROM (limitations with internal/external rotation and flexion/extension due to recent surgical intervention ) and other (incision lateral hip c/d/i. ), knee Details: normal to inspection and normal ROM; no tenderness and no swelling, lower leg (Negative Arias's Sign ) Details: no edema, ankle (+ankle dorsiflexion/plantarflexion ) Details: normal to inspection, no edema and normal ROM; no tenderness, no swelling and no warmth and foot Details: normal capillary refill, toes with normal ROM, vascular exam Details: dorsalis pedis pulse present and motor-sensory exam light-touch normal in all toes; no tenderness, no ecchymosis and no crepitus Psych: Mental Status: mental status grossly normal Affect: normal affect Objective Data Vital Signs Vital Signs: Vital Signs - 24 hr 09/24/24 13:15 09/24/24 13:30 09/24/24 13:40 Temperature 36.4 C Pulse Rate 87 77 Respiratory Rate 14 16 Blood Pressure 127/52 L 124/69 Pulse Oximetry 92 98 Oxygen Delivery Simple Face Mask Simple Face Mask Room Air Oxygen Flow Rate 8 8 09/24/24 13:45 09/24/24 14:00 09/24/24 14:00 Temperature 36.3 C L 36.6 C Pulse Rate 79 77 79 Respiratory Rate 14 14 20 Blood Pressure 122/72 117/60 123/64 Pulse Oximetry 97 94 95 Oxygen Delivery Nasal Cannula Nasal Cannula Oxygen Flow Rate 2 2 09/24/24 14:03 09/24/24 14:18 09/24/24 14:48 Temperature 36.4 C L 36.9 C 37.1 C Pulse Rate 78 73 74 Respiratory Rate 20 18 20 Blood Pressure 114/62 120/60 120/60 Pulse Oximetry 94 94 94 Oxygen Delivery Oxygen Flow Rate 09/24/24 14:48 09/24/24 19:48 09/24/24 20:00 Temperature 37.1 C 36.7 C Pulse Rate 74 70 Respiratory Rate 20 18 Blood Pressure 120/60 120/58 L Pulse Oximetry 94 93 93 Oxygen Delivery Nasal Cannula Oxygen Flow Rate 2 09/24/24 23:48 09/25/24 03:48 09/25/24 06:28 Temperature 36.4 C 36.3 C L 36.6 C Pulse Rate 70 65 75 Respiratory Rate 18 18 18 Blood Pressure 114/47 L 121/59 L 110/52 L Pulse Oximetry 96 98 96 Oxygen Delivery Oxygen Flow Rate Intake/Output Intake/Output: Intake & Output 09/22/24 09/23/24 09/24/24 09/25/24 23:59 23:59 23:59 23:59 Intake Total 2221.3 1858.3 250 Output Total 750 2200 800 Balance 1471.3 -341.7 -550 Meds/Results Medications: Active Medications Generic Name Dose Route Start Last Admin Trade Name Freq PRN Reason Stop Dose Admin Acetaminophen 500 mg 09/24/24 14:03 09/25/24 06:14 Acetaminophen 500 Mg Tablet PO 500 mg Q6H PRN Administration Pain Rated 1-3 Hydrocodone Bitart/Acetaminophen 1 tab 09/24/24 14:03 09/25/24 08:55 Hydrocodone/Acetaminophen (*Crx) 10-325 Mg Tablet PO 1 tab Q4H PRN Administration Pain Rated 7-10 Aspirin 325 mg 09/24/24 21:00 09/25/24 08:55 Aspirin 325 Mg Enteric Tablet PO 325 mg Q12HR YESSY Administration Celecoxib 200 mg 09/25/24 09:00 09/25/24 08:54 Celecoxib 200 Mg Capsule PO 200 mg DAILY YESSY Administration Diazepam 5 mg 09/24/24 14:03 09/25/24 06:14 Diazepam (*Crx) 5 Mg Tablet PO 5 mg Q6H PRN Administration Anxiety/Muscle Spasm Diphenhydramine HCl 25 mg 09/24/24 14:03 Diphenhydramine Hcl Inj 50 Mg/Ml Vial IV PUSH Q6H PRN Itching Famotidine 20 mg 09/24/24 21:00 09/25/24 08:54 Famotidine 20 Mg Tablet PO 20 mg Q12HR YESSY Administration Hydromorphone HCl 1 mg 09/24/24 14:03 Hydromorphone Hcl Inj (*Crx) 1 Mg/Ml Syr IV PUSH Q2H PRN Breakthrough Pain Rated 7-10 or NPO Hydromorphone HCl 0.5 mg 09/24/24 14:03 Hydromorphone Hcl Inj (*Crx) 1 Mg/Ml Syr IV PUSH Q2H PRN Breakthrough Pain Rated 4-6 or NPO Cefazolin Sodium 2 gm in 50 mls @ 100 mls/hr 09/24/24 18:00 09/25/24 08:54 Ancef 2 Gm/D5w 50 Ml IVPB 09/25/24 10:29 100 mls/hr Q8H YESSY Administration Ibuprofen 800 mg in 200 mls @ 400 mls/hr 09/24/24 14:03 Caldolor 800 Mg/200 Ml IVPB Q6H PRN Breakthrough Pain Rated 1-3 or NPO Naloxone HCl 0.1 mg 09/24/24 14:03 Naloxone Hcl 0.4 Mg/Ml Vial IV PUSH Q2M PRN Opiate Reversal Ondansetron HCl 4 mg 09/24/24 14:03 09/24/24 14:28 Ondansetron Inj 4 Mg/2 Ml Vial IV PUSH 4 mg Q4H PRN Administration Nausea And Vomiting Oxycodone/Acetaminophen 1 tablet 09/24/24 14:03 Oxycodone/Acetaminophen (*Crx) 5-325 Mg Tablet PO Q4H PRN Pain Rated 4-6 Polyethylene Glycol 17 gm 09/25/24 09:00 09/25/24 08:57 Polyethylene Glycol 3350 17 Gm Powd.Pack PO 17 gm QAM YESSY Administration Primidone 50 mg 09/24/24 21:00 09/24/24 21:10 Primidone 50 Mg Tablet BY MOUTH 50 mg HS YESSY Administration Senna/Docusate Sodium 2 tab 09/24/24 17:00 09/25/24 08:54 Senna/Docusate Sodium Tablet PO 2 tab BID YESSY Administration Radiology Results: ITS Impressions Head CT 09/23/24 00:01 IMPRESSION: No acute intracranial process. Chest X-Ray 09/23/24 04:44 IMPRESSION: 1. Diffuse interstitial pattern in the lungs with worsening in left upper lobe, likely chronic interstitial lung disease with superimposed left upper lobe pneumonia versus atelectasis/contusion. Hip/Pelvis X-Ray 09/23/24 04:47 IMPRESSION: 1. Transcervical fracture of left femoral neck. 2. Mild left hip osteoarthritis. 3. Total right hip arthroplasty in near-anatomic alignment. Hip X-Ray 09/24/24 13:42 IMPRESSION: 1. Total left hip arthroplasty in near-anatomic alignment. Labs Labs: Laboratory Results - last 24 hr 09/25/24 05:48 WBC 7.1 RBC 3.10 L Hgb 9.8 L D Hct 31.1 L MCV 100.3 H MCH 31.6 MCHC 31.5 L RDW 14.4 Plt Count 139 L MPV 9.2 Immature Gran % (Auto) 0.4 Neut % (Auto) 70.0 Lymph % (Auto) 14.7 L [place] % (Auto) 9.0 H Eos % (Auto) 5.5 H Baso % (Auto) 0.4 Lymph # (Auto) 1.04 [place] # (Auto) 0.6 Eos # (Auto) 0.4 H Baso # (Auto) 0.0 Abs Immat Gran (auto) 0.03 Absolute Neuts (auto) 5.0 Absolute Nucleated RBC 0.000 Nucleated RBC % 0.0 Sodium 137 Potassium 4.0 Chloride 108 H Carbon Dioxide 25 Anion Gap 4 BUN 12 Creatinine 0.70 Estim Creat Clear Calc 59 Estimated GFR > 60 Glucose 111 H Calcium 8.1 L
[2024-09-25] MEDS: IBUPROFEN IV 800 MG/200 ML 800 MG/200 ML BAG 400 MG IVPB (17:45)
[2024-09-25] MEDS: PRIMIDONE 50 MG TABLET BY MOUTH (20:41)
[2024-09-26] MEDS: HYDROcodone/acetaminophen (*CRX) 10-325 MG TABLET 1 TAB PO ×2 (03:14→08:10)
[2024-09-26 05:35] VITALS: BP 124/44; PULSE 81; RESP 16; TEMP 35.7; O2SAT 93
[2024-09-26 08:31] LABS: Basophils Percent Auto 0.6 % (0.2-1.2); Eosinophils Absolute Auto 0.8 K/mm3 (0-0.3); Eosinophils Percent Auto 11.9 % (0-4.4); Hematocrit 29.4 % (37.0-47.0); Hemoglobin 9.4 g/dL (12.0-15.0); Immature Granulocyte Absolute 0.02 K/mm3 (0.00-0.031); Immature Granulocyte Percent A 0.3 % (0-0.5); Lymphocytes Percent Auto 18.3 % (18.3-44.2); Mean Corpuscular Hemoglobin 32.1 pg (26-34); Mean Corpuscular Volume 100.3 fl (80-100); Mean Platelet Volume 9.6 fl (7.4-10.4); Monocytes Absolute Auto 0.5 K/mm3 (0.1-0.6); Monocytes Percent Auto 7.9 % (2.6-8.5); Platelet Count Result 162 k/mm3 (150-375); Red Blood Count 2.93 M/mm3 (4.2-5.4); Red Cell Distribution Width 14.5 % (11.5-14.5); White Blood Count 6.6 K/mm3 (4.5-10.0)
[2024-09-26 08:41] LABS: Alanine Aminotransferase 10 U/L (6-35); Albumin Level 2.8 g/dL (3.5-5.1); Alkaline Phosphatase 43 U/L (38-126); Anion Gap 4 mmol/L (4-12); Aspartate Amino Transferase 24 U/L (14-36); Bilirubin,Total 0.4 mg/dL (0.2-1.3); Blood Urea Nitrogen 12 mg/dL (7-17); Carbon Dioxide 25 mmol/L (22-30); Chloride 107 mmol/L (98-107); Estimated CRCL calculation 67 ml/min; Estimated Glomerular Filt Rate > 60; Glucose 96 mg/dL (65-110); Potassium 4.2 mmol/L (3.4-5.0); Sodium 136 mmol/L (137-145)
--- NOTE | 2024-09-26 09:17 | P.DS_ITS ---
DS: Admitting Diagnosis Discharge Date 09/26/2024 Admitting Diagnosis Hip fracture DS: Discharge Diagnosis Discharge Diagnosis (1) Fracture of femoral neck, left: Qualifiers: Encounter type: initial encounter Fracture type: closed Qualified Code(s): S72.002A - Fracture of unspecified part of neck of left femur, initial encounter for closed fracture Code(s): S72.002A - Fracture of unspecified part of neck of left femur, initial encounter for closed fracture Status: Acute (2) Benign hypertension: Code(s): I10 - Essential (primary) hypertension Status: Acute (3) COPD (chronic obstructive pulmonary disease): Code(s): J44.9 - Chronic obstructive pulmonary disease, unspecified Status: Acute (4) Hyponatremia: Code(s): E87.1 - Hypo-osmolality and hyponatremia Status: Acute DS: Summary Hospital Course Reason for hospitalization: Fall Hospital Course: Patient is a 73-year-old female with history of hypertension, hyperlipidemia, COPD, present ED with chief complaint fall and left hip pain. Patient had a c ouple p.o. yesterday. When patient was walking, patient tripped and fell on left side yesterday. Patient sustained he severe left hip pain, she did not hit her head and denies loss consciousness. EMS was called, patient was brought to ED for evaluation treatment. Patient denies alcohol dependence, also denies visual hallucination, abdomen pain, nausea vomiting diarrhea dysuria. Upon arrival in ED, patient was afebrile, blood pressure stable, pulse ox 94 on room air, CBC remarkable, chemistry showed hyponatremia 132, bicarbonate 19, chest x-ray shows no acute cardiopulmonary issues, pelvic x-ray showed impacted left femur neck fracture. ER physician consulted orthopedic surgeon, we admit patient for evaluation and management. Left total hip replacement was performed on 09/24/[address] Mitchell. Intraoperative hip xr showed: Total left hip arthroplasty in near-anatomic alignment. Pt tolerated this procedure well with no complications. POD 1, pt appeared to be tolerating the procedure well, initiated work with PT/OT. Surgical wound healing well with minimal erythema, no drainage and no signs of infection. DVT prophylaxis on Aspirin. Pt was placed in a skill rehab facility and accepted. O2% found to have to decreased when pt was taken off O2 supplementation. Home O2 assessment was ordered and it was suggested that pt be discharged on 2L NC. This has been facilitated and pt ready for discharge. Time Spent with Patient Time attestation: Total time spent providing and/or coordinating discharge services:35 Exam Narrative: GENERAL: Pleasant, in no acute distress. Well-nourished. - EYES: EOMI. Anicteric. - HENT: Moist mucous membranes. - LUNGS: Clear to auscultation bilateral ly, no wheezing, rhonchi, or rales. - CARDIOVASCULAR: Regular rate and rhyth m. No murmur. No JVD. - ABDOMEN: Soft, non-tender and non-dist ended. No palpable masses. - EXTREMITIES: Range of movement of lef t hip is restricted because of pain. No edema. Peripheral pulses 2+. Non-tender. - NEUROLOGIC: No focal neurological defi cits. CN II-XII grossly intact. - PSYCHIATRIC: Awake, Alert and oriented x 3. Appropriate mood and affect. - SKIN: Surgical wound with mild erythem a, no drainage or other signs of infection. No rashes or lesions. Warm. - LYMPH: No cervical lymphadenopathy. DS: Data Data Completed and Pending Labs on day of discharge: Labs from last 24 hours 09/26/24 08:09 WBC 6.6 RBC 2.93 L Hgb 9.4 L Hct 29.4 L MCV 100.3 H MCH 32.1 MCHC 32.0 RDW 14.5 Plt Count 162 MPV 9.6 Immature Gran % (Auto) 0.3 Neut % (Auto) 61.0 Lymph % (Auto) 18.3 [place] % (Auto) 7.9 Eos % (Auto) 11.9 H Baso % (Auto) 0.6 Lymph # (Auto) 1.20 [place] # (Auto) 0.5 Eos # (Auto) 0.8 H Baso # (Auto) 0.0 Abs Immat Gran (auto) 0.02 Absolute Neuts (auto) 4.0 Absolute Nucleated RBC 0.000 Nucleated RBC % 0.0 Sodium 136 L Potassium 4.2 Chloride 107 Carbon Dioxide 25 Anion Gap 4 BUN 12 Creatinine 0.61 L Estim Creat Clear Calc 67 Estimated GFR > 60 Glucose 96 Calcium 8.0 L Total Bilirubin 0.4 AST 24 ALT 10 Alkaline Phosphatase 43 Total Protein 5.0 L Albumin 2.8 L Discharge Plan Discharge Attending physician on discharge: Juan Maldonado Consulting providers: Amrik White Discharging Clinician: Juan Maldonado Anticipated Discharge Date/Time: 09/26/24 09:16 Patient Disposition: Home Health Service Activity: may shower and follow weight bearing status Diet: as tolerated Wound Care Instructions: follow printed instructions Discharge Instructions: Post Op Total Hip Replacement Instructions Dr. Jd Mitchell [phone] * Your dressing will be changed prior to your discharge. You will be sent home with one additional dressing to be changed on post op day 7 by the home health RN. You may remove the dressing on post op day 14. Your incision was closed with dermabond, allow the dermabond to fall off naturally once your dressing is removed. Do not pull at the dermabond or disrupt incision healing. * You may shower with your dressing but do not submerge in a bath tub. * Do not drive or operate machinery until you are released by Dr. Mitchell. * Do not walk without a walker for any reason until you are released by Dr. Mitchell. * Continue to apply ice to the hip intermittently for additional pain relief. Protect your skin with a towel or pillow case. * Continue to follow strict total hip replacement precautions. * Your first post op appointment was sent to you via mail preoperatively. If you have any questions or are unable to make your appointment, please contact our office for scheduling questions. * Your medications have been sent to your pharmacy. You have been sent home with pain medication. Please garbage pick up worker an over the counter stool softener to prevent constipation due to narcotic use. Please keep this in mind during your postoperative recovery. If you are not experiencing regular bowel movements, please contact our office for further instructions. * Please contact our office with any questions/concerns regarding your hip at [phone]. Per Care Coordination: [facility] will contact you prior to their first visit. [facility] will follow for RN and PT/OT eval and treat. [facility] can be contacted at [phone]. Continue to wear 2L O2 at rest and during activity. Patient Instructions: Antibiotic Form Patient Language: Tajik Stand Alone Forms: General Discharge Information Follow-up/Referrals: Jd Mitchell MD [Physician] - 10/23/24 11:15 am (Will call w appt. ) Discharge Medications: New oxycodone-acetaminophen 5-325 mg Tablet 1 tablet PO Q4-6H PRN (Reason: pain) Qty: 30 0RF aspirin 325 mg Tablet,Delayed Release (Dr/Ec) 325 mg PO Q12HR 28 Days Qty: 56 0RF Continued Anoro Ellipta 62.5-25 mcg/actuation blister with device See Rx Instructions .ROUTE .COMPLEX Qty: 60 1RF Dose Instruction: INHALE 1 PUFF DAILY Rx Instructions: INHALE 1 PUFF DAILY cholecalciferol (vitamin D3) 1,250 mcg (50,000 unit) capsule See Rx Instructions .ROUTE .COMPLEX Qty: 12 1RF Dose Instruction: TAKE 1 CAPSULE BY MOUTH WEEKLY Rx Instructions: TAKE 1 CAPSULE BY MOUTH WEEKLY primidone 50 mg tablet See Rx Instructions .ROUTE .COMPLEX Qty: 100 2RF Dose Instruction: TAKE 1 TALBET BY MOUTH DAILY AT BEDTIME Rx Instructions: TAKE 1 TALBET BY MOUTH DAILY AT BEDTIME losartan 100 mg tablet See Rx Instructions .ROUTE .COMPLEX Qty: 100 2RF Dose Instruction: TAKE 1 TABLET BY MOUTH DAILY Rx Instructions: TAKE 1 TABLET BY MOUTH DAILY ipratropium bromide 21 mcg (0.03 %) spray,non-aerosol 2 spray intranasal BID Qty: 30 2RF Rx Instructions: administer into each nostril montelukast 10 mg tablet See Rx Instructions .ROUTE .COMPLEX Qty: 100 2RF Dose Instruction: TAKE 1 TABLET BY MOUTH DAILY Rx Instructions: TAKE 1 TABLET BY MOUTH DAILY pantoprazole 40 mg tablet,delayed release (DR/EC) See Rx Instructions .ROUTE .COMPLEX Qty: 100 2RF Dose Instruction: TAKE 1 TABLET BY MOUTH IN THE MORNING Rx Instructions: TAKE 1 TABLET BY MOUTH IN THE MORNING Date of admission: 09/23/24 10:19 Primary Care Provider: Rajat Kimble Admitting Provider: Talya Wilkins Attending physician on admission: Juan Maldonado Condition: Stable Quality VTE Prophylaxis VTE prophylaxis: mechanical ordered Hospitalist MIPS Heart Failure (Exclusion) Patient has history of Heart Transplant or Left Ventricular Assistive Device?: No IF YES, STOP HERE Heart Failure (Qualifier) Patient has current or prior documentation of LVEF less than or equal to 40%, or mod/servere depressed LVSF?: No IF NO, STOP HERE
[2024-09-26 10:00] VITALS: O2SAT 96
[2024-09-26] MEDS: ASPIRIN 325 MG ENTERIC TABLET PO (10:00)
[2024-09-26] MEDS: polyethylene glycoL 3350 17 GM POWD.PACK PO (10:00)
[2024-09-26] MEDS: FAMOTIDINE 20 MG TABLET PO (10:00)
[2024-09-26] MEDS: SENNA/DOCUSATE SODIUM TABLET 2 TAB PO (10:00)
[2024-09-26] MEDS: CELECOXIB 200 MG CAPSULE PO (10:00)
[2024-09-26 10:05] VITALS: PULSE 82; O2SAT 88
[2024-09-26 10:10] VITALS: PULSE 84; O2SAT 91
[2024-09-26 10:15] VITALS: PULSE 95; O2SAT 90
[2024-09-26 10:30] VITALS: PULSE 84; O2SAT 91
--- NOTE | 2024-09-26 12:08 | HOMEO2EVAL ---
Evaluation was performed at [facility] Home Oxygen Evaluation RC: Home Oxygen (O2) Evaluation Start: 09/26/24 10:52 Freq: ONCE Status: Active Protocol: RPE Activity Type Activity Date Activity User E-sign Co-sign Detail Recorded Client Recorded Date Recorded By Document 09/26/24 10:05 [email or web address] [email or web address] 09/26/24 12:08 DJO Document 09/26/24 10:10 [email or web address] [email or web address] 09/26/24 12:08 DJO Document 09/26/24 10:15 [email or web address] [email or web address] 09/26/24 12:08 DJO Document 09/26/24 10:30 [email or web address] [email or web address] 09/26/24 12:08 DJO 09/26/24 09/26/24 09/26/24 10:05 10:10 10:15 Home O2 Evaluation [Oxygen] -Test Phase Resting Exercise -Oxygen Delivery Nasal Cannula Nasal Cannula Nasal Cannula -Oxygen Flow Rate (L/min) 1 2 2 [Pulse Oximetry] -Pulse Oximetry (90-100 %) 88 L 91 90 [Pulse Rate] -Pulse Rate (60-100 beats/min) 82 84 95 [Evaluation] -Activity Tolerance Fair 09/26/24 10:30 Home O2 Evaluation [Oxygen] -Test Phase Resting -Oxygen Delivery Nasal Cannula -Oxygen Flow Rate (L/min) 2 [Pulse Oximetry] -Pulse Oximetry (90-100 %) 91 [Pulse Rate] -Pulse Rate (60-100 beats/min) 84 [Evaluation] -Activity Tolerance
== END 2024-09-26 12:46 | disposition home health service (06) | DRG 522 ==
LOC: ANHED 23:20 → ANH3MEDSUR 09-23 02:07
PROVIDERS: Orthopaedic Surgery; Admitting Provider Internal Medicine; Emergency Provider Emergency Medicine; PCP Family Medicine; Visit Provider Physician Assistant
PROC: 0SRB02Z Replacement of Left Hip Joint with Metal on Polyethylene Synthetic Substitute, Open Approach (ICD-10-PCS; CPT 27130; principal; 2024-09-24 10:30)
DX: S72.032A Displaced midcervical fracture of left femur, initial encounter for closed fracture (principal); E87.1 Hypo-osmolality and hyponatremia; W19.XXXA Unspecified fall, initial encounter; E78.2 Mixed hyperlipidemia; E55.9 Vitamin D deficiency, unspecified; I10 Essential (primary) hypertension; J43.9 Emphysema, unspecified; K21.9 Gastro-esophageal reflux disease without esophagitis; Z85.828 Personal history of other malignant neoplasm of skin; Z96.641 Presence of right artificial hip joint; Z96.652 Presence of left artificial knee joint; Z87.891 Personal history of nicotine dependence
CPT/HCPCS: 36415; 70450; 71045; 73502; 80048; 80053; 85025; 85610; 85730; 86850; 86900; 86901; 94618; 94640; 96361; 96374; 96375; 96376; 97110; 97161; 97165; 97530; 97535; 99285; A9270; C1713; C1776; G0378; J0171; J0690; J1100; J1171; J1741; J1885; J2270; J2405; J2704; J2795; J3010; J7030; J7120

== ENCOUNTER 2024-10-19 11:49 | Emergency (ER) | payer MEDICARE, SELFPAY ==
[2024-10-19] VITALS (26 sets, daily range): BP systolic 109–163; BP diastolic 54–98; PULSE 57–77; RESP 12–21; TEMP 36.4–36.8; O2SAT 89–100
--- NOTE | ~2024-10-19 | XR_ITS ---
EXAM: XR hip LT min 2V DATE: 10/19/2024 14:15 HISTORY: post reduction . COMPARISON: 10/19/2024 at 12:38 PM. FINDINGS/IMPRESSION: Successful interval reduction of the left hip arthroplasty hardware. Mildly dilated and centralized loops of small bowel, may reflect ileus/obstruction with ascites. Reviewed, dictated and finalized at location K.
--- NOTE | ~2024-10-19 | XR_ITS ---
XR hip LT 2V w AP pelvis 10/19/2024 12:44 Indication: Left hip pain after fall Procedure: AP pelvis and 2 views left hip Comparison: 09/25/2019 Findings: There are bilateral hip arthroplasties. There is dislocation of the left hip arthroplasty w ith superior dislocation. No underlying fracture is identified. Impression: 1: Dislocation of left hip arthroplasty. Reviewed, dictated and finalized at location A. Impression: 1: Dislocation of left hip arthroplasty.
--- OUTSIDE RECORDS SUMMARY | 2024-10-19 12:20 | XMS_ITS | Data Portability ---
Author Organization [facility] Address [address] [place] [address] Care Team Providers Care Slackline Operator Name Role Phone CRYSTAL LEWIS Primary Care Provider Assessment No assessment recorded. Plan of Treatment Reminders Order Date Submit Date Provider Last Modified By Organization Details Last Modified Time Details Appointments None recorded. Lab None recorded. Referral None recorded. Procedures None recorded. Surgeries None recorded. Imaging None recorded. Medication Orders estradiol 0.01% (0.1 mg/gram) vaginal cream 2024 025 [facility]/Pharmacy #[id number], [address] [place], [address], 5 22:36:03 estradiol 0.01% (0.1 mg/gram) vaginal cream [address]/Pharmacy #[id number], [address] [place], [address], 5 12:53:58 nystatin-t riamcinolo ne 100,000 unit/gram- 0.1 % topical ointment [address]/Pharmacy #[id number], [address] [place], [address], 5 12:54:44 Valtrex 1 gram tablet [address]/Pharmacy #[id number], [address] [place], [address], 12:54:29 Patient TargetsNo targets recorded. Patient InstructionsNo instructions recorded. Reason for Referral None Reported. Procedures Surgical History Date Name Laterality Status Provider Name and Address Organization Details Recorded Time 08/02/19 20 Date of Last Pap Smear completed [facility] 08/15/2022 09:54:06 complete repair of rotator cuff completed [facility] 08/15/2022 09:56:25 procedure on wrist completed Sera Noyola [facility] [address], [place], [address], [facility] 08/15/2022 10:07:52 Total hip arthroplasty completed Sera Noyola [facility] [address], [place], [address], [facility] 08/15/2022 10:08:31 total knee replacement completed Sera Noyola [facility] [address], [place], [address], [facility] 08/15/2022 10:08:17 Imaging Results None [...] Updated DateTime 08/15/2022 160.02 cm 31 kg/m2 05620.95 g 136 mm[Hg] 82 mm[Hg] [facility] 3 09:52:19 Date Recorded Body height Body mass index (BMI) Body weight Systolic blood pressure Diastolic blood pressure Provider Name and Address Organization Details Last Updated DateTime 08/29/2022 160.02 cm 31.2 kg/m2 10100.69 g 130 mm[Hg] 71 mm[Hg] [facility] 3 16:29:54 Date Recorded Body height Body mass index (BMI) Body weight Systolic blood pressure Diastolic blood pressure Provider Name and Address Organization Details Last Updated DateTime 07/10/2024 160.02 cm 29.4 kg/m2 47993.33 g 139 mm[Hg] 77 mm[Hg] Jodi Stout [facility] 5 12:52:01 Date Recorded Body height Body mass index (BMI) Body weight Systolic blood pressure Diastolic blood pressure Provider Name and Address Organization Details Last Updated DateTime 07/29/2024 160.02 cm 28.9 kg/m2 18433.56 g 150 mm[Hg] 82 mm[Hg] Apryl Gastelumen [facility] 5 14:18:52 Date Recorded Body height Body mass index (BMI) Body weight Systolic blood pressure Diastolic blood pressure Provider Name and Address Organization Details Last Updated DateTime 08/27/2024 160.02 cm 28.9 kg/m2 49001.56 g 142 mm[Hg] 74 mm[Hg] Apryl Swati [facility] 5 14:01:22 Social History Question Answer Notes LastModified by Organizat ion Details LastModified Time Tobacco Smoking Status Never Smoker Lyndsay Tapia violeta, [facility] 08/15/2022 09:56:08 What Is Your Level Of Alcohol Consumption? Occasional Information not available 08/15/2022 Are You Blind Or Do You Have Difficulty Seeing? No Information n ot available 08/15/2022 In The 14 Days Before Symptom Onset, Have You Had Close Contact With A Laboratory-confirm ed COVID-19 While That Case Was Ill? No Information n ot available 07/29/2024 In The 14 Days Before Symptom Onset, Have You Had Close Contact With A Person Who Is Under Investigation For COVID-19 While That Person Was Ill? No Information not available 07/29/2024 Have You Been To An Area Known To Be High Risk For COVID-19? No [email or web address] Information not available 07/29/2024 Are You Deaf [...] SNOMED-CT Code Diagnosis ICD10 Code Diagnosis Note [id number] Sera Noyola [facility] [address] [address] 08/15/2022 09:39:19 08/16/2022 16:29:39 Genital herpes simplex 62188008 A60.9 Today we discussed use of Valtrex. [...] review of plan of care. Vulval irritation 732176 003 N90.89 [id number] [facility] [address],[place] [address] 08/29/2022 16:20:17 08/30/2022 11:26:23 Genital herpes simplex 46613594 A60.9 Doing well today.All sx's resolved.S o [...] review of plan of care. 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 Pt agrees to this plan, verbalized understand ing. consult scheduled Lesion of vulva [id number] 6 N90.89 External hemorrhoids 239 00605 K64.4 supportive care discussedi f symptoms continue recommend referral to colorectal surgery Time spent in visit is a total of 20 mins with at least 50% of visit consisting of counseling and review of plan of care. [id number] ALICE CHANCE MD [facility] [address] [address] 07/29/2024 13:46:56 07/30/2024 14:07:30 Vulval irritation 320161338 N90.89 - likely 2/2 vulvar atrophy, worsened by recent incontinen ce with URI- vulvar tissue very thin, erythemato us- recommend 1 month of vaginal estrogen, then reevaluati on with possible biopsy at that time if not improved [id number] ALICE CHANCE MD [place] [facility] [address] [address] 08/27/2024 13:55:43 08/27/2024 15:52:01 Vulval irritation [id number] N90.89 - likely 2/2 vulvar atrophy, worsened [...] Echeverria Member ID Guarantor Name 08/15/2022 1 [facility] (MEDICARE REPLACEMENT/A DVANTAGE - POS) [id number] Junie Alfred [id number] Junie Alfred 08/29/2022 1 [facility] (MEDICARE REPLACEMENT/A DVANTAGE - POS) [id number] Junie Alfred [id number] Junie Alfred 07/10/2024 1 [facility] (MEDICARE REPLACEMENT/A DVANTAGE - POS) [id number] Junie Alfred [id number] Junie Alfred 07/29/2024 1 [facility] (MEDICARE REPLACEMENT/A DVANTAGE - POS) [id number] Junie Alfred [id number] Junie Alfred 08/27/2024 1 [facility] (MEDICARE REPLACEMENT/A DVANTAGE - POS) [id number] Junie Alfred [id number] Junie Alfred Notes Date Note Type Note [...] updated it in her chart. [facility] [address], [place], [address], [facility] 08/22/2022 12:08:28 3 text/html Here today for f/u & med check. [facility] [address], [place], [address], [facility] 08/30/2022 10:04:48 5 text/html 73yohere [...] genital HSV CRISTIAN Campos [address], [place], [address], [facility] 07/10/2024 13:50:42 5 text/html Patient [...] bleeding. ALICE CHANCE MD [address], [place], [address], [facility] 07/29/2024 22:36:15 5 text/html Patient presents for med check of vaginal estrogen cream. She was prescribed vaginal estrogen for vulvar atrophy and irritation. She reports vast improvement in all of her symptoms. No bleeding or irritation. No side effects. ALICE CHANCE MD [address], [place], [address], [facility] 08/27/2024 15:51:27 OBGyn Episode Ob Episode Information Episode Created Date Number of Fetuses Patient Bloodtype Patient rh Status Prepregnancy Weight lbs Domestic Partner Domestic Partner Phone Father Name Elevator Serviceman Status 08/15/19 1 CLOSED Fetus Data First Name Last Name Admitted to NICU Weight (g) Sex Living Outcome Pediatric Complications Fetus ID Race Codes Race Delivery Type F Full Term [id number] Vaginal Delivery Ricardo Calculation Initial Ricardo Date [...] Domestic Partner Domestic Partner Phone Father Name Elevator Serviceman Status 08/15/19 23 1 CLOSED Fetus Data First Name Last Name Admitted to NICU Weight (g) Sex Living Outcome Pediatric Complications Fetus ID Race Codes Race Delivery Type F Full Term [id number] Vaginal Delivery Ricardo Calculation Initial Ricardo Date [...]
--- OUTSIDE RECORDS SUMMARY | 2024-10-19 12:20 | XMS_ITS | Clinical Summary ---
Author Organization [facility] Address [address] [place] [address] Care Team Providers Care Triage Registered Nurse Name Role Phone Kim Valencia MD Primary Care Provider [phone] Allergies No known active allergies Medications albuterol [...] into the lungs daily. 3 Active multi vitamin/minerals (THERA-M ENHANCED) tablet Take 1 tablet by mouth daily. Active Glucosamine 500 MG Cap Take by mouth daily. Active acetaminophen (TYLENOL) [address] 1 suppository (325 mg total) rectally every 4 (four) hours as needed for Fever. Active aspirin-acetamin ophen-caffeine (EXCEDRIN MIGRAINE) 250-250-65 MG tablet Take 1 tablet by mouth every 6 (six) hours as needed for Pain. Active HYDROcodone-acet aminophen (NORCO) 5-325 MG tabletIndication s:Acute Pain < 7 Day Supply Take 1-2 tablets by mouth every 4 (four) hours as needed (1 tab for moderate and 2 tabs for severe pain.). Indications: Acute Pain < 7 Day Supply 15 tablet 4 Active Active Problems Problem Noted Date Diagnosed [...] (10/17/2022): Added automatically from request for surgery [id number] Chronic obstructive pulmonar y disease, unspecified ([facility]) 08/29/2022 08/16/2023 Positive culture findings in [...] approved and scheduled for next Sunday with waterproofing mixer, along with repeat PFTs. Discussed that if CT were to show worsening disease, or it patient has worsening symptoms, we could discuss treatment regimen. - Pt in agreement with this plan of care. Will continue to follow-up with her waterproofing mixer. - Discussed with patient the rational for treatment, culture results, risk of recurrent infection, signs/symptoms of recurrent infection, and to contact ID clinic with any questions or concerns Bronchiectasis, uncomplicate d ([facility]) 08/29/2022 10/19/2022 Immunizations Immunization Administration Dates Next Due Fluzone 6 Months+ [...] = 0.6 oz pu re alcohol) occasioanlly [facility] Utilities Answer Date Recorded In the past 12 months has e [place], gas, oil, or water [employer] threatened to shut off services in your [...] place to sleep or slept in a skilled nursing (including now)? Patient declined 08/23/2023 Comments No Sex and Gender Information Value Date Recorded Sex Assigned at Not on file Legal Sex Female 2:46 AM CDT Gender Identity Not on file Sexual Orientation Not on file Last Filed Vital Signs Vital Sign Reading Time Taken Comments Blood Pressure 105/48 08/27/2023 11:54 AM WEAVE DEFECT CHARTING CLERK Pulse 88 08/27/2023 11:54 AM WEAVE DEFECT CHARTING CLERK Temperature 36.5 C (97.7 F) 08/27/2023 11:54 AM WEAVE DEFECT CHARTING CLERK Respiratory Rate 18 08/27/2023 11:5 4 AM WEAVE DEFECT CHARTING CLERK Oxygen Saturation 90% 08/27/2023 11: 54 AM WEAVE DEFECT CHARTING CLERK Inhaled Oxygen Concentration - - Weight 88.9 kg (195 lb 15.8 oz) 08/25/2023 5:00 AM WEAVE DEFECT CHARTING CLERK Height 160 cm (5' 3 ) 08/18/2023 1:55 AM WEAVE DEFECT CHARTING CLERK Body Mass Index 34.72 08/18/2023 1:55 AM WEAVE DEFECT CHARTING CLERK Plan of Treatment Health Maintenance Due Date Last Done Comments Colorectal Cancer Screening Colonoscopy (10 Years) 1950 Hepatitis C 10/26/1967 DTaP, Tdap and Td Vaccines (1 - Tdap) 1968 Mammogram Screening 1989 Zoster Vaccines (1 of 2) 10/26/1999 Annual Medicare Wellness Visit 2014 Dexa Scan (General) 2014 Pneumococcal Vaccine: 50+ Years (3 of 3 - PCV20 or PCV21) 02/27/2023 02/27/2018, 04/09/2013 COVID-19 Vaccine ( season) 2024 10/30/2022, 07/05/2021, 09/07/2020, Additional history exists RSV Immunization or 60+ [...] regarding the need for SNF placement Lifestyle No Jody Edward RN Medical Devices Implanted Type Area Swedger Device Identifier Shelf Expiration Date Model / Serial / Lot Graft Bone Cortical Strut Frozen 20cm - [id number] Implanted:Qty: 1 on 08/20/2023 by Xavi Bhatia MD at [facility] Bone Right: Femur [employer] [id number] 10/22/2024 [id number] / [id number] / Graft Bone Bonus Triad Cancellous Cortical 10cc Allograft - [id number] Implanted:Qty: 1 on 08/20/2023 by Xavi Bhatia MD at [facility] Bone Right: Leg [employer] 03/17/2027 [id number] / [id number] / Cap Joceline Ncb Locking 8mm - [id number] Implanted:Qty: 12 on 08/20/2023 by Xavi Bhatia MD at [facility] End Cap Right: Femur [employer] [id number] / / N/A Plate Joceline Distal Femur 15 Hole 317mm Right - [id number] Implanted:Qty: 1 on 08/20/2023 by Xavi Bahtia MD at [facility] Plate Right: Femur [employer] [id number] / / N/A Screw Joceline 5.0 Cortical Self Tapping 48mm - [id number] Implanted:Qty: 1 on 08/20/2023 by Xavi Bhatia MD at [facility] Screw Right: Femur [employer] [id number] / / N/A Screw Joceline 5.0 Cortical Self Tapping 42mm - [id number] Implanted:Qty: 1 on 08/20/2023 by Xavi Bhatia MD at [facility] Screw Right: Femur [employer] [id number] / / N/A Screw Joceline 5.0 Cortical Self Tapping 36mm - [id number] Implanted:Qty: 1 on 08/20/2023 by Xavi Bhatia MD at [facility] Screw Right: Femur [employer] [id number] / / N/A Screw Joceline 3.5 Cortical Self Tapping 38mm - [id number] Implanted:Qty: 2 on 08/20/2023 by Xavi Bhatia MD at [facility] Screw Right: Femur [employer] [id number] / / N/A Screw Joceline 5.0 Unicortical 14mm - [id number] Implanted:Qty: 1 on 08/20/2023 by Xavi Bhatia MD at [facility] Screw Right: Femur [employer] [id number] / / N/A Screw Joceline 5.0 Cortical Self Tapping 80mm - [id number] Implanted:Qty: 3 on 08/20/2023 by Xavi Bhatia MD at [facility] Screw Right: Femur [employer] [id number] / / N/A Screw Joceline 5.0 Cortical Self Tapping 60mm - [id number] Implanted:Qty: 1 on 08/20/2023 by Xavi Bhatia MD at [facility] Screw Right: Femur [employer] [id number] / / N/A Screw Joceline 5.0 Cortical Self Tapping 75mm - [id number] Implanted:Qty: 1 on 08/20/2023 by Xavi Bhatia MD at [facility] Screw Right: Femur [employer] [id number] / / N/A Screw Joceline 5.0 Cortical Self Tapping 70mm - [id number] Implanted:Qty: 1 on 08/20/2023 by Xavi Bhatia MD at [facility] Screw Right: Femur [employer] [id number] / / N/A Wire Fix 30cm 1.22mm Luq Loop - [id number] Implanted:Qty: 5 on 08/20/2023 by Xavi Bhatia MD at [facility] Wire Right: Femur [employer] [id number] / / NA Axsos 3 Ti 5.0 Variableangle Extension Arm Implanted:Qty: 1 on 10/17/2022 by Raffi Jeffries MD at [facility] Right: Femur 08/30/2023 [id number] / / [id number] 5 Locking Screw Implanted:Qty: 4 on 10/17/2022 by Raffi Jeffries MD at [facility] Right: Femur [employer] SYL [id number] / / 5 Locking Screw Implanted:Qty: 2 on 10/17/2022 by Raffi Jeffries MD at [facility] Right: Femur [employer] [place] [id number] / / 5 Locking Screw Implanted:Qty: 1 on 10/17/2022 by Raffi Jeffries MD at [facility] Right: Femur [employer] [place] [employer] [id number] / / 4 Locking Screw Implanted:Qty: 1 on 10/17/2022 by Raffi Jeffries MD at [facility] Right: Femur [employer] [place] SYL [id number] / / 5 Locking Screw Implanted:Qty: 1 on 10/17/2022 by Raffi Jeffries MD at [facility] Right: Femur [employer] [place] [id number] / / Tigertape Cerclage Implanted:Qty: 2 on 10/17/2022 by Raffi Jeffries MD at [facility] Right: Femur 05/01/2025 [id number] / / [id number] Distal Femur Plate Right Implanted:Qty: 1 on 10/17/2022 by Raffi Jeffries MD at [facility] Right: Femur [employer] [place] SY[employer] [id number] / / 4.5 Non Locking Screw Implanted:Qty: 1 on 10/17/2022 by Raffi Jeffries MD at [facility] Right: Femur [employer] SY[employer] [id number] / / 4.5 Non Locking Screw Implanted:Qty: 2 on 10/17/2022 by Raffi Jeffries MD at [facility] Right: Femur [employer] [id number] / / 5 Locking Screw Implanted:Qty: 1 on 10/17/2022 by Raffi Jeffries MD at [facility] Right: Femur [employer] [id number] / / 5 Locking Screw Implanted:Qty: 1 on 10/17/2022 by Raffi Jeffries MD at [facility] Right: Femur [employer] [id number] / / 5 Locking Screw Implanted:Qty: 1 on 10/17/2022 by Raffi Jeffries MD at [facility] Right: Femur [employer] [id number] / / Explanted Type Area Swedger Device Identifier Shelf Expiration Date Model / Serial / Lot Drill Bit Joceline 4.3mm - [id number] Explanted:Qty: 1 on 08/20/2023 by Xavi Bhatia MD at [facility] Drill Right: Femur [employer] [id number] / / N/A Pin Steinmann Threaded Brasseler 2.0 - [id number] Explanted:Qty: 1 on 08/20/2023 by Xavi Bhatia MD at [facility] Pin Right: Leg [facility] [facility] [id number] 05/18/2027 [id number] / / [id number] 3.1 Drill Bit Explanted:Qty: 1 on 10/17/2022 by Raffi Jeffries MD at [facility] Right: Femur [employer] [id number] / / 3.2 Drill Bit Explanted:Qty: 1 on 10/17/2022 by Raffi Jeffries MD at [facility] Right: Femur [employer] [id number] / / 4.3 Drill Bit Explanted:Qty: 1 on 10/17/2022 by Raffi Jeffries MD at [facility] Right: Femur [employer] [id number] / / K Wire Explanted:Qty: 2 on 08/20/2023 by Xavi Bhatia MD at [facility] Right: Femur [employer] 290.20.28 0 / / N/A Drill Bit 3.3 Explanted:Qty: 2 on 08/20/2023 by Xavi Bhatia MD at [facility] Right: Femur [employer] [id number]. [id number] / / N/A Insurance [facility] [address] MEDICAL REIMBURSEMENTS OF [employer] COMP Advance Directives * Full Code (Latest Code [...] 4:06 PM 2022 4:29 PM Care Teams Triage Registered Nurse Relationship Specialty Start Date End Date Kim Valencia MD [address] [facility] [address] [facility] [address] [place] [address] PCP - General FAMILY PRACTICE 10/17/22
--- OUTSIDE RECORDS SUMMARY | 2024-10-19 12:20 | XMS_ITS | Referral Summary ---
Author Organization [facility] [address] Address [address] [place] [address] Care Team Providers Care Fountain Jerk Name Role Phone Kim Valencia MD Primary [...] 08/29/2022 Assessment & Plan (08/29/2022 3:02 PM MOLDING MACHINE SETTER): - Discussed with patient that her symptoms [...] approved and scheduled for next Sunday with square dance caller, along with repeat PFTs. Discussed that if CT were to show worsening disease, or it patient has worsening symptoms, we could discuss treatment regimen. - Pt in agreement with this plan of care. Will continue to follow-up with her square dance caller. - Discussed with patient the rational for [...] on file Legal Sex Female 7:28 PM MOLDING MACHINE SETTER Gender Identity Not on file Sexual Orientation Not on file Last Filed Vital Signs Vital Sign Reading Time Taken Comments Blood Pressure 156/85 08/28/2022 10:01 AM MOLDING MACHINE SETTER Pulse 67 08/28/2022 10:01 AM MOLDING MACHINE SETTER Temperature 36.7 C (98.1 F) 08/28/2022 10:01 AM MOLDING MACHINE SETTER Respiratory Rate 12 04/25/2021 2:35 PM CDT Oxygen Saturation - - Inhaled Oxygen Concentration - - Weight 78.8 kg (173 lb 11.2 oz) 023 10:01 AM MOLDING MACHINE SETTER Height 160 cm (5' 2.99 ) 08/28/2022 10: 01 AM MOLDING MACHINE SETTER Body Mass Index 30.78 08/28/2022 10:01 AM MOLDING MACHINE SETTER Plan of Treatment Not on file Procedures [...] CDT PROCEDURE REPORT Patient: JUNIE RODRÍGUEZ Account: [id number] Room No: : 1950 Patient Type: [facility] Attend.: Hilary Mchugh M.D. Admit Date: 10/31/2013 [...] Most Recently Relevant to Health Maintenance Insurance [facility] Address: [place] [address] HMO REF [facility] Address: [place] [phone] [facility] MDCR HMO REF [facility] Address: [address] [address] [place] [address] [facility] [employer] [facility] Address: [address] [address] [place] [address] Care Teams Fountain Jerk Relationship Specialty Start Date End Date Kim Valencia MD [address] [facility] [address] [place] [address] PCP - General Family Medicine 09/09/19
--- OUTSIDE RECORDS SUMMARY | 2024-10-19 12:20 | XMS_ITS | Clinical Summary ---
Author Organization [facility] [address] Address [address] [place] [address] Care Team Providers Care Dress Draper Name Role Phone Kim Valencia MD Primary [...] 08/29/2022 Assessment & Plan (08/29/2022 3:02 PM SUPERINTENDENT COMMUNICATIONS): - Discussed with patient that her symptoms [...] approved and scheduled for next Sunday with stage setting painter apprentice, along with repeat PFTs. Discussed that if CT were to show worsening disease, or it patient has worsening symptoms, we could discuss treatment regimen. - Pt in agreement with this plan of care. Will continue to follow-up with her stage setting painter apprentice. - Discussed with patient the rational [...] on file Legal Sex Female 7:28 PM SUPERINTENDENT COMMUNICATIONS Gender Identity Not on file Sexual Orientation Not on file Obstetrics History Last Filed Vital Signs Vital Sign Reading Time Taken Comments Blood Pressure 156/85 08/28/2022 10:01 AM SUPERINTENDENT COMMUNICATIONS Pulse 67 08/28/2022 10:01 AM SUPERINTENDENT COMMUNICATIONS Temperature 36.7 C (98.1 F) 08/28/2022 10:01 AM SUPERINTENDENT COMMUNICATIONS Respiratory Rate 12 04/25/2021 2:35 PM CDT Oxygen Saturation - - Inhaled Oxygen Concentration - - Weight 78.8 kg (173 lb 11.2 oz) 023 10:01 AM SUPERINTENDENT COMMUNICATIONS Height 160 cm (5' 2.99 ) 08/28/2022 10: 01 AM SUPERINTENDENT COMMUNICATIONS Body Mass Index 30.78 08/28/2022 10:01 AM SUPERINTENDENT COMMUNICATIONS Plan of Treatment Health Maintenance Due Date [...] 04/09/2013 Colon Cancer Screening-Colonoscopy 11/01/20232013 Influenza Vaccine (Season Ended) 2025 05/06/2019, 04/26/2018, 03/27/2017, Additional history exists Procedures Procedure [...] CDT PROCEDURE REPORT Patient: JUNIE RODRÍGUEZ Account: [id number] Room No: : 1950 Patient Type: SDS [...] Hilary Mchugh MD On 11/05/2013 09:54:57 AM us Historical Provider ENDOSCOPY PROCEDURES Zenobia l Result from Last 3 Months or Most Recently Relevant to Health Maintenance [facility] REF HMO REF HMO REF Member Subscriber Plan / Payer (Ef fective 2020-Present) Name:Junie Rodríguez Relation to Subscriber:Self Name:Junie Rodríguez Payer ID:[id number] (NAIC) Type:[facility] MEDICARE Address: [address] MEDICARE ADVANTAGE Care Teams Dress Draper Relationship Specialty Start Date End Date Kim Valencia MD [address] [facility] [address] [place] [phone] PCP - General Family Medicine 09/09/19
--- NOTE | 2024-10-19 12:22 | ED.LOWEXIN ---
HPI - Extremity Injury (Lower) General Chief Complaint: Extremity Injury, Lower Stated Complaint: possible dislocated hip Time Seen by Provider: 10/19/24 12:06 History of Present Illness HPI Narrative: Patient had recent hip replacement, bent over in the bathroom and felt something pop with sharp pain to her left hip. EMS called, they did give her pain medication and with a transferred her here, she thinks that she may have felt a pop back in. Denies any pain right now but she had been given pain medicine by EMS Related Data Allergies Allergy/AdvReac Type Severity Reaction Status Date / Time [id number] Reductase AdvReac Intermediate Muscle Pain Verified 10/19/24 11:56 Inhibitor lisinopril AdvReac Mild cough Verified 10/19/24 11:56 Review of Systems Review of Systems: All systems reviewed & are unremarkable except as noted in HPI and below PMFSH Past Medical History Medical History (Updated 10/19/24 @ 14:29 by Yarelis Hughes MD) Contusion of left shoulder Wound, open, toe Abnormal CXR Osteoporosis Emphysema of lung Wears glasses Dizziness Left shoulder pain Fracture of one rib, left side, subsequent encounter for fracture with routine healing Tremor of both hands Malaise Left rib fracture Acute bilateral thoracic back pain Aftercare following right hip joint replacement surgery Carpal tunnel syndrome of left wrist Coarse tremors Herpes simplex vulvovaginitis Mixed hyperlipidemia Vitamin D deficiency, unspecified Numbness and tingling of left side of face Neck pain Numbness and tingling of right face Left buttock abscess Adenomatous colon polyp Fall Quadriceps weakness Overweight (BMI 25.0-29.9) COPD (chronic obstructive pulmonary disease) Degenerative joint disease of knee Hyperlipidemia History of tobacco use disorder Benign reactive hypertension Abdominal hernia History of vaginal delivery x 2 Acid reflux High cholesterol Skin cancer Benign hypertension Arthritis Herpes genitalis in women Surgical History Surgical History (Updated 09/25/24 @ 08:21 by ROSHAN Shoemaker) S/P total left hip arthroplasty Presence of right artificial hip joint History of right inguinal hernia repair History of open reduction and internal fixation (ORIF) procedure left wrist Status post total knee replacement Right S/P ORIF (open reduction internal fixation) fracture distal radius- Left Hx of rotator cuff surgery Hx of total hip arthroplasty Right Family History Family History Father Family history of Parkinson's disease Mother Patient's mother is , Onset Age: 42 Other Cerebrovascular accident Family history of malignant neoplasm Social History Social History (Updated 10/16/24 @ 13:05 by Maria Teresa Kamara MA) Social History: Patient lives at home with her grown granddaughter. She wishes to be listed as a Full Code. Her PCP is Dr. Alvarez. Smoking packs per day: 0 Smoking cigarettes per day: 0.0 Years smoked: 43 Smoking pack-years: 0.00 Smoking status: Former smoker Tobacco type: cigarettes Second hand tobacco smoke exposure: No Smoking end date: 07/02/12 Alcohol intake: current Drinks per week: 12 Alcohol use details: wine Substance use: never Substance use type: marijuana Last use: 2x monthly Do You Feel Safe in your Home?: Yes Lack of Transportation: No Lack of Food: Never True Current Housing: I Have Housing Concerned About Future Housing: No Difficulty Paying Gas/Electric Bills: No Difficulty Paying for Meds: No Currently Unemployed: No Education: Grade School Difficulty w/ Childcare or Family Care: No Living arrangements: alone Occupation/Education: retired Gender identity (if verbalized by the patient): Female Sexual Orientation (if Verbalized by the Patient): Straight or Heterosexual Spiritual care concerns: No Exam Narrative: EXAMINATION OF ORGAN SYSTEMS/BODY AREAS: Constitutional: Vital signs per nursing GENERAL:[No acute distress, non-toxic appearing.] HEAD: Normal with no signs of head trauma. EYES: EOMI, conjunctiva normal ENT: Hearing grossly intact LUNGS: Nonlabored breathing. HEART: [Regular rate and rhythm], normal DP pulse ABD: [Soft], [nontender to palpation] EXT: LLE foreshortened SKIN: Warm extremity NEURO: [Alert and oriented x 3. No gross focal sensory or strength deficits.] PSYCH: Normal affect Course Vital Signs Vital signs: Vital Signs Temperature 98.3 F 10/19/24 11:45 Pulse Rate 67 10/19/24 11:45 Respiratory Rate 17 10/19/24 11:45 Blood Pressure 151/74 H 10/19/24 11:45 Pulse Oximetry 100 10/19/24 11:45 Oxygen Delivery Room Air 10/19/24 11:45 Temperature 97.6 F 10/19/24 14:28 Pulse Rate 59 L 10/19/24 14:28 Respiratory Rate 14 10/19/24 14:28 Blood Pressure 115/54 L 10/19/24 14:28 Pulse Oximetry 99 10/19/24 14:28 Oxygen Delivery Room Air 10/19/24 14:28 Oxygen Flow Rate 3 10/19/24 13:58 Procedures Orthopedic Joint Reduction Joint #1: Orthopedic Joint Reduction Date: 10/19/24 Orthopedic Joint Reduction Time: 14:03 Time Out Performed: Yes Side: left Joint Reduction Location: hip Analgesia: procedural sedation Pre-Procedure Neuro Vascular Exam: normal Technique used: traction/counter-traction and direct manipulation Post-reduction neuro exam: intact Post-reduction vascular: intact Post Reduction X-Ray Obtained: Yes Patient Tolerated Procedure: well and no complications Procedural Sedation Procedural Sedation #1: Procedural Sedation Date: 10/19/24 Procedural Sedation Time: 14:00 Procedure: closed hip reduction Provider Performed: sedation and procedure Informed Consent Obtained: yes Equipment in Room: bag and mask, capnography, [employer], crash cart, oxygen, pulse oximeter and suction Plan for Sedation: moderate sedation ASA Class: II Mallampati Classification: class II NPO Status: last solid food (hours ago) Explanation to Patient/Family: Risk/Benefits/Alternatives and Pt/Family agreed with plan Pt. Educated on Procedural Sedation: Yes Re-evaluated immediately prior: Yes Preparation: [employer] applied, pulse oximeter, capnometry used, supplemental O2 applied, suction/airway equipment at bedside and IV secured IV Propofol dose (mg): 120 Patient Tolerated Procedure: well and no complications Interventions: oxygen applied and airway repositioned Total Sedation Time (min): 5 MDM - Extremity Injury (Lower) MDM Narrative Medical decision making narrative: Patient presenting here with left hip pain, had recent total hip left hip replacement here Does have for shortened leg on exam, after medication wear off she has excruciating pain, additional narcotics given and x-ray unfortunately on my independent interpretation does show a dislocated artificial hip. Will prepare for moderate sedation at bedside, discussed with orthopedic surgeon who will come in for reduction. Reaction successful at bedside with Dr Garcia and myself. Confirmed on x-ray. Patient now awake and very happy and pain-free, family at bedside, strict return precautions, directions to avoid activities that would dislocate hip, and f/u advised with ortho. Pt/family agreeable to plan. Lab Data 10/19/24 13:31 10/19/24 13:31 Labs: Lab Results 10/19/24 Range/Units 13:31 WBC 8.6 (4.5-10.0) K/mm3 RBC 3.81 L (4.2-5.4) M/mm3 Hgb 11.0 L (12.0-15.0) g/dL Hct 36.0 L (37.0-47.0) % MCV 94.5 (80-100) fl MCH 28.9 (26-34) pg MCHC 30.6 L (32-36) g/dl RDW 14.5 (11.5-14.5) % Plt Count 268 D (150-375) k/mm3 MPV 9.2 (7.4-10.4) fl Immature Gran % (Auto) 0.2 (0-0.5) % Neut % (Auto) 79.7 H (45.5-73.1) % Lymph % (Auto) 11.0 L (18.3-44.2) % Bartholomew % (Auto) 4.9 (2.6-8.5) % Eos % (Auto) 3.6 (0-4.4) % Baso % (Auto) 0.6 (0.2-1.2) % Lymph # (Auto) 0.95 (0.9-3.2) K/mm3 Bartholomew # (Auto) 0.4 (0.1-0.6) K/mm3 Eos # (Auto) 0.3 (0-0.3) K/mm3 Baso # (Auto) 0.1 (0.0-0.1) K/mm3 Abs Immat Gran (auto) 0.02 (0.00-0.031) K/mm3 Absolute Neuts (auto) 6.9 H (1.3-6.7) K/mm3 Absolute Nucleated RBC 0.000 (0.0-0.012) K/mm3 Nucleated RBC % 0.0 (0.0-0.2) % Sodium 137 (137-145) mmol/L Potassium 4.7 (3.4-5.0) mmol/L Chloride 107 (98-107) mmol/L Carbon Dioxide 22 (22-30) mmol/L Anion Gap 8 (4-12) mmol/L BUN 18 H (7-17) mg/dL Creatinine 0.78 (0.7-1.0) mg/dL Estim Creat Clear Calc 54 ml/min Estimated GFR > 60 (59 - ) Glucose 96 (65-110) mg/dL Calcium 8.7 (8.4-10.2) mg/dL Discharge Plan Discharge Clinical Impression: Dislocation, hip Patient Disposition: Home Condition: Stable Instructions: Hip Dislocation (ED) Additional Instructions: Please follow-up with her orthopedic surgeon. Do not bend over, make sure that when you sleep you are sleeping with multiple pillows between your legs, do not cross your legs. Please come back to the hospital if this happens again. Patient Language: Upper Sorbian Prescriptions: No Action Anoro Ellipta 62.5-25 mcg/actuation blister with device See Rx Instructions .ROUTE .COMPLEX Qty: 60 1RF Dose Instruction: INHALE 1 PUFF DAILY Rx Instructions: INHALE 1 PUFF DAILY aspirin 325 mg Tablet,Delayed Release (Dr/Ec) 325 mg PO Q12HR 28 Days Qty: 56 0RF cholecalciferol (vitamin D3) 1,250 mcg (50,000 unit) capsule See Rx Instructions .ROUTE .COMPLEX Qty: 12 1RF Dose Instruction: TAKE 1 CAPSULE BY MOUTH WEEKLY Rx Instructions: TAKE 1 CAPSULE BY MOUTH WEEKLY primidone 50 mg tablet See Rx Instructions .ROUTE .COMPLEX Qty: 100 2RF Dose Instruction: TAKE 1 TALBET BY MOUTH DAILY AT BEDTIME Rx Instructions: TAKE 1 TALBET BY MOUTH DAILY AT BEDTIME losartan 100 mg tablet See Rx Instructions .ROUTE .COMPLEX Qty: 100 2RF Dose Instruction: TAKE 1 TABLET BY MOUTH DAILY Rx Instructions: TAKE 1 TABLET BY MOUTH DAILY ipratropium bromide 21 mcg (0.03 %) spray,non-aerosol 2 spray intranasal BID Qty: 30 2RF Rx Instructions: administer into each nostril montelukast 10 mg tablet See Rx Instructions .ROUTE .COMPLEX Qty: 100 2RF Dose Instruction: TAKE 1 TABLET BY MOUTH DAILY Rx Instructions: TAKE 1 TABLET BY MOUTH DAILY pantoprazole 40 mg tablet,delayed release (DR/EC) See Rx Instructions .ROUTE .COMPLEX Qty: 100 2RF Dose Instruction: TAKE 1 TABLET BY MOUTH IN THE MORNING Rx Instructions: TAKE 1 TABLET BY MOUTH IN THE MORNING oxycodone-acetaminophen 5-325 mg tablet 1 tablet PO Q8H PRN (Reason: pain) Qty: 40 0RF Follow-up/Referrals: Rajat Kimble MD [Primary Care Provider] - Jd Mitchell MD [Physician] - 2 Days
[2024-10-19] MEDS: HYDROmorphone HCL INJ (*CRX) 2 MG/ML VIAL 0.5 MG IV PUSH (12:52)
[2024-10-19] MEDS: HYDROmorphone HCL INJ (*CRX) 2 MG/ML VIAL 1 MG IV PUSH (13:33)
[2024-10-19 13:38] LABS: Basophils Absolute Auto 0.1 K/mm3 (0.0-0.1); Basophils Percent Auto 0.6 % (0.2-1.2); Eosinophils Absolute Auto 0.3 K/mm3 (0-0.3); Eosinophils Percent Auto 3.6 % (0-4.4); Immature Granulocyte Absolute 0.02 K/mm3 (0.00-0.031); Immature Granulocyte Percent A 0.2 % (0-0.5); Lymphocytes Absolute Auto 0.95 K/mm3 (0.9-3.2); Mean Corpuscular HGB Conc 30.6 g/dl (32-36); Mean Corpuscular Hemoglobin 28.9 pg (26-34); Mean Corpuscular Volume 94.5 fl (80-100); Mean Platelet Volume 9.2 fl (7.4-10.4); Monocytes Absolute Auto 0.4 K/mm3 (0.1-0.6); Monocytes Percent Auto 4.9 % (2.6-8.5); Neutrophils Absolute Auto 6.9 K/mm3 (1.3-6.7); Neutrophils Percent Auto 79.7 % (45.5-73.1); Platelet Count Result 268 k/mm3 (150-375); Red Blood Count 3.81 M/mm3 (4.2-5.4); Red Cell Distribution Width 14.5 % (11.5-14.5); White Blood Count 8.6 K/mm3 (4.5-10.0)
[2024-10-19 13:48] LABS: Anion Gap 8 mmol/L (4-12); Blood Urea Nitrogen 18 mg/dL (7-17); Calcium 8.7 mg/dL (8.4-10.2); Carbon Dioxide 22 mmol/L (22-30); Chloride 107 mmol/L (98-107); Estimated CRCL calculation 54 ml/min; Estimated Glomerular Filt Rate > 60; Glucose 96 mg/dL (65-110); Potassium 4.7 mmol/L (3.4-5.0); Sodium 137 mmol/L (137-145)
[2024-10-19] MEDS: SODIUM CHLORIDE 0.9% IV 1,000 ML 999 ML (13:52)
[2024-10-19] MEDS: PROPOFOL IV EMULSION 200 MG/20 ML VIAL 100 MG IV PUSH (13:57)
--- NOTE | 2024-10-19 13:58 | PC.NURSE ---
pt O2 was bumped up from 2L to 3L during moderate sedation due to pulse ox being 88%
--- NOTE | 2024-10-19 14:09 | PM.CNOR ---
Assessment and Plan Assessment and plan (1) Failure of left total hip arthroplasty with dislocation of hip: Code(s): T84.021A - Dislocation of internal left hip prosthesis, initial encounter Status: Acute Assessment and Plan: Closed reduction with sedation. - post reduction films showed successful reduction Plan 73 yr old female with Left MARA dislocation. - successful reduction performed at bedside. - posterior hip precautions with 3 pillows between legs at all times. - follow up with Dr Mitchell. History of Present Illness HPI Consult date: 10/19/24 Chief complaint: Left MARA Dislocation Narrative: 73 yr old female s/p Left MARA for Femoral Neck Fracture 09/24/2024. - bending over after shower to dry her Left Foot and ankle. - acute pain, brought in by daughter - Xrays show posterior superior dislocation of Left MARA PMFSH Past Medical History Medical History (Updated 10/19/24 @ 14:13 by Noé Garcia MD) Contusion of left shoulder Wound, open, toe Abnormal CXR Osteoporosis Emphysema of lung Wears glasses Dizziness Left shoulder pain Fracture of one rib, left side, subsequent encounter for fracture with routine healing Tremor of both hands Malaise Left rib fracture Acute bilateral thoracic back pain Aftercare following right hip joint replacement surgery Carpal tunnel syndrome of left wrist Coarse tremors Herpes simplex vulvovaginitis Mixed hyperlipidemia Vitamin D deficiency, unspecified Numbness and tingling of left side of face Neck pain Numbness and tingling of right face Left buttock abscess Adenomatous colon polyp Fall Quadriceps weakness Overweight (BMI 25.0-29.9) COPD (chronic obstructive pulmonary disease) Degenerative joint disease of knee Hyperlipidemia History of tobacco use disorder Benign reactive hypertension Abdominal hernia History of vaginal delivery x 2 Acid reflux High cholesterol Skin cancer Benign hypertension Arthritis Herpes genitalis in women Surgical History Surgical History (Updated 09/25/24 @ 08:21 by ROSHAN Shoemaker) S/P total left hip arthroplasty Presence of right artificial hip joint History of right inguinal hernia repair History of open reduction and internal fixation (ORIF) procedure left wrist Status post total knee replacement Right S/P ORIF (open reduction internal fixation) fracture distal radius- Left Hx of rotator cuff surgery Hx of total hip arthroplasty Right Family History Family History Father Family history of Parkinson's disease Mother Patient's mother is , Onset Age: 42 Other Cerebrovascular accident Family history of malignant neoplasm Social History Social History (Updated 10/16/24 @ 13:05 by Maria Teresa Kamara MA) Social History: Patient lives at home with her grown granddaughter. She wishes to be listed as a Full Code. Her PCP is Dr. Alvarez. Smoking packs per day: 0 Smoking cigarettes per day: 0.0 Years smoked: 43 Smoking pack-years: 0.00 Smoking status: Former smoker Tobacco type: cigarettes Second hand tobacco smoke exposure: No Smoking end date: 07/02/12 Alcohol intake: current Drinks per week: 12 Alcohol use details: wine Substance use: never Substance use type: marijuana Last use: 2x monthly Do You Feel Safe in your Home?: Yes Lack of Transportation: No Lack of Food: Never True Current Housing: I Have Housing Concerned About Future Housing: No Difficulty Paying Gas/Electric Bills: No Difficulty Paying for Meds: No Currently Unemployed: No Education: Grade School Difficulty w/ Childcare or Family Care: No Living arrangements: alone Occupation/Education: retired Gender identity (if verbalized by the patient): Female Sexual Orientation (if Verbalized by the Patient): Straight or Heterosexual Spiritual care concerns: No Meds Home Medications and Allergies Home Medications ?Medication ?Instructions ?Recorded ?Confirmed ?Type cholecalciferol (vitamin D3) 1,250 See Rx Instructions .Route 05/25/23 10/16/24 Rx mcg (50,000 unit) capsule .COMPLEX #12 caps primidone 50 mg tablet See Rx Instructions .Route 02/13/24 10/16/24 Rx .COMPLEX #100 tabs umeclidinium 62.5 mcg-vilanterol See Rx Instructions .Route 07/24/24 10/16/24 Rx 25 mcg/actuation powdr for .COMPLEX #60 ea inhalation (Anoro Ellipta) losartan 100 mg tablet See Rx Instructions .Route 08/11/24 10/16/24 Rx .COMPLEX #100 tabs ipratropium bromide 21 mcg (0.03 2 spray intranasal BID #30 mL 09/22/24 10/16/24 Rx %) nasal spray montelukast 10 mg tablet See Rx Instructions .Route 09/23/24 10/16/24 Rx .COMPLEX #100 tabs pantoprazole 40 mg tablet,delayed See Rx Instructions .Route 09/23/24 10/16/24 Rx release .COMPLEX #100 tabs aspirin 325 mg tablet,delayed 325 mg PO Q12HR 28 days #56 tabs 09/25/24 10/16/24 Rx release oxycodone-acetaminophen 5 mg-325 1 tablet PO Q8H PRN pain #40 tabs 10/15/24 10/16/24 Rx mg tablet Allergies Allergy/AdvReac Type Severity Reaction Status Date / Time [id number] Reductase AdvReac Intermediate Muscle Pain Verified 10/19/24 11:56 Inhibitor lisinopril AdvReac Mild cough Verified 10/19/24 11:56 Vital Signs Vital Signs - 24 hr 10/19/24 11:45 10/19/24 12:16 10/19/24 12:31 Temperature 36.8 C Pulse Rate 67 68 70 Pulse Rate [Monitor] Respiratory Rate 17 17 14 Blood Pressure 151/74 H 127/62 138/69 Blood Pressure [Right Arm] Pulse Oximetry 100 91 95 Oxygen Delivery Room Air Oxygen Flow Rate 10/19/24 12:46 10/19/24 13:16 10/19/24 13:37 Temperature Pulse Rate 77 63 65 Pulse Rate [Monitor] Respiratory Rate 19 17 16 Blood Pressure 163/98 H 136/71 134/78 Blood Pressure [Right Arm] Pulse Oximetry 100 94 97 Oxygen Delivery Oxygen Flow Rate 10/19/24 13:52 10/19/24 13:57 10/19/24 13:58 Temperature 36.7 C 36.7 C 36.8 C Pulse Rate Pulse Rate [Monitor] 63 75 72 Respiratory Rate 16 18 19 Blood Pressure Blood Pressure [Right Arm] 133/64 140/85 135/58 L Pulse Oximetry 97 93 92 Oxygen Delivery Room Air Nasal Cannula Nasal Cannula Oxygen Flow Rate 2 3 Exam Narrative: Left lower extremity shortened and externally rotated. Results Labs 10/19/24 13:31 10/19/24 13:31 Labs: Abnormal lab results 10/19/24 Range/Units 13:31 RBC 3.81 L (4.2-5.4) M/mm3 Hgb 11.0 L (12.0-15.0) g/dL Hct 36.0 L (37.0-47.0) % MCHC 30.6 L (32-36) g/dl Neut % (Auto) 79.7 H (45.5-73.1) % Lymph % (Auto) 11.0 L (18.3-44.2) % Absolute Neuts (auto) 6.9 H (1.3-6.7) K/mm3 BUN 18 H (7-17) mg/dL H & H 04/20/25 Range/Units 13:31 Hgb 11.0 L (12.0-15.0) g/dL Hct 36.0 L (37.0-47.0) % All other labs normal.
--- NOTE | 2024-10-19 14:10 | PC.NURSE ---
pt given 80mg of propofol at 1357 per EDP pt given another 40mg of propofol at 1358 per EDP fluids hanging during procedure
--- NOTE | 2024-10-19 14:17 | W.PM.PROC2 ---
Procedure Note - Detailed Date of Procedure 10/19/24 Pre-op Diagnosis Left MARA Dislocation Post-op Diagnosis Same Procedure Performed Closed reduction with sedation in ER of Left MARA. Surgeon Noé Garcia MD Anesthesia Other Indications Left MARA dislocation Findings Left MARA Dislocation with no fracture Description of Procedure after consultation with patient and family, sedation was initiated by ER MD. - hip flexed at 90 deg with knee flexed at 90 degrees. - palpable and audible clunk felt - limb lengths equal
== END 2024-10-19 16:27 | disposition home or self-care (01) ==
PROVIDERS: Emergency Provider Emergency Medicine; PCP Family Medicine
DX: T84.021A Dislocation of internal left hip prosthesis, initial encounter (principal); J43.9 Emphysema, unspecified; E78.2 Mixed hyperlipidemia; E55.9 Vitamin D deficiency, unspecified; I10 Essential (primary) hypertension; K21.9 Gastro-esophageal reflux disease without esophagitis; M81.0 Age-related osteoporosis without current pathological fracture; M19.90 Unspecified osteoarthritis, unspecified site; Z96.651 Presence of right artificial knee joint; Z96.643 Presence of artificial hip joint, bilateral; Z85.828 Personal history of other malignant neoplasm of skin; Z87.891 Personal history of nicotine dependence; Y79.2 Prosthetic and other implants, materials and accessory orthopedic devices associated with adverse incidents
CPT/HCPCS: 27265; 36415; 73502; 80048; 85025; 96374; 96375; 99285; J1171; J2704; J7030

== ENCOUNTER 2024-10-28 13:50 | Outpatient (RCR) | payer MEDICARE, SELFPAY ==
--- NOTE | 2024-10-28 14:54 | PTOPEVAL1 ---
Assessment and note entered by Candis Archibald DPT Evaluation Information Assessment Status Evaluation Diagnosis L hip pain and weakness ICD-10 Condition Codes (PT) Pain in left hip M25.552 Other ICD-10 Condition Codes ( T84.021A, Z96.642, S72.002A, M81.0 PT) Onset 09/22/24 Subjective Information Patient reports on 09/22/24 she fell on her left side and fractured her L hip. She reports she underwent a L MARA on 09/24/24. She reports last week she was getting out of the shower and bent over too far and dislocated her left hip. She reports she went back to the hospital and it was relocated. She reports she has been using a FWW since surgery. She reports prior she was using a STC. She reports she is now retired. She reports difficulty walking, navigating stairs, sleeping, dressing and getting into and out of the car. She reports she has done home health. She returns to [place] in November. She has history of prior R femur fracture, R MARA, R TKA Reported Pain Level Pain Score 2: Self Report Assessment PT Clinical Summary Ms. Alfred is a 74 year old female who presents to PT with L LE strength and weakness s/p L MARA. She demonstrates decreased L LE strength, impaired gait and posterior hip precautions limiting her ability to ambulate prolonged distances, navigate stairs, sleep and complete house hold tasks. She would benefit from skilled PT to address impairments and return to [facility]. Plan of Care Interventions Electrical Stimulation,Gait Training,Hot Pack/Cold Pack,Manual Therapy,Neuro Re-education,Patient/ Caregiver Education,Therapeutic Activities, Therapeutic Exercise PT Services Indicated Yes Treatment Frequency and 2x weekly for 10 visits Duration These treatments will address the objective and functional deficits as defined above. The patient will be advanced safely and appropriately in order for the patient to progress towards his/her prior level of function. Additional exercises will be introduced and as well as a comprehensive home exercise program upon discharge, if needed, ?to ensure carryover of functional gains achieved in the clinic. This treatment plan has been reviewed and agreement upon by the patient.
--- NOTE | 2024-12-02 15:51 | PTOPDC ---
Assessment and note entered by Candis Archibald DPT Evaluation Information Assessment Status Re-evaluation Diagnosis L hip pain and weakness ICD-10 Condition Codes (PT) Pain in left hip M25.552 Other ICD-10 Condition Codes ( T84.021A, Z96.642, S72.002A, M81.0 PT) Onset 09/22/24 Subjective Information Patient reports she is still limited in her ability to bend over very far. She reports she has been able to navigate steps, complete dishes and put on her shoes. Patient reports she is sleeping better. She also reports she is slow to get into and out of the car. She reports she is still using a cane. She reports she is not having hip pain but is having low back pain. RTMD at end of November. Reported Pain Level Pain Score 0: Self Report Assessment PT Clinical Summary Ms. Alfred has been seen for 10 visits of skilled PT with good progress towards goals. She demonstrates improved LE strength, improved gait mechanics and decrease in hip pain. She has improved ability to do dishes, navigate steps, get into and out of the car and get dressed. She is independent with HEP and is appropriate for DC at this time. Plan of Care PT Services Indicated No
== END 2024-12-02 20:00 | disposition home or self-care (01) ==
LOC: CHSPT 13:50
PROVIDERS: Visit Provider Orthopaedic Surgery
DX: T84.021A Dislocation of internal left hip prosthesis, initial encounter (principal); S72.002A Fracture of unspecified part of neck of left femur, initial encounter for closed fracture; M81.0 Age-related osteoporosis without current pathological fracture; Z96.642 Presence of left artificial hip joint
CPT/HCPCS: 97110; 97112; 97161; 97530

== ENCOUNTER 2024-10-30 13:54 | Outpatient (CLI) | payer MEDICARE, SELFPAY ==
[2024-10-30] VITALS (9 sets, daily range): PULSE 74–90; O2SAT 90–95
--- OUTSIDE RECORDS SUMMARY | 2024-10-30 14:40 | XMS_ITS | Referral Summary ---
Author Organization [facility] [address] Address [address] [place] [address] Care Team Providers Care Speech Therapist Technician Name Role Phone Kim Valencia MD Primary [...] 08/29/2022 Assessment & Plan (08/29/2022 3:02 PM FACILITY DESIGNER): - Discussed with patient that her symptoms [...] approved and scheduled for next Sunday with insulation estimator, along with repeat PFTs. Discussed that if CT were to show worsening disease, or it patient has worsening symptoms, we could discuss treatment regimen. - Pt in agreement with this plan of care. Will continue to follow-up with her insulation estimator. - Discussed with patient the rational for [...] on file Legal Sex Female 7:28 PM FACILITY DESIGNER Gender Identity Not on file Sexual Orientation Not on file Last Filed Vital Signs Vital Sign Reading Time Taken Comments Blood Pressure 156/85 08/28/2022 10:01 AM FACILITY DESIGNER Pulse 67 08/28/2022 10:01 AM FACILITY DESIGNER Temperature 36.7 C (98.1 F) 08/28/2022 10:01 AM FACILITY DESIGNER Respiratory Rate 12 04/25/2021 2:35 PM CDT Oxygen Saturation - - Inhaled Oxygen Concentration - - Weight 78.8 kg (173 lb 11.2 oz) 023 10:01 AM FACILITY DESIGNER Height 160 cm (5' 2.99 ) 08/28/2022 10: 01 AM FACILITY DESIGNER Body Mass Index 30.78 08/28/2022 10:01 AM FACILITY DESIGNER Plan of Treatment Not on file Procedures [...] CDT PROCEDURE REPORT Patient: JUNIE RODRÍGUEZ Account: [id number] Room No: : 1950 Patient Type: [facility] Attend.: Hilary Mchugh M.D. Admit Date: [...] Most Recently Relevant to Health Maintenance Insurance [facility] MEDICARE Address: [place] [address] HMO REF [facility] MEDICARE Address: [place] [phone] [facility] MDCR HMO REF [facility] MEDICARE Address: [address] [address] [place] [address] [facility] MEDICARE ADVANTAGE [facility] MED[facility] Address: [address] [address] [place] [address] Care Teams Speech Therapist Technician Relationship Specialty Start Date End Date Kim Valencia MD [address] [facility] [address] [place] [address] PCP - General Family Medicine 09/09/19
--- OUTSIDE RECORDS SUMMARY | 2024-10-30 14:40 | XMS_ITS | Data Portability ---
Author Organization [facility] Address [address] [place] [address] Care Team Providers Care Hand Tire Trimmer Name Role Phone CRYSTAL LEWIS Primary Care Provider Assessment No assessment recorded. Plan of Treatment Reminders Order Date Submit Date Provider Last Modified By Organization Details Last Modified Time Details Appointments None recorded. Lab None recorded. Referral None recorded. Procedures None recorded. Surgeries None recorded. Imaging None recorded. Medication Orders estradiol 0.01% (0.1 mg/gram) vaginal cream 2024 025 [facility]/Pharmacy #[id number], [address] [place], [address], 5 22:36:03 estradiol 0.01% (0.1 mg/gram) vaginal cream [address]/Pharmacy #[id number], [address] [place], [address], 5 12:53:58 nystatin-t riamcinolo ne 100,000 unit/gram- 0.1 % topical ointment [address]/Pharmacy #[id number], [address] [place], [address], 5 12:54:44 Valtrex 1 gram tablet [address]/Pharmacy #[id number], [address] [place], [address], 12:54:29 Patient TargetsNo targets recorded. Patient InstructionsNo instructions recorded. Reason for Referral None Reported. Procedures Surgical History Date Name Laterality Status Provider Name and Address Organization Details Recorded Time 08/02/19 20 Date of Last Pap Smear completed [facility] 08/15/2022 09:54:06 complete repair of rotator cuff completed [facility] 08/15/2022 09:56:25 procedure on wrist completed Sera Noyola [facility] [address], [place], [address], [facility] 08/15/2022 10:07:52 Total hip arthroplasty completed Sera Noyola [facility] [address], [place], [address], [facility] 08/15/2022 10:08:31 total knee replacement completed Sera Noyola [facility] [address], [place], [address], [facility] 08/15/2022 10:08:17 Imaging Results None recorded. [...] Updated DateTime 08/15/2022 160.02 cm 31 kg/m2 18022.95 g 136 mm[Hg] 82 mm[Hg] [facility] 3 09:52:19 Date Recorded Body height Body mass index (BMI) Body weight Systolic blood pressure Diastolic blood pressure Provider Name and Address Organization Details Last Updated DateTime 08/29/2022 160.02 cm 31.2 kg/m2 51639.69 g 130 mm[Hg] 71 mm[Hg] [facility] 3 16:29:54 Date Recorded Body height Body mass index (BMI) Body weight Systolic blood pressure Diastolic blood pressure Provider Name and Address Organization Details Last Updated DateTime 07/10/2024 160.02 cm 29.4 kg/m2 08592.33 g 139 mm[Hg] 77 mm[Hg] Jodi Stout [facility] 5 12:52:01 Date Recorded Body height Body mass index (BMI) Body weight Systolic blood pressure Diastolic blood pressure Provider Name and Address Organization Details Last Updated DateTime 07/29/2024 160.02 cm 28.9 kg/m2 95243.56 g 150 mm[Hg] 82 mm[Hg] Apryl Gastelumen [facility] 5 14:18:52 Date Recorded Body height Body mass index (BMI) Body weight Systolic blood pressure Diastolic blood pressure Provider Name and Address Organization Details Last Updated DateTime 08/27/2024 160.02 cm 28.9 kg/m2 75784.56 g 142 mm[Hg] 74 mm[Hg] Apryl Swati [facility] 5 14:01:22 Social History Question Answer Notes LastModified by Organizat ion Details LastModified Time Tobacco Smoking Status Never Smoker Lyndsay Tapia violeta, [facility] 08/15/2022 09:56:08 What Is Your Level [...] COVID-19 While That Person Was Ill? No [email or web address] Information not available 07/29/2024 Have You Been To An Area Known To Be High Risk For COVID-19? No Information not available 07/29/2024 Are You Deaf [...] (Food, seasonal, environmental ) N Other N Drug/Latex Allergies/Reactions N Breast Cancer N Blood Transfusion N Lung Disease N Dermatologic Disorders N Defects or Inherited Disease N Breast Problem N Gestational Diabetes N Hematologic disorders N Anesthesia Complications N History of STI Y Deep Vein Thrombosis N Polycystic ovary syndrome N Anxiety Disorder N Autoimmune disease N Arthritis N Polyps N Infertility N History of abnormal pap N Acid Reflux (GERD) Y Cancer N Varicosities N Stroke N Neurologic/Epilepsy N Endometriosis N High Cholesterol Y Headaches N Fibromyalgia N Kidney Disease N Heart Problems N Thyroid Problems N Kidney or Bladder Problems N GI Problems N Eating Disorder [...] SNOMED-CT Code Diagnosis ICD10 Code Diagnosis Note [id number] Sera Noyola [facility] [address] [address] 08/15/2022 09:39:19 08/16/2022 16:29:39 Genital herpes simplex 50060193 A60.9 Today we discussed use of Valtrex. [...] review of plan of care. Vulval irritation 954418 003 N90.89 [id number] [facility] [address],[place] [address] 08/29/2022 16:20:17 08/30/2022 11:26:23 Genital herpes simplex 54685633 A60.9 Doing well today.All sx's resolved.S o [...] review of plan of care. 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 Pt agrees to this plan, verbalized understand ing. consult scheduled Lesion of vulva 86191918 6 N90.89 External hemorrhoids 239 86575 K64.4 supportive care discussedi f symptoms continue recommend referral to colorectal surgery Time spent in visit is a total of 20 mins with at least 50% of visit consisting of counseling and review of plan of care. [id number] ALICE CHANCE MD [place] [address] [address] 07/29/2024 13:46:56 07/30/2024 14:07:30 Vulval irritation 312112331 N90.89 - likely 2/2 vulvar atrophy, worsened by recent incontinen ce with URI- vulvar tissue very thin, erythemato us- recommend 1 month of vaginal estrogen, then reevaluati on with possible biopsy at that time if not improved [id number] ALICE CHANCE MD [place] [address] [address] 08/27/2024 13:55:43 08/27/2024 15:52:01 Vulval irritation 378396071 N90.89 - likely 2/2 vulvar atrophy, worsened [...] Echeverria Member ID Guarantor Name 08/15/2022 1 [facility] (MEDICARE REPLACEMENT/A DVANTAGE - POS) [id number] Junie Alfred [id number] Junie Alfred 08/29/2022 1 [facility] (MEDICARE REPLACEMENT/A DVANTAGE - POS) [id number] Junie Alfred [id number] Junie Alfred 07/10/2024 1 [facility] (MEDICARE REPLACEMENT/A DVANTAGE - POS) [id number] Junie Alfred [id number] Junie Alfred 07/29/2024 1 [facility] (MEDICARE REPLACEMENT/A DVANTAGE - POS) [id number] Junie Alfred [id number] Junie Alfred 08/27/2024 1 [facility] (MEDICARE REPLACEMENT/A DVANTAGE - POS) [id number] Junie Alfred [id number] Junie Alfred Notes Date Note Type Note [...] in her chart. [facility] [address], [place], [address], [facility] 08/22/2022 12:08:28 3 text/html Here today for f/u & med check. [facility] [address], [place], [address], [facility] 08/30/2022 10:04:48 5 text/html 73yohere today [...] d/c, odorsneg pelvic pain h/o genital HSV CRITSIAN Campos [address], [place], [address], [facility] 07/10/2024 13:50:42 5 text/html Patient presents [...] bleeding. ALICE CHANCE MD [address], [place], [address], [facility] 07/29/2024 22:36:15 5 text/html Patient presents for med check of vaginal estrogen cream. She was prescribed vaginal estrogen for vulvar atrophy and irritation. She reports vast improvement in all of her symptoms. No bleeding or irritation. No side effects. ALICE CHANCE MD [address], [place], [address], [facility] 08/27/2024 15:51:27 OBGyn Episode Ob Episode Information Episode Created Date Number of Fetuses Patient Bloodtype Patient rh Status Prepregnancy Weight lbs Domestic Partner Domestic Partner Phone Father Name Computer Compositor Status 08/15/19 1 CLOSED Fetus Data First Name Last Name Admitted to NICU Weight (g) Sex Living Outcome Pediatric Complications Fetus ID Race Codes Race Delivery Type F Full Term [id number] Vaginal Delivery Ircardo Calculation Initial Ricardo Date Initial Exam Date [...] Domestic Partner Domestic Partner Phone Father Name Computer Compositor Status 08/15/19 23 1 CLOSED Fetus Data First Name Last Name Admitted to NICU Weight (g) Sex Living Outcome Pediatric Complications Fetus ID Race Codes Race Delivery Type F Full Term [id number] Vaginal Delivery Ricardo Calculation Initial Ricardo Date [...]
--- OUTSIDE RECORDS SUMMARY | 2024-10-30 14:40 | XMS_ITS | Clinical Summary ---
Author Organization [facility] [address] Address [address] [place] [address] Care Team Providers Care Toggle Press Operator Name Role Phone Kim Valencia MD Primary [...] 08/29/2022 Assessment & Plan (08/29/2022 3:02 PM DISPATCHER REFINERY): - Discussed with patient that her symptoms [...] approved and scheduled for next Sunday with client renewal specialist, along with repeat PFTs. Discussed that if CT were to show worsening disease, or it patient has worsening symptoms, we could discuss treatment regimen. - Pt in agreement with this plan of care. Will continue to follow-up with her client renewal specialist. - Discussed with patient the rational for [...] on file Legal Sex Female 7:28 PM DISPATCHER REFINERY Gender Identity Not on file Sexual Orientation Not on file Obstetrics History Last Filed Vital Signs Vital Sign Reading Time Taken Comments Blood Pressure 156/85 08/28/2022 10:01 AM DISPATCHER REFINERY Pulse 67 08/28/2022 10:01 AM DISPATCHER REFINERY Temperature 36.7 C (98.1 F) 08/28/2022 10:01 AM DISPATCHER REFINERY Respiratory Rate 12 04/25/2021 2:35 PM CDT Oxygen Saturation - - Inhaled Oxygen Concentration - - Weight 78.8 kg (173 lb 11.2 oz) 023 10:01 AM DISPATCHER REFINERY Height 160 cm (5' 2.99 ) 08/28/2022 10: 01 AM DISPATCHER REFINERY Body Mass Index 30.78 08/28/2022 10:01 AM DISPATCHER REFINERY Plan of Treatment Health Maintenance Due Date Last Done Comments Depression Screening 1950 Fall Risk Assessment 1950 [...] CDT PROCEDURE REPORT Patient: JUNIE RODRÍGUEZ Account: [id number] Room No: : 1950 Patient Type: [facility] Attend.: Hilary Mchugh M.D. Admit Date: 10/31/2013 [...] Most Recently Relevant to Health Maintenance [facility] H[facility] REF Member Subscriber Plan / Payer (Ef fective 2020-Present) Name:Junie Rodríguez Relation to Subscriber:Self Name:Junie Rodríguez Payer ID:[id number] (NAIC) Type:[facility] MEDICARE Address: [address] MEDICARE ADVANTAGE Care Teams Toggle Press Operator Relationship Specialty Start Date End Date Kim Valencia MD [address] [facility] [address] [place] [address] PCP - General Family Medicine 09/09/19
--- OUTSIDE RECORDS SUMMARY | 2024-10-30 14:40 | XMS_ITS | Clinical Summary ---
Author Organization [facility] Address [address] [place] [address] Care Team Providers Care Crocheter Hand Name Role Phone Kim Valencia MD Primary Care Provider [phone]- [phone] Allergies No known active allergies Medications albuterol [...] (10/17/2022): Added automatically from request for surgery [id number] Chronic obstructive pulmonar y disease, unspecified ([facility]) 08/29/2022 08/16/2023 Positive culture findings in sputum [...] approved and scheduled for next Sunday with contract design agent, along with repeat PFTs. Discussed that if CT were to show worsening disease, or it patient has worsening symptoms, we could discuss treatment regimen. - Pt in agreement with this plan of care. Will continue to follow-up with her contract design agent. - Discussed with patient the rational for treatment, culture results, risk of recurrent infection, signs/symptoms of recurrent infection, and to contact ID clinic with any questions or concerns Bronchiectasis, uncomplicate d ([facility]) 08/29/2022 10/19/2022 Immunizations Immunization Administration Dates Next [...] = 0.6 oz pu re alcohol) occasioanlly [facility] Utilities Answer Date Recorded In the past 12 months has e [employer], gas, oil, or water [employer] threatened to shut off services in your [...] place to sleep or slept in a fpc (including now)? Patient declined 08/23/2023 Comments No Sex and Gender Information Value Date Recorded Sex Assigned at Not on file Legal Sex Female 2:46 AM CDT Gender Identity Not on file Sexual Orientation Not on file Last Filed Vital Signs Vital Sign Reading Time Taken Comments Blood Pressure 105/48 08/27/2023 11:54 AM SHEET WRITER Pulse 88 08/27/2023 11:54 AM SHEET WRITER Temperature 36.5 C (97.7 F) 08/27/2023 11:54 AM SHEET WRITER Respiratory Rate 18 08/27/2023 11:5 4 AM SHEET WRITER Oxygen Saturation 90% 08/27/2023 11: 54 AM SHEET WRITER Inhaled Oxygen Concentration - - Weight 88.9 kg (195 lb 15.8 oz) 08/25/2023 5:00 AM SHEET WRITER Height 160 cm (5' 3 ) 08/18/2023 1:55 AM SHEET WRITER Body Mass Index 34.72 08/18/2023 1:55 AM SHEET WRITER Plan of Treatment Health Maintenance Due Date Last Done Comments Colorectal Cancer Screening Colonoscopy (10 Years) 1950 Hepatitis C 10/26/1967 DTaP, Tdap and Td Vaccines (1 - Tdap) 1968 Zoster Vaccines (1 of 2) 10/26/1999 Annual Medicare Wellness Visit 2014 Dexa Scan (General) 2014 Pneumococcal Vaccine: 50+ Years (3 of 3 - PCV20 or PCV21) 02/27/2023 02/27/2018, 04/09/2013 COVID-19 Vaccine ( - season) 2024 10/30/2022, 07/05/2021, 09/07/2020, Additional [...] Edward RN Medical Devices Implanted Type Area Information Consultant Device Identifier Shelf Expiration Date Model / Serial / Lot Graft Bone Cortical Strut Frozen 20cm - [id number] Implanted:Qty: 1 on 08/20/2023 by Xavi Bhatia MD at [facility] Bone Right: Femur [employer] [id number] 10/22/2024 [id number] / [id number] / Graft Bone Bonus Triad Cancellous Cortical 10cc Allograft - [id number] Implanted:Qty: 1 on 08/20/2023 by Xavi Bhatia MD at [facility] Bone Right: Leg [employer] 03/17/2027 [id number] / [id number] / Cap Joceline Ncb Locking 8mm - [id number] Implanted:Qty: 12 on 08/20/2023 by Xavi Bhatia MD at [facility] End Cap Right: Femur [employer] [id number] / / N/A Plate Joceline Distal Femur 15 Hole 317mm Right - [id number] Implanted:Qty: 1 on 08/20/2023 by Xavi Bhatia MD at [facility] Plate Right: Femur [employer] [id number] / / N/A Screw Joceline 5.0 Cortical Self Tapping 48mm - [id number] Implanted:Qty: 1 on 08/20/2023 by Xavi Bhatia MD at [facility] Screw Right: Femur [employer] [id number] / / N/A Screw Joceline 5.0 Cortical Self Tapping 42mm - [id number] Implanted:Qty: 1 on 08/20/2023 by Xavi Bhatia MD at [facility] Screw Right: Femur [employer] [id number] / / N/A Screw Joceline 5.0 Cortical Self Tapping 36mm - [id number] Implanted:Qty: 1 on 08/20/2023 by Xavi Bhatia MD at [facility] Screw Right: Femur [employer] [id number] / / N/A Screw Joceline 3.5 Cortical Self Tapping 38mm - [id number] Implanted:Qty: 2 on 08/20/2023 by Xavi Bhatia MD at [facility] Screw Right: Femur [employer] [id number] / / N/A Screw Joceline 5.0 Unicortical 14mm - [id number] Implanted:Qty: 1 on 08/20/2023 by Xavi Bhatia MD at [facility] Screw Right: Femur [employer] [id number] / / N/A Screw Joceline 5.0 Cortical Self Tapping 80mm - [id number] Implanted:Qty: 3 on 08/20/2023 by Xavi Bhatia MD at [facility] Screw Right: Femur [employer] [id number] / / N/A Screw Joceline 5.0 Cortical Self Tapping 60mm - [id number] Implanted:Qty: 1 on 08/20/2023 by Xavi Bhatia MD at [facility] Screw Right: Femur [employer] [id number] / / N/A Screw Joceline 5.0 Cortical Self Tapping 75mm - [id number] Implanted:Qty: 1 on 08/20/2023 by Xavi Bhatia MD at [facility] Screw Right: Femur [employer] [id number] / / N/A Screw Joceline 5.0 Cortical Self Tapping 70mm - [id number] Implanted:Qty: 1 on 08/20/2023 by Xavi Bhatia MD at [facility] Screw Right: Femur [employer] [id number] / / N/A Wire Fix 30cm 1.22mm Luq Loop - [id number] Implanted:Qty: 5 on 08/20/2023 by Xavi Bhatia MD at [facility] Wire Right: Femur [employer] [id number] / / NA Axsos 3 Ti 5.0 Variableangle Extension Arm Implanted:Qty: 1 on 10/17/2022 by Raffi Jeffries MD at [facility] Right: Femur 08/30/2023 [id number] / / [id number] 5 Locking Screw Implanted:Qty: 4 on 10/17/2022 by Raffi Jeffries MD at [facility] Right: Femur [employer] SYL [id number] / / 5 Locking Screw Implanted:Qty: 2 on 10/17/2022 by Raffi Jeffries MD at [facility] Right: Femur [employer] SY[employer] [id number] / / 5 Locking Screw Implanted:Qty: 1 on 10/17/2022 by Raffi Jeffries MD at [facility] Right: Femur [employer] SY[employer] [id number] / / 4 Locking Screw Implanted:Qty: 1 on 10/17/2022 by Raffi Jeffries MD at [facility] Right: Femur [employer] SY[employer] [id number] / / 5 Locking Screw Implanted:Qty: 1 on 10/17/2022 by Raffi Jeffries MD at [facility] Right: Femur [employer] SYL [id number] / / Tigertape Cerclage Implanted:Qty: 2 on 10/17/2022 by Raffi Jeffries MD at [facility] Right: Femur 05/01/2025 [id number] / / [id number] Distal Femur Plate Right Implanted:Qty: 1 on 10/17/2022 by Raffi Jeffries MD at [facility] Right: Femur [employer] SY[employer] [id number] / / 4.5 Non Locking Screw Implanted:Qty: 1 on 10/17/2022 by Raffi Jeffries MD at [facility] Right: Femur [employer] [id number] / / 4.5 Non Locking Screw Implanted:Qty: 2 on 10/17/2022 by Raffi Jeffries MD at [facility] Right: Femur [employer] [id number] / / 5 Locking Screw Implanted:Qty: 1 on 10/17/2022 by Raffi Jeffries MD at [facility] Right: Femur [employer] [id number] / / 5 Locking Screw Implanted:Qty: 1 on 10/17/2022 by Raffi Jeffries MD at [facility] Right: Femur [employer] [id number] / / 5 Locking Screw Implanted:Qty: 1 on 10/17/2022 by Raffi Jeffries MD at [facility] Right: Femur [employer] [id number] / / Explanted Type Area Information Consultant Device Identifier Shelf Expiration Date Model / Serial / Lot Drill Bit Joceline 4.3mm - [id number] Explanted:Qty: 1 on 08/20/2023 by Xavi Bhatia MD at [facility] Drill Right: Femur [employer] [id number] / / N/A Pin Steinmann Threaded Brasseler 2.0 - [id number] Explanted:Qty: 1 on 08/20/2023 by Xavi Bhatia MD at [facility] Right: Leg [facility] [id number] 05/18/2027 [id number] / / [id number] 3.1 Drill Bit Explanted:Qty: 1 on 10/17/2022 by Raffi Jeffries MD at [facility] Right: Femur [employer] SY[employer] [id number] / / 3.2 Drill Bit Explanted:Qty: 1 on 10/17/2022 by Raffi Jeffries MD at [facility] Right: Femur [employer] [id number] / / 4.3 Drill Bit Explanted:Qty: 1 on 10/17/2022 by Raffi Jeffries MD at [facility] Right: Femur [employer] [id number] / / K Wire Explanted:Qty: 2 on 08/20/2023 by Xavi Bhatia MD at [facility] Right: Femur [employer] [id number] 0 / / N/A Drill Bit 3.3 Explanted:Qty: 2 on 08/20/2023 by Xavi Bhatia MD at [facility] Right: Femur [employer] [id number] / / N/A Insurance [facility] MEDICAL REIMBURSEMENTS OF [employer] GENERIC WORKMANS COMP [...] 4:06 PM 2022 4:29 PM Care Teams Crocheter Hand Relationship Specialty Start Date End Date Kim Valencia MD [address] [facility] [address] [facility] [address] [place] [address] PCP - General FAMILY PRACTICE 10/17/22
--- NOTE | 2024-10-30 15:35 | HOMEO2EVAL ---
Evaluation was performed at [facility] Home Oxygen Evaluation RC: Home Oxygen (O2) Evaluation Start: 10/30/24 14:52 Freq: Status: Active Protocol: RPE Activity Type Activity Date Activity User E-sign Co-sign Detail Recorded Client Recorded Date Recorded By Document 10/30/24 14:07 RES [id number] 10/30/24 15:20 RES Document 10/30/24 14:08 RES [id number] 10/30/24 15:20 RES Document 10/30/24 14:09 RES [id number] 10/30/24 15:20 RES Document 10/30/24 14:10 RES [id number] 10/30/24 15:20 RES Document 10/30/24 14:11 RES [id number] 10/30/24 15:20 RES Document 10/30/24 14:12 RES [id number] 10/30/24 15:32 RES Document 10/30/24 14:13 RES [id number] 10/30/24 15:32 RES Document 10/30/24 14:14 RES [id number] 10/30/24 15:32 RES Document 10/30/24 14:15 RES [id number] 10/30/24 15:32 RES 10/30/24 10/30/24 10/30/24 14:07 14:08 14:09 Home O2 Evaluation [Oxygen] -Test Phase Resting Exercise Exercise -Oxygen Delivery Room Air Room Air Room Air -Fraction of Inspired Oxygen (%) 21 21 21 [Pulse Oximetry] -Pulse Oximetry (90-100 %) 94 95 92 [Pulse Rate] -Pulse Rate (60-100 beats/min) 76 76 74 [Evaluation] -Activity Tolerance Good Good Good -Rating of Perceived Dyspnea (PD) +1 Mild, +1 Mild, +1 Mild, Noticeable to Noticeable to Noticeable to the Participant the Participant the Participant but Not to an but Not to an but Not to an Observer Observer Observer -Rate of Perceived Exertion (PE) 6 Very, very 6 Very, very 6 Very, very Query Text:Click the Protocol Button light light light to View the RPE Scale [Exercise] -Ambulation Distance (feet) -Ambulation Distance (meters) [Charges] -Evaluation Charges O2 Evaluation Charge 10/30/24 10/30/24 10/30/24 14:10 14:11 14:12 Home O2 Evaluation [Oxygen] -Test Phase Exercise Exercise Exercise -Oxygen Delivery Room Air Room Air Room Air -Fraction of Inspired Oxygen (%) 21 21 21 [Pulse Oximetry] -Pulse Oximetry (90-100 %) 90 90 90 [Pulse Rate] -Pulse Rate (60-100 beats/min) 79 83 86 [Evaluation] -Activity Tolerance Good Good Good -Rating of Perceived Dyspnea (PD) +1 Mild, +1 Mild, +1 Mild, Noticeable to Noticeable to Noticeable to the Participant the Participant the Participant but Not to an but Not to an but Not to an Observer Observer Observer -Rate of Perceived Exertion (PE) 6 Very, very 6 Very, very 6 Very, very Query Text:Click the Protocol Button light light light to View the RPE Scale [Exercise] -Ambulation Distance (feet) -Ambulation Distance (meters) [Charges] -Evaluation Charges 10/30/24 10/30/24 10/30/24 14:13 14:14 14:15 Home O2 Evaluation [Oxygen] -Test Phase Exercise Exercise Resting -Oxygen Delivery Room Air Room Air Room Air -Fraction of Inspired Oxygen (%) 21 21 21 [Pulse Oximetry] -Pulse Oximetry (90-100 %) 92 91 93 [Pulse Rate] -Pulse Rate (60-100 beats/min) 88 90 87 [Evaluation] -Activity Tolerance Good Good Good -Rating of Perceived Dyspnea (PD) +1 Mild, +1 Mild, +1 Mild, Noticeable to Noticeable to Noticeable to the Participant the Participant the Participant but Not to an but Not to an but Not to an Observer Observer Observer -Rate of Perceived Exertion (PE) 6 Very, very 6 Very, very 6 Very, very Query Text:Click the Protocol Button light light light to View the RPE Scale [Exercise] -Ambulation Distance (feet) 6 -Ambulation Distance (meters) 1.82 [Charges] -Evaluation Charges
== END 2024-10-30 13:55 | disposition home or self-care (01) ==
PROVIDERS: PCP Family Medicine; Visit Provider Nurse Practitioner Family
DX: R09.02 Hypoxemia (principal)
CPT/HCPCS: 94618

== ENCOUNTER 2024-10-31 13:27 | Outpatient (CLI) | payer MEDICARE, SELFPAY ==
--- NOTE | ~2024-10-31 | CT_ITS ---
CT Scan of the Chest without Contrast: Clinical Indication: Nicotine dependence Technique: Contiguous sections were acquired throughout the chest without intravenous contrast. Dose reduction technique was used on this scan by utilizing automated exposure control and iterative recon struction technique. The dose-length product (DLP) was 94.98 mGy-cm. COMPARISON: 05/27/2024 Findings: Mildly enlarged precarinal lymph nodes are stable from prior exam.. The mediastinal soft tissues appe ar normal. There is no evidence of pleural or pericardial effusion. Mild chronic interstitial disease is similar to prior exam. Scattered areas of tree-in-bud opacity al so present bilaterally, compatible with small airways infectious process. No overtly suspicious pulmo nary nodule evident. Images through the upper abdomen reveal no abnormalities. Impression: Scattered tree-in-bud opacities are compatible with small airways infectious process. Associated mild chronic interstitial disease, similar to prior exam. No overtly suspicious pulmonary nodule. Reviewed, dictated and finalized at [facility]. Impression: Scattered tree-in-bud opacities are compatible with small airways infectious pr ocess. Associated mild chronic interstitial disease, similar to prior exam. No overtly suspicious pulmonary nodule.
--- OUTSIDE RECORDS SUMMARY | 2024-11-01 13:55 | XMS_ITS | Referral Summary ---
Author Organization [facility] [address] Address [address] [place] [address] Care Team Providers Care Chemistry Account Manager Name Role Phone Kim Valencia MD Primary [...] 08/29/2022 Assessment & Plan (08/29/2022 3:02 PM FIELD HUMAN RESOURCES MANAGER): - Discussed with patient that her symptoms [...] approved and scheduled for next Sunday with smalltalk developer, along with repeat PFTs. Discussed that if CT were to show worsening disease, or it patient has worsening symptoms, we could discuss treatment regimen. - Pt in agreement with this plan of care. Will continue to follow-up with her smalltalk developer. - Discussed with patient the rational for [...] on file Legal Sex Female 7:28 PM FIELD HUMAN RESOURCES MANAGER Gender Identity Not on file Sexual Orientation Not on file Last Filed Vital Signs Vital Sign Reading Time Taken Comments Blood Pressure 156/85 08/28/2022 10:01 AM FIELD HUMAN RESOURCES MANAGER Pulse 67 08/28/2022 10:01 AM FIELD HUMAN RESOURCES MANAGER Temperature 36.7 C (98.1 F) 08/28/2022 10:01 AM FIELD HUMAN RESOURCES MANAGER Respiratory Rate 12 04/25/2021 2:35 PM CDT Oxygen Saturation - - Inhaled Oxygen Concentration - - Weight 78.8 kg (173 lb 11.2 oz) 023 10:01 AM FIELD HUMAN RESOURCES MANAGER Height 160 cm (5' 2.99 ) 08/28/2022 10: 01 AM FIELD HUMAN RESOURCES MANAGER Body Mass Index 30.78 08/28/2022 10:01 AM FIELD HUMAN RESOURCES MANAGER Plan of Treatment Not on file Procedures [...] CDT PROCEDURE REPORT Patient: JUNIE RODRÍGUEZ Account: [id number] Room No: : 1950 Patient Type: [facility] Attend.: Hilary Mchugh M.D. Admit Date: [...] to Subscriber:Self Name:Junie Rodríguez Payer ID:[id number] (NAIC) Type:[facility] MEDICARE Address: [place] [phone] [facility] MDCR HMO REF [facility] MEDICARE ADVANTAGE Care Teams Chemistry Account Manager Relationship Specialty Start Date End Date Kim Valencia MD [address] [facility] [address] [place] [address] PCP - General Family Medicine 09/09/19
--- OUTSIDE RECORDS SUMMARY | 2024-11-01 13:55 | XMS_ITS | Data Portability ---
Author Organization [facility] Address [address] [place] [address] Care Team Providers Care Ladle Operator Name Role Phone CRYSTAL LEWIS Primary Care Provider Assessment No assessment recorded. Plan of Treatment Reminders Order Date Submit Date Provider Last Modified By Organization Details Last Modified Time Details Appointments None recorded. Lab None recorded. Referral None recorded. Procedures None recorded. Surgeries None recorded. Imaging None recorded. Medication Orders estradiol 0.01% (0.1 mg/gram) vaginal cream [address] [facility]/Pharmacy #[id number], [address] [place], [address], 5 22:36:03 estradiol 0.01% (0.1 mg/gram) vaginal cream [address]/Pharmacy #[id number], [address] [place], [address], 5 12:53:58 nystatin-t riamcinolo ne 100,000 unit/gram- 0.1 % topical ointment [address]/Pharmacy #[id number], [address] [place], [address], 5 12:54:44 Valtrex 1 gram tablet [address]/Pharmacy #[id number], [address] [place], [address], 12:54:29 Patient TargetsNo targets recorded. Patient InstructionsNo instructions recorded. Reason for Referral None Reported. Procedures Surgical History Date Name Laterality Status Provider Name and Address Organization Details Recorded Time 08/02/19 20 Date of Last Pap Smear completed [facility] 08/15/2022 09:54:06 complete repair of rotator cuff completed [facility] 08/15/2022 09:56:25 procedure on wrist completed Sera Noyola [facility] [address], [place], [address], [facility] 08/15/2022 10:07:52 Total hip arthroplasty completed Sera Noyola [facility] [address], [place], [address], [facility] 08/15/2022 10:08:31 total knee replacement completed Sera Noyola [facility] [address], [place], [address], [facility] 08/15/2022 10:08:17 Imaging Results None recorded. [...] Updated DateTime 08/15/2022 160.02 cm 31 kg/m2 57085.95 g 136 mm[Hg] 82 mm[Hg] [facility] 3 09:52:19 Date Recorded Body height Body mass index (BMI) Body weight Systolic blood pressure Diastolic blood pressure Provider Name and Address Organization Details Last Updated DateTime 08/29/2022 160.02 cm 31.2 kg/m2 63641.69 g 130 mm[Hg] 71 mm[Hg] [facility] 3 16:29:54 Date Recorded Body height Body mass index (BMI) Body weight Systolic blood pressure Diastolic blood pressure Provider Name and Address Organization Details Last Updated DateTime 07/10/2024 160.02 cm 29.4 kg/m2 96560.33 g 139 mm[Hg] 77 mm[Hg] Jodi Stout [facility] 5 12:52:01 Date Recorded Body height Body mass index (BMI) Body weight Systolic blood pressure Diastolic blood pressure Provider Name and Address Organization Details Last Updated DateTime 07/29/2024 160.02 cm 28.9 kg/m2 47504.56 g 150 mm[Hg] 82 mm[Hg] Aprly Gastelumen [facility] 5 14:18:52 Date Recorded Body height Body mass index (BMI) Body weight Systolic blood pressure Diastolic blood pressure Provider Name and Address Organization Details Last Updated DateTime 08/27/2024 160.02 cm 28.9 kg/m2 45248.56 g 142 mm[Hg] 74 mm[Hg] Apryl Swati [facility] 5 14:01:22 Social History Question Answer Notes LastModified by Organizat ion Details LastModified Time Tobacco Smoking Status Never Smoker Lyndsay Tapia [email or web address], [facility] 08/15/2022 09:56:08 What Is Your Level Of Alcohol Consumption? Occasional Information not available 08/15/2022 Are You Blind Or Do You Have Difficulty Seeing? No Information n ot available 08/15/2022 In The 14 Days Before Symptom Onset, Have You Had Close Contact With A Laboratory-confirm ed COVID-19 While That Case Was Ill? No [email or web address] Information n ot available 07/29/2024 In The 14 Days Before Symptom Onset, Have You Had Close Contact With A Person Who Is Under Investigation For COVID-19 While That Person Was Ill? No [email or web address] Information not available 07/29/2024 Have You Been To An Area Known To Be High Risk For COVID-19? No [email or web address] Information not available 07/29/2024 Are You Deaf [...] ) N Other N Drug/Latex Allergies/Reactions N Blood Transfusion N Breast Cancer N Dermatologic Disorders N Lung Disease N Defects or Inherited Disease N Breast Problem N Gestational Diabetes N Hematologic disorders N Anesthesia Complications N History of STI Y Deep Vein Thrombosis N Polycystic ovary syndrome N Anxiety Disorder N Autoimmune disease N Arthritis N Polyps N Infertility N Acid Reflux (GERD) Y History of abnormal pap N Cancer N Varicosities N Stroke N Neurologic/Epilepsy N Endometriosis N High Cholesterol Y Fibromyalgia N Headaches N Kidney Disease N Heart Problems N [...] SNOMED-CT Code Diagnosis ICD10 Code Diagnosis Note [id number] Sera Noyola [facility] [address] [address] 08/15/2022 09:39:19 08/16/2022 16:29:39 Genital herpes simplex 55173879 A60.9 Today we discussed use of Valtrex. [...] review of plan of care. Vulval irritation 889459 003 N90.89 [id number] [facility] [address],[place] [address] 08/29/2022 16:20:17 08/30/2022 11:26:23 Genital herpes simplex 37432091 A60.9 Doing well today.All sx's resolved.S o [...] review of plan of care. 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 Pt agrees to this plan, verbalized understand ing. consult scheduled Lesion of vulva 70400909 6 N90.89 External hemorrhoids 239 20014 K64.4 supportive care discussedi f symptoms continue recommend referral to colorectal surgery Time spent in visit is a total of 20 mins with at least 50% of visit consisting of counseling and review of plan of care. [id number] ALICE CHANCE MD [place] [address] [address] 07/29/2024 13:46:56 07/30/2024 14:07:30 Vulval irritation 444632642 N90.89 - likely 2/2 vulvar atrophy, worsened by recent incontinen ce with URI- vulvar tissue very thin, erythemato us- recommend 1 month of vaginal estrogen, then reevaluati on with possible biopsy at that time if not improved [id number] ALICE CHANCE MD [place] [address] [address] 08/27/2024 13:55:43 08/27/2024 15:52:01 Vulval irritation 509626931 N90.89 - likely 2/2 vulvar atrophy, worsened [...] Echeverria Member ID Guarantor Name 08/15/2022 1 [facility] (MEDICARE REPLACEMENT/A DVANTAGE - POS) [id number] Junie Alfred [id number] Junie Alfred 08/29/2022 1 [facility] (MEDICARE REPLACEMENT/A DVANTAGE - POS) [id number] Junie Alfred [id number] Junie Alfred 07/10/2024 1 [facility] (MEDICARE REPLACEMENT/A DVANTAGE - POS) [id number] Junie Alfred [id number] Junie Alfred 07/29/2024 1 [facility] (MEDICARE REPLACEMENT/A DVANTAGE - POS) [id number] Junie Alfred [id number] Junie Alfred 08/27/2024 1 [facility] (MEDICARE REPLACEMENT/A DVANTAGE - POS) [id number] Junie Alfred [id number] Junie Alfred Notes Date Note Type Note [...] updated it in her chart. [facility] [address], [place], [address], [facility] 08/22/2022 12:08:28 3 text/html Here today for f/u & med check. [facility]era [facility] [address], [place], [address], [facility] 08/30/2022 10:04:48 5 text/html 73yohere today [...] genital HSV CRISTIAN Campos [address], [place], [address], [facility] 07/10/2024 13:50:42 5 text/html Patient presents [...] bleeding. ALICE CHANCE MD [address], [place], [address], [facility] 07/29/2024 22:36:15 5 text/html Patient presents for med check of vaginal estrogen cream. She was prescribed vaginal estrogen for vulvar atrophy and irritation. She reports vast improvement in all of her symptoms. No bleeding or irritation. No side effects. ALICE CHANCE MD [address], [place], [address], [facility] 08/27/2024 15:51:27 OBGyn Episode Ob Episode Information Episode Created Date Number of Fetuses Patient Bloodtype Patient rh Status Prepregnancy Weight lbs Domestic Partner Domestic Partner Phone Father Name Endoscopy Support Specialist Status 08/15/19 1 CLOSED Fetus Data First Name Last Name Admitted to NICU Weight (g) Sex Living Outcome Pediatric Complications Fetus ID Race Codes Race Delivery Type F Full Term [id number] Vaginal Delivery Ricardo Calculation Initial Ricardo Date [...] Domestic Partner Domestic Partner Phone Father Name Endoscopy Support Specialist Status 08/15/19 23 1 CLOSED Fetus Data First Name Last Name Admitted to NICU Weight (g) Sex Living Outcome Pediatric Complications Fetus ID Race Codes Race Delivery Type F Full Term [id number] Vaginal Delivery Ricardo Calculation Initial Ricardo Date [...]
--- OUTSIDE RECORDS SUMMARY | 2024-11-01 13:55 | XMS_ITS | Clinical Summary ---
Author Organization [facility] [address] Address [address] [place] [address] Care Team Providers Care Roadmaster Name Role Phone Kim Valencia MD Primary [...] 08/29/2022 Assessment & Plan (08/29/2022 3:02 PM LONE LEAD LINEMAN): - Discussed with patient that her symptoms [...] approved and scheduled for next Sunday with plastic molder, along with repeat PFTs. Discussed that if CT were to show worsening disease, or it patient has worsening symptoms, we could discuss treatment regimen. - Pt in agreement with this plan of care. Will continue to follow-up with her plastic molder. - Discussed with patient the rational for [...] on file Legal Sex Female 7:28 PM LONE LEAD LINEMAN Gender Identity Not on file Sexual Orientation Not on file Obstetrics History Last Filed Vital Signs Vital Sign Reading Time Taken Comments Blood Pressure 156/85 08/28/2022 10:01 AM LONE LEAD LINEMAN Pulse 67 08/28/2022 10:01 AM LONE LEAD LINEMAN Temperature 36.7 C (98.1 F) 08/28/2022 10:01 AM LONE LEAD LINEMAN Respiratory Rate 12 04/25/2021 2:35 PM CDT Oxygen Saturation - - Inhaled Oxygen Concentration - - Weight 78.8 kg (173 lb 11.2 oz) 023 10:01 AM LONE LEAD LINEMAN Height 160 cm (5' 2.99 ) 08/28/2022 10: 01 AM LONE LEAD LINEMAN Body Mass Index 30.78 08/28/2022 10:01 AM LONE LEAD LINEMAN Plan of Treatment Health Maintenance Due Date [...] CDT PROCEDURE REPORT Patient: JUNIE RODRÍGUEZ Account: [id number] Room No: : 1950 Patient Type: [facility] Attend.: Hilary Mchugh M.D. Admit Date: 10/31/2013 [...] Most Recently Relevant to Health Maintenance [facility] H[facility] REF Member Subscriber Plan / Payer (Ef fective 2020-Present) Name:Junie Rodríguez Relation to Subscriber:Self Name:Junie Rodríguez Payer ID:[id number] (NAIC) Type:[facility] MEDICARE Address: [address] MEDICARE ADVANTAGE Care Teams Roadmaster Relationship Specialty Start Date End Date Kim Valencia MD [address] [facility] [address] [place] [address] PCP - General Family Medicine 09/09/19
--- OUTSIDE RECORDS SUMMARY | 2024-11-01 13:55 | XMS_ITS | Clinical Summary ---
Author Organization [facility] Address [address] [place] [address] Care Team Providers Care Mathematical Engineer Name Role Phone Kim Valencia MD Primary Care Provider [phone]- [phone] Allergies No known active allergies Medications albuterol [...] (10/17/2022): Added automatically from request for surgery [id number] Chronic obstructive pulmonar y disease, unspecified ([facility]) 08/29/2022 08/16/2023 Positive culture findings in sputum [...] approved and scheduled for next Sunday with product safety head, along with repeat PFTs. Discussed that if CT were to show worsening disease, or it patient has worsening symptoms, we could discuss treatment regimen. - Pt in agreement with this plan of care. Will continue to follow-up with her product safety head. - Discussed with patient the rational for treatment, culture results, risk of recurrent infection, signs/symptoms of recurrent infection, and to contact ID clinic with any questions or concerns Bronchiectasis, uncomplicate d ([facility]) 08/29/2022 10/19/2022 Immunizations Immunization Administration Dates Next [...] = 0.6 oz pu re alcohol) occasioanlly [facility] Utilities Answer Date Recorded In the past 12 months has e [employer], gas, oil, or water [employer] threatened to shut off services in your [...] place to sleep or slept in a long-term (including now)? Patient declined 08/23/2023 Comments No Sex and Gender Information Value Date Recorded Sex Assigned at Not on file Legal Sex Female 2:46 AM CDT Gender Identity Not on file Sexual Orientation Not on file Last Filed Vital Signs Vital Sign Reading Time Taken Comments Blood Pressure 105/48 08/27/2023 11:54 AM AIR SAMPLING AND MONITORING Pulse 88 08/27/2023 11:54 AM AIR SAMPLING [employer] MONITORING Temperature 36.5 C (97.7 F) 08/27/2023 11:54 AM [employer]ING [employer] MONITORING Respiratory Rate 18 08/27/2023 11:5 4 AM [employer]PLING [employer] MONITORING Oxygen Saturation 90% 08/27/2023 11: 54 AM [employer]PLING AND MONITORING Inhaled Oxygen Concentration - - Weight 88.9 kg (195 lb 15.8 oz) 08/25/2023 5:00 AM [employer]PLING [employer] MONITORING Height 160 cm (5' 3 ) 08/18/2023 1:55 AM AIR SAMPLING AND MONITORING Body Mass Index 34.72 08/18/2023 1:55 AM AIR [employer]PLING AND MONITORING Plan of Treatment Health Maintenance Due Date [...] Edward RN Medical Devices Implanted Type Area Breaker Mechanic Device Identifier Shelf Expiration Date Model / Serial / Lot Graft Bone Cortical Strut Frozen 20cm - [id number] Implanted:Qty: 1 on 08/20/2023 by Xavi Bhatia MD at [facility] Bone Right: Femur [employer] [id number] 10/22/2024 [id number] / [id number] / Graft Bone Bonus Triad Cancellous Cortical 10cc Allograft - [id number] Implanted:Qty: 1 on 08/20/2023 by Xavi Bhatia MD at [facility] Bone Right: Leg [employer] 03/17/2027 [id number] / [id number] / Cap Joceline Ncb Locking 8mm - [id number] Implanted:Qty: 12 on 08/20/2023 by Xavi Bhatia MD at [facility] End Cap Right: Femur [employer] [id number] / / N/A Plate Joceline Distal Femur 15 Hole 317mm Right - [id number] Implanted:Qty: 1 on 08/20/2023 by Xavi Bhatia MD at [facility] Plate Right: Femur [employer] [id number] / / N/A Screw Joceline 5.0 Cortical Self Tapping 48mm - [id number] Implanted:Qty: 1 on 08/20/2023 by Xavi Bhatia MD at [facility] Screw Right: Femur [employer] [id number] / / N/A Screw Joceline 5.0 Cortical Self Tapping 42mm - [id number] Implanted:Qty: 1 on 08/20/2023 by Xavi Bhatia MD at [facility] Screw Right: Femur [employer] [id number] / / N/A Screw Joceline 5.0 Cortical Self Tapping 36mm - [id number] Implanted:Qty: 1 on 08/20/2023 by Xavi Bhatia MD at [facility] Screw Right: Femur [employer] [id number] / / N/A Screw Joceline 3.5 Cortical Self Tapping 38mm - [id number] Implanted:Qty: 2 on 08/20/2023 by Xavi Bhatia MD at [facility] Screw Right: Femur [employer] [id number] / / N/A Screw Joceline 5.0 Unicortical 14mm - [id number] Implanted:Qty: 1 on 08/20/2023 by Xavi Bhatia MD at [facility] Screw Right: Femur [employer] [id number] / / N/A Screw Joceline 5.0 Cortical Self Tapping 80mm - [id number] Implanted:Qty: 3 on 08/20/2023 by Xavi Bhatia MD at [facility] Screw Right: Femur [employer] [id number] / / N/A Screw Joceline 5.0 Cortical Self Tapping 60mm - [id number] Implanted:Qty: 1 on 08/20/2023 by Xavi Bhatia MD at [facility] Screw Right: Femur [employer] [id number] / / N/A Screw Joceline 5.0 Cortical Self Tapping 75mm - [id number] Implanted:Qty: 1 on 08/20/2023 by Xavi Bhatia MD at [facility] Screw Right: Femur [employer] [id number] / / N/A Screw Joceline 5.0 Cortical Self Tapping 70mm - [id number] Implanted:Qty: 1 on 08/20/2023 by Xavi Bhatia MD at [facility] Screw Right: Femur [employer] [id number] / / N/A Wire Fix 30cm 1.22mm Luq Loop - [id number] Implanted:Qty: 5 on 08/20/2023 by Xavi Bhatia MD at [facility] Wire Right: Femur [employer] [id number] / / NA Axsos 3 Ti 5.0 Variableangle Extension Arm Implanted:Qty: 1 on 10/17/2022 by Raffi Jeffries MD at [facility] Right: Femur 08/30/2023 [id number] / / [id number] Locking Screw Implanted:Qty: 4 on 10/17/2022 by Raffi Jeffries MD at [facility] Right: Femur [employer] SYL [id number] / / 5 Locking Screw Implanted:Qty: 2 on 10/17/2022 by Raffi Jeffries MD at [facility] Right: Femur [employer] [id number] / / 5 Locking Screw Implanted:Qty: 1 on 10/17/2022 by Raffi Jeffries MD at [facility] Right: Femur [employer] [id number] / / 4 Locking Screw Implanted:Qty: 1 on 10/17/2022 by Raffi Jeffries MD at [facility] Right: Femur [employer] [id number] / / 5 Locking Screw Implanted:Qty: 1 on 10/17/2022 by Raffi Jeffries MD at [facility] Right: Femur [employer] [id number] / / Tigertape Cerclage Implanted:Qty: 2 on 10/17/2022 by Raffi Jeffries MD at [facility] Right: Femur 05/01/2025 [id number] / / [id number] Distal Femur Plate Right Implanted:Qty: 1 on 10/17/2022 by Raffi Jeffries MD at [facility] Right: Femur [employer] [id number] / / 4.5 Non Locking Screw Implanted:Qty: 1 on 10/17/2022 by Raffi Jeffries MD at [facility] Right: Femur [employer] [id number] / / 4.5 Non Locking Screw Implanted:Qty: 2 on 10/17/2022 by Raffi Jeffries MD at [facility] Right: Femur [employer] [id number] / / 5 Locking Screw Implanted:Qty: 1 on 10/17/2022 by Raffi Jeffries MD at [facility] Right: Femur [employer] [id number] / / 5 Locking Screw Implanted:Qty: 1 on 10/17/2022 by Raffi Jeffries MD at [facility] Right: Femur [employer] [id number] / / 5 Locking Screw Implanted:Qty: 1 on 10/17/2022 by Raffi Jeffries MD at [facility] Right: Femur [employer] [id number] / / Explanted Type Area Breaker Mechanic Device Identifier Shelf Expiration Date Model / Serial / Lot Drill Bit Joceline 4.3mm - [id number] Explanted:Qty: 1 on 08/20/2023 by Xavi Bhatia MD at [facility] Drill Right: Femur [employer] [id number]. [id number] / / N/A Pin Steinmann Threaded Brasseler 2.0 - [id number] Explanted:Qty: 1 on 08/20/2023 by Xavi Bhatia MD at [facility] Right: Leg [facility] [id number] 05/18/2027 [id number] / / [id number] 3.1 Drill Bit Explanted:Qty: 1 on 10/17/2022 by Raffi Jefrfies MD at [facility] Right: Femur [employer] [id number] / / 3.2 Drill Bit Explanted:Qty: 1 on 10/17/2022 by Raffi Jeffries MD at [facility] Right: Femur [employer] [id number] / / 4.3 Drill Bit Explanted:Qty: 1 on 10/17/2022 by Raffi Jeffries MD at [facility] Right: Femur [employer] [id number] / / K Wire Explanted:Qty: 2 on 08/20/2023 by Xavi Bhatia MD at [facility] Right: Femur [employer] 290.20.28 0 / / N/A Drill Bit 3.3 Explanted:Qty: 2 on 08/20/2023 by Xavi Bhatia MD at [facility] Right: Femur [employer] 02.39948. [id number] / / N/A Insurance [facility] [employer]SE[employer] OF [employer] [...] 4:06 PM 2022 4:29 PM Care Teams Mathematical Engineer Relationship Specialty Start Date End Date Kim Valencia MD [address] [facility] [address] [facility] [address] [place] [address] PCP - General FAMILY PRACTICE 10/17/22
== END 2024-10-31 13:28 | disposition home or self-care (01) ==
LOC: CHSIMG 13:28
PROVIDERS: PCP Family Medicine; Visit Provider Nurse Practitioner Family
DX: J47.9 Bronchiectasis, uncomplicated (principal); Z87.891 Personal history of nicotine dependence; R91.8 Other nonspecific abnormal finding of lung field
CPT/HCPCS: 71250

== ENCOUNTER 2024-12-11 09:15 | Outpatient (CLI) | payer MEDICARE, SELFPAY ==
[2024-12-11 09:35] LABS: Hematocrit 44.2 % (35.0-42.0); Mean Corpuscular HGB Conc 29.4 g/dL (32-36); Mean Corpuscular Hemoglobin 25.4 pg (27.0-31.0); Mean Corpuscular Volume 86.3 fL (78.0-102.0); Mean Platelet Volume 8.8 fl (9.2-11.8); Platelet Count Result 264 K/mm3 (150-420); Red Blood Count 5.12 M/mm3 (4.20-5.40); Red Cell Distribution Width 15.4 % (11.6-14.4); White Blood Count 6.2 K/mm3 (4.8-10.8)
--- OUTSIDE RECORDS SUMMARY | 2024-12-11 09:48 | XMS_ITS | Clinical Summary ---
Author Organization [facility] [address] [facility] [address] Address [address] [facility] [address] [place] [address] Care Team Providers Care School Business Manager Name Role Phone Kim Valencia MD [...] 08/29/2022 Assessment & Plan (08/29/2022 3:02 PM HOSPITALITY SERVICES MANAGER): - Discussed with patient that her [...] approved and scheduled for next Sunday with fisheries officer, along with repeat PFTs. Discussed that if CT were to show worsening disease, or it patient has worsening symptoms, we could discuss treatment regimen. - Pt in agreement with this plan of care. Will continue to follow-up with her fisheries officer. - Discussed with patient the rational for [...] on file Legal Sex Female 7:28 PM HOSPITALITY SERVICES MANAGER Gender Identity Not on file Sexual Orientation Not on file Obstetrics History Last Filed Vital Signs Vital Sign Reading Time Taken Comments Blood Pressure 156/85 08/28/2022 10:01 AM HOSPITALITY SERVICES MANAGER Pulse 67 08/28/2022 10:01 AM HOSPITALITY SERVICES MANAGER Temperature 36.7 C (98.1 F) 08/28/2022 10:01 AM HOSPITALITY SERVICES MANAGER Respiratory Rate 12 04/25/2021 2:35 PM CDT Oxygen Saturation - - Inhaled Oxygen Concentration - - Weight 78.8 kg (173 lb 11.2 oz) 023 10:01 AM HOSPITALITY SERVICES MANAGER Height 160 cm (5' 2.99) 08/28/2022 10: 01 AM HOSPITALITY SERVICES MANAGER Body Mass Index 30.78 08/28/2022 10:01 AM HOSPITALITY SERVICES MANAGER Plan of Treatment Health Maintenance Due Date [...] CDT PROCEDURE REPORT Patient: JUNIE RODRÍGUEZ Account: [id number] Room No: : 1950 Patient Type: [facility] Attend.: Hilary Mchugh M.D. Admit Date: [...] Most Recently Relevant to Health Maintenance [facility] Address: [place] [id number] [place] [address] [facility] Address: [place] [address] [facility] Address: [address] [address] MEDICARE ADVANTAGE [facility] Address: [address] [address] [place] [address] Care Teams School Business Manager Relationship Specialty Start Date End Date Kim Valencia MD [address] [facility] [address] [facility] [address] [place] [address] PCP - General Family Medicine 09/09/19
--- OUTSIDE RECORDS SUMMARY | 2024-12-11 09:48 | XMS_ITS ---
Author Organization [facility] Care Team Providers Care Stair Builder Name Role Phone SANTIAGO MICHAEL Unavailable Unavailable Allergies and adverse reactions No Known Allergies Care Team Name Role Address Phone Organization Dates SANTIAGO MICHAEL PCP [address] [place], [address], [place] (Office): : [facility] 08/27/2023 - 11/13/2023 Immunizations Immunization Status Vaccine Details Vaccine Code CodeSystem Date Notes TB 1 Step Mantoux (PPD) completed tuberculin skin test; unspecified formulation lotNumber: [id number] expiry: 11/28/2025 Mfg: Sanofi -pasteur Given 0.1 ml Left Forearm subcutaneously 98 CVX created date: 4 consent date: 4 administe red date: 4 TB 2 Step Mantoux Skin Test completed tuberculin skin test; unspecified formulation lotNumber: [id number] expiry: 11/28/2025 Mfg: Sanofi -pasteur Given 0.1 ml Left Forearm subcutaneously Step 1 of Multi-step with next step required 98 CVX created date: 4 consent date: 4 administe red date: 4 Influenza (regular dose) completed Influenza, split virus, trivalent, injectable, contains preservative 141 CVX created date: 4 administe red date: 4 Administered at [facility] prior to D/C Mental Status Section Date Assessment Total Score Description 11/13/2023 BIMS 11 moderate cognit kemal impairment CAM 0 No delirium ind icated PHQ-9 00 09/01/2023 BIMS 15 cognitively int act CAM 0 No delirium ind icated PHQ-9 00 Problems Problem # Description Date of onset Resolved Date Code CodeSystem Concern Status 1 OTHER SPECIFIED DISORDERS OF BONE DENSITY AND STRUCTURE, UNSPECIFIED SITE [address] active 2 DEPENDENCE ON SUPPLEMENTAL OXYGEN [address] active 3 ESSENTIAL (PRIMARY) HYPERTENSION [address] active 4 HISTORY OF FALLING [address] active 5 MIGRAINE, UNSPECIFIED, NOT INTRACTABLE, WITHOUT STATUS MIGRAINOSUS [address] active 6 NEED FOR ASSISTANCE WITH PERSONAL CARE [address] active 7 PAIN, UNSPECIFIED [address] active 8 SECONDARY OSTEOARTHRITIS, UNSPECIFIED SITE [address] active 9 TREMOR, UNSPECIFIED [address] active 10 WEAKNESS [address] active Reason for Referral No Reasons for Referral Entered Social History Social History Observation Description Start Date End Date Code Code System Current Smoking Status Ex-smoker Not available Not available 2898007 SNOMED CT Sex Assigned At Female 1950 99123-2 [facility] Gender Identity Vital Signs Code Code System Vitals Name Values and Units Timing Information 9279-1 [facility] Respiratory Rate Value=16.0 Units=/m in 11/13/2023 8867-4 [facility] Heart rate Value=68.0 Units=/min 57237-7 [facility] O2 % BldC Oximetry Value=94.0 Units= % 11/13/2023 8462-4 [facility] Blood Pressure-Diastolic Value=78 Un its=mmHg 11/13/2023 8480-6 [facility] Blood Pressure-Systolic Ytyox=135 Un its=mmHg 11/13/2023 8310-5 [facility] Body Temperature Value=97.6 Units= F 11/13/2023 68249-5 [facility] Pain Level Value=0.0 11/13/2023 98109-8 [facility] Weight Nkqrk=677.8 Units=Lbs 07/2023 8302-2 [facility] Height Value=63.0 Units=Inches 08/27/2023
--- OUTSIDE RECORDS SUMMARY | 2024-12-11 09:48 | XMS_ITS | Data Portability ---
Author Organization [facility] Address [address] [place] [address] Care Team Providers Care Paramedic Instructor Name Role Phone CRYSTAL LEWIS Primary Care Provider Assessment No assessment recorded. Plan of Treatment Reminders Order Date Submit Date Provider Last Modified By Organization Details Last Modified Time Details Appointments FOLLOW UP 2024 01:00P Nicole FISCHER MD Not available Not available Not available Lab None recorded. Referral None recorded. Procedures None recorded. Surgeries None recorded. Imaging None recorded. Medication Orders estradiol 0.01% (0.1 mg/gram) vaginal cream 2024 025 [facility]acy #[id number], [address] [place], [address], 07/29/2024 22:36:03 Patient TargetsNo targets recorded. Patient InstructionsNo instructions recorded. Reason for Referral None Reported. Results Created Date Observation Date Name Description Value Unit Range Abnormal Flag Note LastModifiedBy Organization Detail LastModifiedTime 11/18/1911/17/2024 SURGI CON PATHO LOGY surgical pathology SEE RESULT S BELOW CASE REPOR T: Surgi con Patho logy Repor t Case: [id number] Autho andres escobar Provi ishmael: Julissa Fischer MD Colle cted: 11/17 1403 Order ing Locat ion: [place] Path[facility] Recei khushbu: 11/18 0156 Patho logis t: Aj Montelongo MD Speci mens: A) - Vulva , Vulva r bx B) - Vulva , Vulva r bx ----- ----- ----- ----- ----- ----- ----- ----- ----- ----- ----- ----- ----- ----- ----- ----- ----- ---- FINAL DIAGN OSIS: A. 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 - No dyspl haley ident ified . - See comme nt. B. 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 - No dyspl haley ident ified . - See comme nt. Fartun allen d by Aj Montelongo MD on 2024 at 08 CDT ----- ----- ----- ----- ----- ----- ----- ----- ----- ----- ----- ----- ----- ----- ----- ----- ----- ---- COMME NT: GMS stain s are negat kemal for funga l organ isms CLINI CON INFOR MATIO N: Lesio n of vulva MICRO SCOPI C DESCR IPTIO N: A micro scopi c exami natio n was perfo rmed. GROSS DESCR IPTIO N: A. Vulva . The speci men is label ed with the elvin nt's name, wilbert lopez and 1. Recei khushbu in forma cheko is a 0.5 x 0.4 x 0.2 cm fragm ent of white -farrell tissu e. The speci men is bisec dari and submi tted all in casse tte A1. Gross ed by Moni Pastor on B. Vulva . The speci men is label ed with the elvin nt's name, demog raphi cs and 2. Recei khushbu in forma cheko is a punch of white skin measu ring 0.[address] and is excis ed to a depth of 0.4 cm. The speci men is bisec dari and is submi tted all in casse tte B1. Gross ed by Moni Pastor on Not Available [facility] (Lab) [address], [place], [address], 11/19/2024 09:04:43 Result Notes None recorded. Procedures Surgical History Date Name Laterality Status Provider Name and Address Organization Details Recorded Time 11/18/19 Vulvar Biopsy completed Robinson Fischer MD [address], [place], [address], [facility] 11/18/2024 22:40:19 08/02/19 Date of Last Pap Smear completed [facility] 08/15/2022 09:54:06 complete repair of rotator cuff completed [facility] 08/15/2022 09:56:25 procedure on wrist completed Sera Noyola [facility] [address], [place], [address], [facility] 08/15/2022 10:07:52 Total hip arthroplasty completed [facility] [address], [place], [address], [facility] 08/15/2022 10:08:31 total knee replacement completed Sera Noyola [facility] [address], [place], [address], [facility] 08/15/2022 10:08:17 Imaging Results None recorded. Procedure Notes None recorded. Medical Equipment None Reported. Allergies No known drug allergies Medications Name Sig Start Date Stop Date Status Note LastModified by Organization Details LastModified Time silver sulfadiazin e 1 % topical cream APPLY A 1/16 INCH (1.5 MM) THICK LAYER TO ENTIRE BURN AREA BY TOPICALRO [employer] [employer] 2 TIMES PER DAY active Not Available Not Available No t Available primidone 50 mg tablet TAKE 1 TALBET BY MOUTH EVERY DAY AT BEDTIME 11/17 completed Not Available Not Available Not Available acetaminoph en 325 mg tablet TAKE 2 CAPSULES BY MOUTH EVERY 8 HOURS NEEDED FOR PAIN 08/15 completed Not Available Not Available Not Available prednisone 10 mg tablet 4 TABS BY MOUTH X3 DAYS, 3 TABS X3DAYS ,2 TABS X3 DAYS,1 TAB X3 DAYS DAILY 11/17 completed Not Available Not Available Not Available azithromyci n 250 mg tablet TAKE 2 TABLETS BY MOUTH TODAY, THEN TAKE 1 TABLET DAILY FOR 4 DAYS DIRECTED active Not Available Not Available No t Available nystatin 100,000 unit/gram topical ointment APPLY TO AFFECTED AREA TWICE A DAY 07/10 completed Not Available Not Available Not Available valacyclovi r 1 gram tablet TAKE 1 TABLET BY MOUTH EVERY 12 HOURS DIRECTED FOR 7 DAYS active Not Available Not Available No t Available hydrocodone 5 mg-acetamin ophen 325 mg tablet TAKE 1 TABLET BY MOUTH EVERY 4 HOURS NEEDED FOR CHRONIC PAIN 07/10 completed Not Available Not Available Not Available clobetasol 0.05 % topical cream APPLY A THIN LAYER TO THE AFFECTED AREA(S) BY TOPICAL ROUTE EVERY NIGHT FOR 12 WEEKS active Not Available Not Available No t Available ciprofloxac in 500 mg tablet TAKE [...] completed Not Available Not Available Not Available oxycodone-a cetaminophe n 5 mg-325 mg tablet TAKE 1 TABLET BY MOUTH EVERY 8 HOURS NEEDED FOR PAIN active Not Available Not Available No t Available aspirin 325 mg tablet,sandhya yed release TAKE 1 TABLET BY MOUTH EVERY 12 HOURS FOR 28 DAYS active Not Available Not Available No t Available benzonatate 100 mg capsule TAKE 2 CAPSULES BY MOUTH 3 TIMES DAILY NEEDED 07/10 completed Not Available Not Available Not Available pantoprazol e 40 mg tablet,sandhya yed release 11/17 completed Not Available Not Available Not Available hyoscyamine [...] Available Not Available montelukast 10 mg tablet 11/17 completed Not Available Not Available Not Available gabapentin [...] TAKE 1 TABLET BY MOUTH EVERY DAY 11/17 completed Not Available Not Available Not Available fluticasone propionate 50 mcg/actuati on nasal spray,suspe nsion INSTILL 1 SPRAY INTO EACH NOSTRIL DAILY 11/17 completed Not Available Not Available Not Available amoxicillin 875 mg-potassiu m clavulanate 125 mg tablet 1 TABLET ORALLY TWICE A DAY FOR 5 DAYS active Not Available Not Available No t Available Anoro Ellipta 62.5 mcg-25 mcg/actuati on powder for inhalation INHALE 1 PUFF DAILY active Not Available Not Available No t Available Vitals Date Recorded Body height Body mass index (BMI) Body weight Systolic blood pressure Diastolic blood pressure Provider Name and Address Organization Details Last Updated DateTime 07/10/2024 160.02 cm 29.4 kg/m2 03865.33 g 139 mm[Hg] 77 mm[Hg] Jodi Stout [facility] 5 12:52:01 Date Recorded Body height Body mass index (BMI) Body weight Systolic blood pressure Diastolic blood pressure Provider Name and Address Organization Details Last Updated DateTime 07/29/2024 160.02 cm 28.9 kg/m2 44963.56 g 150 mm[Hg] 82 mm[Hg] Apryl [facility] 14:18:52 Date Recorded Body height Body mass index (BMI) Body weight Systolic blood pressure Diastolic blood pressure Provider Name and Address Organization Details Last Updated DateTime 08/27/2024 160.02 cm 28.9 kg/m2 20328.56 g 142 mm[Hg] 74 mm[Hg] [facility] 14:01:22 Date Recorded Body height Body mass index (BMI) Body weight Systolic blood pressure Diastolic blood pressure Provider Name and Address Organization Details Last Updated DateTime 11/17/2024 160.02 cm 27.8 kg/m2 36693 g 127 mm[Hg] 70 mm[Hg] Leonela Jackson [facility] 5 10:16:12 Date Recorded Body height Body mass index (BMI) Body weight Systolic blood pressure Diastolic blood pressure Provider Name and Address Organization Details Last Updated DateTime 11/20/2024 160.02 cm 27.8 kg/m2 89543 g 130 mm[Hg] 73 mm[Hg] MIHAI Garcia [facility] 14:32:06 Social History Question Answer Notes LastModified by Organizat ion Details LastModified Time Tobacco Smoking Status Never Smoker [email or web address] 08/15/2022 09:56:08 Are You Blind Or Do You Have Difficulty Seeing? No Information n ot available 08/15/2022 In The 14 Days Before Symptom Onset, Have You Had Close Contact With A Laboratory-confirm ed COVID-19 While That Case Was Ill? No [email or web address] Information n ot available 07/29/2024 In The 14 Days Before Symptom Onset, Have You Had Close Contact With A Person Who Is Under Investigation For COVID-19 While That Person Was Ill? No [email or web address] Information not available 07/29/2024 Have You Been To An Area Known To Be High Risk For COVID-19? No [email or web address] Information not available 07/29/2024 Are You Deaf Or Do You Have Serious Difficulty Hearing? No Information not available 08/15/2022 What Type Of Diet Are You Following? REGULAR Information n ot available 08/15/2022 Do You Have Difficulty Walking Or Climbing Stairs? No Information not available 08/15/2022 Sex: Unknown Functional Status Question Answer Note LastModified by Kupoyaizat ion Details LastModified Time What is your level of alcohol consumption? Occasional Information not available 08/15/2022 Are you able [...] (Food, seasonal, environmental ) N Other N Breast Cancer N Drug/Latex Allergies/Reactions N Blood Transfusion N Dermatologic Disorders N Lung Disease N [...] SNOMED-CT Code Diagnosis ICD10 Code Diagnosis Note [id number] Sera Noyola [facility] [address],[facility] [place] [address] 08/15/2022 09:39:19 08/16/2022 16:29:39 Genital herpes simplex 56143764 A60.9 Today we discussed use of Valtrex. [...] review of plan of care. Vulval irritation 009414 003 N90.89 [id number] Sera Noyola [facility] [address],[facility] [place] [address] 08/29/2022 16:20:17 08/30/2022 11:26:23 Genital herpes simplex 43798884 A60.9 Doing well today.All sx's resolved.S o [...] review of plan of care. 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 Pt agrees to this plan, verbalized understand ing. MD consult scheduled Lesion of vulva 25807469 6 N90.89 External hemorrhoids 239 96373 K64.4 supportive care discussedi f symptoms continue recommend referral to colorectal surgery Time spent in visit is a total of 20 mins with at least 50% of visit consisting of counseling and review of plan of care. [id number] ALICE CHANCE MD [facility] [address],[place] [address] 07/29/2024 13:46:56 07/30/2024 14:07:30 Vulval irritation 476830466 N90.89 - likely 2/2 vulvar atrophy, worsened by recent incontinen ce with URI- vulvar tissue very thin, erythemato us- recommend 1 month of vaginal estrogen, then reevaluati on with possible biopsy at that time if not improved [id number] ALICE CHANCE MD [facility] [address],[place] [address] 08/27/2024 13:55:43 08/27/2024 15:52:01 Vulval irritation 888289691 N90.89 - likely 2/2 vulvar atrophy, worsened by recent incontinen ce with URI- vulvar tissue very thin, erythemato us on recent exam- symptoms improved with vaginal estrogen- ok to decrease to 1-2x weekly, or continue 3x weekly if symptoms return- rtc as needed [id number] Robinson Fischer MD [facility] [address] [address] 11/17/2024 09:53:14 11/19/2024 04:26:40 Lesion of vulva 270374956 N90.89 Biopsies were performed of the vulva. She will continue to treat with estradiol cream. Will likely need topical steroids. [id number] Robinson Fischer MD [facility] [address] [address] 11/20/2024 14:24:01 11/20/2024 16:03:21 Lichen sclerosus of vulva 741678825 N90.4 this patient is a 74-year-ol d female who had vulvar pruritus and vulvar lesion. The biopsies of the vulvar lesion revealed lichen sclerosus. The lesion is likely excoriatio n. No evidence of malignancy . We agreed to treat with high potency corticoste roid is and she will also continue to use estrogen. She was given detailed instructio ns on the steroid. To use every night for 12 weeks. She will return in 12 weeks. She understand s the risks, benefits, and alternativ es. She has been given detailed instructio ns and precaution s. Health Concerns Section Related Observation LastModified by Organization Detai ls LastModified Time None Recorded Concern Status LastModified by Organization Details LastModified Time None Recorded Advance Directives Directive None Recorded Payers Insurance Date Sequence Insurance Name Policy Number Policy Echeverria Covered Member ID Echeverria Member ID Guarantor Name 11/17/2024 1 [facility] (MEDICARE REPLACEMENT/A DVANTAGE - POS) [id number] Junie Alfred [id number] Junie Alfred Notes Date Note Type Note Provider Name and Address Organization Details Recorded Time 5 text/html 73yohere today for vulvar itching/burning/dryness [...] genital HSV CRISTIAN Campos [address], [place], [address], [facility] 07/10/2024 13:50:42 5 text/html Patient presents [...] bleeding. ALICE CHANCE MD [address], [place], [address], [facility] 07/29/2024 22:36:15 5 text/html Patient presents for med check of vaginal estrogen cream. She was prescribed vaginal estrogen for vulvar atrophy and irritation. She reports vast improvement in all of her symptoms. No bleeding or irritation. No side effects. ALICE CHANCE MD [address], [place], [address], [facility] 08/27/2024 15:51:27 5 text/html 74-year-old female with intense vulvar pruritus and now painful lesions. Patient has history of genital herpes. Examination the vulva showed the appearance lichen sclerosis and some severely excoriated or ulcerated area. These areas were then biopsied. Robinson Fischer MD [address], [place], [address], [facility] 11/18/2024 22:41:19 5 text/html this patient is a 74-year-old female who had vulvar pruritus and vulvar lesion. The biopsies of the vulvar lesion revealed lichen sclerosus. The lesion is likely excoriation. No evidence of malignancy. We agreed to treat with high potency corticosteroid is and she will also continue to use estrogen. She was given detailed instructions on the steroid. To use every night for 12 weeks. She will return in 12 weeks. She understands the risks, benefits, and alternatives. She has been given detailed instructions and precautions. Robinson Fischer MD [address], [place], [address], [place] [facility] 11/20/2024 15:49:44 OBGyn Episode Ob Episode Information Episode Created Date Number of Fetuses Patient Bloodtype Patient rh Status Prepregnancy Weight lbs Domestic Partner Domestic Partner Phone Father Name Underpresser Hand Status 08/15/19 1 CLOSED Fetus Data First Name Last Name Admitted to NICU Weight (g) Sex Living Outcome Pediatric Complications Fetus ID Race Codes Race Delivery Type F Full Term [id number] Vaginal Delivery Ricardo Calculation Initial Ricardo Date [...] Domestic Partner Domestic Partner Phone Father Name Underpresser Hand Status 08/15/19 1 CLOSED Fetus Data First Name Last Name Admitted to NICU Weight (g) Sex Living Outcome Pediatric Complications Fetus ID Race Codes Race Delivery Type F Full Term [id number] Vaginal Delivery Ricardo Calculation Initial Ricardo Date [...]
--- OUTSIDE RECORDS SUMMARY | 2024-12-11 09:48 | XMS_ITS | Referral Summary ---
Author Organization [facility] [address] [facility] [address] [facility] [address] [place] [address] Care Team Providers Care Train Master Name Role Phone Kim Valencia MD Primary [...] 08/29/2022 Assessment & Plan (08/29/2022 3:02 PM BAGMAN/WOMAN): - Discussed with patient that her symptoms [...] approved and scheduled for next Sunday with service writer, along with repeat PFTs. Discussed that if CT were to show worsening disease, or it patient has worsening symptoms, we could discuss treatment regimen. - Pt in agreement with this plan of care. Will continue to follow-up with her service writer. - Discussed with patient the rational for [...] on file Legal Sex Female 7:28 PM BAGMAN/WOMAN Gender Identity Not on file Sexual Orientation Not on file Last Filed Vital Signs Vital Sign Reading Time Taken Comments Blood Pressure 156/85 08/28/2022 10:01 AM BAGMAN/WOMAN Pulse 67 08/28/2022 10:01 AM BAGMAN/WOMAN Temperature 36.7 C (98.1 F) 08/28/2022 10:01 AM BAGMAN/WOMAN Respiratory Rate 12 04/25/2021 2:35 PM CDT Oxygen Saturation - - Inhaled Oxygen Concentration - - Weight 78.8 kg (173 lb 11.2 oz) 023 10:01 AM BAGMAN/WOMAN Height 160 cm (5' 2.99) 08/28/2022 10: 01 AM BAGMAN/WOMAN Body Mass Index 30.78 08/28/2022 10:01 AM BAGMAN/WOMAN Plan of Treatment Not on file Procedures [...] CDT PROCEDURE REPORT Patient: JUNIE RODRÍGUEZ Account: [id number] Room No: : 1950 Patient Type: SKYLINE [...] report. 2. Repeat screening in five years. Hilary Mchugh M.D. AK/kristy TD: 11/01/2013 15:17 CC: Merritt Molina M.D. Authenticated by Hilary Mchugh MD On 11/05/2013 09:54:57 AM Historical Provider ENDOSCOPY PROCEDURES Zenobia l Result from Last 3 Months or Most Recently Relevant to Health Maintenance Insurance Member Subscriber Plan / Payer (Ef fective 2019-Present) Name:Junie Rodríguez Relation to Subscriber:Self Name:Junie Rodríguez Payer ID:[id number] (NAIC) Type:[employer] Address: [place] [id number] [place] [phone] [employer] MDCR HMO REF [employer] ADVANTAGE Care Teams Train Master Relationship Specialty Start Date End Date Kim Valencia MD [address] [facility] [address] [place] [address] PCP - General Family Medicine 09/09/19
[2024-12-11 10:25] LABS: Alanine Aminotransferase 14 U/L (6-35); Albumin Level 4.2 g/dL (3.5-5.1); Alkaline Phosphatase 74 U/L (38-126); Anion Gap 4 mmol/L (4-12); Aspartate Amino Transferase 23 U/L (14-36); Bilirubin,Total 0.4 mg/dL (0.2-1.3); Blood Urea Nitrogen 13 mg/dL (7-17); Calcium 9.3 mg/dL (8.4-10.2); Carbon Dioxide 28 mmol/L (22-30); Chloride 108 mmol/L (98-107); Cholesterol 216 mg/dL (0-200); Estimated Glomerular Filt Rate > 60; Glucose 89 mg/dL (65-110); HDL Direct 54 mg/dL; LDL Cholesterol Calculated 138 mg/dL (<130); Osmolality Calculated 289 mOsm/kg (285-295); Sodium 140 mmol/L (137-145); Total Protein 6.8 g/dL (6.3-8.2); Triglycerides 121 mg/dL (<150)
== END 2024-12-11 09:16 | disposition home or self-care (01) ==
LOC: CHSLAB 09:17
PROVIDERS: PCP Family Medicine; Visit Provider Physician Assistant Medical
DX: I10 Essential (primary) hypertension (principal); E03.9 Hypothyroidism, unspecified; J44.9 Chronic obstructive pulmonary disease, unspecified; E78.5 Hyperlipidemia, unspecified
CPT/HCPCS: 36415; 80053; 80061; 84443; 85027

== ENCOUNTER 2025-03-13 11:42 | Outpatient (CLI) | payer MEDICARE, SELFPAY ==
--- NOTE | ~2025-03-13 | XR_ITS ---
XR thoracic spine 2V Indication: M54.6 - Pain in thoracic spine, NKI Comparison: None Findings: Severe osteopenia. Moderate loss of vertebral height throughout. No acute fracture or subluxation. Moderate to severe loss of disc height throughout. Soft tissues unremarkable Impression: No acute abnormality. Reviewed, dictated and finalized at location A. Impression: No acute abnormality.
--- OUTSIDE RECORDS SUMMARY | 2025-03-13 12:59 | XMS_ITS ---
Author Organization [facility] Care Team Providers Care Security Operations Center Operator Name Role Phone SANTIAGO MICHAEL Unavailable Unavailable Allergies and adverse reactions No Known Allergies Care Team Name Role Address Phone Organization Dates SANTIAGO MICHAEL PCP [address] [place], [address], [place] (Office): : [facility] 08/27/2023 - 11/13/2023 Immunizations Immunization Status Vaccine Details Vaccine Code CodeSystem Date Notes TB 1 Step Mantoux (PPD) completed tuberculin skin test; unspecified formulation lotNumber: [id number] expiry: 11/28/2025 Mfg: Sanofi -pasteur Given 0.1 ml Left Forearm subcutaneously 98 CVX created date: 4 consent date: 4 administe red date: 4 TB 2 Step Mantoux Skin Test completed tuberculin skin test; unspecified formulation lotNumber: [id number] expiry: 11/28/2025 Mfg: Sanofi -pasteur Given 0.1 ml Left Forearm subcutaneously Step 1 of Multi-step with next step required 98 CVX created date: 4 consent date: 4 administe red date: 4 Influenza (regular dose) completed Influenza, split virus, trivalent, injectable, contains preservative 141 CVX created date: 4 administe red date: [address] [facility] prior to D/C Mental Status Section Date [...] BONE DENSITY AND STRUCTURE, UNSPECIFIED SITE [address] active 2 DEPENDENCE ON SUPPLEMENTAL OXYGEN [address] active 3 ESSENTIAL (PRIMARY) HYPERTENSION [address] active 4 HISTORY OF FALLING [address] active 5 MIGRAINE, UNSPECIFIED, NOT INTRACTABLE, WITHOUT STATUS MIGRAINOSUS [address] active 6 NEED FOR ASSISTANCE WITH PERSONAL CARE [address] active 7 PAIN, UNSPECIFIED [address] active 8 SECONDARY OSTEOARTHRITIS, UNSPECIFIED SITE [address] active 9 TREMOR, UNSPECIFIED [address] active 10 WEAKNESS [address] active Reason for Referral No Reasons for Referral Entered Social History Social History Observation Description Start Date End Date Code Code System Current Smoking Status Ex-smoker Not available Not available 3958373 SNOMED CT Sex Assigned At Female 1950 [address]010-[address] [facility] Gender Identity Sexual Orientation Vital Signs Code Code System Vitals Name Values and Units Timing Information 9279-[address] [facility] Respiratory Rate Value=16.0 Units=/m in 11/13/2023 8867-[address] [facility] Heart rate Value=68.0 Units=/min 06486-[address] [facility] O2 % BldC Oximetry Value=94.0 Units= % 11/13/2023 8462-[address] [facility] Blood Pressure-Diastolic Value=78 Un its=mmHg 11/13/2023 8480-6 [facility] Blood Pressure-Systolic Jeawc=872 Un its=mmHg 11/13/2023 8310-[address] [facility] Body Temperature Value=97.6 Units= F 11/13/2023 74862-[address] [facility] Pain Level Value=0.0 11/13/2023 11341-4 [facility] Weight Jvjhs=076.8 Units=Lbs 07/2023 8302-2 [facility] Height Value=63.0 Units=Inches 08/27/2023
--- OUTSIDE RECORDS SUMMARY | 2025-03-13 12:59 | XMS_ITS ---
Author Organization [facility] Care Team Providers Care Trial Lawyer Name Role Phone Zack Edgar Unavailable Unavailable Allergies and adverse reactions No Known Allergies Care Team Name Role Address Phone Organization Dates Edgar Dixon PCP [address], [place], [address], [place] (Office): : [facility] 2022 - 11/28/2022 Immunizations Immunization Status Vaccine Details Vaccine Code CodeSystem Date Notes TB 2 Step Mantoux Skin Test completed tuberculin skin test; unspecified formulation lotNumber: [id number] expiry: 12/07/2024 Mfg: SANOFI PASTEUR Given 0.1 ml Left Forearm subcutaneously Step 2 of Multi-step with next step required 98 CVX created date: 11/05/2022 consent date: 11/04/2022 administer ed date: 11/05/2022 TB 2 Step Mantoux Skin Test completed tuberculin skin test; unspecified formulation lotNumber: [id number] expiry: 12/07/2024 Mfg: Tubersol INJ 5/0.1ML Given [...] mcg/0.5mL dose or 50 mcg/0.25mL dose lotNumber: [id number] expiry: 11/20/2022 Mfg: Moderna Bivalent Given 0.5 [...] 1 CHRONIC OBSTRUCTIVE PULMONARY DISEASE, UNSPECIFIED 10/26/[address] active 2 DISPLACED OBLIQUE FRACTURE OF SHAFT OF RIGHT FEMUR, SUBSEQUENT ENCOUNTER FOR CLOSED FRACTURE WITH ROUTINE HEALING 10/26/[address] active 3 ENCOUNTER FOR OTHER ORTHOPEDIC AFTERCARE 10/26/[address] active 4 ESSENTIAL (PRIMARY) HYPERTENSION 10/26/[address] active 5 HISTORY OF FALLING 10/26/[address] active 6 NEED FOR ASSISTANCE WITH PERSONAL CARE 10/26/[id number] active 7 PERIPROSTHETIC FRACTURE AROUND INTERNAL PROSTHETIC RIGHT KNEE JOINT, SUBSEQUENT ENCOUNTER 10/26/[address] active 8 TREMOR, UNSPECIFIED 10/26/[address] active 9 UNSPECIFIED FRACTURE OF FIFTH METACARPAL BONE, RIGHT HAND, SUBSEQUENT ENCOUNTER FOR FRACTURE WITH ROUTINE HEALING 10/26/[address] active 10 UNSPECIFIED OSTEOARTHRITIS, UNSPECIFIED SITE 10/26/[address] active 11 WEAKNESS 10/26/[address] active Reason for Referral No Reasons for Referral Entered Social History Social History Observation Description Start Date End Date Code Code System Current Smoking Status Tobacco smoking consumption unknown 227486481 SNOMED CT Sex Assigned At Female 1950 77392-2 [facility] Gender Identity Sexual Orientation Vital Signs Code Code System Vitals Name Values and Units Timing Information 9279-1 [facility] Respiratory Rate Value=18.0 Units=/m in 11/28/2022 8462-4 [facility] Blood Pressure-Diastolic Value=70 Un its=mmHg 11/28/2022 8480-6 [facility] Blood Pressure-Systolic Ucxbi=991 Un its=mmHg 11/28/2022 8310-5 [facility] Body Temperature Value=97.6 Units= F 11/28/2022 8867-4 [facility] Heart rate Value=82.0 Units=/min 17013-2 [facility] Pain Level Value=0.0 11/28/2022 25853-2 [facility] O2 % BldC Oximetry Value=98.0 Units= % 11/28/2022 53262-2 [facility] Weight Tigpn=649.8 Units=Lbs 8302-2 [facility] Height Value=63.0 Units=Inches 10/30/2022
== END 2025-03-13 11:43 | disposition home or self-care (01) ==
LOC: CHSIMG 11:44
PROVIDERS: PCP Family Medicine
DX: M54.6 Pain in thoracic spine (principal)
CPT/HCPCS: 72070

== ENCOUNTER 2025-04-14 16:00 | Emergency (ER) | payer MEDICARE, SELFPAY ==
--- NOTE | ~2025-04-14 | XR_ITS ---
EXAMINATION: XR wrist RT min 3V, 04/14/2025 16:15 CDT HISTORY: fall COMPARISON: No comparisons available. Findings: Remote corticated fractures of the distal ulnar styloid process and the distal radius. Severe degenerative changes of the carpal bones of the first metacarpal carpal joint. Soft tissue swelling. Impression: No acute fracture or malalignment. Reviewed, dictated and finalized at location P. Impression: No acute fracture or malalignment.
--- NOTE | ~2025-04-14 | XR_ITS ---
EXAMINATION: XR sacrum coccyx min 2V, 04/14/2025 16:15 CDT HISTORY: fall COMPARISON: No comparisons available. Findings: No acute fracture or malalignment. Sclerosis of the sacroiliac joints, no osteophytes are bridging osteophyte formation, no erosions identified. Soft tissues unremarkable. Impression: No acute fracture or malalignment. Reviewed, dictated and finalized at location P. Impression: No acute fracture or malalignment.
[2025-04-14 16:00] VITALS: BP 146/96; PULSE 89; RESP 20; TEMP 36.6; O2SAT 93
--- NOTE | 2025-04-14 16:11 | ED_ITS ---
HPI - Fall General Chief Complaint: Fall Stated Complaint: fall Source: patient Mode of arrival: ambulatory History of Present Illness HPI Narrative: 74-year-old with a history of COPD, hypertension, hyperlipidemia, osteoporosis here with a complains of sacral pain. Patient states that she lost her balance while going to the laundromat fell on her buttock acute about 11:00 a.m. this morning denies any head and neck injuries also complains of right wrist pain. complaint: fall Onset (ago): hour(s) (5) Fall from: standing Place fall occurred: home Loss of consciousness: none Symptoms prior to fall: none Context: tripped/slipped Related Data Home Medications ?Medication ?Instructions ?Recorded ?Confirmed ?Last Taken ?Type ipratropium 0.5 mg-albuterol 3 mg 3 ml inhalation Q6H PRN 03/20/25 04/13/25 Unknown History (2.5 mg base)/3 mL nebulization soln Allergies Allergy/AdvReac Type Severity Reaction Status Date / Time Kpdyirg-PFW-ErW Reductase AdvReac Intermediate Muscle Pain Verified 04/13/25 13:26 Inhibitor lisinopril AdvReac Mild cough Verified 04/13/25 13:26 Review of Systems Review of Systems: All systems reviewed & are unremarkable except as noted in HPI and below Constitutional: Constitutional: Reports no additional constitutional complaints Eyes: Eyes: Reports no additional eye complaints ENT: Reports system reviewed and no additional complaints, except as documented Cardiovascular: Cardiovascular: Reports no additional cardiovascular complaints Respiratory: Respiratory: Reports no additional respiratory complaints Gastrointestinal: Gastrointestinal: Reports no additional gastrointestinal complaints Musculoskeletal: Musculoskeletal: Reports as per HPI Neurologic: Reports system reviewed and no additional complaints, except as documented [facility] Past Medical History Medical History Contusion of left shoulder Wound, open, toe Abnormal CXR Osteoporosis Emphysema of lung Wears glasses Dizziness Left shoulder pain Fracture of one rib, left side, subsequent encounter for fracture with routine healing Tremor of both hands Malaise Left rib fracture Acute bilateral thoracic back pain Aftercare following right hip joint replacement surgery Carpal tunnel syndrome of left wrist Coarse tremors Herpes simplex vulvovaginitis Mixed hyperlipidemia Vitamin D deficiency, unspecified Numbness and tingling of left side of face Neck pain Numbness and tingling of right face Left buttock abscess Adenomatous colon polyp Fall Quadriceps weakness Overweight (BMI 25.0-29.9) COPD (chronic obstructive pulmonary disease) Degenerative joint disease of knee Hyperlipidemia History of tobacco use disorder Benign reactive hypertension Abdominal hernia History of vaginal delivery x 2 Acid reflux High cholesterol Skin cancer Benign hypertension Arthritis Herpes genitalis in women Surgical History Surgical History S/P total left hip arthroplasty Presence of right artificial hip joint History of right inguinal hernia repair History of open reduction and internal fixation (ORIF) procedure left wrist Status post total knee replacement Right S/P ORIF (open reduction internal fixation) fracture distal radius- Left Hx of rotator cuff surgery Hx of total hip arthroplasty Right Family History Family History Father Family history of Parkinson's disease Mother Patient's mother is , Onset Age: 42 Other Cerebrovascular accident Family history of malignant neoplasm Social History Social History Social History: Patient lives at home with her grown granddaughter. She wishes to be listed as a Full Code. Her PCP is Dr. Alvarez. Smoking packs per day: 0 Smoking cigarettes per day: 0.0 Years smoked: 43 Smoking pack-years: 0.00 Smoking status: Former smoker Tobacco type: cigarettes Second hand tobacco smoke exposure: No Smoking end date: 07/02/12 Alcohol intake: current Drinks per week: 12 Alcohol use details: wine Substance use: never Substance use type: marijuana Last use: 2x monthly Do You Feel Safe in your Home?: Yes Lack of Transportation: No Lack of Food: Never True Current Housing: I Have Housing Concerned About Future Housing: No Difficulty Paying Gas/Electric Bills: No Difficulty Paying for Meds: No Currently Unemployed: No Education: Grade School Difficulty w/ Childcare or Family Care: No Living arrangements: alone Occupation/Education: retired Gender identity (if verbalized by the patient): Female Sexual Orientation (if Verbalized by the Patient): Straight or Heterosexual Spiritual care concerns: No Exam Narrative: GENERAL: Well-appearing, well-nourished, and in no acute distress. HEAD: Normocephalic, atraumatic. EYES: PERRLA and EOMI. ENT: Nares clear, no rhinorrhea or epistaxis. Mucous membranes moist. NECK: Supple. CHEST: Clear to auscultation. No respiratory distress. HEART: Regular rate and rhythm. No murmur heard. Normal peripheral pulses. ABDOMEN: Soft, nontender, nondistended, normal active bowel sounds. EXTREMITIES: Normal range of motion. No edema. SKIN: Warm, dry, no rash. NEURO: No focal deficits. Alert and oriented x3. PSYCH: Normal mood and affect. Course Course Emergency Course: informed her about hte Xray findings advised her to take Tylenol or ibuprofen for pain Vital Signs Vital signs: Vital Signs Temperature 36.6 C 04/14/25 16:00 Pulse Rate 89 04/14/25 16:00 Respiratory Rate 20 04/14/25 16:00 Blood Pressure 146/96 H 04/14/25 16:00 Pulse Oximetry 93 04/14/25 16:00 Oxygen Delivery Room Air 04/14/25 16:00 Temperature 36.6 C 04/14/25 16:00 Pulse Rate 89 04/14/25 16:00 Respiratory Rate 20 04/14/25 16:00 Blood Pressure 146/96 H 04/14/25 16:00 Pulse Oximetry 93 04/14/25 16:00 Oxygen Delivery Room Air 04/14/25 16:00 MDM - Fall Imaging Data Radiologist's impression: ITS Impressions Wrist X-Ray 04/14/25 16:37 Impression: No acute fracture or malalignment. Sacrum and Coccyx X-Ray 04/14/25 16:38 Impression: No acute fracture or malalignment. Discharge Plan Discharge Clinical Impression: Contusion of sacral region Qualifiers: Encounter type: initial encounter Qualified Code(s): S30.0XXA - Contusion of lower back and pelvis, initial encounter Patient Disposition: Home Condition: Stable Instructions: Contusion in Adults (ED) Additional Instructions: continue home medications, follow with your doctor as needed , can take Tylenol or Ibuprofen as needed for pain Patient Language: Yoruba Prescriptions: No Action atorvastatin [Lipitor] 10 mg tablet 10 mg PO DAILY Qty: 90 3RF nystatin 100,000 unit/gram powder 1 applic topical BID Qty: 15 0RF clotrimazole 1 % cream 1 applic topical Q12H PRN (Reason: rash) Qty: 15 0RF ipratropium-albuterol 0.5 mg-3 mg(2.5 mg base)/3 mL solution for nebulization 3 ml inhalation Q6H PRN montelukast 10 mg tablet See Rx Instructions .ROUTE .COMPLEX Qty: 100 2RF Dose Instruction: TAKE 1 TABLET BY MOUTH DAILY Rx Instructions: TAKE 1 TABLET BY MOUTH DAILY pantoprazole 40 mg tablet,delayed release (DR/EC) See Rx Instructions .ROUTE .COMPLEX Qty: 100 2RF Dose Instruction: TAKE 1 TABLET BY MOUTH IN THE MORNING Rx Instructions: TAKE 1 TABLET BY MOUTH IN THE MORNING primidone 50 mg tablet See Rx Instructions .ROUTE .COMPLEX Qty: 100 2RF Dose Instruction: TAKE 1 TALBET BY MOUTH DAILY AT BEDTIME Rx Instructions: TAKE 1 TALBET BY MOUTH DAILY AT BEDTIME ipratropium bromide 21 mcg (0.03 %) spray,non-aerosol See Rx Instructions .ROUTE .COMPLEX Qty: 90 2RF Dose Instruction: USE 2 SPRAYS IN BOTH NOSTRILS TWICE DAILY Rx Instructions: USE 2 SPRAYS IN BOTH NOSTRILS TWICE DAILY losartan 100 mg tablet See Rx Instructions .ROUTE .COMPLEX Qty: 100 2RF Dose Instruction: TAKE 1 TABLET BY MOUTH DAILY Rx Instructions: TAKE 1 TABLET BY MOUTH DAILY Follow-up/Referrals: Rajat Kimble MD [Primary Care Provider, Family Practice] Time of Disposition: 16:59
--- OUTSIDE RECORDS SUMMARY | 2025-04-14 17:25 | XMS_ITS | Clinical Summary ---
Author Organization [facility] Address [address] [place] [id number] Care Team Providers Care Soldering Machine Operator Helper Name Role Phone Kim Valencia MD Primary Care Provider [phone] Allergies No known active allergies Medications albuterol [...] (10/17/2022): Added automatically from request for surgery [id number] Chronic obstructive pulmonar y disease, unspecified 08/29/2022 08/16/2023 Positive culture findings in sputum [...] approved and scheduled for next Sunday with director medical writing, along with repeat PFTs. Discussed that if CT were to show worsening disease, or it patient has worsening symptoms, we could discuss treatment regimen. - Pt in agreement with this plan of care. Will continue to follow-up with her director medical writing. - Discussed with patient the rational for treatment, culture results, risk of recurrent infection, signs/symptoms of recurrent infection, and to contact ID clinic with any questions or concerns Bronchiectasis, uncomplicated 08/29/2022 10/19/2022 Immunizations Immunization Administration Dates Next [...] = 0.6 oz pu re alcohol) occasioanlly [facility] Utilities Answer Date Recorded In the past [address] [facility], oil, or water [employer] threatened to shut off services in your [...] place to sleep or slept in a assisted (including now)? Patient declined 08/23/2023 Comments No Sex and Gender Information Value Date Recorded Sex Assigned at Not on file Legal Sex Female 2:46 AM CDT Gender Identity Not on file Sexual Orientation Not on file Last Filed Vital Signs Vital Sign Reading Time Taken Comments Blood Pressure 105/48 08/27/2023 11:54 AM JOB TRAINING SPECIALIST Pulse 88 08/27/2023 11:54 AM JOB TRAINING SPECIALIST Temperature 36.5 C (97.7 F) 08/27/2023 11:54 AM JOB TRAINING SPECIALIST Respiratory Rate 18 08/27/2023 11:5 4 AM JOB TRAINING SPECIALIST Oxygen Saturation 90% 08/27/2023 11: 54 AM JOB TRAINING SPECIALIST Inhaled Oxygen Concentration - - Weight 88.9 kg (195 lb 15.8 oz) 08/25/2023 5:00 AM JOB TRAINING SPECIALIST Height 160 cm (5' 3) 08/18/2023 1:55 AM JOB TRAINING SPECIALIST Body Mass Index 34.72 08/18/2023 1:55 AM JOB TRAINING SPECIALIST Plan of Treatment Health Maintenance Due Date Last Done Comments Colorectal Cancer Screening Colonoscopy (10 Years) 1950 Hepatitis C 10/26/1967 DTaP, Tdap and Td Vaccines (1 - Tdap) 1968 Zoster Vaccines (1 of 2) 10/26/1999 Annual Medicare Wellness Visit 2014 Dexa Scan (General) 2014 Pneumococcal Vaccine: 50+ Years (3 of 3 - PCV20 or PCV21) 02/27/2023 02/27/2018, 04/09/2013 RSV Immunization or 60+ Years (1 - 1-dose 75+ series) 2024 COVID-19 Vaccine ( season) 2025 10/30/2022, 07/05/2021, 09/07/2020, Additional history exists Influenza Adult (#1) 2025 08/23/2023, 05/06/2019, 04/26/2018, Additional history exists Meningococcal B Vaccine Aged Out No l [...] need for SNF placement Lifestyle No Jody Edward, RN Medical Devices Implanted Type Area Fire Alarm Repairer Device Identifier Shelf Expiration Date Model / Serial / Lot Graft Bone Cortical Strut Frozen 20cm - [id number] Implanted:Qty: 1 on 08/20/2023 by Xavi Bhatia MD at [facility] Right: Femur [employer] [id number] 10/22/2024 [id number] / [id number] / Graft Bone Bonus Triad Cancellous Cortical 10cc Allograft - [id number] Implanted:Qty: 1 on 08/20/2023 by Xavi Bhatia MD at [facility] Bone Right: Leg [employer] 03/17/2027 [id number] / [id number] / Cap Jocelnie Ncb Locking 8mm - [id number] Implanted:Qty: 12 on 08/20/2023 by Xavi Bhatia MD at [facility] End Cap Right: Femur [employer] [id number] / / N/A Plate Joceline Distal Femur 15 Hole 317mm Right - [id number] Implanted:Qty: 1 on 08/20/2023 by Xavi Bhatia MD at [facility] Plate Right: Femur [employer] [id number] / / N/A Screw Joceline 5.0 Cortical Self Tapping 48mm - [id number] Implanted:Qty: 1 on 08/20/2023 by Xavi Bhatia MD at [facility] Screw Right: Femur [employer] [id number] / / N/A Screw Joceline 5.0 Cortical Self Tapping 42mm - [id number] Implanted:Qty: 1 on 08/20/2023 by Xavi Bhatia MD at [facility] Screw Right: Femur [employer] [id number] / / N/A Screw Joceline 5.0 Cortical Self Tapping 36mm - [id number] Implanted:Qty: 1 on 08/20/2023 by Xavi Bhatia MD at [facility] Screw Right: Femur [employer] [id number] / / N/A Screw Joceline 3.5 Cortical Self Tapping 38mm - [id number] Implanted:Qty: 2 on 08/20/2023 by Xavi Bhatia MD at [facility] Screw Right: Femur [employer] [id number] / / N/A Screw Joceline 5.0 Unicortical 14mm - [id number] Implanted:Qty: 1 on 08/20/2023 by Xavi Bhatia MD at [facility] Screw Right: Femur [employer] [id number] / / N/A Screw Joceline 5.0 Cortical Self Tapping 80mm - [id number] Implanted:Qty: 3 on 08/20/2023 by Xavi Bhatia MD at [facility] Screw Right: Femur [employer] [id number] / / N/A Screw Joceline 5.0 Cortical Self Tapping 60mm - [id number] Implanted:Qty: 1 on 08/20/2023 by Xavi Bhatia MD at [facility] Screw Right: Femur [employer] [id number] / / N/A Screw Joceline 5.0 Cortical Self Tapping 75mm - [id number] Implanted:Qty: 1 on 08/20/2023 by Xavi Bhatia MD at [facility] Screw Right: Femur [employer] [id number] / / N/A Screw Joceline 5.0 Cortical Self Tapping 70mm - [id number] Implanted:Qty: 1 on 08/20/2023 by Xavi Bhatia MD at [facility] Screw Right: Femur [employer] [id number] / / N/A Wire Fix 30cm 1.22mm Luq Loop - [id number] Implanted:Qty: 5 on 08/20/2023 by Xavi Bhatia MD at [facility] Wire Right: Femur [employer] [id number] / / NA Axsos 3 Ti 5.0 Variableangle Extension Arm Implanted:Qty: 1 on 10/17/2022 by Raffi Jeffries MD at [facility] Right: Femur 08/30/2023 [id number] / / [id number] Locking Screw Implanted:Qty: 4 on 10/17/2022 by Raffi Jeffries MD at [facility] Right: Femur [employer] SYL [id number] / / 5 Locking Screw Implanted:Qty: 2 on 10/17/2022 by Raffi Jeffries MD at [facility] Right: Femur [employer] [id number] / / 5 Locking Screw Implanted:Qty: 1 on 10/17/2022 by Raffi Jeffries MD at [facility] Right: Femur [employer] [id number] / / 4 Locking Screw Implanted:Qty: 1 on 10/17/2022 by Raffi Jeffries MD at [facility] Right: Femur [employer] SY[employer] [id number] / / 5 Locking Screw Implanted:Qty: 1 on 10/17/2022 by Raffi Jeffries MD at [facility] Right: Femur [employer] SY[employer] [id number] / / Tigertape Cerclage Implanted:Qty: 2 on 10/17/2022 by Raffi Jeffries MD at [facility] Right: Femur 05/01/2025 [id number] / / [id number] Distal Femur Plate Right Implanted:Qty: 1 on 10/17/2022 by Raffi Jeffries MD at [facility] Right: Femur [employer] [id number] / / 4.5 Non Locking Screw Implanted:Qty: 1 on 10/17/2022 by Raffi Jeffries MD at [facility] Right: Femur [employer] [id number] / / 4.5 Non Locking Screw Implanted:Qty: 2 on 10/17/2022 by Raffi Jeffries MD at [facility] Right: Femur [employer] [id number] / / 5 Locking Screw Implanted:Qty: 1 on 10/17/2022 by Raffi Jeffries MD at [facility] Right: Femur [employer] [id number] / / 5 Locking Screw Implanted:Qty: 1 on 10/17/2022 by Raffi Jeffries MD at [facility] Right: Femur [employer] [id number] / / 5 Locking Screw Implanted:Qty: 1 on 10/17/2022 by Raffi Jeffries MD at [facility] Right: Femur [employer] [id number] / / Explanted Type Area Fire Alarm Repairer Device Identifier Shelf Expiration Date Model / Serial / Lot Drill Bit Joceline 4.3mm - [id number] Explanted:Qty: 1 on 08/20/2023 by Xavi Bhatia MD at [facility] Drill Right: Femur [employer] [id number] / / N/A Pin Steinmann Threaded Brasseler 2.0 - [id number] Explanted:Qty: 1 on 08/20/2023 by Xavi Bhatia MD at [facility] Pin Right: Leg [facility] [id number] 05/18/2027 [id number] / / [id number] 3.1 Drill Bit Explanted:Qty: 1 on 10/17/2022 by Raffi Jeffries MD at [facility] Right: Femur [employer] [id number] / / 3.2 Drill Bit Explanted:Qty: 1 on 10/17/2022 by Raffi Jeffries MD at [facility] Right: Femur [employer] [id number] / / 4.3 Drill Bit Explanted:Qty: 1 on 10/17/2022 by Raffi Jeffries MD at [facility] Right: Femur [employer] [id number] / / K Wire Explanted:Qty: 2 on 08/20/2023 by Xavi Bhatia MD at [facility] Right: Femur [employer] [id number] 0 / / N/A Drill Bit 3.3 Explanted:Qty: 2 on 08/20/2023 by Xavi Bhatia MD at [facility] Right: Femur [employer] [id number] / / N/A Insurance MEDICARE MEDICAL REIMBURSEMENTS OF [place] [employer] WORKMANS COMP [...] 4:06 PM 2022 4:29 PM Care Teams Soldering Machine Operator Helper Relationship Specialty Start Date End Date Kim Valencia MD [address] [facility] [address] [place] [address] PCP - General FAMILY PRACTICE 10/17/22
--- OUTSIDE RECORDS SUMMARY | 2025-04-14 17:25 | XMS_ITS | Clinical Summary ---
Author Organization [facility] [place] [address] [facility] [address] Address [address] [facility] [address] [place] [address] Care Team Providers Care Bowling Alley Floors Installer Name Role Phone Kim Valencia MD Primary [...] 08/29/2022 Assessment & Plan (08/29/2022 3:02 PM PERIANESTHESIA RN): - Discussed with patient that her symptoms [...] approved and scheduled for next Sunday with advertising layout worker, along with repeat PFTs. Discussed that if CT were to show worsening disease, or it patient has worsening symptoms, we could discuss treatment regimen. - Pt in agreement with this plan of care. Will continue to follow-up with her advertising layout worker. - Discussed with patient the rational for [...] reflux disease) COPD (chronic obstructive pulmonary disease) Arthritis Herpes Tremor Family History Relation Name Status Comments Brother Father Mother Social History Tobacco Use Types Packs/Day Years Used Date Smoking Tobacco: Former Smokeless Tobacco: Never Personal Safety Answer Date Recorded Getting School Help Needed Not on file 08/23 Comments Unknown Sex and Gender Information Value Date Recorded Sex Assigned at Not on file Legal Sex Female 7:28 PM PERIANESTHESIA RN Gender Identity Not on file Sexual Orientation Not on file Obstetrics History Last Filed Vital Signs Vital Sign Reading Time Taken Comments Blood Pressure 156/85 08/28/2022 10:01 AM PERIANESTHESIA RN Pulse 67 08/28/2022 10:01 AM PERIANESTHESIA RN Temperature 36.7 C (98.1 F) 08/28/2022 10:01 AM PERIANESTHESIA RN Respiratory Rate 12 04/25/2021 2:35 PM CDT Oxygen Saturation - - Inhaled Oxygen Concentration - - Weight 78.8 kg (173 lb 11.2 oz) 023 10:01 AM PERIANESTHESIA RN Height 160 cm (5' 2.99) 08/28/2022 10: 01 AM PERIANESTHESIA RN Body Mass Index 30.78 08/28/2022 10:01 AM PERIANESTHESIA RN Plan of Treatment Health Maintenance Due Date [...] Colon Cancer Screening-Colonoscopy 11/01/20232013 Influenza Vaccine (#1) 2025 9, 04/26/2018, 03/27/2017, Additional history exists Procedures [...] CDT PROCEDURE REPORT Patient: JUNIE RODRÍGUEZ Account: [id number] Room No: : 1950 Patient Type: DOCTORS [...] Most Recently Relevant to Health Maintenance Insurance [facility] HMO REF [facility] MEDICARE ADVANTAGE [place] [id number] Care Teams Bowling Alley Floors Installer Relationship Specialty Start Date End Date Kim Valencia MD [address] [place] [id number] PCP - General Family Medicine 09/09/19
== END 2025-04-14 17:18 | disposition home or self-care (01) ==
PROVIDERS: Emergency Provider Family Medicine; PCP Family Medicine
DX: S30.0XXA Contusion of lower back and pelvis, initial encounter (principal); J44.9 Chronic obstructive pulmonary disease, unspecified; E78.5 Hyperlipidemia, unspecified; I10 Essential (primary) hypertension; E78.2 Mixed hyperlipidemia; Z87.891 Personal history of nicotine dependence; W01.0XXA Fall on same level from slipping, tripping and stumbling without subsequent striking against object, initial encounter
CPT/HCPCS: 72220; 73110; 99284

== ENCOUNTER 2025-04-15 13:08 | Outpatient (CLI) | payer MEDICARE, SELFPAY ==
--- NOTE | ~2025-04-15 | DEXA_ITS ---
Bone Density Report Name: BERNADETTE RODRÍGUEZ Age: 74 Sex: Female Ethnicity: White Date of : 1950 Indication: postmenopausal; screening for osteoporosis; prior fracture; Referring Provider: ÁLVARO ROQUE Study: Bone densitometry was performed. Exam Date: April 15, 2025 Accession number: [id number] Bone Density: Region BMD T-score Z-score Classification AP Spine(L1, L2, L3) 0.992 -0.2 2.1 Normal World Health Organization criteria for BMD impression classify patients as: Normal (T-score at or above -1.0), Osteopenia (T-score between -1.0 and -2.5), or Osteoporosis (T-score at or below -2.5). Clinical Information Provided by Patient: Have had a previous hip or vertebral fracture Has had a low trauma fracture Has used the following medications: Vitamin D Menopause Age: 49 No regular weight bearing exercise Drinks caffeinated beverages Onset of menses at age 10 Number of children 2 Impression: The patient has normal bone mass. The patient has risk factors, including: previous fracture. Discussion: INCREASED RISK OF FRACTURE DUE TO HISTORY OF FRACTURE. The patient's previous fracture puts the patient at high risk of a future fracture. In untreated patients, the risk of osteoporotic fracture increases approximately two-fold for each 1.0 SD decrease in T-score. Low bone density is not the only risk factor for fracture; also consider factors such as patient's age, frailty or poor health, risk of falling, risk of injury, previous osteoporotic fracture, family history of osteoporosis, cigarette smoking, low body weight, etc. Not everyone with a low trauma fracture has osteoporosis; osteomalacia and other metabolic bone disorders should also be considered. Patients who have osteoporosis should be evaluated for specific diseases and conditions (secondary causes) that may cause or contribute to bone loss and fracture risk. National Osteoporosis Foundation (NOF) recommends pharmacologic intervention for patients with a prior hip or vertebral fracture regardless of BMD T-score. The patient should follow a healthful lifestyle (good nutrition with adequate calcium and vitamin D, and appropriate weight-bearing exercise). Follow-Up: Consider a repeat BMD and Vertebral Fracture Assessment (VFA) exam in 2 years or sooner if medically necessary, to reassess this patient's status. Reported by: COMPA on 04/17/2025 7:57:00 AM. Reviewed, dictated and finalized at location A.
--- OUTSIDE RECORDS SUMMARY | 2025-04-15 15:03 | XMS_ITS | Data Portability ---
Author Organization [facility] Address [address] [place] [address] Care Team Providers Care Circle Beveler Name Role Phone SKYE LEWISIA Primary Care Provider Assessment No assessment recorded. Plan of Treatment Reminders Order Date Submit Date Provider Last Modified By Organization Details Last Modified Time Details Appointments None recorded. Lab None recorded. Referral None recorded. Procedures None recorded. Surgeries None recorded. Imaging None recorded. Medication Orders estradiol 0.01% (0.1 mg/gram) vaginal cream 2024 025 [facility]/Pharmacy #[id number], [address] [place], [address], 22:36:03 Patient TargetsNo targets recorded. Patient InstructionsNo [...] ified . - See comme nt. Fartun raphael by Aj Montelongo MD on 2024 at 0801 CDT ----- ----- ----- ----- ----- ----- [...] speci men [facility] wilbert lopez and 1. Recei khushbu in forma cheko is a 0.5 x 0.4 x 0.2 cm fragm ent of white -farrell tissu e. The speci men is bisec dari and submi tted all in casse tte A1. Gross ed by Moni Pastor on B. Vulva . The speci men is label ed [facility], wilbert lopez and 2. Recei khushbu in forma cheko is a punch of white skin measu ring 0.[address] and is excis ed to a depth of 0.4 cm. The speci men is bisec dari and is submi tted all in casse tte B1. Gross ed by Moni Pastor on Not Available [facility] (Lab) [address], [place], [address], 11/19/2024 09:04:43 Result Notes None recorded. Procedures Surgical History Date Name Laterality Status Provider Name and Address Organization Details Recorded Time 11/18/19 Vulvar Biopsy completed Robinson Fischer MD [address], [place], [address], [facility] 11/18/2024 22:40:19 08/02/19 Date of Last Pap Smear completed [facility] 08/15/2022 09:54:06 complete repair of rotator cuff completed [facility] 08/15/2022 09:56:25 procedure on wrist completed Sera Nooyla [facility] [address], [place], [address], [facility] 08/15/2022 10:07:52 Total hip arthroplasty completed Sera Noyola [facility] [address], [place], [address], [facility] 08/15/2022 10:08:31 total knee replacement completed Sera Noyola [facility] [address], [place], [address], [facility] 08/15/2022 10:08:17 Imaging Results None recorded. Procedure Notes None recorded. Medical Equipment None Reported. Allergies No known drug allergies Medications Name Sig Start Date Stop Date Status Note LastModified by Organization Details LastModified Time silver sulfadiazin e 1 % topical cream APPLY A 1/16 INCH (1.5 MM) THICK LAYER TO ENTIRE BURN AREA BY TOPICALRO STEVEN 2 TIMES PER DAY active Not Available [...] Body mass index (BMI) Body weight Systolic And Diastolic Provider Name and Address Organization Details Last Updated DateTime 07/10/2024 160.02 cm 29.4 kg/m2 76806.33 g 139/77 mm[Hg] Jodi Stout [facility] 07/10/2024 12:52:01 Date Recorded Body height Body mass index (BMI) Body weight Systolic And Diastolic Provider Name and Address Organization Details Last Updated DateTime 07/29/2024 160.02 cm 28.9 kg/m2 94249.56 g 150/82 mm[Hg] [facility] 07/29/2024 14:18:52 Date Recorded Body height Body mass index (BMI) Body weight Systolic And Diastolic Provider Name and Address Organization Details Last Updated DateTime 08/27/2024 160.02 cm 28.9 kg/m2 26578.56 g 142/74 mm[Hg] Apryl [facility] 08/27/2024 14:01:22 Date Recorded Body height Body mass index (BMI) Body weight Systolic And Diastolic Provider Name and Address Organization Details Last Updated DateTime 11/17/2024 160.02 cm 27.8 kg/m2 85214 g 127/70 mm[Hg] Leonela Jackson [facility] 11/17/2024 10:16:12 Date Recorded Body height Body mass index (BMI) Body weight Systolic And Diastolic Provider Name and Address Organization Details Last Updated DateTime 11/20/2024 160.02 cm 27.8 kg/m2 66134 g 130/73 mm[Hg] MIHAI Garcia [facility] 11/20/2024 14:32:06 Social History Question Answer Notes LastModified by Organizat ion Details LastModified Time Tobacco Smoking Status Never Smoker Lyndsay [email or web address] [facility] 08/15/2022 09:56:08 Are You Blind Or Do You Have Difficulty Seeing? No Information n ot available 08/15/2022 In The 14 Days Before Symptom Onset, Have You Had Close Contact With A Laboratory-confirm ed COVID-19 While That Case Was Ill? No [email or web address] Information n ot available 07/29/2024 In The 14 Days Before Symptom Onset, Have You Had Close Contact With A Person Who Is Under Investigation For COVID-19 While That Person Was Ill? No [email or web address] Information not available 07/29/2024 Have You Been [...] LastModified by Organizat ion Details LastModified Time What is your level of alcohol consumption? Occasional Information not available 08/15/2022 Are you able to walk independently without assistance or assistive devices? YESWOREST Information not available 08/15/2022 Are you able to care for yourself independently? Yes Information not available 08/15/2022 Do you have difficulty dressing, bathing, grooming, or toileting? No Information not available 08/15/2022 What is your exercise level? Occasional Information not available 08/15/2022 Mental Status None recorded. Family History Relationship Description Onset Age of this Age Resolved Age Notes LastModified by Organization Details LastModified Time Brother Malignant neoplasm of colon Not available 2022 09:55:35 Father [...] Diagnosis SNOMED-CT Code Diagnosis ICD10 Code Diagnosis IMO Codes Diagnosis Note [id number] eSra Noyola [facility] [address],[place] [address] 08/15/2022 09:39:19 08/16/2022 16:29:39 Genital herpes simplex 54091655 A60.9 Today we discussed use of Valtrex. [...] review of plan of care. Vulval irritation 295933 003 N90.89 [id number] Sera Noyola [facility] [address],[place] [address] 08/29/2022 16:20:17 08/30/2022 11:26:23 Genital herpes simplex 67737108 A60.9 Doing well today.All sx's resolved.S o [...] review of plan of care. Atrophic vaginitis 38988 000 N95.2 [id number] CRISTIAN Campos [facility] [address],[place] [address] 07/10/2024 12:30:58 07/10/2024 13:51:08 Atrophic vulva 363558211 N90.5 discussed vulvar atrophy with patientvul jaida care guidelines discussed - avoid constant panty liner useveg based moisturize r routine reviewedre commended MD consult to determine if vulvar biospy needed vs if skin changes consistent with menopause/ aging and trial of vaginal estrogen appropriat e. Pt agrees to this plan, verbalized understand ing. MD consult scheduled Lesion of vulva 40698803 6 N90.89 External hemorrhoids 239 49963 K64.4 supportive care discussedi f symptoms continue recommend referral to colorectal surgery Time spent in visit is a total of 20 mins with at least 50% of visit consisting of counseling and review of plan of care. [id number] ALICE CHANCE MD [facility] [address],[place] [address] 07/29/2024 13:46:56 07/30/2024 14:07:30 Vulval irritation 682292389 N90.89 - likely 2/2 vulvar atrophy, worsened by recent incontinen ce with URI- vulvar tissue very thin, erythemato us- recommend 1 month of vaginal estrogen, then reevaluati on with possible biopsy at that time if not improved [id number] ALICE CHANCE MD [facility] [address],[place] [address] 08/27/2024 13:55:43 08/27/2024 15:52:01 Vulval irritation 725895481 N90.89 - likely 2/2 vulvar atrophy, worsened by recent incontinen ce with URI- vulvar tissue very thin, erythemato us on recent exam- symptoms improved with vaginal estrogen- ok to decrease to 1-2x weekly, or continue 3x weekly if symptoms return- rtc as needed [id number] Robinson Fischer MD [facility] [address] [address] 11/17/2024 09:53:14 11/19/2024 04:26:40 Lesion of vulva 774130261 N90.89 [id number] Biopsies were performed of the vulva. She will continue to treat with estradiol cream. Will likely need topical steroids. [id number] Robinson Fischer MD [facility] [address] [address] 11/20/2024 14:24:01 11/20/2024 16:03:21 Lichen sclerosus of vulva 547670550 N90.4 [id number] this patient is a 74-year-ol d female [...] Echeverria Member ID Guarantor Name 11/17/2024 1 [facility] (MEDICARE REPLACEMENT/A DVANTAGE - POS) [id number] Junie Alfred [id number] Junie Alfred Notes Date Note Type Note [...] genital HSV CRISTIAN Campos [address], [place], [address], [facility] 07/10/2024 13:50:42 5 text/html Patient [...] bleeding. ALICE CHANCE MD [address], [place], [address], [facility] 07/29/2024 22:36:15 5 text/html ROS as noted in the HPI Patient presents for med check of vaginal estrogen cream. She was prescribed vaginal estrogen for vulvar atrophy and irritation. She reports vast improvement in all of her symptoms. No bleeding or irritation. No side effects. ALICE CHANCE MD [address], [place], [address], [facility] 08/27/2024 15:51:27 5 text/html 74-year-old female with intense vulvar pruritus and now painful lesions. Patient has history of genital herpes. Examination the vulva showed the appearance lichen sclerosis and some severely excoriated or ulcerated area. These areas were then biopsied. Robinson Fischer MD [address], [place], [address], [facility] 11/18/2024 22:41:19 5 text/html this [...] detailed instructions and precautions. Robinson Fischer MD [address], [place], [address], [facility] 11/20/2024 15:49:44 OBGyn Episode Ob Episode Information Episode Created Date Number of Fetuses Patient Bloodtype Patient rh Status Prepregnancy Weight lbs Domestic Partner Domestic Partner Phone Father Name Kennel Hand Status 08/15/19 1 CLOSED Fetus Data First Name Last Name Admitted to NICU Weight (g) Sex Living Outcome Pediatric Complications Fetus ID Race Codes Race Delivery Type F Full Term 15032 Vaginal Delivery Ricardo Calculation Initial Ricardo Date [...] Domestic Partner Domestic Partner Phone Father Name Kennel Hand Status 08/15/19 1 CLOSED Fetus Data First Name Last Name Admitted to NICU Weight (g) Sex Living Outcome Pediatric Complications Fetus ID Race Codes Race Delivery Type F Full Term [id number] Vaginal Delivery Ricardo Calculation Initial Ricardo Date [...]
--- OUTSIDE RECORDS SUMMARY | 2025-04-15 15:03 | XMS_ITS | Clinical Summary ---
Author Organization [facility] Address [address] [place] [address] Care Team Providers Care Music Internship Name Role Phone Kim Valencia MD Primary Care Provider [phone]- [phone] Allergies No known active allergies Medications albuterol [...] (10/17/2022): Added automatically from request for surgery [id number] Chronic obstructive pulmonar y disease, unspecified 08/29/2022 [...] approved and scheduled for next Sunday with ship worker, along with repeat PFTs. Discussed that if CT were to show worsening disease, or it patient has worsening symptoms, we could discuss treatment regimen. - Pt in agreement with this plan of care. Will continue to follow-up with her ship worker. - Discussed with patient the rational [...] = 0.6 oz pu re alcohol) occasioanlly [facility] Utilities Answer Date Recorded In the past 12 months has [facility] [employer], oil, or water [employer] threatened to shut off services in your [...] place to sleep or slept in a usp (including now)? Patient declined 08/23/2023 Comments No Sex and Gender Information Value Date Recorded Sex Assigned at Not on file Legal Sex Female 2:46 AM CDT Gender Identity Not on file Sexual Orientation Not on file Last Filed Vital Signs Vital Sign Reading Time Taken Comments Blood Pressure 105/48 08/27/2023 11:54 AM ECOLOGICAL MODELER Pulse 88 08/27/2023 11:54 AM ECOLOGICAL MODELER Temperature 36.5 C (97.7 F) 08/27/2023 11:54 AM ECOLOGICAL MODELER Respiratory Rate 18 08/27/2023 11:5 4 AM ECOLOGICAL MODELER Oxygen Saturation 90% 08/27/2023 11: 54 AM ECOLOGICAL MODELER Inhaled Oxygen Concentration - - Weight 88.9 kg (195 lb 15.8 oz) 08/25/2023 5:00 AM ECOLOGICAL MODELER Height 160 cm (5' 3) 08/18/2023 1:55 AM ECOLOGICAL MODELER Body Mass Index 34.72 08/18/2023 1:55 AM ECOLOGICAL MODELER Plan of Treatment Health Maintenance Due Date [...] Edward, RN Medical Devices Implanted Type Area Financial Systems Director Device Identifier Shelf Expiration Date Model / Serial / Lot Graft Bone Cortical Strut Frozen 20cm - [id number] Implanted:Qty: 1 on 08/20/2023 by Xavi Bhatia MD at [facility] Right: Femur [employer] [id number] 10/22/2024 [id number] / [id number] / Graft Bone Bonus Triad Cancellous Cortical 10cc Allograft - [id number] Implanted:Qty: 1 on 08/20/2023 by Xavi Bhatia MD at [facility] Bone Right: Leg [employer] 03/17/2027 [id number] / [id number] / Cap Joceline Ncb Locking 8mm - [id number] Implanted:Qty: 12 on 08/20/2023 by Xavi Bhatia MD at [facility] End Cap Right: Femur [employer] [id number] / / N/A Plate Joceline Distal Femur 15 Hole 317mm Right - [id number] Implanted:Qty: 1 on 08/20/2023 by Xavi Bhatia MD at [facility] Plate Right: Femur [employer] [id number] / / N/A Screw Joceline 5.0 Cortical Self Tapping 48mm - [id number] Implanted:Qty: 1 on 08/20/2023 by Xavi Bhatia MD at [facility] Screw Right: Femur [employer] [id number] / / N/A Screw Joceline 5.0 Cortical Self Tapping 42mm - [id number] Implanted:Qty: 1 on 08/20/2023 by Xavi Bhatia MD at [facility] Screw Right: Femur [employer] [id number] / / N/A Screw Joceline 5.0 Cortical Self Tapping 36mm - [id number] Implanted:Qty: 1 on 08/20/2023 by Xavi Bhatia MD at [facility] Screw Right: Femur [employer] [id number] / / N/A Screw Joceline 3.5 Cortical Self Tapping 38mm - [id number] Implanted:Qty: 2 on 08/20/2023 by Xavi Bhatia MD at [facility] Screw Right: Femur [employer] [id number] / / N/A Screw Joceline 5.0 Unicortical 14mm - [id number] Implanted:Qty: 1 on 08/20/2023 by Xavi Bhatia MD at [facility] Screw Right: Femur [employer] [id number] / / N/A Screw Joceline 5.0 Cortical Self Tapping 80mm - [id number] Implanted:Qty: 3 on 08/20/2023 by Xavi Bhatia MD at [facility] Screw Right: Femur [employer] [id number] / / N/A Screw Joceline 5.0 Cortical Self Tapping 60mm - [id number] Implanted:Qty: 1 on 08/20/2023 by Xavi Bhatia MD at [facility] Screw Right: Femur [employer] [id number] / / N/A Screw Joceline 5.0 Cortical Self Tapping 75mm - [id number] Implanted:Qty: 1 on 08/20/2023 by Xavi Bhatia MD at [facility] Screw Right: Femur [employer] [id number] / / N/A Screw Joceline 5.0 Cortical Self Tapping 70mm - [id number] Implanted:Qty: 1 on 08/20/2023 by Xavi Bhatia MD at [facility] Screw Right: Femur [employer] [id number] / / N/A Wire Fix 30cm 1.22mm Luq Loop - [id number] Implanted:Qty: 5 on 08/20/2023 by Xavi Bhatia MD at [facility] Wire Right: Femur [employer] [id number] / / NA Axsos 3 Ti 5.0 Variableangle Extension Arm Implanted:Qty: 1 on 10/17/2022 by Raffi Jeffries MD at [facility] Right: Femur 08/30/2023 [id number] / / [id number] Locking Screw Implanted:Qty: 4 on 10/17/2022 by Raffi Jeffries MD at [facility] Right: Femur [employer] SYL [id number] / / 5 Locking Screw Implanted:Qty: 2 on 10/17/2022 by Raffi Jeffries MD at [facility] Right: Femur [employer] SY[employer] [id number] / / 5 Locking Screw Implanted:Qty: 1 on 10/17/2022 by Raffi Jeffries MD at [facility] Right: Femur [employer] SYL [id number] / / 4 Locking Screw Implanted:Qty: 1 on 10/17/2022 by Raffi Jeffries MD at [facility] Right: Femur [employer] SYL [id number] / / 5 Locking Screw Implanted:Qty: 1 on 10/17/2022 by Raffi Jeffries MD at [facility] Right: Femur [employer] SYL [id number] / / Tigertape Cerclage Implanted:Qty: 2 on 10/17/2022 by Raffi Jeffries MD at [facility] Right: Femur 05/01/2025 [id number] / / [id number] Distal Femur Plate Right Implanted:Qty: 1 on 10/17/2022 by Raffi Jeffries MD at [facility] Right: Femur [employer] SYL [id number] / / 4.5 Non Locking Screw Implanted:Qty: 1 on 10/17/2022 by Raffi Jeffries MD at [facility] Right: Femur [employer] SY[employer] [id number] / / 4.5 Non Locking Screw Implanted:Qty: 2 on 10/17/2022 by Raffi Jeffries MD at [facility] Right: Femur [employer] [id number] / / 5 Locking Screw Implanted:Qty: 1 on 10/17/2022 by Raffi Jeffries MD at [facility] Right: Femur [employer] [id number] / / 5 Locking Screw Implanted:Qty: 1 on 10/17/2022 by Raffi Jeffries MD at [facility] Right: Femur [employer] SYL [id number] / / 5 Locking Screw Implanted:Qty: 1 on 10/17/2022 by Raffi Jeffries MD at [facility] Right: Femur [employer] SYL [id number] / / Explanted Type Area Financial Systems Director Device Identifier Shelf Expiration Date Model / Serial / Lot Drill Bit Joceline 4.3mm - [id number] Explanted:Qty: 1 on 08/20/2023 by Xavi Bhatia MD at [facility] Drill Right: Femur [employer] [id number] / / N/A Pin Steinmann Threaded Brasseler 2.0 - [id number] Explanted:Qty: 1 on 08/20/2023 by Xavi Bhatia MD at [facility] Pin Right: Leg BRASSELER [facility] [id number] 05/18/2027 [id number] / / [id number] 3.1 Drill Bit Explanted:Qty: 1 on 10/17/2022 by Raffi Jeffries MD at [facility] Right: Femur [employer] SY[employer] [id number] / / 3.2 Drill Bit Explanted:Qty: 1 on 10/17/2022 by Raffi Jeffries MD at [facility] Right: Femur [employer] SY[employer] [id number] / / 4.3 Drill Bit Explanted:Qty: 1 on 10/17/2022 by Raffi Jeffries MD at [facility] Right: Femur [employer] [id number] / / K Wire Explanted:Qty: 2 on 08/20/2023 by Xavi Bhatia MD at [facility] Right: Femur [employer] [id number] 0 / / N/A Drill Bit 3.3 Explanted:Qty: 2 on 08/20/2023 by Xavi Bhatia MD at [facility] Right: Femur [employer] [id number] / / N/A Insurance MEDICARE MEDICAL [...] 4:06 PM 2022 4:29 PM Care Teams Music Internship Relationship Specialty Start Date End Date Kim Valencia MD [address] [facility] [address] [place] [address] PCP - General FAMILY PRACTICE 10/17/22
--- OUTSIDE RECORDS SUMMARY | 2025-04-15 15:03 | XMS_ITS | Clinical Summary ---
Author Organization [facility] [place] [address] [facility] [address] [facility] [address] [place] [address] Care Team Providers Care Publicity Writer Name Role Phone Kim Valencia MD Primary [...] 08/29/2022 Assessment & Plan (08/29/2022 3:02 PM HIDE EXAMINER): - Discussed with patient that her symptoms [...] approved and scheduled for next Sunday with national facilities manager, along with repeat PFTs. Discussed that if CT were to show worsening disease, or it patient has worsening symptoms, we could discuss treatment regimen. - Pt in agreement with this plan of care. Will continue to follow-up with her national facilities manager. - Discussed with patient the rational for [...] on file Legal Sex Female 7:28 PM HIDE EXAMINER Gender Identity Not on file Sexual Orientation Not on file Obstetrics History Last Filed Vital Signs Vital Sign Reading Time Taken Comments Blood Pressure 156/85 08/28/2022 10:01 AM HIDE EXAMINER Pulse 67 08/28/2022 10:01 AM HIDE EXAMINER Temperature 36.7 C (98.1 F) 08/28/2022 10:01 AM HIDE EXAMINER Respiratory Rate 12 04/25/2021 2:35 PM CDT Oxygen Saturation - - Inhaled Oxygen Concentration - - Weight 78.8 kg (173 lb 11.2 oz) 023 10:01 AM HIDE EXAMINER Height 160 cm (5' 2.99) 08/28/2022 10: 01 AM HIDE EXAMINER Body Mass Index 30.78 08/28/2022 10:01 AM HIDE EXAMINER Plan of Treatment Health Maintenance Due Date [...] CDT PROCEDURE REPORT Patient: JUNIE RODRÍGUEZ Account: [id number] Room No: : 1950 Patient Type: [facility] Attend.: Hilary Mchugh M.D. Admit Date: 10/31/2013 [...] Most Recently Relevant to Health Maintenance Insurance [facility] HMO REF [facility] Address: [address] [address] [place] [address] [facility] Address: [phone] [place] [address] [facility] Address: [address] [address] [place] [address] [facility] ADVANTAGE [facility] Address: [address] [address] [place] [id number] Care Teams Publicity Writer Relationship Specialty Start Date End Date Kim Valencia MD [address] [facility] [address] [place] [id number] PCP - General Family Medicine 09/09/19
== END 2025-04-15 13:09 | disposition home or self-care (01) ==
PROVIDERS: PCP Physician Assistant Medical
DX: Z78.0 Asymptomatic menopausal state (principal)
CPT/HCPCS: 77080